=== PATIENT | male | born 1940 | race Caucasian/White ===

== ENCOUNTER → 2017-03-07 | Outpatient (CLI) | payer BC ==
[~2017-03-07] MED LIST: FLUO0.05 TOP; METO50TA7 PO; MULT-506 PO; RIVA1TAB4 PO; ZOLP5TAB PO
[2017-03-07 16:45] LABS: BASO % 0.3 %; BASO ABS # 0.02 K/uL (0-0.2); COMPLETE YES; EOS % 0.7 %; IG% 0.1 %; LYMPH % 29.1 %; LYMPH ABS # 2.11 K/uL (1.2-3.4); MEAN CELL VOLUME 96.8 fL (80-100); MEAN CORPUSCULAR HEMOGLOBIN 32.9 pg (25-34); MEAN PLATELET VOLUME 10.1 fL (7.4-10.4); MONO % 13.3 %; NEUT % 56.5 %; PLATELET COUNT 280 K/uL (130-400); RED BLOOD COUNT 4.34 M/uL (4.7-6.1); WHITE BLOOD COUNT 7.24 K/uL (4.8-10.8)
[2017-03-07 16:54] LABS: BLOOD UREA NITROGEN 11 mg/dl (7-18); CALCIUM 9.2 mg/dl (8.5-10.1); CARBON DIOXIDE 30 mmol/L (21-32); CHLORIDE 95 mmol/L (98-107); GLUCOSE 120 mg/dl (70-99); POTASSIUM 4.3 mmol/L (3.5-5.1); SODIUM 132 mmol/L (136-145)
== END | disposition home or self-care (01) ==
LOC: C.LABBC 14:42
PROVIDERS: ATTEND Family Medicine
DX: I48.91 Unspecified atrial fibrillation (principal); I10 Essential (primary) hypertension

== ENCOUNTER 2023-08-22 14:51 | Inpatient (IN) ==
--- NOTE | 2023-08-22 15:20 | ED Triage Note ---
Date of Service August 22, 2023 Provider in Triage Author: Mary Alice Dick History of Present Illness This patient was briefly evaluated while in triage. An abbreviated physical exam was performed. This patient is a 83-year-old Male who presents to the ED for evaluation of abnormal CXR and labs. The patient saw his PCP and they did labs and CXR and were referred to the ER. His thinks he might have pneumonia. Has been sick for the past 10 days. Has been coughing up a lot of mucous and having SOB. No fevers. CXR showed small bilateral pleural effusions with underlying atelectasis, but no evidence of pneumonia. Blood work not available in our system. Physical Exam GENERAL: Non-toxic and in no acute distress. HEENT: Pupils equal. No obvious scleral icterus. HEART: Regular rate and rhythm. LUNGS: Clear to auscultation. No accessory muscle use. ABDOMEN: Soft, nontender to palpation. NEURO: Alert and oriented. No obvious neurological deficits on quick neuro exam. Initial orders for labs and / or imaging were placed and patient was placed in the waiting area until a bed is available. Please see further documentation for the full ED course. MDM / Impression Impression Impression: CHF (congestive heart failure), Elevated troponin Impression: CHF (congestive heart failure) Qualifiers: Heart failure type: unspecified Heart failure chronicity: unspecified Qualified Code(s): I50.9 - Heart failure, unspecified
[2023-08-22] MEDS ORDERED: SODIUM CHLORIDE 0.9% 500 ML IV STA (15:23)
--- NOTE | 2023-08-22 16:43 | Emergency Department Note ---
Impression & Plan Elevated troponin, CHF (congestive heart failure) ED Provider Note NAME: LILLY SUN AGE: 83 SEX: M : 1940 ARRIVES VIA: Walk-In INFORMANT: Patient ED PROVIDER(S): Figueroa Uriarte DO CHIEF COMPLAINT: possible pneumonia HPI: Patient is an 83-year-old male who presents to the ER for possible pneumonia sent in by PCP with . History is obtained by who notes that he has possible pneumonia. Has had cough and congestion for the past 10 days. Bringing up productive. Patient denies any headache or change in vision. He notes to feeling weak and rundown. He denies any chest pain or shortness of breath. No belly pain. No nausea, vomiting, or diarrhea. No dysuria, urgency, or frequency. ADDITIONAL HISTORY OBTAINED: Per HPI Chronic Medical/Social Conditions Affecting Care: Per HPI PAST MEDICAL HISTORY:See Below PAST SURGICAL HISTORY:See Below FAMILY HISTORY:See Below SOCIAL HISTORY:See Below HOME MEDICATIONS:See Below ALLERGIES:See Below VITALS:See Below PHYSICAL EXAMINATION: GENERAL: Sitting up in chair, alert, well appearing, well nourished, no distress, non-toxic EYE EXAM: normal conjunctiva. OROPHARYNX: no exudate, no erythema, lips, buccal mucosa, and tongue normal and mucous membranes are moist NECK: supple, no nuchal rigidity, no adenopathy, non-tender LUNGS: Clear to auscultation. Normal chest wall mechanics HEART: no murmurs, S1 normal and S2 normal ABDOMEN: abdomen soft, non-tender, normo-active bowel sounds, no masses, no rebound or guarding. UPPER EXTREMITIES: upper extremities are grossly normal. LOWER EXTREMITIES: No pitting edema. NEURO EXAM: Normal sensorium, cranial nerves II-XII grossly intact, normal speech, no gross weakness of arms, no gross weakness of legs. MEDICAL DECISION MAKING: Patient is an 83-year-old male who presents to the ER for above-stated complaint. IV was established blood work is obtained. Labs show no significant leukocytosis or anemia. INR at 1.9. BMP was fairly unremarkable. Troponin was elevated at 28. BNP elevated at nearly 600. Pro-Ramon was normal. Viral panel was negative. Chest x-ray with pleural effusions. Do favor this is secondary to mild CHF although patient was referred in for admission. Initially did cover the patient with Rocephin and azithromycin. Case was discussed with the hospitalist admitted for further workup Consults/Care Managements Discussions: Per [facility] Triage Nursing notes reviewed. Limited review of prior medical records performed Vital Signs: reviewed and remarkable for no significant abnormalities Differential diagnosis: Infection, dehydration, metabolic abnormality, hypo/hyperglycemia, electrolyte disturbance, anemia, hypoxia, cardiac sources, intracerebral event, toxicologic, neurologic, as well as other pathologies. ER treatment provided: See below Diagnostics interpreted by me include EKG and cardiac monitoring as listed below: -Cardiac Monitoring: An order was placed for continuous cardiac monitoring. The monitor shows a rate of 90 with sinus rhythm. -ECG: A-fib rate 97 PVCs T wave inversion in septal leads ST depressions in V3 Poor baseline in the inferior leads QTc 482 ST and T wave changes are new in the septal leads in comparison to previous -Laboratory studies:Interpreted by me as stated above in MDM and shown below. Imaging studies: Xrays: As interpreted by me: Portable AP upright 1 view of the chest shows pleural effusion CTs show: none Procedures:none Critical Care: None Past Med/Surg History Medical History Atrial fibrillation f/u dr. 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 S/P cholecystectomy S/P splenectomy Family History Mother Rheumatoid arthritis Denies family history of Ovarian cancer Prostate cancer Myocardial infarction Breast cancer Colorectal cancer Social History Smoking Status: Never smoker Second Hand Exposure: No; Do You Dip or Chew Tobacco: No; Hx Alcohol Use: Yes Alcohol type: wine Alcohol Intake Frequency: 4 or More x per/Week Alcohol Intake Frequency Comment: with dinner Hx Substance Use: No Preferred Language: Moroccan Communication Ability: Effective Visual Impairment: No Limitations Hearing Ability: Normal Jalousie Installer Required: No Beliefs That Will Affect Care: None marital status: Current Living Situation: Spouse current occupational status: retired 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 How many Children do You have: 4 Feels Safe at Home: Yes Childhood Exposure to Second-Hand Smoke: No Diet: regular Diet Comment: regular caffeine: Yes during the past year weight has: remained stable Dental Care, Regularly: No Physical Activity Frequency: 1-2 Times per Week Seatbelt Use: always Sunscreen Use: No Assistive Devices: Glasses and Hearing Aid - Bilateral Allergies Allergies Allergy/AdvReac Type Severity Reaction Status Date / Time No Known Drug Allergies Allergy Verified 08/02/23 13:06 Home Meds Home Medications Medication Instructions Recorded Confirmed cholecalciferol (vitamin D3) 25 25 mcg PO QAM 10/20/22 08/22/23 mcg (1,000 unit) capsule dutasteride 0.5 mg capsule 0.5 mg PO HS 11/26/22 08/22/23 metoprolol succinate 50 mg 50 mg PO QAM 04/19/23 08/22/23 tablet,extended release 24 hr amoxicillin 875 mg-potassium 1 tab PO Q12H 08/22/23 08/22/23 clavulanate 125 mg tablet azithromycin 500 mg tablet 2,000 mg PO DAILY 08/22/23 08/22/23 multivitamin 1 tab PO QAM 08/22/23 08/22/23 zolpidem 5 mg tablet 5 mg PO HS 08/22/23 08/22/23 Previous Rx's Medication Instructions Recorded rivaroxaban 20 mg tablet (Xarelto) 20 mg PO QAM #90 tabs 11/29/22 Results & Data (ED) Vital Signs Vital Signs - 24 hr 08/22/23 15:19 08/22/23 18:30 08/22/23 18:48 Temperature 36 C L Temperature Source Temporal Artery Scan Pulse Rate 95 H 100 H 97 H Pulse Rate [Apical] Pulse Rhythm Respiratory Rate 20 24 Respiratory Effort / Characteristics Non-Labored Spontaneous Respiratory Depth Normal Respiratory Pattern Regular Blood Pressure 145/93 H 158/130 H Blood Pressure [Right Arm] Blood Pressure Mean 110 139 Blood Pressure Mean [Right Arm] Pulse Oximetry 98 Oxygen Delivery Method Room Air Sepsis Recent Fever Within 48 Hours No Sepsis New/Unexplained Change in Mental Status No Sepsis Action Taken by Nursing No Action Required 08/22/23 18:59 08/22/23 19:14 Temperature Temperature Source Pulse Rate 97 H Pulse Rate [Apical] 91 H Pulse Rhythm Regular Respiratory Rate 24 23 Respiratory Effort / Characteristics Respiratory Depth Normal Respiratory Pattern Blood Pressure Blood Pressure [Right Arm] 168/108 H Blood Pressure Mean Blood Pressure Mean [Right Arm] 128 Pulse Oximetry 98 98 Oxygen Delivery Method Room Air Room Air Sepsis Recent Fever Within 48 Hours Sepsis New/Unexplained Change in Mental Status Sepsis Action Taken by Nursing Laboratory Data 08/22/23 16:21 08/22/23 16:21 Lab Results 08/22/23 08/22/23 08/22/23 Range/Units 16:21 18:43 19:26 WBC 6.83 (4.8-10.8) K/ul RBC 3.83 L (4.70-6.10) M/uL Hgb 13.2 L (14.0-18.0) g/dl Hct 39.6 L (42.0-52.0) % MCV 103.4 H (80.0-100.0) fL MCH 34.5 H (25.0-34.0) pg MCHC 33.3 (32.0-36.0) g/dL RDW Std Deviation 56.0 H (36.4-46.3) fL RDW Coeff of Jian 15.3 H (11.5-14.5) % Plt Count 267 (130-400) K/uL MPV 10.1 (9.4-12.4) fL Immature Gran % (Auto) 0.6 % Neut % (Auto) 72.6 % Lymph % (Auto) 12.3 % Ramsey % (Auto) 13.2 % Eos % (Auto) 1.0 % Baso % (Auto) 0.3 % Neut # (Auto) 4.96 (1.40-6.50) K/uL Lymph # (Auto) 0.84 L (1.20-3.40) K/uL Ramsey # (Auto) 0.90 H (0.11-0.59) K/uL Eos # (Auto) 0.07 (0.00-0.50) K/uL Baso # (Auto) 0.02 (0.00-0.20) K/uL Immature Gran # (Auto) 0.04 (0.01-0.20) K/uL Absolute Nucleated RBC 0.03 (0.00-0.12) K/uL Nucleated RBC % (auto) 0.4 % PT 20.1 H (9.0-12.0) Seconds INR 1.9 H (0.9-1.1) APTT 43 H (21-31) Seconds PTT Ratio 1.5 Sodium 137 (136-145) mmol/L Potassium 4.5 (3.5-5.1) mmol/L Chloride 96 L (98-107) mmol/L Carbon Dioxide 39 H (21-32) mmol/L Anion Gap 2 L (3-11) BUN 23 (6-23) mg/dl Creatinine 0.65 (0.6-1.4) mg/dl Est Cr Clr Drug Dosing 70.9 ml/min Est GFR ( Amer) 104.3 ml/min Est GFR (Non-Af Amer) 90.0 ml/min BUN/Creatinine Ratio 35.4 H (10-20) Glucose 101 H (70-99(Fasting)) mg/dl Lactate 1.8 (0.4-2.0) mmol/L Calcium 9.3 (8.6-10.3) mg/dl Total Bilirubin 0.8 (0.2-1.0) mg/dl AST 37 (13-39) U/L ALT 47 (7-52) U/L Alkaline Phosphatase 124 H (34-104) U/L Troponin I High Sens 28.9 H 28.4 H (0-20) pg/ml B-Natriuretic Peptide 593 H (0-100) pg/ml Total Protein 7.1 (6.0-8.3) gm/dl Albumin 3.6 (3.4-5.0) gm/dl Globulin 3.5 (2.5-4.0) gm/dl Albumin/Globulin Ratio 1.0 (0.9-2) Lipase 25 (11-82) U/L Procalcitonin < 0.05 (0-0.5) ng/ml Adenovirus (PCR) Not Detected (NotDetected) B. pertussis DNA (PCR) Not Detected (NotDetected) B.parapertussis DNA PCR Not Detected (NotDetected) C. pneumoniae DNA (PCR) Not Detected (NotDetected) Coronavirus OC43 (PCR) Not Detected (NotDetected) Coronavirus HKU1 (PCR) Not Detected (NotDetected) Coronavirus 229E (PCR) Not Detected (NotDetected) SARS-CoV-2 (PCR) Not Detected (NotDetected) Coronavirus NL63 (PCR) Not Detected (NotDetected) Human Metapneumovir PCR Not Detected (NotDetected) Influenza Type A (PCR) Not Detected (NotDetected) Influenza Type B (PCR) Not Detected (NotDetected) M. pneumoniae (PCR) Not Detected (NotDetected) Parainfluenza 1 (PCR) Not Detected (NotDetected) Parainfluenza 2 (PCR) Not Detected (NotDetected) Parainfluenza 3 (PCR) Not Detected (NotDetected) Parainfluenza 4 (PCR) Not Detected (NotDetected) RSV (PCR) Not Detected (NotDetected) Entero/Rhino (PCR) Not Detected (NotDetected) Administered Medications Azithromycin 500 mg/ Dextrose 255 mls @ 127.5 mls/hr IV NOW STA Stop: 08/22/23 21:06 Last Admin: 08/22/23 20:22 Dose: 127.5 mls/hr Documented By: DANILO Discontinued Medications Sodium Chloride (Nss) 500 mls @ 999 mls/hr IV .Q31M STA Stop: 08/22/23 15:53 Last Infusion: 08/22/23 18:48 Dose: Infused Documented By: Admin: 08/22/23 16:40 Dose: 999 mls/hr Documented By: DANILO Ceftriaxone Sodium (Rocephin) 2,000 mg in 50 mls @ 100 mls/hr IV NOW STA Stop: 08/22/23 19:36 Last Infusion: 08/22/23 20:08 Dose: Infused Documented By: Admin: 08/22/23 19:22 Dose: 100 mls/hr Documented By: DANILO Imaging Data Radiologist's Impression: Chest X-Ray 08/22/23 16:20 SINGLE VIEW CHEST CLINICAL HISTORY: Dyspnea FINDINGS: A PA chest radiograph is compared to study performed earlier the same day 08/22/2023. Advanced atherosclerotic calcification is noted in the carotid bulbs. The heart is enlarged noting atherosclerotic calcification of the thoracic aorta. There is pulmonary vascular congestion. Chronic interstitial thickening is similar to previous. Moderate space opacities are seen bilaterally. There are small pleural effusions with bibasilar consolidation. No pneumothorax is seen. The skeletal structures are osteopenic. The bony thorax is grossly intact. IMPRESSION: 1. Cardiomegaly with pulmonary vascular congestion. 2. Mild bilateral airspace opacities likely represent pulmonary edema. Correlate clinically from the superimposed infectious/inflammatory pneumonitis. Radiographic follow-up to resolution is recommended. 3. Small pleural effusions with dependent consolidation ACT 112: Negative or not required by law. Electronically signed by: Miguel Rosado M.D. 08/22/2023 5:02 PM Discharge Plan Visit Data Chief Complaint: Referred by Doctor Stated Complaint: WAS TOLD TO COME IN ED Provider: Figueroa Uriarte Discharge Problem: Elevated troponin, CHF (congestive heart failure) Forms Stand Alone Forms: [facility] [employer] Prescriptions Prescriptions: No Action Xarelto 20 mg tablet 20 mg PO QAM Qty: 90 1RF cholecalciferol (vitamin D3) 25 mcg (1,000 unit) capsule 25 mcg PO QAM metoprolol succinate 50 mg tablet extended release 24 hr 50 mg PO QAM dutasteride 0.5 mg capsule 0.5 mg PO HS Rx Instructions: take 1 capsule by mouth daily zolpidem 5 mg tablet 5 mg PO HS multivitamin Tablet 1 tab PO QAM amoxicillin-pot clavulanate 875-125 mg Tablet 1 tab PO Q12H azithromycin 500 mg Tablet 2,000 mg PO DAILY Rx Instructions: take for 3 days Referrals Referrals: Madelaine Cagle MD [Primary Care Provider] - Discharge Problem: CHF (congestive heart failure) Qualifiers: Heart failure type: unspecified Heart failure chronicity: unspecified Qualified Code(s): I50.9 - Heart failure, unspecified
[2023-08-22 16:47] LABS: Basophils # (auto) 0.02 K/uL (0.00-0.20); Basophils % (auto) 0.3 %; Eosinophils # (auto) 0.07 K/uL (0.00-0.50); Hematocrit (blood only) 39.6 % (42.0-52.0); Hemoglobin 13.2 g/dl (14.0-18.0); Immature Granulocytes # (auto) 0.04 K/uL (0.01-0.20); Immature Granulocytes % (auto) 0.6 %; Lymphocytes # (auto) 0.84 K/uL (1.20-3.40); Lymphocytes % (auto) 12.3 %; Mean Corpuscular Hemoglobin 34.5 pg (25.0-34.0); Mean Corpuscular Hgb Conc 33.3 g/dL (32.0-36.0); Mean Corpuscular Volume 103.4 fL (80.0-100.0); Mean Platelet Volume 10.1 fL (9.4-12.4); Monocytes % (auto) 13.2 %; Neutrophils # (auto) 4.96 K/uL (1.40-6.50); Neutrophils % (auto) 72.6 %; Nucleated RBC # (auto) 0.03 K/uL (0.00-0.12); Nucleated RBC % (auto) 0.4 %; Platelet Count 267 K/uL (130-400); RDW Coefficient of Variation 15.3 % (11.5-14.5); Red Blood Count 3.83 M/uL (4.70-6.10); White Blood Count 6.83 K/ul (4.8-10.8)
[2023-08-22 17:01] LABS: Albumin Level 3.6 gm/dl (3.4-5.0); BUN Creatinine Ratio 35.4 (10-20); Bilirubin,Total 0.8 mg/dl (0.2-1.0); Calcium 9.3 mg/dl (8.6-10.3); Creatinine Clr Calc Pharmacy 70.9 ml/min; Est GFR (African American) 104.3 ml/min; Globulin 3.5 gm/dl (2.5-4.0); Potassium 4.5 mmol/L (3.5-5.1); Total Protein 7.1 gm/dl (6.0-8.3)
--- NOTE | 2023-08-22 17:03 | XRay Report ---
SINGLE VIEW CHEST CLINICAL HISTORY: Dyspnea FINDINGS: A PA chest radiograph is compared to study performed earlier the same day 08/22/2023. Advance d atherosclerotic calcification is noted in the carotid bulbs. The heart is enlarged noting atheroscl erotic calcification of the thoracic aorta. There is pulmonary vascular congestion. Chronic interstit ial thickening is similar to previous. Moderate space opacities are seen bilaterally. There are small pleural effusions with bibasilar consolidation. No pneumothorax is seen. The skeletal structures are osteopenic. The bony thorax is grossly intact. IMPRESSION: 1. Cardiomegaly with pulmonary vascular congestion. 2. Mild bilateral airspace opacities likely represent pulmonary edema. Correlate clinically from the superimposed infectious/inflammatory pneumonitis. Radiographic follow-up to resolution is recommended . 3. Small pleural effusions with dependent consolidation ACT 112: Negative or not required by law. Electronically signed by: Miguel Rosado M.D. 08/22/2023 5:02 PM
[2023-08-22 17:06] LABS: Troponin I High Sensitivity 28.9 pg/ml (0-20)
[2023-08-22 17:09] LABS: INR 1.9 (0.9-1.1); Partial Thromboplastin Ratio 1.5; Partial Thromboplastin Time 43 Seconds (21-31); Prothrombin Time 20.1 Seconds (9.0-12.0)
[2023-08-22 17:47] LABS: Adenovirus PCR Not Detected (NotDetected); Bordetella parapertussis PCR Not Detected (NotDetected); Bordetella pertussis PCR Not Detected (NotDetected); Chlamydia pneumoniae PCR Not Detected (NotDetected); Coronavirus 229E PCR Not Detected (NotDetected); Coronavirus CoV-2 (COVID19)PCR Not Detected (NotDetected); Coronavirus HKU1 PCR Not Detected (NotDetected); Coronavirus NL63 PCR Not Detected (NotDetected); Coronavirus OC43PCR Not Detected (NotDetected); Human Metapneumovirus PCR Not Detected (NotDetected); Influenza A PCR Not Detected (NotDetected); Influenza B PCR Not Detected (NotDetected); Mycoplasma pneumoniae PCR Not Detected (NotDetected); Parainfluenza Virus 1 PCR Not Detected (NotDetected); Parainfluenza Virus 2 PCR Not Detected (NotDetected); Parainfluenza Virus 3 PCR Not Detected (NotDetected); Parainfluenza Virus 4 PCR Not Detected (NotDetected); Respiratory Syncytial VirusPCR Not Detected (NotDetected); Rhinovirus/Enterovirus PCR Not Detected (NotDetected)
[2023-08-22] MEDS ORDERED: AZITHROMYCIN 500 MG in DEXTROSE 5% 250 ML IV STA (19:07)
[2023-08-22] MEDS ORDERED: cefTRIAXone SODIUM 2,000 MG/50 ML BAG IV STA (19:07)
[2023-08-22 19:22] LABS: Troponin I High Sensitivity 28.4 pg/ml (0-20)
--- NOTE | 2023-08-22 19:54 | History & Physical Report ---
Date of Service August 22, 2023 Assessment & Plan (1) Pneumonia: (2) Urinary tract infection: (3) Atrial fibrillation with RVR: (4) Atrial fibrillation, permanent: (5) Anticoagulant long-term use: (6) Urinary retention due to benign prostatic hyperplasia: (7) Chronic indwelling Elliott catheter: Plan Bilateral pneumonia- Received ceftriaxone IV and azithromycin IV from the ED Cefepime 2 g IV every 8 hours Azithromycin 500 mg IV daily Duonebs every 4 hours while awake and every 2 hours when necessary. Guaifenesin 12 mg p.o. every 12 hours Tessalon Perles 100 mg p.o. 3 times daily Urinary tract infection/BPH with LUTS/chronic indwelling Elliott catheter- Elliott was most recently changed, 08/18/2023 with normal dipstick UA looks positive in the ED tonight Follow urine culture and sensitivity Antibiotics as above should cover it Continue dutasteride Permanent atrial fibrillation/atrial fibrillation with RVR- Lopressor 5 mg IV x 2, NSS 500 mL IV x 2, metoprolol succinate 50 mg p.o., with repeat in a.m. Additional medications as needed Likely a function of missing his dose of metoprolol this morning, and physiologic stress of infection Continue Xarelto History of Present Illness Chief Complaint: The patient presents to the emergency department with a persistent and progressive productive cough for the past 10 days, accompanied by shortness of breath, dyspnea on exertion, and generalized fatigue and weakness Primary Care Provider: Madelaine Cagle MD The patient is a 89-year-old male with a past medical history including CHF, B12 deficiency, BPH, atrial fibrillation on Xarelto, urinary retention due to BPH, hyponatremia and hypertension. He presents to the emergency department with 10 days of symptoms as noted above. Workup in the emergency department included a BioFire test that was negative, normal CBC with differential and chemistry profile, and INR of 1.9, and imaging suggestive of bilateral pneumonia. From the ED he received the following: Ceftriaxone 2 g IV, azithromycin 500 mg IV and NSS fluid bolus of 500 mL. Allergies Allergy/AdvReac Type Severity Reaction Status Date / Time No Known Drug Allergies Allergy Verified 08/02/23 13:06 Home Medications Medication Instructions Recorded Confirmed Type cholecalciferol (vitamin D3) 25 25 mcg PO QAM 10/20/22 08/22/23 History mcg (1,000 unit) capsule dutasteride 0.5 mg capsule 0.5 mg PO HS 11/26/22 08/22/23 History rivaroxaban 20 mg tablet (Xarelto) 20 mg PO QAM #90 tabs 11/29/22 08/22/23 Rx metoprolol succinate 50 mg 50 mg PO QAM 04/19/23 08/22/23 History tablet,extended release 24 hr amoxicillin 875 mg-potassium 1 tab PO Q12H 08/22/23 08/22/23 History clavulanate 125 mg tablet azithromycin 500 mg tablet 2,000 mg PO DAILY 08/22/23 08/22/23 History multivitamin 1 tab PO QAM 08/22/23 08/22/23 History zolpidem 5 mg tablet 5 mg PO HS 08/22/23 08/22/23 History Past Med/Surg History Medical History Atrial fibrillation f/u dr. 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 S/P cholecystectomy S/P splenectomy Family History Mother Rheumatoid arthritis Denies family history of Ovarian cancer Prostate cancer Myocardial infarction Breast cancer Colorectal cancer Social History Smoking Status: Never smoker Second Hand Exposure: No; Do You Dip or Chew Tobacco: No; Hx Alcohol Use: Yes Alcohol type: wine and hard liquor Alcohol Intake Frequency: 4 or More x per/Week Alcohol Intake Frequency Comment: with dinner Hx Substance Use: No Preferred Language: Bol[place]ian Communication Ability: Effective Visual Impairment: No Limitations Hearing Ability: Normal Special Events Planner Required: No Beliefs That Will Affect Care: None marital status: Current Living Situation: Spouse current occupational status: retired 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 How many Children do You have: 4 Feels Safe at Home: Yes Childhood Exposure to Second-Hand Smoke: No Diet: regular Diet Comment: regular caffeine: Yes during the past year weight has: remained stable Dental Care, Regularly: No Physical Activity Frequency: 1-2 Times per Week Seatbelt Use: always Sunscreen Use: No Assistive Devices: Glasses and Hearing Aid - Bilateral Review of Systems Review of Systems: The patient denies chest pain, palpitations, lower extremity swelling, sore throat, fevers, chills, sweats, nausea, vomiting, diarrhea , constipation, abdominal pain, pelvic pain, blood in urine or stool, dysuria, urinary frequency or urgency, lightheadedness, dizziness, headache, memory loss, loss of consciousness, rash, abnormal bruising or bleeding, imbalance, focal weakness, numbness or tingling in arms or legs, generalized arthralgias or myalgias, back or neck pain, or night sweats. The review of systems is otherwise negative other than for that already noted above, and at least 10 systems have been reviewed. Physical Exam Physical Exam: The patient is awake, alert and oriented 3, well developed and well nourished, normocephalic and atraumatic, lying in bed and in no acute distress. HEENT--PERRL, EOMI, mucous membranes and oropharynx dry. Neck--supple. No JVD. No bruits. Thyroid normal, trachea midline, no adenopathy. Heart--irregularly irregular and tachycardic. No murmurs, rubs or gallops. Lungs--coarse breath sounds bilaterally. No respiratory distress, no accessory muscle use. Abdomen--normal bowel sounds and soft. Nontender. Nondistended Extremities--no cyanosis or clubbing. No edema. Dermatologic--normal skin turgor, normal color, no abnormal lymph nodes, no rash. Neurologic--cranial nerves II through XII grossly intact. Rheumatologic--normal range of motion. Psychiatric--normal affect. Results & Data Results & Data Vital Signs (Past 12 Hours) Vital Signs Temp Pulse Pulse Resp BP BP Pulse Ox 08/22/23 19:14 91 H 23 168/108 H 98 08/22/23 18:59 97 H 24 98 08/22/23 18:48 97 H 24 158/130 H 08/22/23 18:30 100 H 08/22/23 15:19 36 C L 95 H 20 145/93 H 98 O2 Del Method 08/22/23 19:14 Room Air 08/22/23 18:59 Room Air 08/22/23 18:48 08/22/23 18:30 08/22/23 15:19 Room Air Laboratory Results Laboratory Results WBC 6.83 K/ul (4.8-10.8) 08/22/23 16:21 RBC 3.83 M/uL (4.70-6.10) L 08/22/23 16:21 Hgb 13.2 g/dl (14.0-18.0) L 08/22/23 16:21 Hct 39.6 % (42.0-52.0) L 08/22/23 16:21 MCV 103.4 fL (80.0-100.0) H 08/22/23 16:21 MCH 34.5 pg (25.0-34.0) H 08/22/23 16:21 MCHC 33.3 g/dL (32.0-36.0) 08/22/23 16:21 RDW Std Deviation 56.0 fL (36.4-46.3) H 08/22/23 16:21 RDW Coeff of Jian 15.3 % (11.5-14.5) H 08/22/23 16:21 Plt Count 267 K/uL (130-400) 08/22/23 16:21 MPV 10.1 fL (9.4-12.4) 08/22/23 16:21 Immature Gran % (Auto) 0.6 % 08/22/23 16:21 Neut % (Auto) 72.6 % 08/22/23 16:21 Lymph % (Auto) 12.3 % 08/22/23 16:21 [place] % (Auto) 13.2 % 08/22/23 16:21 Eos % (Auto) 1.0 % 08/22/23 16:21 Baso % (Auto) 0.3 % 08/22/23 16:21 Neut # (Auto) 4.96 K/uL (1.40-6.50) 08/22/23 16:21 Lymph # (Auto) 0.84 K/uL (1.20-3.40) L 08/22/23 16:21 [place] # (Auto) 0.90 K/uL (0.11-0.59) H 08/22/23 16:21 Eos # (Auto) 0.07 K/uL (0.00-0.50) 08/22/23 16:21 Baso # (Auto) 0.02 K/uL (0.00-0.20) 08/22/23 16:21 Immature Gran # (Auto) 0.04 K/uL (0.01-0.20) 08/22/23 16:21 Absolute Nucleated RBC 0.03 K/uL (0.00-0.12) 08/22/23 16:21 Nucleated RBC % (auto) 0.4 % 08/22/23 16:21 PT 20.1 Seconds (9.0-12.0) H 08/22/23 16:21 INR 1.9 (0.9-1.1) H 08/22/23 16:21 APTT 43 Seconds (21-31) H 08/22/23 16:21 PTT Ratio 1.5 08/22/23 16:21 Sodium 137 mmol/L (136-145) 08/22/23 16:21 Potassium 4.5 mmol/L (3.5-5.1) 08/22/23 16:21 Chloride 96 mmol/L (98-107) L 08/22/23 16:21 Carbon Dioxide 39 mmol/L (21-32) H 08/22/23 16:21 Anion Gap 2 (3-11) L 08/22/23 16:21 BUN 23 mg/dl (6-23) 08/22/23 16:21 Creatinine 0.65 mg/dl (0.6-1.4) 08/22/23 16:21 Est Cr Clr Drug Dosing 70.9 ml/min 08/22/23 16:21 Est GFR ( Amer) 104.3 ml/min 08/22/23 16:21 Est GFR (Non-Af Amer) 90.0 ml/min 08/22/23 16:21 BUN/Creatinine Ratio 35.4 (10-20) H 08/22/23 16:21 Glucose 101 mg/dl (70-99(Fasting)) H 08/22/23 16:21 Lactate 1.8 mmol/L (0.4-2.0) 08/22/23 16:21 Calcium 9.3 mg/dl (8.6-10.3) 08/22/23 16:21 Magnesium 1.8 mg/dl (1.7-2.4) 08/22/23 18:43 Total Bilirubin 0.8 mg/dl (0.2-1.0) 08/22/23 16:21 AST 37 U/L (13-39) 08/22/23 16:21 ALT 47 U/L (7-52) 08/22/23 16:21 Alkaline Phosphatase 124 U/L (34-104) H 08/22/23 16:21 Troponin I High Sens 28.4 pg/ml (0-20) H 08/22/23 18:43 B-Natriuretic Peptide 593 pg/ml (0-100) H 08/22/23 19:26 Total Protein 7.1 gm/dl (6.0-8.3) 08/22/23 16:21 Albumin 3.6 gm/dl (3.4-5.0) 08/22/23 16:21 Globulin 3.5 gm/dl (2.5-4.0) 08/22/23 16:21 Albumin/Globulin Ratio 1.0 (0.9-2) 08/22/23 16:21 Lipase 25 U/L (11-82) 08/22/23 16:21 Procalcitonin < 0.05 ng/ml (0-0.5) 08/22/23 16:21 Urine Color Yellow 08/23/23 00:40 Urine Appearance Clear (Clear) 08/23/23 00:40 Urine pH 6.0 (4.5-7.5) 08/23/23 00:40 Ur Specific [place] 1.014 (1.000-1.030) 08/23/23 00:40 Urine Protein 2+ (Negative) H 08/23/23 00:40 Urine Glucose (UA) Negative (Negative) 08/23/23 00:40 Urine Ketones Negative (Negative) 08/23/23 00:40 Urine Blood 3+ (Negative) H 08/23/23 00:40 Urine Nitrite Positive (Negative) A 08/23/23 00:40 Urine Bilirubin Negative (Negative) 08/23/23 00:40 Urine Urobilinogen Negative (Negative) 08/23/23 00:40 Ur Leukocyte Esterase 1+ (Negative) H 08/23/23 00:40 Urine WBC (Auto) >30 /hpf (0-5) H 08/23/23 00:40 Urine RBC (Auto) 10-30 /hpf (0-4) H 08/23/23 00:40 U Hyaline Cast (Auto) 1-5 /lpf (0-5) 08/23/23 00:40 U Epithel Cells (Auto) 0-5 /lpf (0-5) 08/23/23 00:40 Urine Bacteria (Auto) 2+ (Negative) H 08/23/23 00:40 Urine Mucus Present (None Prsent) A 08/23/23 00:40 Urine Yeast Not Reportable 08/23/23 00:40 Adenovirus (PCR) Not Detected (NotDetected) 08/22/23 16:21 B. pertussis DNA (PCR) Not Detected (NotDetected) 08/22/23 16:21 B.parapertussis DNA PCR Not Detected (NotDetected) 08/22/23 16:21 C. pneumoniae DNA (PCR) Not Detected (NotDetected) 08/22/23 16:21 Coronavirus OC43 (PCR) Not Detected (NotDetected) 08/22/23 16:21 Coronavirus HKU1 (PCR) Not Detected (NotDetected) 08/22/23 16:21 Coronavirus 229E (PCR) Not Detected (NotDetected) 08/22/23 16:21 SARS-CoV-2 (PCR) Not Detected (NotDetected) 08/22/23 16:21 Coronavirus NL63 (PCR) Not Detected (NotDetected) 08/22/23 16:21 Human Metapneumovir PCR Not Detected (NotDetected) 08/22/23 16:21 Influenza Type A (PCR) Not Detected (NotDetected) 08/22/23 16:21 Influenza Type B (PCR) Not Detected (NotDetected) 08/22/23 16:21 M. pneumoniae (PCR) Not Detected (NotDetected) 08/22/23 16:21 Parainfluenza 1 (PCR) Not Detected (NotDetected) 08/22/23 16:21 Parainfluenza 2 (PCR) Not Detected (NotDetected) 08/22/23 16:21 Parainfluenza 3 (PCR) Not Detected (NotDetected) 01/08/24 16:21 Parainfluenza 4 (PCR) Not Detected (NotDetected) 08/22/23 16:21 RSV (PCR) Not Detected (NotDetected) 08/22/23 16:21 Entero/Rhino (PCR) Not Detected (NotDetected) 08/22/23 16:21 Impressions Chest X-Ray 08/22/23 16:20 SINGLE VIEW CHEST CLINICAL HISTORY: Dyspnea FINDINGS: A PA chest radiograph is compared to study performed earlier the same day 08/22/2023. Advanced atherosclerotic calcification is noted in the carotid bulbs. The heart is enlarged noting atherosclerotic calcification of the thoracic aorta. There is pulmonary vascular congestion. Chronic interstitial thickening is similar to previous. Moderate space opacities are seen bilaterally. There are small pleural effusions with bibasilar consolidation. No pneumothorax is seen. The skeletal structures are osteopenic. The bony thorax is grossly intact. IMPRESSION: 1. Cardiomegaly with pulmonary vascular congestion. 2. Mild bilateral airspace opacities likely represent pulmonary edema. Correlate clinically from the superimposed infectious/inflammatory pneumonitis. Radiographic follow-up to resolution is recommended. 3. Small pleural effusions with dependent consolidation ACT 112: Negative or not required by law. Electronically signed by: Miguel Rosado M.D. 08/22/2023 5:02 PM Code Status & VTE Plan Code Status Full code VTE Prophylaxis Plan VTE Prophylaxis will be ordered: Yes PG Care Time/CCT Total # of Minutes Spent Total Time Spent with Patient: Total time spent is greater than 50% in coordination of care (as documented) at patient's floor/unit and/or counseling patient: Coding Level of Care Code 53987 INT INP/OBS CARE 3/75MIN Diagnoses Pneumonia J18.9 Urinary tract infection N39.0 Atrial fibrillation with RVR I48.91 Atrial fibrillation, permanent I48.21 Anticoagulant long-term use Z79.01 Urinary retention due to benign prostatic hyperplasia N40.1; R33.8 Chronic indwelling Elliott catheter Z97.8
[2023-08-22] MEDS ORDERED: FUROSEMIDE INJ 20 MG/2 ML VIAL IV STA (21:36)
--- NOTE | 2023-08-22 21:36 | Emergency Department Note ---
Impression & Plan CHF (congestive heart failure), Elevated troponin ED Provider Note NAME: LILLY SUN AGE: 83 SEX: M : 1940 ARRIVES VIA: Walk-In INFORMANT: Patient ED PROVIDER(S): Figueroa Uriarte DO CHIEF COMPLAINT: cough HPI: Patient is an 83-year-old male who presents ER with who gives the majority of the history. She notes that he has been having a cough which has been productive over the past 10 days. Patient denies any chest pain or shortness of breath. No belly pain. No nausea vomiting or diarrhea. No dysuria urgency or frequency. Does have a history of A-fib on anticoagulation. He saw his PCP per the and was brought in as he has been slightly more confused and to have a chest x-ray suggesting pneumonia. ADDITIONAL HISTORY OBTAINED: Per HPI Chronic Medical/Social Conditions Affecting Care: Per HPI PAST MEDICAL HISTORY:See Below PAST SURGICAL HISTORY:See Below FAMILY HISTORY:See Below SOCIAL HISTORY:See Below HOME MEDICATIONS:See Below ALLERGIES:See Below VITALS:See Below PHYSICAL EXAMINATION: GENERAL: Sitting up in bed, alert, well appearing, well nourished, no distress, non-toxic EYE EXAM: normal conjunctiva. OROPHARYNX: mucous membranes are moist NECK: supple, no nuchal rigidity, no adenopathy, non-tender LUNGS: Clear to auscultation. Normal chest wall mechanics HEART: no murmurs, S1 normal and S2 normal ABDOMEN: abdomen soft, non-tender, normo-active bowel sounds, no masses, no rebound or guarding. UPPER EXTREMITIES: upper extremities are grossly normal. LOWER EXTREMITIES: No pitting edema. Calves are equal bilaterally NEURO EXAM: Normal sensorium, cranial nerves II-XII grossly intact, normal speech, no gross weakness of arms, no gross weakness of legs. MEDICAL DECISION MAKING: Patient is an 83-year-old male who presents ER for above-stated complaint. IV was established blood work is obtained. Labs show no significant leukocytosis. No anemia. INR slightly subtherapeutic at 1.9. BMP with an elevated CO2 at 39. Lactate was normal. LFTs were unremarkable. Troponin was elevated at 28. BNP elevated at 593. Lipase was normal. Pro-Ramon was normal. Viral panel was negative. Chest x-ray with subtle pleural effusions. Patient was updated bedside. Was covered with azithromycin and Rocephin due to the productive cough initially. Discussed case with the hospitalist for further evaluation management treatment. Patient was given a dose of Lasix. Consults/Care Managements Discussions: Per MDM Triage Nursing notes reviewed. Limited review of prior medical records performed Vital Signs: reviewed and remarkable for htn Differential diagnosis: Differential diagnoses includes but is not limited to pneumonia, bronchitis, COPD/Asthma exacerbation, pneumothorax, pulmonary embolism, congestive heart failure, acute coronary syndrome ER treatment provided: See below Diagnostics interpreted by me include EKG and cardiac monitoring as listed below: -Cardiac Monitoring: An order was placed for continuous cardiac monitoring. The monitor shows a rate of 94 with A-fib rhythm. -ECG: A-fib rate of 97 Normal axis PVCs present T wave inversions in V1 through V3 QTc 482 T wave inversions are new in comparison to previous -Laboratory studies:Interpreted by me as stated above in MDM and shown below. Imaging studies: Xrays: As interpreted by me: Portable AP upright 1 view of the chest shows effusion CTs show: none Procedures:none Critical Care: None Past Med/Surg History Medical History Atrial fibrillation f/u dr. 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 S/P cholecystectomy S/P splenectomy Family History Mother Rheumatoid arthritis Denies family history of Ovarian cancer Prostate cancer Myocardial infarction Breast cancer Colorectal cancer Social History Smoking Status: Never smoker Second Hand Exposure: No; Do You Dip or Chew Tobacco: No; Hx Alcohol Use: Yes Alcohol type: wine Alcohol Intake Frequency: 4 or More x per/Week Alcohol Intake Frequency Comment: with dinner Hx Substance Use: No Preferred Language: Nepalese Communication Ability: Effective Visual Impairment: No Limitations Hearing Ability: Normal Senior Internet Sales Consultant Required: No Beliefs That Will Affect Care: None marital status: Current Living Situation: Spouse current occupational status: retired 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 How many Children do You have: 4 Feels Safe at Home: Yes Childhood Exposure to Second-Hand Smoke: No Diet: regular Diet Comment: regular caffeine: Yes during the past year weight has: remained stable Dental Care, Regularly: No Physical Activity Frequency: 1-2 Times per Week Seatbelt Use: always Sunscreen Use: No Assistive Devices: Glasses and Hearing Aid - Bilateral Allergies Allergies Allergy/AdvReac Type Severity Reaction Status Date / Time No Known Drug Allergies Allergy Verified 08/02/23 13:06 Home Meds Home Medications Medication Instructions Recorded Confirmed cholecalciferol (vitamin D3) 25 25 mcg PO QAM 10/20/22 08/22/23 mcg (1,000 unit) capsule dutasteride 0.5 mg capsule 0.5 mg PO HS 11/26/22 08/22/23 metoprolol succinate 50 mg 50 mg PO QAM 04/19/23 08/22/23 tablet,extended release 24 hr amoxicillin 875 mg-potassium 1 tab PO Q12H 08/22/23 08/22/23 clavulanate 125 mg tablet azithromycin 500 mg tablet 2,000 mg PO DAILY 08/22/23 08/22/23 multivitamin 1 tab PO QAM 08/22/23 08/22/23 zolpidem 5 mg tablet 5 mg PO HS 08/22/23 08/22/23 Previous Rx's Medication Instructions Recorded rivaroxaban 20 mg tablet (Xarelto) 20 mg PO QAM #90 tabs 11/29/22 Results & Data (ED) Vital Signs Vital Signs - 24 hr 08/22/23 15:19 08/22/23 18:30 08/22/23 18:48 Temperature 36 C L Temperature Source Temporal Artery Scan Pulse Rate 95 H 100 H 97 H Pulse Rate [Apical] Pulse Rhythm Respiratory Rate 20 24 Respiratory Effort / Characteristics Non-Labored Spontaneous Respiratory Depth Normal Respiratory Pattern Regular Blood Pressure 145/93 H 158/130 H Blood Pressure [Right Arm] Blood Pressure Mean 110 139 Blood Pressure Mean [Right Arm] Pulse Oximetry 98 Oxygen Delivery Method Room Air Sepsis Recent Fever Within 48 Hours No Sepsis New/Unexplained Change in Mental Status No Sepsis Action Taken by Nursing No Action Required 08/22/23 18:59 08/22/23 19:14 Temperature Temperature Source Pulse Rate 97 H Pulse Rate [Apical] 91 H Pulse Rhythm Regular Respiratory Rate 24 23 Respiratory Effort / Characteristics Respiratory Depth Normal Respiratory Pattern Blood Pressure Blood Pressure [Right Arm] 168/108 H Blood Pressure Mean Blood Pressure Mean [Right Arm] 128 Pulse Oximetry 98 98 Oxygen Delivery Method Room Air Room Air Sepsis Recent Fever Within 48 Hours Sepsis New/Unexplained Change in Mental Status Sepsis Action Taken by Nursing Laboratory Data 08/22/23 16:21 08/22/23 16:21 Lab Results 08/22/23 08/22/23 08/22/23 Range/Units 16:21 18:43 19:26 WBC 6.83 (4.8-10.8) K/ul RBC 3.83 L (4.70-6.10) M/uL Hgb 13.2 L (14.0-18.0) g/dl Hct 39.6 L (42.0-52.0) % MCV 103.4 H (80.0-100.0) fL MCH 34.5 H (25.0-34.0) pg MCHC 33.3 (32.0-36.0) g/dL RDW Std Deviation 56.0 H (36.4-46.3) fL RDW Coeff of Jian 15.3 H (11.5-14.5) % Plt Count 267 (130-400) K/uL MPV 10.1 (9.4-12.4) fL Immature Gran % (Auto) 0.6 % Neut % (Auto) 72.6 % Lymph % (Auto) 12.3 % [place] % (Auto) 13.2 % Eos % (Auto) 1.0 % Baso % (Auto) 0.3 % Neut # (Auto) 4.96 (1.40-6.50) K/uL Lymph # (Auto) 0.84 L (1.20-3.40) K/uL [place] # (Auto) 0.90 H (0.11-0.59) K/uL Eos # (Auto) 0.07 (0.00-0.50) K/uL Baso # (Auto) 0.02 (0.00-0.20) K/uL Immature Gran # (Auto) 0.04 (0.01-0.20) K/uL Absolute Nucleated RBC 0.03 (0.00-0.12) K/uL Nucleated RBC % (auto) 0.4 % PT 20.1 H (9.0-12.0) Seconds INR 1.9 H (0.9-1.1) APTT 43 H (21-31) Seconds PTT Ratio 1.5 Sodium 137 (136-145) mmol/L Potassium 4.5 (3.5-5.1) mmol/L Chloride 96 L (98-107) mmol/L Carbon Dioxide 39 H (21-32) mmol/L Anion Gap 2 L (3-11) BUN 23 (6-23) mg/dl Creatinine 0.65 (0.6-1.4) mg/dl Est Cr Clr Drug Dosing 70.9 ml/min Est GFR ( Amer) 104.3 ml/min Est GFR (Non-Af Amer) 90.0 ml/min BUN/Creatinine Ratio 35.4 H (10-20) Glucose 101 H (70-99(Fasting)) mg/dl Lactate 1.8 (0.4-2.0) mmol/L Calcium 9.3 (8.6-10.3) mg/dl Total Bilirubin 0.8 (0.2-1.0) mg/dl AST 37 (13-39) U/L ALT 47 (7-52) U/L Alkaline Phosphatase 124 H (34-104) U/L Troponin I High Sens 28.9 H 28.4 H (0-20) pg/ml B-Natriuretic Peptide 593 H (0-100) pg/ml Total Protein 7.1 (6.0-8.3) gm/dl Albumin 3.6 (3.4-5.0) gm/dl Globulin 3.5 (2.5-4.0) gm/dl Albumin/Globulin Ratio 1.0 (0.9-2) Lipase 25 (11-82) U/L Procalcitonin < 0.05 (0-0.5) ng/ml Adenovirus (PCR) Not Detected (NotDetected) B. pertussis DNA (PCR) Not Detected (NotDetected) B.parapertussis DNA PCR Not Detected (NotDetected) C. pneumoniae DNA (PCR) Not Detected (NotDetected) Coronavirus OC43 (PCR) Not Detected (NotDetected) Coronavirus HKU1 (PCR) Not Detected (NotDetected) Coronavirus 229E (PCR) Not Detected (NotDetected) SARS-CoV-2 (PCR) Not Detected (NotDetected) Coronavirus NL63 (PCR) Not Detected (NotDetected) Human Metapneumovir PCR Not Detected (NotDetected) Influenza Type A (PCR) Not Detected (NotDetected) Influenza Type B (PCR) Not Detected (NotDetected) M. pneumoniae (PCR) Not Detected (NotDetected) Parainfluenza 1 (PCR) Not Detected (NotDetected) Parainfluenza 2 (PCR) Not Detected (NotDetected) Parainfluenza 3 (PCR) Not Detected (NotDetected) Parainfluenza 4 (PCR) Not Detected (NotDetected) RSV (PCR) Not Detected (NotDetected) Entero/Rhino (PCR) Not Detected (NotDetected) Administered Medications Discontinued Medications Sodium Chloride (Nss) 500 mls @ 999 mls/hr IV .Q31M STA Stop: 08/22/23 15:53 Last Infusion: 08/22/23 18:48 Dose: Infused Documented By: Admin: 08/22/23 16:40 Dose: 999 mls/hr Documented By: DANILO Ceftriaxone Sodium (Rocephin) 2,000 mg in 50 mls @ 100 mls/hr IV NOW STA Stop: 08/22/23 19:36 Last Infusion: 08/22/23 20:08 Dose: Infused Documented By: Admin: 08/22/23 19:22 Dose: 100 mls/hr Documented By: DANILO Azithromycin 500 mg/ Dextrose 255 mls @ 127.5 mls/hr IV NOW STA Stop: 08/22/23 21:06 Last Admin: 08/22/23 20:22 Dose: 127.5 mls/hr Documented By: DANILO Imaging Data Radiologist's Impression: Chest X-Ray 08/22/23 16:20 SINGLE VIEW CHEST CLINICAL HISTORY: Dyspnea FINDINGS: A PA chest radiograph is compared to study performed earlier the same day 08/22/2023. Advanced atherosclerotic calcification is noted in the carotid bulbs. The heart is enlarged noting atherosclerotic calcification of the thoracic aorta. There is pulmonary vascular congestion. Chronic interstitial thickening is similar to previous. Moderate space opacities are seen bilaterally. There are small pleural effusions with bibasilar consolidation. No pneumothorax is seen. The skeletal structures are osteopenic. The bony thorax is grossly intact. IMPRESSION: 1. Cardiomegaly with pulmonary vascular congestion. 2. Mild bilateral airspace opacities likely represent pulmonary edema. Correlate clinically from the superimposed infectious/inflammatory pneumonitis. Radiographic follow-up to resolution is recommended. 3. Small pleural effusions with dependent consolidation ACT 112: Negative or not required by law. Electronically signed by: Miguel Rosado M.D. 08/22/2023 5:02 PM Discharge Plan Visit Data Chief Complaint: Referred by Doctor Stated Complaint: WAS TOLD TO COME IN ED Provider: Figueroa Uriarte Discharge Problem: CHF (congestive heart failure), Elevated troponin Forms Stand Alone Forms: My [facility] Cover Prescriptions Prescriptions: No Action Xarelto 20 mg tablet 20 mg PO QAM Qty: 90 1RF cholecalciferol (vitamin D3) 25 mcg (1,000 unit) capsule 25 mcg PO QAM metoprolol succinate 50 mg tablet extended release 24 hr 50 mg PO QAM dutasteride 0.5 mg capsule 0.5 mg PO HS Rx Instructions: take 1 capsule by mouth daily zolpidem 5 mg tablet 5 mg PO HS multivitamin Tablet 1 tab PO QAM amoxicillin-pot clavulanate 875-125 mg Tablet 1 tab PO Q12H azithromycin 500 mg Tablet 2,000 mg PO DAILY Rx Instructions: take for 3 days Referrals Referrals: Madelaine Cagle MD [Primary Care Provider] - Discharge Problem: CHF (congestive heart failure) Qualifiers: Heart failure type: unspecified Heart failure chronicity: unspecified Qualified Code(s): I50.9 - Heart failure, unspecified
[2023-08-22] MEDS ORDERED: ONDANSETRON INJ 2 MG/ML 2 ML VIAL IV PRN (22:18)
[2023-08-22] MEDS ORDERED: NSS + 20MEQ KCL 20 MEQ/1,000 ML BAG IV SCH (22:45)
[2023-08-22] MEDS: guaiFENesin 600 MG TABCR PO SCH (23:27)
[2023-08-22] MEDS: BENZONATATE 100 MG CAPSULE PO SCH (23:27)
[2023-08-22] MEDS: FINASTERIDE 5 MG TAB PO SCH (23:27)
[2023-08-23] MEDS ORDERED: METOPROLOL TARTRATE 1 MG/ML VIAL IV STA ×2 (00:25→02:49)
[2023-08-23] MEDS: ZOLPIDEM TARTRATE 5 MG TAB PO SCH ×2 (00:46→19:50)
[2023-08-23 01:01] LABS: Appearance Urine Clear (Clear); Bacteria Urine Automated 2+ (Negative); Bilirubin Urine Negative (Negative); Blood Urine 3+ (Negative); Color Urine Yellow; Epithelial Cell Urine Auto 0-5 /lpf (0-5); Glucose Urine UA Negative (Negative); Ketones Urine Negative (Negative); Leukocyte Esterase Urine 1+ (Negative); Nitrite Urine Positive (Negative); Protein Urine 2+ (Negative); Specific Gravity Urine 1.014 (1.000-1.030); Urobilinogen Urine Negative (Negative); WBC Urine Automated >30 /hpf (0-5)
[2023-08-23 01:18] LABS: Mucus Urine Present (None Prsent)
[2023-08-23] MEDS ORDERED: SODIUM CHLORIDE 0.9% 500 ML IV ONE (02:49)
[2023-08-23] MEDS ORDERED: METOPROLOL SUCC 50MG EXT REL TAB PO STA (02:49)
[2023-08-23 03:15] LABS: Magnesium 1.8 mg/dl (1.7-2.4)
[2023-08-23] MEDS: CEFEPIME 2,000 MG in SYRINGE 0 ML IV SCH ×3 (05:46→21:06)
[2023-08-23 06:39] LABS: Basophils # (auto) 0.03 K/uL (0.00-0.20); Basophils % (auto) 0.5 %; Eosinophils # (auto) 0.07 K/uL (0.00-0.50); Eosinophils % (auto) 1.1 %; Hematocrit (blood only) 38.2 % (42.0-52.0); Hemoglobin 12.5 g/dl (14.0-18.0); Immature Granulocytes # (auto) 0.03 K/uL (0.01-0.20); Immature Granulocytes % (auto) 0.5 %; Lymphocytes # (auto) 0.68 K/uL (1.20-3.40); Lymphocytes % (auto) 10.6 %; Mean Corpuscular Hemoglobin 34.2 pg (25.0-34.0); Mean Corpuscular Hgb Conc 32.7 g/dL (32.0-36.0); Mean Corpuscular Volume 104.4 fL (80.0-100.0); Mean Platelet Volume 9.5 fL (9.4-12.4); Monocytes # (auto) 0.84 K/uL (0.11-0.59); Monocytes % (auto) 13.1 %; Neutrophils # (auto) 4.78 K/uL (1.40-6.50); Neutrophils % (auto) 74.2 %; Nucleated RBC # (auto) 0.03 K/uL (0.00-0.12); Nucleated RBC % (auto) 0.5 %; Platelet Count 239 K/uL (130-400); RDW Coefficient of Variation 15.4 % (11.5-14.5); RDW Standard Deviation 58.3 fL (36.4-46.3); Red Blood Count 3.66 M/uL (4.70-6.10); White Blood Count 6.43 K/ul (4.8-10.8)
[2023-08-23] MEDS: ALBUT/IPRATROP 3MG/0.5MG NEB 3 ML VIAL NEB SCH ×4 (07:37→20:31)
[2023-08-23] MEDS: BENZONATATE 100 MG CAPSULE PO SCH ×3 (09:10→19:48)
[2023-08-23] MEDS: CHOLECALCIFEROL 1,000 UNITS 25 MCG TAB PO SCH (09:10)
[2023-08-23] MEDS: METOPROLOL SUCC 50MG EXT REL TAB PO SCH (09:10)
[2023-08-23] MEDS: RIVAROXABAN 20 MG TAB PO SCH (09:10)
[2023-08-23] MEDS: MULTIVITAMIN TAB PO SCH (09:10)
[2023-08-23] MEDS: guaiFENesin 600 MG TABCR PO SCH ×2 (09:11→19:46)
--- NOTE | 2023-08-23 12:03 | Electrocardiogram Report ---
Test Reason : Blood Pressure : / mmHG Vent. Rate : 097 BPM Atrial Rate : 000 BPM P-R Int : 000 ms QRS Dur : 096 ms QT Int : 380 ms P-R-T Axes : 000 083 073 degrees QTc Int : 482 ms Atrial fibrillation with premature ventricular or aberrantly conducted complexes Poor R wave progression, consider anterior [place] vs. lead placement vs. LVH Abnormal ECG When compared with ECG of 11-JAN-2016 12:13, HR has decreased by 30 bpm Atrial fibrillation has replaced Atrial flutter Minimal criteria for Inferior infarct are no longer Present Confirmed by Tonio Kennedy ([id number]) on 08/23/2023 12:03:24 PM Referred By: REFERRED SELF Confirmed By:Tonio Kennedy
--- NOTE | 2023-08-23 16:03 | Hospitalist Progress Note ---
Date of Service August 23, 2023 Assessment & Plan (1) Pneumonia: (2) Urinary tract infection: (3) Atrial fibrillation with RVR: (4) Atrial fibrillation, permanent: (5) Anticoagulant long-term use: (6) Urinary retention due to benign prostatic hyperplasia: (7) Chronic indwelling Elliott catheter: Plan Bilateral pneumonia- Cefepime 2 g IV every 8 hours Azithromycin 500 mg IV daily Duonebs every 4 hours while awake and every 2 hours when necessary. Guaifenesin 12 mg p.o. every 12 hours Tessalon Perles 100 mg p.o. 3 times daily Improving clinically PT and OT consulted Unlikely CHF as the patient is clinically responding to IV antibiotics. Catheter associated urinary tract infection/BPH with LUTS/complicated UTI in the setting of chronic indwelling catheter Elliott was most recently changed, 08/18/2023 with normal dipstick UA looks positive in the ED tonight Follow urine culture and sensitivity Antibiotics as above should cover it Continue dutasteride Permanent atrial fibrillation/atrial fibrillation with RVR- Lopressor 5 mg IV x 2, NSS 500 mL IV x 2, metoprolol succinate 50 mg p.o., with repeat in a.m. Additional medications as needed Likely a function of missing his dose of metoprolol this morning, and physiologic stress of infection Continue Xarelto Heart rate controlled today Admission and Anticipated Discharge Date Admission Date: August 22, 2023 Subjective Patient feels better overall. Denies chest pain or shortness of breath. Still weak in general. Breathing better. Review of Systems Review of Systems: All systems reviewed & are unremarkable except as noted in Subjective Physical Exam Physical Exam: General: Awake, conversant Heart: S1, S2/regular rate and rhythm, no murmur rubs or gallops Lungs: Clear to auscultation bilaterally. Normal effort Abdomen: Soft/nontender/nondistended. No hepatosplenomegaly Extremities: No clubbing/cyanosis. No edema Behavior: Appropriate, cooperative Results & Data Results & Data Vital Signs (Past 12 Hours) Vital Signs Temp Pulse Pulse Resp BP Pulse Ox O2 Del Method 08/23/23 14:49 77 18 94 Room Air 08/23/23 13:01 36.3 C L 100 H 16 150/90 H 94 Room Air 08/23/23 10:20 99 H 18 94 Nasal Cannula 08/23/23 08:01 36.3 C L 87 16 91 Nasal Cannula 08/23/23 08:00 Nasal Cannula 08/23/23 07:37 100 H 18 92 Nasal Cannula 08/23/23 04:30 88 154/108 H O2 Flow Rate 08/23/23 14:49 08/23/23 13:01 08/23/23 10:20 2 08/23/23 08:01 2 08/23/23 08:00 2 08/23/23 07:37 2 08/23/23 04:30 Laboratory Results Abnormal lab results 08/22/23 08/22/23 08/22/23 Range/Units 16:21 18:43 19:26 RBC 3.83 L (4.70-6.10) M/uL Hgb 13.2 L (14.0-18.0) g/dl Hct 39.6 L (42.0-52.0) % MCV 103.4 H (80.0-100.0) fL MCH 34.5 H (25.0-34.0) pg RDW Std Deviation 56.0 H (36.4-46.3) fL RDW Coeff of Jian 15.3 H (11.5-14.5) % Lymph # (Auto) 0.84 L (1.20-3.40) K/uL [place] # (Auto) 0.90 H (0.11-0.59) K/uL PT 20.1 H (9.0-12.0) Seconds INR 1.9 H (0.9-1.1) APTT 43 H (21-31) Seconds Chloride 96 L (98-107) mmol/L Carbon Dioxide 39 H (21-32) mmol/L Anion Gap 2 L (3-11) BUN/Creatinine Ratio 35.4 H (10-20) Glucose 101 H (70-99(Fasting)) mg/dl Alkaline Phosphatase 124 H (34-104) U/L Troponin I High Sens 28.9 H 28.4 H (0-20) pg/ml B-Natriuretic Peptide 593 H (0-100) pg/ml Urine Protein (Negative) Urine Blood (Negative) Urine Nitrite (Negative) Ur Leukocyte Esterase (Negative) Urine WBC (Auto) (0-5) /hpf Urine RBC (Auto) (0-4) /hpf Urine Bacteria (Auto) (Negative) Urine Mucus (None Prsent) 08/23/23 08/23/23 Range/Units 00:40 06:10 RBC 3.66 L (4.70-6.10) M/uL Hgb 12.5 L (14.0-18.0) g/dl Hct 38.2 L (42.0-52.0) % MCV 104.4 H (80.0-100.0) fL MCH 34.2 H (25.0-34.0) pg RDW Std Deviation 58.3 H (36.4-46.3) fL RDW Coeff of Jian 15.4 H (11.5-14.5) % Lymph # (Auto) 0.68 L (1.20-3.40) K/uL [facility] # (Auto) 0.84 H (0.11-0.59) K/uL PT (9.0-12.0) Seconds INR (0.9-1.1) APTT (21-31) Seconds Chloride (98-107) mmol/L Carbon Dioxide (21-32) mmol/L Anion Gap (3-11) BUN/Creatinine Ratio (10-20) Glucose (70-99(Fasting)) mg/dl Alkaline Phosphatase (34-104) U/L Troponin I High Sens (0-20) pg/ml B-Natriuretic Peptide (0-100) pg/ml Urine Protein 2+ H (Negative) Urine Blood 3+ H (Negative) Urine Nitrite Positive A (Negative) Ur Leukocyte Esterase 1+ H (Negative) Urine WBC (Auto) >30 H (0-5) /hpf Urine RBC (Auto) 10-30 H (0-4) /hpf Urine Bacteria (Auto) 2+ H (Negative) Urine Mucus Present A (None Prsent) Diagnostic Findings Chest X-Ray 08/22/23 16:20 SINGLE VIEW CHEST CLINICAL HISTORY: Dyspnea FINDINGS: A PA chest radiograph is compared to study performed earlier the same day 08/22/2023. Advanced atherosclerotic calcification is noted in the carotid bulbs. The heart is enlarged noting atherosclerotic calcification of the thoracic aorta. There is pulmonary vascular congestion. Chronic interstitial thickening is similar to previous. Moderate space opacities are seen bilaterally. There are small pleural effusions with bibasilar consolidation. No pneumothorax is seen. The skeletal structures are osteopenic. The bony thorax is grossly intact. IMPRESSION: 1. Cardiomegaly with pulmonary vascular congestion. 2. Mild bilateral airspace opacities likely represent pulmonary edema. Correlate clinically from the superimposed infectious/inflammatory pneumonitis. Radiographic follow-up to resolution is recommended. 3. Small pleural effusions with dependent consolidation ACT 112: Negative or not required by law. Electronically signed by: Miguel Rosado M.D. 08/22/2023 5:02 PM PG Care Time/CCT Total # of Minutes Spent Total Time Spent with Patient: Total time spent is greater than 50% in coordination of care (as documented) at patient's floor/unit and/or counseling patient: Coding Level of Care Code 41799 SUB INP/OBS CARE 2/35MIN Diagnoses Pneumonia J18.9 Urinary tract infection N39.0 Atrial fibrillation with RVR I48.91 Atrial fibrillation, permanent I48.21 Anticoagulant long-term use Z79.01 Urinary retention due to benign prostatic hyperplasia N40.1; R33.8 Chronic indwelling Elliott catheter Z97.8
[2023-08-23] MEDS: FINASTERIDE 5 MG TAB PO SCH (19:46)
[2023-08-23] MEDS: AZITHROMYCIN 500 MG in DEXTROSE 5% 250 ML IV SCH (19:48)
[2023-08-24] MEDS: CEFEPIME 2,000 MG in SYRINGE 0 ML IV SCH ×3 (05:04→20:52)
[2023-08-24] MEDS: ALBUT/IPRATROP 3MG/0.5MG NEB 3 ML VIAL NEB SCH ×4 (07:24→20:30)
[2023-08-24 07:31] LABS: Basophils # (auto) 0.03 K/uL (0.00-0.20); Basophils % (auto) 0.5 %; Eosinophils # (auto) 0.05 K/uL (0.00-0.50); Eosinophils % (auto) 0.8 %; Hematocrit (blood only) 36.7 % (42.0-52.0); Hemoglobin 12.2 g/dl (14.0-18.0); Immature Granulocytes # (auto) 0.02 K/uL (0.01-0.20); Immature Granulocytes % (auto) 0.3 %; Lymphocytes # (auto) 0.71 K/uL (1.20-3.40); Lymphocytes % (auto) 11.8 %; Mean Corpuscular Hemoglobin 33.4 pg (25.0-34.0); Mean Corpuscular Hgb Conc 33.2 g/dL (32.0-36.0); Mean Corpuscular Volume 100.5 fL (80.0-100.0); Monocytes # (auto) 0.79 K/uL (0.11-0.59); Monocytes % (auto) 13.1 %; Neutrophils # (auto) 4.44 K/uL (1.40-6.50); Neutrophils % (auto) 73.5 %; Nucleated RBC # (auto) 0.02 K/uL (0.00-0.12); Nucleated RBC % (auto) 0.3 %; Platelet Count 230 K/uL (130-400); RDW Coefficient of Variation 15.1 % (11.5-14.5); RDW Standard Deviation 55.8 fL (36.4-46.3); Red Blood Count 3.65 M/uL (4.70-6.10); White Blood Count 6.04 K/ul (4.8-10.8)
[2023-08-24 07:57] LABS: BUN Creatinine Ratio 33.9 (10-20); Creatinine Clr Calc Pharmacy 112.7 ml/min; Est GFR (African American) 110.9 ml/min; Est GFR (Non-African American) 95.7 ml/min; Magnesium 1.7 mg/dl (1.7-2.4); Potassium 4.5 mmol/L (3.5-5.1)
[2023-08-24] MEDS: guaiFENesin 600 MG TABCR PO SCH ×2 (09:21→20:47)
[2023-08-24] MEDS: CHOLECALCIFEROL 1,000 UNITS 25 MCG TAB PO SCH (09:21)
[2023-08-24] MEDS: BENZONATATE 100 MG CAPSULE PO SCH ×3 (09:22→20:47)
[2023-08-24] MEDS: MULTIVITAMIN TAB PO SCH (09:22)
[2023-08-24] MEDS: RIVAROXABAN 20 MG TAB PO SCH (09:22)
[2023-08-24] MEDS: METOPROLOL SUCC 50MG EXT REL TAB PO SCH (09:22)
--- NOTE | 2023-08-24 15:53 | Hospitalist Progress Note ---
Date of Service August 24, 2023 Assessment & Plan (1) Pneumonia: (2) Urinary tract infection: (3) Atrial fibrillation with RVR: (4) Atrial fibrillation, permanent: (5) Anticoagulant long-term use: (6) Urinary retention due to benign prostatic hyperplasia: (7) Chronic indwelling Elliott catheter: Plan Bilateral pneumonia- Cefepime 2 g IV every 8 hours Azithromycin 500 mg IV daily Duonebs every 4 hours while awake and every 2 hours when necessary. Guaifenesin 12 mg p.o. every 12 hours Tessalon Perles 100 mg p.o. 3 times daily Improving clinically PT and OT consulted Unlikely CHF as the patient is clinically responding to IV antibiotics although it was noted that the patient was given 20 mg of IV Lasix in the emergency room. He was noted to have an elevated BNP in the 500s range and his chest x-ray showed bilateral infiltrates and his procalcitonin level was normal. Check echocardiogram to evaluate for CHF. Other than that IV Lasix in the emergency room, he has not received any more diuretics and has continued to feel well. Check rest and exercise tomorrow Catheter associated urinary tract infection/BPH with LUTS/complicated UTI in the setting of chronic indwelling catheter Elliott was most recently changed, 08/18/2023 with normal dipstick UA looks positive in the ED tonight Urine culture growing gram-negative rods and gram-positive cocci Antibiotics as above should cover it Continue dutasteride Permanent atrial fibrillation/atrial fibrillation with RVR- Lopressor 5 mg IV x 2, NSS 500 mL IV x 2, metoprolol succinate 50 mg p.o. Likely a function of missing his dose of metoprolol this morning, and physiologic stress of infection Continue Xarelto Heart rate controlled now Admission and Anticipated Discharge Date Admission Date: August 22, 2023 Subjective Patient says that he is not short of breath today. He feels better overall. Review of Systems Review of Systems: All systems reviewed & are unremarkable except as noted in Subjective Physical Exam Physical Exam: General: Awake, conversant Heart: S1, S2/regular rate and rhythm, no murmur rubs or gallops Lungs: Clear to auscultation bilaterally. Normal effort Abdomen: Soft/nontender/nondistended. No hepatosplenomegaly Extremities: No clubbing/cyanosis. No edema Behavior: Appropriate, cooperative Results & Data Results & Data Vital Signs (Past 12 Hours) Vital Signs Temp Pulse Pulse Resp BP BP Pulse Ox 08/24/23 15:16 65 18 90 08/24/23 11:22 36.6 C 102 H 18 124/81 90 08/24/23 11:21 83 18 90 08/24/23 08:00 08/24/23 07:54 36.8 C 105 H 18 144/98 H 92 08/24/23 07:28 123 H 08/24/23 07:24 95 H 18 80 L O2 Del Method O2 Flow Rate 08/24/23 15:16 Room Air 08/24/23 11:22 Room Air 08/24/23 11:21 Room Air 08/24/23 08:00 Room Air 08/24/23 07:54 Oxymask 2 08/24/23 07:28 08/24/23 07:24 Room Air Laboratory Results Abnormal lab results 08/24/23 Range/Units 06:54 RBC 3.65 L (4.70-6.10) M/uL Hgb 12.2 L (14.0-18.0) g/dl Hct 36.7 L (42.0-52.0) % MCV 100.5 H (80.0-100.0) fL RDW Std Deviation 55.8 H (36.4-46.3) fL RDW Coeff of Jian 15.1 H (11.5-14.5) % Lymph # (Auto) 0.71 L (1.20-3.40) K/uL [place] # (Auto) 0.79 H (0.11-0.59) K/uL Chloride 97 L (98-107) mmol/L Carbon Dioxide 35 H (21-32) mmol/L Creatinine 0.56 L (0.6-1.4) mg/dl BUN/Creatinine Ratio 33.9 H (10-20) PG Care Time/CCT Total # of Minutes Spent Total Time Spent with Patient: Total time spent is greater than 50% in coordination of care (as documented) at patient's floor/unit and/or counseling patient: Coding Level of Care Code 21175 SUB INP/OBS CARE 2/35MIN Diagnoses Pneumonia J18.9 Urinary tract infection N39.0 Atrial fibrillation with RVR I48.91 Atrial fibrillation, permanent I48.21 Anticoagulant long-term use Z79.01 Urinary retention due to benign prostatic hyperplasia N40.1; R33.8 Chronic indwelling Elliott catheter Z97.8
--- NOTE | 2023-08-24 18:26 | XCELERA ---
[id number]
[2023-08-24] MEDS: FINASTERIDE 5 MG TAB PO SCH (20:47)
[2023-08-24] MEDS: AZITHROMYCIN 500 MG in DEXTROSE 5% 250 ML IV SCH (20:47)
[2023-08-24] MEDS: ZOLPIDEM TARTRATE 5 MG TAB PO SCH (20:52)
[2023-08-25] MEDS: CEFEPIME 2,000 MG in SYRINGE 0 ML IV SCH ×3 (05:56→22:31)
[2023-08-25 06:18] LABS: Basophils # (auto) 0.03 K/uL (0.00-0.20); Basophils % (auto) 0.5 %; Eosinophils # (auto) 0.11 K/uL (0.00-0.50); Eosinophils % (auto) 1.8 %; Hematocrit (blood only) 36.5 % (42.0-52.0); Hemoglobin 12.4 g/dl (14.0-18.0); Immature Granulocytes # (auto) 0.04 K/uL (0.01-0.20); Immature Granulocytes % (auto) 0.6 %; Lymphocytes # (auto) 0.76 K/uL (1.20-3.40); Lymphocytes % (auto) 12.2 %; Mean Corpuscular Hemoglobin 33.9 pg (25.0-34.0); Mean Corpuscular Volume 99.7 fL (80.0-100.0); Mean Platelet Volume 10.1 fL (9.4-12.4); Monocytes # (auto) 0.84 K/uL (0.11-0.59); Monocytes % (auto) 13.4 %; Neutrophils # (auto) 4.47 K/uL (1.40-6.50); Neutrophils % (auto) 71.5 %; Nucleated RBC # (auto) 0.03 K/uL (0.00-0.12); Nucleated RBC % (auto) 0.5 %; Platelet Count 228 K/uL (130-400); RDW Coefficient of Variation 15.1 % (11.5-14.5); RDW Standard Deviation 54.9 fL (36.4-46.3); Red Blood Count 3.66 M/uL (4.70-6.10); White Blood Count 6.25 K/ul (4.8-10.8)
[2023-08-25 06:20] LABS: BUN Creatinine Ratio 31.6 (10-20); Creatinine Clr Calc Pharmacy 110.7 ml/min; Est GFR (African American) 110.1 ml/min; Magnesium 1.7 mg/dl (1.7-2.4); Potassium 4.5 mmol/L (3.5-5.1)
[2023-08-25] MEDS: ALBUT/IPRATROP 3MG/0.5MG NEB 3 ML VIAL NEB SCH ×4 (07:49→18:36)
[2023-08-25] MEDS: guaiFENesin 600 MG TABCR PO SCH ×2 (09:45→20:29)
[2023-08-25] MEDS: BENZONATATE 100 MG CAPSULE PO SCH ×3 (09:45→20:29)
[2023-08-25] MEDS: RIVAROXABAN 20 MG TAB PO SCH (09:46)
[2023-08-25] MEDS: METOPROLOL SUCC 50MG EXT REL TAB PO SCH (09:46)
[2023-08-25] MEDS: MULTIVITAMIN TAB PO SCH (09:46)
[2023-08-25] MEDS: CHOLECALCIFEROL 1,000 UNITS 25 MCG TAB PO SCH (09:46)
[2023-08-25] MEDS ORDERED: METOPROLOL TARTRATE 1 MG/ML VIAL IV STA (13:55)
--- NOTE | 2023-08-25 13:59 | Hospitalist Progress Note ---
Date of Service August 25, 2023 Assessment & Plan (1) Pneumonia: (2) Urinary tract infection: (3) Atrial fibrillation with RVR: (4) Atrial fibrillation, permanent: (5) Anticoagulant long-term use: (6) Urinary retention due to benign prostatic hyperplasia: (7) Chronic indwelling Elliott catheter: Plan Bilateral pneumonia- Cefepime 2 g IV every 8 hours Azithromycin 500 mg IV daily Duonebs every 4 hours while awake and every 2 hours when necessary. Guaifenesin 12 mg p.o. every 12 hours Tessalon Perles 100 mg p.o. 3 times daily Improving clinically PT and OT recommended rehab Unlikely CHF as the patient is clinically responding to IV antibiotics although it was noted that the patient was given 20 mg of IV Lasix in the emergency room. He was noted to have an elevated BNP in the 500s range and his chest x-ray showed bilateral infiltrates and his procalcitonin level was normal. Echocardiogram did not show depressed ejection fraction. The patient does not have orthopnea or PND to suggest clinical heart failure. Other than that IV Lasix in the emergency room, he has not received any more diuretics and has continued to feel well. Catheter associated urinary tract infection/BPH with LUTS/complicated UTI in the setting of chronic indwelling catheter Elliott was most recently changed, 08/18/2023 with normal dipstick UA looks positive in the ED tonight Urine culture growing E. coli and gram-positive cocci On cefepime. Continue for now. Continue dutasteride Permanent atrial fibrillation/atrial fibrillation with RVR- Lopressor 5 mg IV x 2, NSS 500 mL IV x 2, metoprolol succinate 50 mg p.o. Likely a function of missing his dose of metoprolol this morning, and physi ologic stress of infection Continue Xarelto Heart rate slightly elevated today. Will give him a dose of IV Lopressor x 1 now Benign essential hypertension Continue metoprolol Blood pressures elevated. Most likely the patient is getting stressed about going to rehab. Ordered 5 mg of IV Lopressor. Will consider giving him Ativan Admission and Anticipated Discharge Date Admission Date: August 22, 2023 Subjective Patient says that he feels better. He denies orthopnea or PND. He is breathing better. at the bedside says that he looks better. He appears to be breathing better as well. He wants to go home. He has been informed that he did not do very well with physical therapy and they are recommending rehab. He unwillingly agreed to rehab placement. Review of Systems Review of Systems: All systems reviewed & are unremarkable except as noted in Subjective Physical Exam Physical Exam: General: Awake, conversant Heart: S1, S2/regular rate and rhythm, no murmur rubs or gallops Lungs: Clear to auscultation bilaterally. Normal effort Abdomen: Soft/nontender/nondistended. No hepatosplenomegaly Extremities: No clubbing/cyanosis. No edema Behavior: Appropriate, cooperative Results & Data Results & Data Vital Signs (Past 12 Hours) Vital Signs Temp Pulse Pulse Resp BP BP Pulse Ox 08/25/23 11:41 36.3 C L 105 H 20 149/110 H 08/25/23 10:58 94 H 18 89 L 08/25/23 07:54 36.4 C L 91 H 20 161/111 H 91 08/25/23 07:50 86 15 90 08/25/23 06:53 112 H 08/25/23 04:35 08/25/23 04:00 36.6 C 115 H 18 133/72 92 O2 Del Method 08/25/23 11:41 08/25/23 10:58 Room Air 08/25/23 07:54 Room Air 08/25/23 07:50 Room Air 08/25/23 06:53 08/25/23 04:35 Room Air 08/25/23 04:00 Room Air Laboratory Results Abnormal lab results 08/25/23 Range/Units 05:37 RBC 3.66 L (4.70-6.10) M/uL Hgb 12.4 L (14.0-18.0) g/dl Hct 36.5 L (42.0-52.0) % RDW Std Deviation 54.9 H (36.4-46.3) fL RDW Coeff of Jian 15.1 H (11.5-14.5) % Lymph # (Auto) 0.76 L (1.20-3.40) K/uL Dunn # (Auto) 0.84 H (0.11-0.59) K/uL Sodium 133 L (136-145) mmol/L Chloride 94 L (98-107) mmol/L Carbon Dioxide 35 H (21-32) mmol/L Creatinine 0.57 L (0.6-1.4) mg/dl BUN/Creatinine Ratio 31.6 H (10-20) PG Care Time/CCT Total # of Minutes Spent Total Time Spent with Patient: Total time spent is greater than 50% in coordination of care (as documented) at patient's floor/unit and/or counseling patient: Coding Level of Care Code 62508 SUB INP/OBS CARE 2/35MIN Diagnoses Pneumonia J18.9 Urinary tract infection N39.0 Atrial fibrillation with RVR I48.91 Atrial fibrillation, permanent I48.21 Anticoagulant long-term use Z79.01 Urinary retention due to benign prostatic hyperplasia N40.1; R33.8 Chronic indwelling Elliott catheter Z97.8
[2023-08-25] MEDS: POLYETHYLENE (MIRALAX) 17 GM PACK PO SCH (18:06)
[2023-08-25] MEDS: ZOLPIDEM TARTRATE 5 MG TAB PO SCH (20:28)
[2023-08-25] MEDS: AZITHROMYCIN 500 MG in DEXTROSE 5% 250 ML IV SCH (20:28)
[2023-08-25] MEDS: FINASTERIDE 5 MG TAB PO SCH (20:29)
[2023-08-25] MEDS: DOCUSATE SODIUM 100 MG CAP PO SCH (20:29)
[2023-08-26] MEDS: CEFEPIME 2,000 MG in SYRINGE 0 ML IV SCH (05:51)
[2023-08-26] MEDS: ALBUT/IPRATROP 3MG/0.5MG NEB 3 ML VIAL NEB SCH ×4 (07:07→19:22)
[2023-08-26 07:25] LABS: Calcium 8.9 mg/dl (8.6-10.3); Potassium 4.8 mmol/L (3.5-5.1)
[2023-08-26 07:31] LABS: BUN Creatinine Ratio 26.2 (10-20); Creatinine Clr Calc Pharmacy 102.7 ml/min; Est GFR (Non-African American) 92.4 ml/min
[2023-08-26] MEDS: RIVAROXABAN 20 MG TAB PO SCH (08:19)
[2023-08-26] MEDS: CHOLECALCIFEROL 1,000 UNITS 25 MCG TAB PO SCH (08:19)
[2023-08-26] MEDS: DOCUSATE SODIUM 100 MG CAP PO SCH ×2 (08:19→21:48)
[2023-08-26] MEDS: METOPROLOL SUCC 50MG EXT REL TAB PO SCH (08:19)
[2023-08-26] MEDS: POLYETHYLENE (MIRALAX) 17 GM PACK PO SCH (08:19)
[2023-08-26] MEDS: guaiFENesin 600 MG TABCR PO SCH ×2 (08:19→21:48)
[2023-08-26] MEDS: MULTIVITAMIN TAB PO SCH (08:19)
[2023-08-26] MEDS: BENZONATATE 100 MG CAPSULE PO SCH ×3 (08:19→21:48)
[2023-08-26] MEDS: cefUROXime axetil 500 MG TAB PO SCH ×2 (11:27→21:48)
--- NOTE | 2023-08-26 14:33 | Hospitalist Progress Note ---
Date of Service August 26, 2023 Assessment & Plan (1) Pneumonia: (2) Urinary tract infection: (3) Atrial fibrillation with RVR: (4) Atrial fibrillation, permanent: (5) Anticoagulant long-term use: (6) Urinary retention due to benign prostatic hyperplasia: (7) Chronic indwelling Elliott catheter: Plan Bilateral pneumonia- Was treated with cefepime and azithromycin. Completed course of azithromycin Switch to Ceftin Duonebs every 4 hours while awake and every 2 hours when necessary. Guaifenesin 12 mg p.o. every 12 hours Tessalon Perles 100 mg p.o. 3 times daily Improving clinically PT and OT recommended rehab Unlikely CHF as the patient is clinically responding to IV antibiotics although it was noted that the patient was given 20 mg of IV Lasix in the emergency room. He was noted to have an elevated BNP in the 500s range and his chest x-ray showed bilateral infiltrates and his procalcitonin level was normal. Echocardiogram did not show depressed ejection fraction. The patient does not have orthopnea or PND to suggest clinical heart failure. Other than that IV L asix in the emergency room, he has not received any more diuretics and has continued to feel well. Catheter associated urinary tract infection/BPH with LUTS/complicated UTI in the setting of chronic indwelling catheter Elliott was most recently changed, 08/18/2023 with normal dipstick UA looks positive in the ED tonight Urine culture growing E. coli and gram-positive cocci Switch to Ceftin Continue dutasteride Permanent atrial fibrillation/atrial fibrillation with RVR- Lopressor 5 mg IV x 2, NSS 500 mL IV x 2, metoprolol succinate 50 mg p.o. Likely a function of missing his dose of metoprolol this morning, and physiologic stress of infection Continue Xarelto Heart rate fairly controlled today Benign essential hypertension Continue metoprolol Blood pressures currently controlled today Admission and Anticipated Discharge Date Admission Date: August 22, 2023 Subjective Patient feels well today. Denies any chest pain or shortness of breath. Waiting for discharge. Review of Systems Review of Systems: All systems reviewed & are unremarkable except as noted in Subjective Physical Exam Physical Exam: General: Awake, conversant Heart: S1, S2/regular rate and rhythm, no murmur rubs or gallops Lungs: Clear to auscultation bilaterally. Normal effort Abdomen: Soft/nontender/nondistended. No hepatosplenomegaly Extremities: No clubbing/cyanosis. No edema Behavior: Appropriate, cooperative Results & Data Results & Data Vital Signs (Past 12 Hours) Vital Signs Temp Pulse Pulse Pulse Resp BP BP 08/26/23 12:38 36.4 C L 91 H 17 116/68 08/26/23 08:00 08/26/23 07:51 36.8 C 107 H 15 140/80 08/26/23 07:34 96 H 08/26/23 07:07 91 H 17 08/26/23 03:53 36.7 C 63 18 120/81 Pulse Ox O2 Del Method O2 Flow Rate 08/26/23 12:38 93 Room Air 08/26/23 08:00 Room Air 08/26/23 07:51 90 Room Air 08/26/23 07:34 08/26/23 07:07 94 Room Air 08/26/23 03:53 98 Nasal Cannula 2 Laboratory Results Abnormal lab results 08/26/23 Range/Units 05:36 Sodium 132 L (136-145) mmol/L Chloride 92 L (98-107) mmol/L Carbon Dioxide 38 H (21-32) mmol/L Anion Gap 2 L (3-11) BUN/Creatinine Ratio 26.2 H (10-20) PG Care Time/CCT Total # of Minutes Spent Total Time Spent with Patient: Total time spent is greater than 50% in coordination of care (as documented) at patient's floor/unit and/or counseling patient: Coding Level of Care Code 70367 SUB INP/OBS CARE 2/35MIN Diagnoses Pneumonia J18.9 Urinary tract infection N39.0 Atrial fibrillation with RVR I48.91 Atrial fibrillation, permanent I48.21 Anticoagulant long-term use Z79.01 Urinary retention due to benign prostatic hyperplasia N40.1; R33.8 Chronic indwelling Elliott catheter Z97.8
[2023-08-26] MEDS: FINASTERIDE 5 MG TAB PO SCH (21:48)
[2023-08-26] MEDS: ZOLPIDEM TARTRATE 5 MG TAB PO SCH (21:48)
[2023-08-27 06:43] LABS: BUN Creatinine Ratio 26.4 (10-20); Calcium 8.7 mg/dl (8.6-10.3); Creatinine Clr Calc Pharmacy 116.8 ml/min; Est GFR (African American) 113.4 ml/min; Est GFR (Non-African American) 97.8 ml/min; Potassium 4.4 mmol/L (3.5-5.1)
[2023-08-27] MEDS: ALBUT/IPRATROP 3MG/0.5MG NEB 3 ML VIAL NEB SCH (07:09)
[2023-08-27] MEDS: POLYETHYLENE (MIRALAX) 17 GM PACK PO SCH (09:16)
[2023-08-27] MEDS: DOCUSATE SODIUM 100 MG CAP PO SCH ×2 (09:17→21:36)
[2023-08-27] MEDS: METOPROLOL SUCC 50MG EXT REL TAB PO SCH (09:17)
[2023-08-27] MEDS: BENZONATATE 100 MG CAPSULE PO SCH ×3 (09:17→21:36)
[2023-08-27] MEDS: RIVAROXABAN 20 MG TAB PO SCH (09:17)
[2023-08-27] MEDS: cefUROXime axetil 500 MG TAB PO SCH (09:17)
[2023-08-27] MEDS: guaiFENesin 600 MG TABCR PO SCH ×2 (09:17→21:36)
[2023-08-27] MEDS: MULTIVITAMIN TAB PO SCH (09:18)
[2023-08-27] MEDS: CHOLECALCIFEROL 1,000 UNITS 25 MCG TAB PO SCH (09:18)
[2023-08-27] MEDS ORDERED: ALBUT/IPRATROP 3MG/0.5MG NEB 3 ML VIAL NEB PRN (10:55)
[2023-08-27] MEDS: SODIUM CHLORIDE 0.9% 1,000 ML IV SCH (12:31)
--- NOTE | 2023-08-27 13:32 | Hospitalist Progress Note ---
Date of Service August 27, 2023 Assessment & Plan (1) Pneumonia: (2) Urinary tract infection: (3) Atrial fibrillation with RVR: (4) Atrial fibrillation, permanent: (5) Anticoagulant long-term use: (6) Urinary retention due to benign prostatic hyperplasia: (7) Chronic indwelling Elliott catheter: Plan Bilateral pneumonia- Switch to Augmentin since it will cover both pneumonia and UTI Duonebs every 4 hours while awake and every 2 hours when necessary. Guaifenesin 12 mg p.o. every 12 hours Tessalon Perles 100 mg p.o. 3 times daily Improving clinically PT and OT recommended rehab Unlikely CHF as the patient is clinically responding to IV antibiotics although it was noted that the patient was given 20 mg of IV Lasix in the emergency room. He was noted to have an elevated BNP in the 500s range and his chest x-ray showed bilateral infiltrates and his procalcitonin level was normal. Echocardiogram did not show depressed ejection fraction. The patient does not have orthopnea or PND to suggest clinical heart failure. Other than that IV Lasix in the emergency room, he has not received any more diuretics and has continued to feel well. Catheter associated urinary tract infection/BPH with LUTS/complicated UTI in the setting of chronic indwelling catheter Elliott was most recently changed, 08/18/2023 with normal dipstick UA looks positive in the ED tonight Urine culture growing E. coli and Enterococcus Switch to Augmentin that we will cover both pneumonia and UTI Continue dutasteride Hyponatremia Noted that the patient has had chronic hyponatremia Sodium trending down slowly Today 129 Patient appears clinically dehydrated with dry mucous membranes Ordered normal saline and encouraged him to drink more fluid Permanent atrial fibrillation/atrial fibrillation with RVR- Lopressor 5 mg IV x 2, NSS 500 mL IV x 2, metoprolol succinate 50 mg p.o. Likely a function of missing his dose of metoprolol this morning, and physiologic stress of infection Continue Xarelto Heart rate fairly controlled today Benign essential hypertension Continue metoprolol Blood pressures trending up. Add amlodipine DVT prophylaxis: Xarelto Full code Awaiting placement Admission and Anticipated Discharge Date Admission Date: August 22, 2023 Subjective Patient continues to feel well but has been getting impatient about when he can be discharged to rehab. On questioning, he says that he has had a dry mouth and has not been drinking enough fluid. Review of Systems Review of Systems: All systems reviewed & are unremarkable except as noted in Subjective Physical Exam Physical Exam: General: Awake, conversant, dry mucous membranes Heart: S1, S2/regular rate and rhythm, no murmur rubs or gallops Lungs: Clear to auscultation bilaterally. Normal effort Abdomen: Soft/nontender/nondistended. No hepatosplenomegaly Extremities: No clubbing/cyanosis. No edema Behavior: Appropriate, cooperative Results & Data Results & Data Vital Signs (Past 12 Hours) Vital Signs Temp Pulse Pulse Resp BP Pulse Ox O2 Del Method 08/27/23 11:42 36.4 C L 86 18 147/82 H 94 Room Air 08/27/23 08:31 113 H 08/27/23 08:00 Room Air 08/27/23 07:58 36.4 C L 108 H 18 152/98 H 92 Room Air 08/27/23 07:11 89 17 91 Room Air Laboratory Results Abnormal lab results 08/27/23 Range/Units 05:38 Sodium 129 L (136-145) mmol/L Chloride 90 L (98-107) mmol/L Carbon Dioxide 35 H (21-32) mmol/L Creatinine 0.53 L (0.6-1.4) mg/dl BUN/Creatinine Ratio 26.4 H (10-20) PG Care Time/CCT Total # of Minutes Spent Total Time Spent with Patient: Total time spent is greater than 50% in coordination of care (as documented) at patient's floor/unit and/or counseling patient: Coding Level of Care Code 36104 SUB INP/OBS CARE 2/35MIN Diagnoses Pneumonia J18.9 Urinary tract infection N39.0 Atrial fibrillation with RVR I48.91 Atrial fibrillation, permanent I48.21 Anticoagulant long-term use Z79.01 Urinary retention due to benign prostatic hyperplasia N40.1; R33.8 Chronic indwelling Elliott catheter Z97.8
[2023-08-27] MEDS: amLODIPine BESYLATE 5 MG TAB PO SCH (14:19)
[2023-08-27] MEDS: ACETAMINOPHEN 325 MG TAB PO PRN (16:11)
[2023-08-27] MEDS: AMOXICILLIN/CLAVULANATE 875 MG TAB PO SCH (17:35)
[2023-08-27] MEDS: FINASTERIDE 5 MG TAB PO SCH (21:36)
[2023-08-27] MEDS: ZOLPIDEM TARTRATE 5 MG TAB PO SCH (21:36)
[2023-08-28] MEDS: SODIUM CHLORIDE 0.9% 1,000 ML IV SCH (01:20)
[2023-08-28 07:58] LABS: BUN Creatinine Ratio 22.7 (10-20); Creatinine Clr Calc Pharmacy 140.5 ml/min; Est GFR (African American) 122.4 ml/min; Est GFR (Non-African American) 105.6 ml/min; Potassium 4.1 mmol/L (3.5-5.1)
[2023-08-28 08:19] LABS: Calcium 8.8 mg/dl (8.6-10.3)
[2023-08-28] MEDS: DOCUSATE SODIUM 100 MG CAP PO SCH ×2 (08:44→20:22)
[2023-08-28] MEDS: BENZONATATE 100 MG CAPSULE PO SCH ×3 (08:44→20:22)
[2023-08-28] MEDS: RIVAROXABAN 20 MG TAB PO SCH (08:44)
[2023-08-28] MEDS: MULTIVITAMIN TAB PO SCH (08:44)
[2023-08-28] MEDS: AMOXICILLIN/CLAVULANATE 875 MG TAB PO SCH ×2 (08:44→17:00)
[2023-08-28] MEDS: guaiFENesin 600 MG TABCR PO SCH ×2 (08:44→20:22)
[2023-08-28] MEDS: METOPROLOL SUCC 50MG EXT REL TAB PO SCH (08:44)
[2023-08-28] MEDS: amLODIPine BESYLATE 5 MG TAB PO SCH (08:44)
[2023-08-28] MEDS: CHOLECALCIFEROL 1,000 UNITS 25 MCG TAB PO SCH (08:45)
[2023-08-28] MEDS: POLYETHYLENE (MIRALAX) 17 GM PACK PO SCH (08:45)
--- NOTE | 2023-08-28 12:27 | Hospitalist Progress Note ---
Date of Service August 28, 2023 Assessment & Plan (1) Pneumonia: (2) Urinary tract infection: (3) Atrial fibrillation with RVR: (4) Atrial fibrillation, permanent: (5) Anticoagulant long-term use: (6) Urinary retention due to benign prostatic hyperplasia: (7) Chronic indwelling Elliott catheter: Plan Bilateral pneumonia- Switch to Augmentin since it will cover both pneumonia and UTI Continue ness Sher, Khoa Morel Improving clinically PT and OT recommended rehab Unlikely CHF as the patient is clinically responding to IV antibiotics although it was noted that the patient was given 20 mg of IV Lasix in the emergency room. He was noted to have an elevated BNP in the 500s range and his chest x-ray showed bilateral infiltrates and his procalcitonin level was normal. Echocardiogram did not show depressed ejection fraction. The patient does not have orthopnea or PND to suggest clinical heart failure. Other than that IV Lasix in the emergency room, he has not received any more diuretics and has continued to feel well. Catheter associated urinary tract infection/BPH with LUTS/complicated UTI in the setting of chronic indwelling catheter Elliott was most recently changed, 08/18/2023 with normal dipstick UA looks positive in the ED tonight Urine culture growing E. coli and Enterococcus Switched to Augmentin that we will cover both pneumonia and UTI Continue dutasteride Hyponatremia Noted that the patient has had chronic hyponatremia Sodium trending down slowly Patient was started on IV fluids on 08/27 due to concerns for dry mucous membranes. In response his sodium came down further from 129-126 Discontinued IV fluids Check urine osmolarity, serum osmolarity and urine sodium Monitor sodium His states that he is supposed to be on salt tablets at home but he is not compliant to them. Permanent atrial fibrillation/atrial fibrillation with RVR- Lopressor 5 mg IV x 2, NSS 500 mL IV x 2, metoprolol succinate 50 mg p.o. Likely a function of missing his dose of metoprolol this morning, and physiologic stress of infection Continue Xarelto Heart rate fairly controlled today Benign essential hypertension Continue metoprolol Blood pressures trending up. Added amlodipine DVT prophylaxis: Xarelto Full code Awaiting placement Admission and Anticipated Discharge Date Admission Date: August 22, 2023 Subjective Patient says that he is feeling well overall. Denies any chest pain or shortness of breath. He wishes to be discharged to home but he is too weak to go home. PT/OT recommended rehab and the agrees. Review of Systems Review of Systems: All systems reviewed & are unremarkable except as noted in Subjective Physical Exam Physical Exam: General: Awake, conversant Heart: S1, S2/regular rate and rhythm, no murmur rubs or gallops Lungs: Clear to auscultation bilaterally. Normal effort Abdomen: Soft/nontender/nondistended. No hepatosplenomegaly Extremities: No clubbing/cyanosis. No edema Behavior: Appropriate, cooperative Results & Data Results & Data Vital Signs (Past 12 Hours) Vital Signs Temp Pulse Pulse Resp BP Pulse Ox O2 Del Method 08/28/23 11:14 36.6 C 93 H 19 159/88 H 92 Room Air 08/28/23 10:30 99 H 08/28/23 07:42 Room Air 08/28/23 07:30 36.4 C L 92 H 18 165/98 H 92 Room Air 08/28/23 04:35 36.4 C L 104 H 20 159/92 H 92 Room Air 08/28/23 00:34 36.3 C L 94 H 20 156/72 H 92 Room Air Laboratory Results Abnormal lab results 08/28/23 Range/Units 07:05 Sodium 126 L (136-145) mmol/L Chloride 89 L (98-107) mmol/L Carbon Dioxide 34 H (21-32) mmol/L Creatinine 0.44 L (0.6-1.4) mg/dl BUN/Creatinine Ratio 22.7 H (10-20) PG Care Time/CCT Total # of Minutes Spent Total Time Spent with Patient: Total time spent is greater than 50% in coordination of care (as documented) at patient's floor/unit and/or counseling patient: Coding Level of Care Code 75879 SUB INP/OBS CARE 2/35MIN Diagnoses Pneumonia J18.9 Urinary tract infection N39.0 Atrial fibrillation with RVR I48.91 Atrial fibrillation, permanent I48.21 Anticoagulant long-term use Z79.01 Urinary retention due to benign prostatic hyperplasia N40.1; R33.8 Chronic indwelling Elliott catheter Z97.8
[2023-08-28] MEDS: FINASTERIDE 5 MG TAB PO SCH (20:22)
[2023-08-28] MEDS: ZOLPIDEM TARTRATE 5 MG TAB PO SCH (20:24)
[2023-08-29 07:09] LABS: BUN Creatinine Ratio 27.5 (10-20); Calcium 8.7 mg/dl (8.6-10.3); Creatinine Clr Calc Pharmacy 152.8 ml/min; Est GFR (African American) 127.3 ml/min; Est GFR (Non-African American) 109.8 ml/min
[2023-08-29] MEDS: AMOXICILLIN/CLAVULANATE 875 MG TAB PO SCH ×2 (09:03→16:54)
[2023-08-29] MEDS: amLODIPine BESYLATE 5 MG TAB PO SCH (09:04)
[2023-08-29] MEDS: BENZONATATE 100 MG CAPSULE PO SCH ×3 (09:04→20:33)
[2023-08-29] MEDS: MULTIVITAMIN TAB PO SCH (09:04)
[2023-08-29] MEDS: guaiFENesin 600 MG TABCR PO SCH ×2 (09:04→20:33)
[2023-08-29] MEDS: CHOLECALCIFEROL 1,000 UNITS 25 MCG TAB PO SCH (09:04)
[2023-08-29] MEDS: POLYETHYLENE (MIRALAX) 17 GM PACK PO SCH (09:04)
[2023-08-29] MEDS: DOCUSATE SODIUM 100 MG CAP PO SCH ×2 (09:04→20:33)
[2023-08-29] MEDS: RIVAROXABAN 20 MG TAB PO SCH (09:04)
[2023-08-29] MEDS: METOPROLOL SUCC 50MG EXT REL TAB PO SCH (09:04)
--- NOTE | 2023-08-29 11:46 | XRay Report ---
XR chest 2V PA/lateral HISTORY: 83 years-old Male CHF vs pneumonia acute shortness of breath COMPARISON: August 22, 2023 TECHNIQUE: AP and lateral views of the chest FINDINGS: Cardiac silhouette is enlarged. Pulmonary vascular congestion with interstitial coarsening. Mild biap ical pleural-parenchymal scarring. Layering pleural effusions with bibasilar opacities. Subtle scatte red ill-defined nodular consolidative opacities in the midlung distributions are stable. IMPRESSION: 1. Cardiomegaly with pulmonary edema, progressed from prior. 2. Small pleural effusions with bibasilar opacities. 3. Subtle ill-defined nodular densities in the midlung distributions may represent a superimposed pne umonia. Attention at follow-up recommended. ACT 112: Negative or not required by law. The above report was generated using voice recognition software. It may contain grammatical, syntax o r spelling errors. Electronically signed by: Francesco Verma M.D. 08/29/2023 11:45 AM
[2023-08-29] MEDS ORDERED: FUROSEMIDE INJ 20 MG/2 ML VIAL IV ONE (11:54)
--- NOTE | 2023-08-29 11:56 | Hospitalist Progress Note ---
Date of Service August 29, 2023 Assessment & Plan (1) Pneumonia: Plan: b/l infiltrates on cxr since admission has been treated for pneumonia - initially on IV rocephin/zithromax then ultimately transitioned to PO augmentin which is also being used for UTI coverage he continues to have poor appetite and continues with O2 requirement cxr today - still with b/l infiltrates - suspect combination of pneumonia + CHF (see below) cont augmentin consider CT chest if he fails to improve (2) Acute right-sided congestive heart failure: Plan: echo this admission with RV dysfunction but preserved LV function the RV dysfunction is new in comparison to last echo in 2021 etiology of RV dysfunction uncertain but pt's family does confirm excessive daytime sleepiness and mouth breathing that has been worsening over the last year he has never snored, and does not have a history of DAY no prior h/o PE cxr with effusions/pulm edema mild JVD on exam today lasix 20mg IV x 1 re-eval tomorrow cont metoprolol succinate 50mg daily remaining echo findings - pulmonary HTN, moderate MR, moderate TR (3) Catheter-associated urinary tract infection: Plan: 2nd e.coli 2nd enterococcus cont augmentin will need to check to see if rockwell has been exchanged since admission (4) Chronic indwelling Rockwell catheter: Plan: has had such for 12+ months for BPH? (5) Hyponatremia: Plan: acute/chronic baseline Na level - upper 120s to low 130s acute worsening last 48 hours; was given isotonic IV fluid and Na worsened with such down to 127 repeat Na level following lasix today --> 128 he does not appear volume contracted repeat BMP am urine Na, urine osm, serum osm levels - all noted (6) Atrial fibrillation, permanent: Plan: rates controlled cont metoprolol succinate cont Xarelto (7) Urinary retention due to benign prostatic hyperplasia: Plan: cont rockwell -- this is chronic for him (8) Hypertension: Plan: controlled (9) Excessive sleepiness: Plan: check VBG am check ammonia am TSH in 03/2023 wnl 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 and will need formal sleep study as an outpatient in the future (10) Elevated INR: Plan: INR was 1.9 at time of admission certainly DOACs can raise the INR but not typically that high (sometimes up to 1.4 to 1.5) repeat INR in am if still high - liver disease? vit K deficiency? (11) Acute metabolic encephalopathy: Plan: 2nd to hyponatremia? 2nd to infectious process (pneumonia/UTI)? other? check VBG in am check ammonia in am Plan family updated at bedside extensively cont PT/OT Admission and Anticipated Discharge Date Admission Date: August 22, 2023 Subjective during the visit the patient's and 2 children - son & daughter - were at bedside we discussed his ongoing O2 requirements and his cxr from this am showing pulmonary edema reports no snoring, but he frequently falls asleep during the daytime at home, and sleeps with his mouth open he is not on home O2 or CPAP/BiPAP at home cough improved appetite remains poor, however he remains very weak family asks about rehab did mention that he is supposed to be on salt tabs at home but hasn't been taking it regularly Review of Systems Review of Systems: cv - no chest pain pulm - no dyspnea at rest GI - no abd pain Physical Exam Physical Exam: gen - thin, NAD, fell asleep multiple times during the visit with mouth open mouth - MMM neck - mild JVD present heart - irregularly irregular, s1 s2 lungs - decreased BS bases, mild rales bases, no wheezing abd - soft NT ND BS+ ext - no edema, pulses 2+ b/l psych - sleepy Results & Data Results & Data Vital Signs (Past 12 Hours) Vital Signs Temp Pulse Pulse Pulse Resp BP Pulse Ox 08/29/23 11:32 89 16 94 08/29/23 11:16 36.1 C L 69 16 147/87 H 97 08/29/23 08:16 91 H 08/29/23 07:36 08/29/23 07:32 16 93 08/29/23 07:29 36.8 C 91 H 16 152/72 H 89 L 08/29/23 04:00 36.4 C L 97 H 20 156/85 H 92 08/29/23 01:02 80 L 08/29/23 00:05 36.4 C L 83 20 151/96 H 93 O2 Del Method O2 Flow Rate 08/29/23 11:32 Nasal Cannula 2 08/29/23 11:16 Nasal Cannula 2 08/29/23 08:16 08/29/23 07:36 Nasal Cannula 2 08/29/23 07:32 Nasal Cannula 2 08/29/23 07:29 Room Air 08/29/23 04:00 Nasal Cannula 2 08/29/23 01:02 Room Air, Nasal Cannula 0 08/29/23 00:05 Nasal Cannula 2 Laboratory Results Laboratory Results - last 24 hr 08/29/23 08/29/23 06:01 16:33 Sodium 127 L 128 L Potassium 4.0 4.3 Chloride 90 L 86 L Carbon Dioxide 34 H 39 H Anion Gap 3 3 BUN 11 15 Creatinine 0.40 L 0.51 L Est Cr Clr Drug Dosing 152.8 119.8 Est GFR ( Amer) 127.3 115.2 Est GFR (Non-Af Amer) 109.8 99.4 BUN/Creatinine Ratio 27.5 H 29.4 H Glucose 87 99 Calcium 8.7 9.1 Magnesium 1.7 Diagnostic Findings Chest X-Ray 08/29/23 08:16 XR chest 2V PA/lateral HISTORY: 83 years-old Male CHF vs pneumonia acute shortness of breath COMPARISON: August 22, 2023 TECHNIQUE: AP and lateral views of the chest FINDINGS: Cardiac silhouette is enlarged. Pulmonary vascular congestion with interstitial coarsening. Mild biapical pleural-parenchymal scarring. Layering pleural effusions with bibasilar opacities. Subtle scattered ill-defined nodular consolidative opacities in the midlung distributions are stable. IMPRESSION: 1. Cardiomegaly with pulmonary edema, progressed from prior. 2. Small pleural effusions with bibasilar opacities. 3. Subtle ill-defined nodular densities in the midlung distributions may represent a superimposed pneumonia. Attention at follow-up recommended. ACT 112: Negative or not required by law. The above report was generated using voice recognition software. It may contain grammatical, syntax or spelling errors. Electronically signed by: Francesco Verma M.D. 08/29/2023 11:45 AM PG Care Time/CCT Total # of Minutes Spent Total Time Spent with Patient: Total time spent is greater than 50% in coordination of care (as documented) at patient's floor/unit and/or counseling patient: Coding Level of Care Code 18719 SUB INP/OBS CARE 3/50MIN Diagnoses Pneumonia J18.9 Acute right-sided congestive heart failure I50.811 Catheter-associated urinary tract infection T83.511A; N39.0 Chronic indwelling Rockwell catheter Z97.8 Hyponatremia E87.1 Atrial fibrillation, permanent I48.21 Urinary retention due to benign prostatic hyperplasia N40.1; R33.8 Primary hypertension I10 Hypertension type: primary hypertension Excessive sleepiness G47.10 Elevated INR R79.1 Acute metabolic encephalopathy G93.41 (8) Hypertension Hypertension type: primary hypertension Qualified Code(s): I10 - Essential (primary) hypertension
[2023-08-29 17:11] LABS: BUN Creatinine Ratio 29.4 (10-20); Calcium 9.1 mg/dl (8.6-10.3); Creatinine Clr Calc Pharmacy 119.8 ml/min; Est GFR (African American) 115.2 ml/min; Est GFR (Non-African American) 99.4 ml/min; Magnesium 1.7 mg/dl (1.7-2.4); Potassium 4.3 mmol/L (3.5-5.1)
[2023-08-29] MEDS: FINASTERIDE 5 MG TAB PO SCH (20:34)
[2023-08-29] MEDS: ZOLPIDEM TARTRATE 5 MG TAB PO SCH (20:36)
[2023-08-30 06:21] LABS: Base Excess VBG 14.9 mEq/L; HCO3 VBG 42 mmol/L; Oxygen Saturation VBG 61.9 %; PCO2 VBG 62 mmHg (38-50); PO2 VBG 36 mmHg; pH VBG 7.44 (7.36-7.41)
[2023-08-30 06:27] LABS: Hematocrit (blood only) 37.6 % (42.0-52.0); Hemoglobin 12.5 g/dl (14.0-18.0); Mean Corpuscular Hemoglobin 33.6 pg (25.0-34.0); Mean Corpuscular Hgb Conc 33.2 g/dL (32.0-36.0); Mean Corpuscular Volume 101.1 fL (80.0-100.0); Mean Platelet Volume 9.9 fL (9.4-12.4); Platelet Count 194 K/uL (130-400); RDW Coefficient of Variation 14.6 % (11.5-14.5); RDW Standard Deviation 54.8 fL (36.4-46.3); Red Blood Count 3.72 M/uL (4.70-6.10); White Blood Count 4.59 K/ul (4.8-10.8)
[2023-08-30 06:46] LABS: BUN Creatinine Ratio 31.4 (10-20); Calcium 9.1 mg/dl (8.6-10.3); Creatinine Clr Calc Pharmacy 118.3 ml/min; Est GFR (African American) 115.2 ml/min; Est GFR (Non-African American) 99.4 ml/min; Potassium 4.4 mmol/L (3.5-5.1)
[2023-08-30 06:50] LABS: INR 1.4 (0.9-1.1); Prothrombin Time 15.5 Seconds (9.0-12.0)
[2023-08-30] MEDS: MULTIVITAMIN TAB PO SCH (08:44)
[2023-08-30] MEDS: DOCUSATE SODIUM 100 MG CAP PO SCH ×2 (08:44→21:36)
[2023-08-30] MEDS: BENZONATATE 100 MG CAPSULE PO SCH ×3 (08:44→21:35)
[2023-08-30] MEDS: FUROSEMIDE 20 MG TAB PO SCH (08:44)
[2023-08-30] MEDS: guaiFENesin 600 MG TABCR PO SCH ×2 (08:44→21:35)
[2023-08-30] MEDS: MAGNESIUM OXIDE 400 MG TAB PO SCH (08:44)
[2023-08-30] MEDS: amLODIPine BESYLATE 5 MG TAB PO SCH (08:45)
[2023-08-30] MEDS: RIVAROXABAN 20 MG TAB PO SCH (08:45)
[2023-08-30] MEDS: METOPROLOL SUCC 50MG EXT REL TAB PO SCH (08:45)
[2023-08-30] MEDS: CHOLECALCIFEROL 1,000 UNITS 25 MCG TAB PO SCH (08:45)
[2023-08-30] MEDS: AMOXICILLIN/CLAVULANATE 875 MG TAB PO SCH ×2 (08:45→18:03)
[2023-08-30] MEDS: POLYETHYLENE (MIRALAX) 17 GM PACK PO SCH (08:46)
--- NOTE | 2023-08-30 12:49 | Hospitalist Progress Note ---
Date of Service August 30, 2023 Assessment & Plan (1) Pneumonia: Plan: b/l infiltrates on admission cxr initially on IV rocephin/zithromax then ultimately transitioned to PO augmentin which is also being used for UTI coverage day #9 of Rx would stop all abx after tomorrow's doses since we are getting CT a/p for ?RLQ mass will get a CT chest to further characterize the cxr findings and determine if what we are seeing is pneumonia and/or CHF (2) Acute right-sided congestive heart failure: Plan: echo this admission with RV dysfunction but preserved LV function the RV dysfunction is new in comparison to last echo in 2021 etiology of RV dysfunction uncertain but pt's family does confirm excessive daytime sleepiness and mouth breathing that has been worsening over the last year he has never snored, and does not have a history of DAY no prior h/o PE cxr with effusions/pulm edema he had COPIOUS diuresis yesterday with IV lasix, and again copious diuresis today with lasix re-eval tomorrow cont metoprolol succinate 50mg daily remaining echo findings - pulmonary HTN, moderate MR, moderate TR obtaining chest CT as mentioned in #1 above (3) Catheter-associated urinary tract infection: Plan: 2nd e.coli 2nd enterococcus cont augmentin will need to check to see if rockwell has been exchanged since admission day #3 of augmentin (the prior rocephin used starting at time of admission for #1 would not have covered the enterococcus) will need to extend out the augmentin (or amox) to cover the enterococcus (4) Chronic indwelling Rockwell catheter: Plan: has had such for 12+ months for BPH follows with [facility] [place] Urology CT a/p obtained today due to the ?RLQ mass (5) Hyponatremia: Plan: acute/chronic baseline Na level - upper 120s to low 130s acute worsening last 48 hours; was given isotonic IV fluid and Na worsened with such down to 127 repeat Na level improving with diuresis repeat BMP am urine Na, urine osm, serum osm levels - all noted (6) Atrial fibrillation, permanent: Plan: rates controlled cont metoprolol succinate cont Xarelto (7) Urinary retention due to benign prostatic hyperplasia: Plan: cont rockwell -- this is chronic for him (8) Hypertension: Plan: controlled (9) Excessive sleepiness: Plan: VBG with significant hypercapnia ammonia level wnl TSH in 03/2023 wnl 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 and will need formal sleep study as an outpatient in the future counseled pt & his family about such nearing d/c could try doing overnight oximetry study along with am abg to get him qualified for BIPAP out of the gate (10) Elevated INR: Plan: INR was 1.9 at time of admission certainly DOACs can raise the INR but not typically that high (sometimes up to 1.4 to 1.5) repeat INR today is 1.4 - c/w Fede could have had transient liver dysfunction in the setting of his decompensated right heart failure leading to high INR (11) Acute metabolic encephalopathy: Plan: likely combo of issues including hyponatremia, hypercapnia, and metabolic effects from his pneumonia/UTI improved mentation today (12) RLQ abdominal mass: Plan: I palpated this yesterday and he has it again today will obtain CT a/p with contrast - r/o mass, r/o severe constipation, r/o other Plan family updated at bedside extensively cont PT/OT progressing Admission and Anticipated Discharge Date Admission Date: August 22, 2023 Subjective patient more awake/alert today family reports it is the best he has looked in the last few days eating was a bit better today minimal to no cough denies dyspnea family inquires again about when he can go to rehab patient reports having slept well overnight tele overnight - a.fib, rates <100 Review of Systems Review of Systems: gen - feels good today cv - no chest pain, no orthopnea pulm - denies dyspnea GI - no pain or N/V Physical Exam Physical Exam: gen - thin, NAD, looks better than yesterday mouth - MMM neck - mild JVD improved heart - irregularly irregular, s1 s2, 2/6 systolic murmur LSB lungs - decreased BS bases, mild rales bases - airation overall improved today abd - soft NT ND BS+; there is an area of firmness in the RLQ - mass? stool? scar tissue? other? ext - no edema, pulses 2+ b/l psych - more awake/alert today neuro - speech is dysphonic Results & Data Results & Data Vital Signs (Past 12 Hours) Vital Signs Temp Pulse Pulse Resp BP Pulse Ox O2 Del Method 08/30/23 11:15 36.4 C L 82 18 122/80 98 Nasal Cannula 08/30/23 08:00 102 H 08/30/23 08:00 Nasal Cannula 08/30/23 07:20 36.4 C L 88 16 121/78 92 Nasal Cannula 08/30/23 04:00 36.6 C 86 18 124/72 94 Nasal Cannula O2 Flow Rate 08/30/23 11:15 2 08/30/23 08:00 08/30/23 08:00 2 08/30/23 07:20 2 08/30/23 04:00 2 Laboratory Results Laboratory Results 08/29/23 08/30/23 16:33 06:07 WBC 4.59 L RBC 3.72 L Hgb 12.5 L Hct 37.6 L MCV 101.1 H MCH 33.6 MCHC 33.2 RDW Std Deviation 54.8 H RDW Coeff of Jian 14.6 H Plt Count 194 MPV 9.9 PT 15.5 H INR 1.4 H VBG pH 7.44 H VBG pCO2 62 H VBG pO2 36 VBG HCO3 42 VBG O2 Saturation 61.9 VBG Base Excess 14.9 Sodium 128 L 130 L Potassium 4.3 4.4 Chloride 86 L 88 L Carbon Dioxide 39 H 40 H Anion Gap 3 2 L BUN 15 16 Creatinine 0.51 L 0.51 L Est Cr Clr Drug Dosing 119.8 118.3 Est GFR ( Amer) 115.2 115.2 Est GFR (Non-Af Amer) 99.4 99.4 BUN/Creatinine Ratio 29.4 H 31.4 H Glucose 99 90 Calcium 9.1 9.1 Magnesium 1.7 Ammonia 26.0 PG Care Time/CCT Total # of Minutes Spent Total Time Spent with Patient: Total time spent is greater than 50% in coordination of care (as documented) at patient's floor/unit and/or counseling patient: Coding Level of Care Code 82013 SUB INP/OBS CARE 3/50MIN Diagnoses Pneumonia J18.9 Acute right-sided congestive heart failure I50.811 Catheter-associated urinary tract infection T83.511A; N39.0 Chronic indwelling Rockwell catheter Z97.8 Hyponatremia E87.1 Atrial fibrillation, permanent I48.21 Urinary retention due to benign prostatic hyperplasia N40.1; R33.8 Primary hypertension I10 Hypertension type: primary hypertension Excessive sleepiness G47.10 Elevated INR R79.1 Acute metabolic encephalopathy G93.41 RLQ abdominal mass R19.03 (8) Hypertension Hypertension type: primary hypertension Qualified Code(s): I10 - Essential (primary) hypertension
[2023-08-30] MEDS ORDERED: OPTIRAY 320 500ml IV ONE (18:21)
--- NOTE | 2023-08-30 18:49 | CT Scan Report ---
CHEST CT WITH CONTRAST; CT ABDOMEN AND PELVIS WITH IV CONTRAST ONLY CT DOSE: 1220.1 mGy.cm HISTORY: Acute shortness of breath with chest and abdominal pain CHF vs pneumonia, ongoing hypoxia TECHNIQUE: Multiaxial CT images of the chest, abdomen and pelvis were performed following the IV admi nistration of 89 cc of Optiray. A dose lowering technique was utilized adhering to the principles o f ALARA. COMPARISON: Chest radiographs of same day FINDINGS: CT CHEST: Unremarkable thyroid. There is no lymphadenopathy. Moderate to marked cardiomegaly without pericardi al effusion. Extensive coronary artery calcifications. Fusiform dilation of the ascending thoracic ao rta measures up to 4.3 cm. No dissection. There is patency of the imaged great vessels. Dilation of t he pulmonary artery with the main pulmonary artery measuring up to 4.2 cm. No pulmonary emboli identi fied on this exam. No pneumothorax. Small left and moderate right pleural effusions. No pneumothorax. Mild biapical pleu ral-parenchymal scarring. Mild intralobular and bronchial wall thickening. Dependent bibasilar consol idation within the lower lobes. There are scattered nodular consolidative densities within the right lung including a 2.1 cm right upper lobe focus on image 107 and foci within the right lower lobe [place] uring up to 2 cm. Central airways are patent. Mild fluid-filled distention of the esophagus with a fe w internal subcentimeter radiodense foci within the distal esophageal lumen. Mild generalized body wa ll edema. Degenerative changes of the spine and shoulders. No acute fracture identified. Mild sigmoid al thoracolumbar scoliosis. Mild superior endplate compression deformity at T2, likely chronic. CT ABDOMEN/PELVIS: No spleen identified. Unremarkable pancreas and right adrenal gland. Mild nodular thickening of the l eft adrenal gland. Cholecystectomy. Mild marginal nodularity of the liver suggestive of cirrhosis. Mi ld postsurgical biliary ductal dilation. Patent portal vein. No hydronephrosis. Decompressed urinary bladder with Elliott catheter in place. Prostatomegaly. Atherosclerosis of the aorta without aneurysm. No lymphadenopathy. No bowel obstruction or bowel wall thickening. Moderate fecal retention. Trace free fluid within the pelvis. Colonic diverticulosis. Noninflamed appendix. Generalized body wall edema. Degenerative collado es of the spine, pelvis and hips. IMPRESSION: 1. Cardiomegaly with pulmonary edema, small left and moderate right pleural effusions. 2. Dependent bibasilar consolidation suggestive of compressive atelectasis. 3. Scattered subsegmental nodular consolidative foci throughout the right lung are likely infectious or inflammatory. Follow-up imaging after treatment course is needed in order to document resolution. 4. No bowel obstruction or bowel wall thickening. 5. Colonic diverticulosis. 6. Additional findings as above. ACT 112: Negative or not required by law. Electronically signed by: Francesco Verma M.D. 08/30/2023 6:47 PM
[2023-08-30] MEDS: FINASTERIDE 5 MG TAB PO SCH (21:36)
[2023-08-30] MEDS: ZOLPIDEM TARTRATE 5 MG TAB PO SCH (21:38)
[2023-08-31] MEDS: POLYETHYLENE (MIRALAX) 17 GM PACK PO SCH (07:55)
[2023-08-31] MEDS: AMOXICILLIN/CLAVULANATE 875 MG TAB PO SCH ×2 (07:55→16:53)
[2023-08-31] MEDS: RIVAROXABAN 20 MG TAB PO SCH (07:56)
[2023-08-31] MEDS: DOCUSATE SODIUM 100 MG CAP PO SCH ×2 (07:56→21:40)
[2023-08-31] MEDS: amLODIPine BESYLATE 5 MG TAB PO SCH (07:56)
[2023-08-31] MEDS: MULTIVITAMIN TAB PO SCH (07:56)
[2023-08-31] MEDS: guaiFENesin 600 MG TABCR PO SCH ×2 (07:57→21:39)
[2023-08-31] MEDS: BENZONATATE 100 MG CAPSULE PO SCH ×3 (07:57→21:41)
[2023-08-31] MEDS: MAGNESIUM OXIDE 400 MG TAB PO SCH (07:57)
[2023-08-31] MEDS: FUROSEMIDE 20 MG TAB PO SCH (07:57)
[2023-08-31] MEDS: METOPROLOL SUCC 50MG EXT REL TAB PO SCH (07:58)
[2023-08-31] MEDS: CHOLECALCIFEROL 1,000 UNITS 25 MCG TAB PO SCH (07:58)
[2023-08-31] MEDS: SENNA 8.6 MG TAB PO SCH (09:02)
[2023-08-31] MEDS: PANTOprazole 40 MG TAB PO SCH (09:02)
[2023-08-31 10:40] LABS: BUN Creatinine Ratio 22.9 (10-20); Calcium 8.8 mg/dl (8.6-10.3); Creatinine Clr Calc Pharmacy 125.3 ml/min; Est GFR (African American) 118.1 ml/min; Est GFR (Non-African American) 101.9 ml/min; Magnesium 1.7 mg/dl (1.7-2.4); Potassium 3.9 mmol/L (3.5-5.1)
[2023-08-31] MEDS: acetaZOLAMIDE 250 MG TAB PO SCH ×2 (11:30→21:40)
[2023-08-31] MEDS: ACETAMINOPHEN 325 MG TAB PO PRN (14:38)
[2023-08-31 17:29] LABS: Calcium 8.8 mg/dl (8.6-10.3); Creatinine Clr Calc Pharmacy 98.6 ml/min; Est GFR (Non-African American) 92.4 ml/min; Potassium 4.4 mmol/L (3.5-5.1)
--- NOTE | 2023-08-31 18:09 | Hospitalist Progress Note ---
Date of Service August 31, 2023 Assessment & Plan (1) Pneumonia: Plan: b/l infiltrates on admission cxr initially on IV rocephin/zithromax then ultimately transitioned to PO augmentin which is also being used for UTI coverage day #10 of Rx today between IV/PO therapy CT chest yesterday indeed showed some focal pneumonia on the right (2) Acute right-sided congestive heart failure: Plan: echo this admission with RV dysfunction but preserved LV function the RV dysfunction is new in comparison to last echo in 2021 etiology of RV dysfunction uncertain but pt's family does confirm excessive daytime sleepiness and mouth breathing that has been worsening over the last year he has never snored, and does not have a history of DAY no prior h/o PE cxr with effusions/pulm edema CT chest with similar findings he had COPIOUS diuresis last 2+ days with diuretics patient with worsening HCO3 on labs - hold loop diuretics today, start diamox 250mg BID x 2 days repeat labs am cont metoprolol succinate 50mg daily he follows with Dr Whitt for h/o a.fib but will consult Kimber Arambula from CHF clinic - suspect his current cardiac issues will cont to cause problems over time good candidate for CHF clinic (3) Catheter-associated urinary tract infection: Plan: 2nd e.coli 2nd enterococcus day #4 of augmentin (the prior rocephin used starting at time of admission for #1 would not have covered the enterococcus) plan - stop augmentin tomorrow and switch to amoxicillin for an additional 5 days to cover the enterococcus (e.coli would have had adequate Rx since admission) (4) Chronic indwelling Rockwell catheter: Plan: has had such for 12+ months for BPH follows with [facility] Urology CT a/p yesterday without urinary tract anomalies (5) Hyponatremia: Plan: acute/chronic baseline Na level - upper 120s to low 130s Na 127 today following use of loop diuretics last 48 hours repeat BMP am urine Na, urine osm, serum osm levels - all noted could consider torsemide in donnie of lasix - torsemide with less risk of hyponatremia (6) Atrial fibrillation, permanent: Plan: rates controlled cont metoprolol succinate cont Xarelto (7) Urinary retention due to benign prostatic hyperplasia: Plan: cont rockwell -- this is chronic for him (8) Hypertension: Plan: controlled (9) Excessive sleepiness: Plan: VBG with significant hypercapnia ammonia level wnl TSH in 03/2023 wnl 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 and will need formal sleep study as an outpatient in the future counseled pt & his family about such nearing d/c could try doing overnight oximetry study along with am abg to get him qualified for BIPAP out of the gate (10) Elevated INR: Plan: INR was 1.9 at time of admission certainly DOACs can raise the INR but not typically that high (sometimes up to 1.4 to 1.5) repeat INR today is 1.4 - c/w Fede could have had transient liver dysfunction in the setting of his decompensated right heart failure leading to high INR (11) Acute metabolic encephalopathy: Plan: likely combo of issues including hyponatremia, hypercapnia, and metabolic effects from his pneumonia/UTI improved mentation reports he is at baseline (12) RLQ abdominal mass: Plan: no mass or other abnormality to account for the physical exam finding there is copious stool on the CT as well as remodeler film aggressive bowel regimen (13) Esophagitis: Plan: as seen on CT yesterday PPI with his dysphonic voice and frequent throat clearing -- need for outpatient EGD? swallow eval? (14) Pulmonary HTN: Plan: as seen on echo 2nd to some form of sleep apnea/sleep-disordered breathing?? 2nd to valvular heart disease? no pre-existing lung disease need to assess for chronic/ambulatory O2 needs before discharge Plan updated at bedside extensively cont PT/OT dispo - rehab - next 48 hours? 72 hours? Admission and Anticipated Discharge Date Admission Date: August 22, 2023 Subjective pt sitting in chair at bedside nursing flowsheets show 100% of meals consumed today we discussed his CT results from yesterday - CT chest showed CHF and pneumonia on right; CT a/p did not show a mass but did show copious stool he denies any chest pain or abd pain I have noticed that his voice is dysphonic and that he tends to throat clear a lot reports that his speech was slurred before he came to the hospital and now it is better and near baseline she reports that his current voice is baseline he denies any dysphagia denies any reflux symptoms Review of Systems Review of Systems: gen - no fevers or chills cv - no chest pain pulm - minimal to no cough; denies dyspnea; still requiring NC O2 GI - no abd pain; last stool ?? Physical Exam Physical Exam: gen - thin, NAD, sitting in chair comfortably, falling asleep during the visit mouth - MMM neck - no JVD sitting upright at 90 degrees heart - irregularly irregular, s1 s2, 2/6 systolic murmur LSB lungs - decreased BS bases, mild rales bases - improved abd - soft NT ND BS+; RLQ firmness is still present but better today ext - no edema, pulses 2+ b/l neuro - speech - dysphonic Results & Data Results & Data Vital Signs (Past 12 Hours) Vital Signs Temp Pulse Pulse Resp BP Pulse Ox O2 Del Method 08/31/23 15:34 37.0 C 62 18 113/70 90 Nasal Cannula 08/31/23 14:01 69 08/31/23 07:33 36.6 C 89 18 127/72 98 Nasal Cannula 08/31/23 07:26 Nasal Cannula O2 Flow Rate 08/31/23 15:34 2 08/31/23 14:01 08/31/23 07:33 2 08/31/23 07:26 2 Laboratory Results Laboratory Results - last 24 hr 08/31/23 08/31/23 09:40 16:55 Sodium 127 L 127 L Potassium 3.9 4.4 Chloride 85 L 87 L Carbon Dioxide 41 H* 41 H* Anion Gap 1 L -1 L BUN 11 14 Creatinine 0.48 L 0.61 Est Cr Clr Drug Dosing 125.3 98.6 Est GFR ( Amer) 118.1 107.0 Est GFR (Non-Af Amer) 101.9 92.4 BUN/Creatinine Ratio 22.9 H 23.0 H Glucose 149 H 106 H Calcium 8.8 8.8 Magnesium 1.7 Diagnostic Findings Abdomen/Pelvis CT 08/30/23 17:[address] WITH CONTRAST; CT ABDOMEN AND PELVIS WITH IV CONTRAST ONLY CT DOSE: 1220.1 mGy.cm HISTORY: Acute shortness of breath with chest and abdominal pain CHF vs pneumonia, ongoing hypoxia TECHNIQUE: Multiaxial CT images of the chest, abdomen and pelvis were performed following the IV administration of 89 cc of Optiray. A dose lowering technique was utilized adhering to the principles of ALARA. COMPARISON: Chest radiographs of same day FINDINGS: CT CHEST: Unremarkable thyroid. There is no lymphadenopathy. Moderate to marked cardiomegaly without pericardial effusion. Extensive coronary artery calcifications. Fusiform dilation of the ascending thoracic aorta measures up to 4.3 cm. No dissection. There is patency of the imaged great vessels. Dilation of the pulmonary artery with the main pulmonary artery measuring up to 4.2 cm. No pulmonary emboli identified on this exam. No pneumothorax. Small left and moderate right pleural effusions. No pneumothorax. Mild biapical pleural-parenchymal scarring. Mild intralobular and bronchial wall thickening. Dependent bibasilar consolidation within the lower lobes. There are scattered nodular consolidative densities within the right lung including a 2.1 cm right upper lobe focus on image 107 and foci within the right lower lobe measuring up to 2 cm. Central airways are patent. Mild fluid-filled distention of the esophagus with a few internal subcentimeter radiodense foci within the distal esophageal lumen. Mild generalized body wall edema. Degenerative changes of the spine and shoulders. No acute fracture identified. Mild sigmoidal thoracolumbar scoliosis. Mild superior endplate compression deformity at T2, likely chronic. CT ABDOMEN/PELVIS: No spleen identified. Unremarkable pancreas and right adrenal gland. Mild nodular thickening of the left adrenal gland. Cholecystectomy. Mild marginal nodularity of the liver suggestive of cirrhosis. Mild postsurgical biliary ductal dilation. Patent portal vein. No hydronephrosis. Decompressed urinary bladder with Rockwell catheter in place. Prostatomegaly. Atherosclerosis of the aorta without aneurysm. No lymphadenopathy. No bowel obstruction or bowel wall thickening. Moderate fecal retention. Trace free fluid within the pelvis. Colonic diverticulosis. Noninflamed appendix. Generalized body wall edema. Degenerative changes of the spine, pelvis and hips. IMPRESSION: 1. Cardiomegaly with pulmonary edema, small left and moderate right pleural effusions. 2. Dependent bibasilar consolidation suggestive of compressive atelectasis. 3. Scattered subsegmental nodular consolidative foci throughout the right lung are likely infectious or inflammatory. Follow-up imaging after treatment course is needed in order to document resolution. 4. No bowel obstruction or bowel wall thickening. 5. Colonic diverticulosis. 6. Additional findings as above. ACT 112: Negative or not required by law. Electronically signed by: Francesco Verma M.D. 08/30/2023 6:[address] 08/30/23 17:[address] WITH CONTRAST; CT ABDOMEN AND PELVIS WITH IV CONTRAST ONLY CT DOSE: 1220.1 mGy.cm HISTORY: Acute shortness of breath with chest and abdominal pain CHF vs pneumonia, ongoing hypoxia TECHNIQUE: Multiaxial CT images of the chest, abdomen and pelvis were performed following the IV administration of 89 cc of Optiray. A dose lowering technique was utilized adhering to the principles of ALARA. COMPARISON: Chest radiographs of same day FINDINGS: CT CHEST: Unremarkable thyroid. There is no lymphadenopathy. Moderate to marked cardiomegaly without pericardial effusion. Extensive coronary artery ca lcifications. Fusiform dilation of the ascending thoracic aorta measures up to 4.3 cm. No dissection. There is patency of the imaged great vessels. Dilation of the pulmonary artery with the main pulmonary artery measuring up to 4.2 cm. No pulmonary emboli identified on this exam. No pneumothorax. Small left and moderate right pleural effusions. No pneumothorax. Mild biapical pleural-parenchymal scarring. Mild intralobular and bronchial wall thickening. Dependent bibasilar consolidation within the lower lobes. There are scattered nodular consolidative densities within the right lung including a 2.1 cm right upper lobe focus on image 107 and foci within the right lower lobe measuring up to 2 cm. Central airways are patent. Mild fluid-filled distention of the esophagus with a few internal subcentimeter radiodense foci within the distal esophageal lumen. Mild generalized body wall edema. Degenerative changes of the spine and shoulders. No acute fracture identified. Mild sigmoidal thoracolumbar scoliosis. Mild superior endplate compression deformity at T2, likely chronic. CT ABDOMEN/PELVIS: No spleen identified. Unremarkable pancreas and right adrenal gland. Mild nodular thickening of the left adrenal gland. Cholecystectomy. Mild marginal nodularity of the liver suggestive of cirrhosis. Mild postsurgical biliary ductal dilation. Patent portal vein. No hydronephrosis. Decompressed urinary bladder with Rockwell catheter in place. Prostatomegaly. Atherosclerosis of the aorta without aneurysm. No lymphadenopathy. No bowel obstruction or bowel wall thickening. Moderate fecal retention. Trace free fluid within the pelvis. Colonic diverticulosis. Noninflamed appendix. Generalized body wall edema. Degenerative changes of the spine, pelvis and hips. IMPRESSION: 1. Cardiomegaly with pulmonary edema, small left and moderate right pleural effusions. 2. Dependent bibasilar consolidation suggestive of compressive atelectasis. 3. Scattered subsegmental nodular consolidative foci throughout the right lung are likely infectious or inflammatory. Follow-up imaging after treatment course is needed in order to document resolution. 4. No bowel obstruction or bowel wall thickening. 5. Colonic diverticulosis. 6. Additional findings as above. ACT 112: Negative or not required by law. Electronically signed by: Francesco Verma M.D. 08/30/2023 6:47 PM PG Care Time/CCT Total # of Minutes Spent Total Time Spent with Patient: Total time spent is greater than 50% in coordination of care (as documented) at patient's floor/unit and/or counseling patient: Coding Level of Care Code 07113 SUB INP/OBS CARE 3/50MIN Diagnoses Pneumonia J18.9 Acute right-sided congestive heart failure I50.811 Catheter-associated urinary tract infection T83.511A; N39.0 Chronic indwelling Rockwell catheter Z97.8 Hyponatremia E87.1 Atrial fibrillation, permanent I48.21 Urinary retention due to benign prostatic hyperplasia N40.1; R33.8 Primary hypertension I10 Hypertension type: primary hypertension Excessive sleepiness G47.10 Elevated INR R79.1 Acute metabolic encephalopathy G93.41 RLQ abdominal mass R19.03 Esophagitis K20.90 Pulmonary HTN I27.20 (8) Hypertension Hypertension type: primary hypertension Qualified Code(s): I10 - Essential (primary) hypertension
[2023-08-31] MEDS: FINASTERIDE 5 MG TAB PO SCH (21:40)
[2023-08-31] MEDS: ZOLPIDEM TARTRATE 5 MG TAB PO SCH (21:43)
[2023-09-01 06:41] LABS: BUN Creatinine Ratio 25.5 (10-20); Calcium 8.9 mg/dl (8.6-10.3); Creatinine Clr Calc Pharmacy 125.8 ml/min; Est GFR (African American) 119.1 ml/min; Est GFR (Non-African American) 102.8 ml/min
[2023-09-01] MEDS: acetaZOLAMIDE 250 MG TAB PO SCH (08:51)
[2023-09-01] MEDS: amLODIPine BESYLATE 5 MG TAB PO SCH (08:51)
[2023-09-01] MEDS: BENZONATATE 100 MG CAPSULE PO SCH ×3 (08:51→20:25)
[2023-09-01] MEDS: DOCUSATE SODIUM 100 MG CAP PO SCH ×2 (08:51→20:26)
[2023-09-01] MEDS: guaiFENesin 600 MG TABCR PO SCH ×2 (08:51→20:25)
[2023-09-01] MEDS: MAGNESIUM OXIDE 400 MG TAB PO SCH (08:52)
[2023-09-01] MEDS: SENNA 8.6 MG TAB PO SCH (08:52)
[2023-09-01] MEDS: PANTOprazole 40 MG TAB PO SCH (08:52)
[2023-09-01] MEDS: RIVAROXABAN 20 MG TAB PO SCH (08:52)
[2023-09-01] MEDS: MULTIVITAMIN TAB PO SCH (08:52)
[2023-09-01] MEDS: METOPROLOL SUCC 50MG EXT REL TAB PO SCH (08:52)
[2023-09-01] MEDS: CHOLECALCIFEROL 1,000 UNITS 25 MCG TAB PO SCH (08:52)
[2023-09-01] MEDS: POLYETHYLENE (MIRALAX) 17 GM PACK PO SCH (08:53)
[2023-09-01] MEDS: AMOXICILLIN 875 MG TAB PO SCH ×2 (11:10→17:31)
--- NOTE | 2023-09-01 14:23 | Heart Failure Consultation ---
Date of Consultation September 01, 2023 Assessment & Plan (1) RVF (right ventricular failure): (2) Pulmonary HTN: (3) Atrial fibrillation with RVR: Plan RV dysfunction: Patient initially presented with pneumonia. Echocardiogram revealed moderate RV dysfunction which is new. EF preserved. CT scan with pulmonary edema and pleural effusions. He was treated with diuretics with significant response. He is net negative 13L for the admission. Patient currently denies any heart failure symptoms. Lasix held today and given Acetazolamide due to increasing HCO3. He appears near euvolemic on exam today. Pulmonary symptoms likely multifactorial with pneumonia diagnosis. Continue to monitor renal function. Continue I&Os. Low sodium diet, less than 2,000 mg daily. Would consider outpatient sleep study. We discussed the heart failure program and he is agreeable to enrollment. He will benefit from ongoing education regarding volume management. Pulmonary hypertension: Continue diuretics as above. Would consider repeat echocardiogram as outpatient once euvolemic. Atrial fibrillation: Rate well controlled. Asymptomatic. Continue anticoagulation. Disposition: Follow up with the heart failure program within 7 days of discharge. Follow up with Dr. Whitt as scheduled. Will continue to follow during hospitalization. 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 Dr. Whitt is his primary diesel technician mechanic. Recent cardiac studies: 1. 08/24/23 Echo: LV systolic function is normal. EF 65-70%. No RWMA. RV moderately dilated with moderately reduced systolic function. Mild pulmonic regurgitation. PA end-diastolic velocity of 2 m/s is consistent with significantly elevated pressure. Moderate MR. Mild to moderate TR. RVSP elevated 40-50 mmHg. Aortic root 4.5 mm. IVC dilated. New onset afib in May of 2013 when he had symptoms of lightheadedness and dizziness, he was hospitalized, the duration was unknown and therefore he did undergo transesophageal echocardiography with plans for cardioversion however he had a left atrial thrombus. The procedure was therefore not done, he was anticoagulated but subsequently he appeared to be asymptomatic once his heart rate was controlled with beta blockade therefore he has remained in atrial fibrillation on anticoagulation. A Holter monitor was done on 06/24/2015, his average heart rate was a little bit elevated but acceptable and since he felt well we made no changes to his medications. A subsequent Holter monitor on December 15, 2017 showed an overall good heart rate response, with no change in medications. He was most recently evaluated in January [address] Whitt. Rate was well controlled. No changes. He was admitted 08/22/23 with cough. CXR consistent with pneumonia. Treated with antibiotics. Echo showing moderate RV dysfunction which is new. He has had significant response to diuretics (negative 13L). He reports feeling well today. He denies any issues with breathing or edema. He slept well with his head elevated. He appears someone lethargic at times and requires frequent reorientation. Allergies Allergy/AdvReac Type Severity Reaction Status Date / Time No Known Drug Allergies Allergy Verified 08/02/23 13:06 Home Medications Medication Instructions Recorded Confirmed Type cholecalciferol (vitamin D3) 25 25 mcg PO QAM 10/20/22 08/22/23 History mcg (1,000 unit) capsule dutasteride 0.5 mg capsule 0.5 mg PO HS 11/26/22 08/22/23 History rivaroxaban 20 mg tablet (Xarelto) 20 mg PO QAM #90 tabs 11/29/22 08/22/23 Rx metoprolol succinate 50 mg 50 mg PO QAM 04/19/23 08/22/23 History tablet,extended release 24 hr amoxicillin 875 mg-potassium 1 tab PO Q12H 08/22/23 08/22/23 History clavulanate 125 mg tablet azithromycin 500 mg tablet 2,000 mg PO DAILY 08/22/23 08/22/23 History multivitamin 1 tab PO QAM 08/22/23 08/22/23 History zolpidem 5 mg tablet 5 mg PO HS 08/22/23 08/22/23 History Patient History Medical History Atrial fibrillation f/u dr. 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 S/P cholecystectomy S/P splenectomy Family History Mother Rheumatoid arthritis Denies family history of Ovarian cancer Prostate cancer Myocardial infarction Breast cancer Colorectal cancer Social History Smoking Status: Never smoker Second Hand Exposure: No; Do You Dip or Chew Tobacco: No; Hx Alcohol Use: Yes Alcohol type: wine and hard liquor Alcohol Intake Frequency: 4 or More x per/Week Alcohol Intake Frequency Comment: with dinner Hx Substance Use: No Preferred Language: Cypriot Communication Ability: Effective Visual Impairment: No Limitations Hearing Ability: Normal Digital Research Analyst Required: No Beliefs That Will Affect Care: None marital status: Current Living Situation: Spouse current occupational status: retired current occupation: former [employer] R[employer] How many Children do You have: 4 Feels Safe at Home: Yes Safety Concerns: Feels Safe At This Time Childhood Exposure to Second-Hand Smoke: No Diet: regular Diet Comment: regular caffeine: Yes during the past year weight has: remained stable Dental Care, Regularly: No Physical Activity Frequency: 1-2 Times per Week Seatbelt Use: always Sunscreen Use: No Assistive Devices: Glasses Physical Exam Physical Exam: Constitutional: Alert, cooperative and in no distress. 2L via NC. HEENT: Unremarkable Neck: No jugular venous distention, carotid pulses are irregular but otherwise normal and equal bilaterally without bruits. Pulmonary: Normal respiratory effort. Decreased breath sounds at bases, faint crackles. Cardiac: Irregular rhythm with 2/6 systolic murmur. Abdomen: Soft, nontender with normal bowel sounds. Extremities: No edema. Distal pulses intact. Neurologic: No focal findings. Gait is somewhat unsteady and he uses a cane. Skin: No rash, ecchymoses or petechiae. Results & Data Vital Signs (Past 12 Hours) Vital Signs Temp Pulse Pulse Pulse Resp BP Pulse Ox 09/01/23 11:36 97.9 F 67 16 94/58 L 99 09/01/23 09:45 09/01/23 08:03 97.3 F L 85 18 123/71 95 09/01/23 07:16 73 09/01/23 04:16 97.5 F L 83 20 117/74 93 O2 Del Method O2 Flow Rate 09/01/23 11:36 Nasal Cannula 2 09/01/23 09:45 Nasal Cannula 2 09/01/23 08:03 Nasal Cannula 2 09/01/23 07:16 09/01/23 04:16 Nasal Cannula 2 Coding Level of Care Code 71177 INT INP/OBS CARE 3MIN Diagnoses RVF (right ventricular failure) I50.810 Pulmonary HTN I27.20 Atrial fibrillation with RVR I48.91
--- NOTE | 2023-09-01 14:24 | Hospitalist Progress Note ---
Date of Service September 01, 2023 Assessment & Plan (1) Pneumonia: Plan: b/l infiltrates on admission cxr initially on IV rocephin/zithromax then ultimately transitioned to PO augmentin completed full 7+ days of Rx between IV & PO therapy CT chest ndeed showed some focal pneumonia on the right (2) Acute right-sided congestive heart failure: Plan: echo this admission with RV dysfunction but preserved LV function the RV dysfunction is new in comparison to last echo in 2021 etiology of RV dysfunction?? --> uncertain - but pt's family does confirm excessive daytime sleepiness and mouth breathing that has been worsening over the last year - severe sleep-disordered breathing leading to pulm HTN & RV dysfunction?? valvular disease? other? he has never snored, and does not have a history of DAY - but has numerous witnessed episodes of apnea no prior h/o PE cxr with effusions/pulm edema CT chest with similar findings he had COPIOUS diuresis last 3+ days with diuretics loop diuretics on hold due to contraction alkalosis s/p 3 doses of diamox since yesterday am - can stop after this am's dose cont metoprolol succinate 50mg daily he follows with Dr Whitt for h/o a.fib but consulted Kimber Arambula from CHF clinic - appreciate her consultation (3) Catheter-associated urinary tract infection: Plan: 2nd e.coli 2nd enterococcus s/p 5 days of augmentin (the prior rocephin used starting at time of admission for #1 would not have covered the enterococcus) complete 5 more days of amoxicillin to cover the enterococcus (e.coli would have had adequate Rx since admission) (4) Chronic indwelling Rockwell catheter: Plan: has had such for 12+ months for BPH [place] [facility] a/p without urinary tract anomalies (5) Hyponatremia: Plan: acute/chronic baseline Na level - upper 120s to low 130s Na 127 today once again repeat BMP am urine Na, urine osm, serum osm levels - all noted could consider torsemide in donnie of lasix - torsemide with less risk of hyp onatremia (6) Atrial fibrillation, permanent: Plan: rates controlled cont metoprolol succinate cont Xarelto (7) Urinary retention due to benign prostatic hyperplasia: Plan: cont rockwell -- this is chronic for him (8) Hypertension: Plan: controlled (9) Excessive sleepiness: Plan: VBG with significant hypercapnia ammonia level wnl TSH in 03/2023 wnl 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 and will need formal sleep study as an outpatient in the future counseled pt & his family about such nearing d/c could try doing overnight oximetry study along with am abg to get him qualified for BIPAP out of the gate plan to obtain MRI brain to ensure no subacute or chronic stroke(s) contributing to clinical picture has patient developed some form of neurodegenerative disorder?? 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 swallow eval? speech saw patient in consult - some concern for aspiration - to have video swallow tomorrow (14) Pulmonary HTN: Plan: as seen on echo 2nd to some form of sleep apnea/sleep-disordered breathing?? 2nd to valvular heart disease? no pre-existing lung disease need to assess for chronic/ambulatory O2 needs before discharge Plan updated by phone this evening cont PT/OT dispo - rehab - next 48 hours? care d/w speech and Ms Arambula from CHF clinic Admission and Anticipated Discharge Date Admission Date: August 22, 2023 Subjective tele overnight - a.fib, rates < 100 he is sitting in the chair during the visit states "I feel good" and "I slept well" last night at least 3-4 x's during the visit he fell asleep while we were talking he would have apnea for about 15 seconds on some of these episodes I asked him if he had any prodrome prior to the episodes and he denied near- syncope or dizziness prior no cough no dyspnea denies pain any location eating better still no bowel movement Review of Systems Review of Systems: cv - no chest pain; no edema pulm - no dyspnea GI - no pain or N/V gen - eating is better Physical Exam Physical Exam: gen - thin, NAD, sitting in chair comfortably, fell asleep multiple times while I was visiting with him mouth - MMM neck - no JVD sitting upright at 90 degrees heart - irregularly irregular, s1 s2, 2/6 systolic murmur LSB lungs - decreased BS bases but airation has improved; minimal basilar rales (Fine, dry); no increased work of breathing abd - soft NT ND BS+; RLQ firmness is still present ext - no edema, pulses 2+ b/l neuro - speech - dysphonic musculo - generalized muscle wasting neuro - DTRs 2+ b/l upper and lower exts Results & Data Results & Data Vital Signs (Past 12 Hours) Vital Signs Temp Pulse Pulse Pulse Resp BP Pulse Ox 09/01/23 11:36 36.6 C 67 16 94/58 L 99 09/01/23 09:45 09/01/23 08:03 36.3 C L 85 18 123/71 95 09/01/23 07:16 73 09/01/23 04:16 36.4 C L 83 20 117/74 93 O2 Del Method O2 Flow Rate 09/01/23 11:36 Nasal Cannula 2 09/01/23 09:45 Nasal Cannula 2 09/01/23 08:03 Nasal Cannula 2 09/01/23 07:16 09/01/23 04:16 Nasal Cannula 2 Laboratory Results Laboratory Results - last 24 hr 09/01/23 06:01 Sodium 127 L Potassium 4.0 Chloride 90 L Carbon Dioxide 35 H Anion Gap 2 L BUN 12 Creatinine 0.47 L Est Cr Clr Drug Dosing 125.8 Est GFR ( Amer) 119.1 Est GFR (Non-Af Amer) 102.8 BUN/Creatinine Ratio 25.5 H Glucose 90 Calcium 8.9 PG Care Time/CCT Total # of Minutes Spent Total Time Spent with Patient: Total time spent is greater than 50% in coordination of care (as documented) at patient's floor/unit and/or counseling patient: Coding Level of Care Code 67850 SUB INP/OBS CARE 3/50MIN Diagnoses Pneumonia J18.9 Acute right-sided congestive heart failure I50.811 Catheter-associated urinary tract infection T83.511A; N39.0 Chronic indwelling Rockwell catheter Z97.8 Hyponatremia E87.1 Atrial fibrillation, permanent I48.21 Urinary retention due to benign prostatic hyperplasia N40.1; R33.8 Primary hypertension I10 Hypertension type: primary hypertension Excessive sleepiness G47.10 Elevated INR R79.1 Acute metabolic encephalopathy G93.41 RLQ abdominal mass R19.03 Esophagitis K20.90 Pulmonary HTN I27.20 (8) Hypertension Hypertension type: primary hypertension Qualified Code(s): I10 - Essential (primary) hypertension
--- NOTE | 2023-09-01 17:16 | Magnetic Resonance Report ---
Brain MRI WITHOUT CONTRAST HISTORY: apnea episodes/altered mental status episodes TECHNIQUE: Multiplanar multisequence MRI of the brain was performed without the use of contrast. COMPARISON STUDY: Head CT 04/23/2021. FINDINGS: There is no mass, hematoma, midline shift, or acute infarct. The paranasal sinuses are lilo r. The mastoid air cells are clear. The ventricles and sulci demonstrate moderate age-related involut ional changes. Scattered foci of T2 hyperintensity seen within the periventricular and subcortical wh ite matter are nonspecific but suggestive of moderate microvascular ischemic changes. The major vascu lar flow voids at the skull base are well-maintained. Trace fluid level within the left maxillary sin us. Prior bilateral lens replacement. IMPRESSION: 1. No acute infarct or intracranial hemorrhage. 2. Moderate atrophy and microvascular ischemic changes. 3. Trace fluid level within the left maxillary sinus. ACT 112: Negative or not required by law. Electronically signed by: Douglas Reeves M.D. 09/01/2023 5:15 PM
[2023-09-01] MEDS: FINASTERIDE 5 MG TAB PO SCH (20:26)
[2023-09-01] MEDS: ZOLPIDEM TARTRATE 5 MG TAB PO SCH (20:29)
[2023-09-02 06:40] LABS: Calcium 8.8 mg/dl (8.6-10.3); Creatinine Clr Calc Pharmacy 121.6 ml/min; Est GFR (African American) 119.1 ml/min; Est GFR (Non-African American) 102.8 ml/min; Potassium 4.2 mmol/L (3.5-5.1)
[2023-09-02] MEDS: DOCUSATE SODIUM 100 MG CAP PO SCH ×2 (08:14→21:15)
[2023-09-02] MEDS: BENZONATATE 100 MG CAPSULE PO SCH ×3 (08:15→21:15)
[2023-09-02] MEDS: guaiFENesin 600 MG TABCR PO SCH ×2 (08:16→21:15)
[2023-09-02] MEDS: PANTOprazole 40 MG TAB PO SCH (08:16)
[2023-09-02] MEDS: AMOXICILLIN 875 MG TAB PO SCH ×2 (08:17→16:46)
[2023-09-02] MEDS: amLODIPine BESYLATE 5 MG TAB PO SCH (08:17)
[2023-09-02] MEDS: MAGNESIUM OXIDE 400 MG TAB PO SCH (08:17)
[2023-09-02] MEDS: SENNA 8.6 MG TAB PO SCH (08:18)
[2023-09-02] MEDS: METOPROLOL SUCC 50MG EXT REL TAB PO SCH (08:18)
[2023-09-02] MEDS: RIVAROXABAN 20 MG TAB PO SCH (08:18)
[2023-09-02] MEDS: CHOLECALCIFEROL 1,000 UNITS 25 MCG TAB PO SCH (08:19)
[2023-09-02] MEDS: MULTIVITAMIN TAB PO SCH (08:19)
[2023-09-02] MEDS: POLYETHYLENE (MIRALAX) 17 GM PACK PO SCH (08:19)
[2023-09-02] MEDS: TORSEMIDE 10 MG TAB PO SCH (11:10)
[2023-09-02] MEDS: THIAMINE HCL 100 MG TAB PO SCH ×2 (11:10→21:15)
--- NOTE | 2023-09-02 11:30 | Fluoroscopy Report ---
FL video swallow HISTORY: Pneumonia. assess for aspiration TECHNIQUE: Video fluoroscopic evaluation of swallowing was performed in the AP and lateral projection s by the speech pathology staff. The patient is fed nectar-thick and thin liquid barium, a barium coa nikko wafer, and barium pudding. FLUOROSCOPY TIME: 3 minutes and 42 seconds. A cine loop submitted. Ka,r: 12.3 mGy COMPARISON STUDY: None. FINDINGS: Overall poor pharyngeal obstruction with multiple episodes of incomplete epiglottic deflect ion. There are a few episodes of silent aspiration with the thin liquid barium. Mild to moderate vall ecular residue is noted with the thin liquid barium. Aspiration was also identified during swallowing of the barium pudding. Heavy vallecular retention with the thicker barium consistencies with associa nikko silent aspiration. IMPRESSION: 1. Multiple episodes of silent aspiration seen throughout the examination. 2. Please see the speech pathologist report for detailed findings and recommendations. ACT 112: Negative or not required by law. Electronically signed by: Douglas Reeves M.D. 09/02/2023 11:28 AM
--- NOTE | 2023-09-02 14:35 | Heart Failure Progress Note ---
Date of Service September 02, 2023 Assessment & Plan (1) RVF (right ventricular failure): (2) Pulmonary HTN: (3) Atrial fibrillation with RVR: Plan RV dysfunction: Patient initially presented with pneumonia. Echocardiogram revealed moderate RV dysfunction which is new. EF preserved. CT scan with pulmonary edema and pleural effusions. He was treated with diuretics with significant response. He is net negative 15 L for the admission. Patient currently denies any heart failure symptoms. IV Lasix discontinued and given Acetazolamide due to increasing HCO3. This has improved. He is now taking Torsemide 10 mg daily. He appears near euvolemic on exam today. Would continue neutral to slightly negative fluid balance as long as he renal function is stable. Pulmonary symptoms likely multifactorial with pneumonia diagnosis/aspiration concerns. Currently NPO and palliative care discussion has been recommended. Neuro consult is also pending. Continue I&Os. Low sodium diet, less than 2,000 mg daily. We discussed the heart failure program and he is agreeable to enrollment. He will benefit from ongoing education regarding volume management. Pulmonary hypertension: Continue diuretics as above. Would consider repeat echocardiogram as outpatient once euvolemic. Atrial fibrillation: Rate well controlled. Asymptomatic. Continue anticoagulation. Disposition: Follow up with the heart failure program within 7 days of discharge. Follow up with Dr. Whitt as scheduled. Will continue to follow during hospitalization. Admission and Anticipated Discharge Date Admission Date: August 22, 2023 Subjective Patient sitting in the bedside chair. He is accompanied by his and son. Patient reports feeling well today. He is breathing comfortably, remains on supplemental O2, 2L. He has no lower extremity edema. Denies any difficulty sleeping. Denies chest pain, palpitations. Currently NPO due to aspiration concerns. He continues to have a negative fluid balance (-2L overnight) on PO diuretics. Physical Exam Physical Exam: Constitutional: Alert, cooperative and in no distress. 2L via NC. HEENT: Unremarkable Neck: No jugular venous distention, carotid pulses are irregular but otherwise normal and equal bilaterally without bruits. Pulmonary: Normal respiratory effort. Decreased breath sounds at bases, faint crackles. Cardiac: Irregular rhythm with 2/6 systolic murmur. Abdomen: Soft, nontender with normal bowel sounds. Extremities: No edema. Distal pulses intact. Neurologic: A&O x 3 Skin: No rash, ecchymoses or petechiae. Results & Data Vital Signs (Past 12 Hours) Vital Signs Temp Pulse Pulse Pulse Resp BP Pulse Ox 09/02/23 11:49 97.5 F L 70 18 93/59 L 96 09/02/23 09:42 09/02/23 07:35 75 09/02/23 07:34 97.3 F L 82 18 135/73 100 O2 Del Method O2 Flow Rate 09/02/23 11:49 Nasal Cannula 2 09/02/23 09:42 2 09/02/23 07:35 09/02/23 07:34 Nasal Cannula 2 PG Care Time/CCT Total # of Minutes Spent Total Time Spent with Patient: Total time spent is greater than 50% in coordination of care (as documented) at patient's floor/unit and/or counseling patient: Coding Level of Care Code 24564 SUB INP/OBS CARE 3/50MIN Diagnoses RVF (right ventricular failure) I50.810 Pulmonary HTN I27.20 Atrial fibrillation with RVR I48.91
--- NOTE | 2023-09-02 15:27 | Hospitalist Progress Note ---
Date of Service September 02, 2023 Assessment & Plan (1) Dysphagia: Plan: severe silent aspiration with all consistencies during her video swallow today pharyngeal muscular contractions/movement very poor poor epliglottic excursion in light of what looks like central apneas (I have witnessed these - there is no snoring during his events), diffuse muscle wasting, dysphonia, gait disturbance, drooling, weight loss, dysphagia I am very concerned about a neurodegenerative type d/o causing all of this to that end will ask Dr Schmid from neurology to see in consult MRI brain w/o old or new CVA extensive discussion held with the pt and his family today re: the above speech made NPO except ice chips they will re-eval tomorrow at bedside we didn't really talk about PEG tube / artificial nutrition; however, the minimal amount we did discuss I did not get a strong sense he would want such (2) Apnea: Plan: numerous witnessed by family at home for 6-12 months witnessed by myself and staff while hospitalized appear to be central rather than obstructive also mentions he "thrashes" all night in bed during sleep see #1 above (3) Pneumonia: Plan: b/l infiltrates on admission cxr initially on IV rocephin/zithromax then ultimately transitioned to PO augmentin completed full 7+ days of Rx between IV & PO therapy CT chest ndeed showed some focal pneumonia on the right in light of #1his pneumonia could be aspiration in etiology (4) Acute right-sided congestive heart failure: Plan: echo this admission with RV dysfunction but preserved LV function the RV dysfunction is new in comparison to last echo in 2021 etiology of RV dysfunction?? --> uncertain - but pt's family does confirm excessive daytime sleepiness and mouth breathing that has been worsening over the last year - severe sleep-disordered breathing leading to pulm HTN & RV dysfunction?? valvular disease? other? he has never snored, and does not have a history of DAY - but has numerous witnessed episodes of apnea no prior h/o PE cxr with effusions/pulm edema CT chest with similar findings he had COPIOUS diuresis last 3-4+ days with diuretics cont metoprolol succinate 50mg daily follows with Dr Whitt for h/o a.fib but consulted Kimber Arambula from CHF clinic - appreciate her consultation due to hyponatremia will use torsemide rather than lasix or bumex -- start 10mg once daily BMP am (5) Catheter-associated urinary tract infection: Plan: 2nd e.coli 2nd enterococcus s/p 5 days of augmentin (the prior rocephin used starting at time of admission for #1 would not have covered the enterococcus) complete 5 more days of amoxicillin to cover the enterococcus (e.coli would have had adequate Rx since admission) (6) Chronic indwelling Rockwell catheter: Plan: has had such for 12+ months for BPH [place] [facility] a/p without urinary tract anomalies (7) Hyponatremia: Plan: acute/chronic baseline Na level - upper 120s to low 130s Na 128 today repeat BMP am urine Na, urine osm, serum osm levels - all noted (8) Atrial fibrillation, permanent: Plan: rates controlled cont metoprolol succinate cont Xarelto (9) Urinary retention due to benign prostatic hyperplasia: Plan: cont rockwell -- this is chronic for him (10) Hypertension: Plan: controlled (11) Excessive sleepiness: Plan: VBG with significant hypercapnia ammonia level wnl TSH in 03/2023 wnl 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 / central apneas and will need formal sleep study as an outpatient in the future counseled pt & his family about such nearing d/c could try doing overnight oximetry study along with am abg to get him qualified for BIPAP out of the gate has patient developed some form of neurodegenerative disorder?? see #1 above (12) Elevated INR: Plan: INR was 1.9 at time of admission certainly DOACs can raise the INR but not typically that high (sometimes up to 1.4 to 1.5) repeat INR today is 1.4 - c/w Fede could have had transient liver dysfunction in the setting of his decompensated right heart failure leading to high INR (13) Acute metabolic encephalopathy: Plan: likely combo of issues including hyponatremia, hypercapnia, and metabolic effects from his pneumonia/UTI resolved improved mentation reports he is at baseline (14) RLQ abdominal mass: Plan: there is copious stool on the CT of abd/pelvis as well as assistant manager pt film aggressive bowel regimen "mass" is likely stool (15) Esophagitis: Plan: as seen on CT chest PPI with his dysphonic voice and frequent throat clearing -- need for outpatient EGD? swallow eval? speech saw patient in consult - some concern for aspiration - to have video swallow tomorrow (16) Pulmonary HTN: Plan: as seen on echo 2nd to some form of sleep apnea/sleep-disordered breathing?? 2nd to valvular heart disease? no pre-existing lung disease need to assess for chronic/ambulatory O2 needs before discharge Plan , son, daughter updated at bedside had [place] correspondence with Dr Schmid from neurology cont PT/OT dispo - rehab - timing uncertain in light of #1 Admission and Anticipated Discharge Date Admission Date: August 22, 2023 Subjective tele - a.fib, rates <100 pt had video swallow today - unfortunately aspirated silently ALL consistencies very little pharyngeal movement during the study during my bedside visit he was resting comfortably in the chair he was upset that he couldn't eat denied any new complaints we had a very lengthy discussion about my concerns about a neurodegenerative disorder , daughter, son were present for this discussed neuro consultation did confirm he has had diffuse muscle wasting over the last 1-2 years Review of Systems Review of Systems: cv - no chest pain pulm - no dyspnea, no cough GI - no abd pain, nausea, emesis - rockwell in place Physical Exam Physical Exam: gen - thin, NAD, sitting in chair comfortably, mouth - MMM neck - no JVD sitting upright at 90 degrees heart - irregularly irregular, s1 s2, 2/6 systolic murmur LSB lungs - minimal rales L base, minimal decreased BS bases, o/w CTA b/l and no wheezing abd - soft NT ND BS+; RLQ firmness improved ext - no edema, pulses 2+ b/l neuro - speech - dysphonic musculo - generalized muscle wasting Results & Data Results & Data Vital Signs (Past 12 Hours) Vital Signs Temp Pulse Pulse Pulse Resp BP Pulse Ox 09/02/23 14:47 83 09/02/23 11:49 36.4 C L 70 18 93/59 L 96 09/02/23 09:42 09/02/23 07:35 75 09/02/23 07:34 36.3 C L 82 18 135/73 100 O2 Del Method O2 Flow Rate 09/02/23 14:47 09/02/23 11:49 Nasal Cannula 2 01/19/24 09:42 2 09/02/23 07:35 09/02/23 07:34 Nasal Cannula 2 Laboratory Results Laboratory Results 09/02/23 05:57 Sodium 128 L Potassium 4.2 Chloride 91 L Carbon Dioxide 35 H Anion Gap 2 L BUN 16 Creatinine 0.47 L Est Cr Clr Drug Dosing 121.6 Est GFR ( Amer) 119.1 Est GFR (Non-Af Amer) 102.8 BUN/Creatinine Ratio 34.0 H Glucose 90 Calcium 8.8 Vitamin B12 513 PG Care Time/CCT Total # of Minutes Spent Total Time Spent with Patient: Total time spent is greater than 50% in coordination of care (as documented) at patient's floor/unit and/or counseling patient: Coding Level of Care Code 73187 SUB INP/OBS CARE 3/50MIN Diagnoses Dysphagia R13.10 Apnea R06.81 Pneumonia J18.9 Acute right-sided congestive heart failure I50.811 Catheter-associated urinary tract infection T83.511A; N39.0 Chronic indwelling Rockwell catheter Z97.8 Hyponatremia E87.1 Atrial fibrillation, permanent I48.21 Urinary retention due to benign prostatic hyperplasia N40.1; R33.8 Primary hypertension I10 Hypertension type: primary hypertension Excessive sleepiness G47.10 Elevated INR R79.1 Acute metabolic encephalopathy G93.41 RLQ abdominal mass R19.03 Esophagitis K20.90 Pulmonary HTN I27.20 (10) Hypertension Hypertension type: primary hypertension Qualified Code(s): I10 - Essential (primary) hypertension
[2023-09-02] MEDS ORDERED: ACETAMINOPHEN 1,000 MG/100 ML VIAL IV PRN (16:42)
[2023-09-02] MEDS: FINASTERIDE 5 MG TAB PO SCH (21:15)
[2023-09-02] MEDS: ZOLPIDEM TARTRATE 5 MG TAB PO SCH (21:16)
[2023-09-03] MEDS: AMOXICILLIN 875 MG TAB PO SCH ×3 (08:39→17:54)
[2023-09-03] MEDS: BENZONATATE 100 MG CAPSULE PO SCH ×4 (08:39→20:11)
[2023-09-03] MEDS: amLODIPine BESYLATE 5 MG TAB PO SCH ×2 (08:39→17:54)
[2023-09-03] MEDS: CHOLECALCIFEROL 1,000 UNITS 25 MCG TAB PO SCH ×2 (08:39→17:55)
[2023-09-03] MEDS: MAGNESIUM OXIDE 400 MG TAB PO SCH ×2 (08:40→17:55)
[2023-09-03] MEDS: DOCUSATE SODIUM 100 MG CAP PO SCH (08:40)
[2023-09-03] MEDS: POLYETHYLENE (MIRALAX) 17 GM PACK PO SCH ×2 (08:40→17:57)
[2023-09-03] MEDS: RIVAROXABAN 20 MG TAB PO SCH ×2 (08:40→17:58)
[2023-09-03] MEDS: MULTIVITAMIN TAB PO SCH ×2 (08:40→17:56)
[2023-09-03] MEDS: SENNA 8.6 MG TAB PO SCH ×2 (08:40→17:58)
[2023-09-03] MEDS: METOPROLOL SUCC 50MG EXT REL TAB PO SCH ×2 (08:40→17:56)
[2023-09-03] MEDS: PANTOprazole 40 MG TAB PO SCH ×2 (08:40→17:58)
[2023-09-03] MEDS: TORSEMIDE 10 MG TAB PO SCH ×2 (08:40→17:57)
[2023-09-03] MEDS: THIAMINE HCL 100 MG TAB PO SCH ×3 (08:40→20:11)
[2023-09-03] MEDS: guaiFENesin 600 MG TABCR PO SCH (08:40)
[2023-09-03 09:45] LABS: Anion Gap 3 (3-11); BUN Creatinine Ratio 40.9 (10-20); Blood Urea Nitrogen 18 mg/dl (6-23); C Reactive Protein < 0.50 mg/dl (0-0.5); Calcium 9.5 mg/dl (8.6-10.3); Carbon Dioxide 39 mmol/L (21-32); Chloride 89 mmol/L (98-107); Creatinine Clr Calc Pharmacy 123.4 ml/min; Est GFR (African American) 122.4 ml/min; Est GFR (Non-African American) 105.6 ml/min; Glucose 88 mg/dl (70-99(Fasting)); Sodium 131 mmol/L (136-145)
--- NOTE | 2023-09-03 09:45 | Neurology Consultation ---
Date of Consultation September 03, 2023 Assessment & Plan (1) Dysphagia: (2) Apnea: (3) Peripheral neuropathy: Plan 83-year-old male admitted with bilateral pneumonia, urinary tract infection, noted to have dysphagia as well as observed apneic episodes prompting concern for possible underlying neurologic process. Brain MRI negative for acute stroke but does reveal fairly extensive cerebrovascular disease throughout the brain parenchyma including brendon/brainstem, progressive compared with previous MRI done in 2015, there is also an element of generalized atrophy. Patient's voice is soft and mildly dysphonic. He does not have other bulbar signs or symptoms such as ptosis or diplopia. He does not have focal atrophy or fasciculations of the limbs. His muscle strength is generally intact although he did require some assistance with standing at bedside. Patient's dysphagia and dysphonia could be central and related to progressive cerebrovascular disease, notably in the brainstem/brendon. The observed apneic episodes could also be central although he has been receiving a low-dose of Ambien in the evening that could also be contributory. It looks like this medication was held last night. I do not find any evidence of myasthenia gravis, ALS, or an acquired myositis or muscle disease in this patient at this time. 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 I do not find evidence of other neurodegenerative diseases such as Parkinson's, Alzheimer's, or other parkinsonian syndrome such as multiple system atrophy. Agree with holding Ambien, consider stopping this medication altogether and observe for any improvement in apneic episodes. Patient should also probably have an outpatient sleep study. Speech and swallowing can assist with dietary modification. PT/OT Consider obtaining additional lab evaluation for underlying neuromuscular etiology such as CK, aldolase, ESR and CRP are pending, acetylcholine receptor antibodies (binding, blocking, modulating), Lambert-Eaton myasthenic syndrome antibody, serum protein electrophoresis, serum immunofixation, up-to-date TFTs. Consider outpatient EMG with repetitive stimulation. [facility] History of Present Illness Reason for Consultation: Concern for neurodegenerative disorder? Requesting Physician: Miguel Attending Physician: Jalil Rivera MD History of Present Illness The patient is an 83-year-old male who presented to the emergency department on August 22, 2023 with a complaint of persistent progressive cough for the previou s 10 days with associated shortness of breath, dyspnea on exertion, generalized weakness and fatigue. Admitted with a diagnosis of bilateral pneumonia, urinary tract infection. History also notable for atrial fibrillation, on Xarelto, congestive heart failure, B12 deficiency, BPH. Patient noted to have dysphagia, silent aspiration with video swallowing study, weakness of pharyngeal muscles, prompting some concern for an underlying neurologic process. Has also been observed to have apneic episodes. Patient actually denies experiencing difficulty with swallowing or choking. His voice does seem modestly soft and hoarse. He denies other bulbar symptoms such as ptosis or diplopia. He indicates that prior to this hospitalization he had been ambulating independently. He denies any specific or focal weakness of the limbs, he denies muscle pain. He denies any numbness of the limbs. He denies any muscular twitching. He did have a brain MRI completed on September 01, 2023, I independently reviewed these images. There is moderate atrophy and chronic microvascular ischemic disease throughout the brain parenchyma including the brendon which appears progressive compared with a previous MRI done in 2015. He is mildly hyponatremic. He has a normal vitamin B12 level. Allergies Allergy/AdvReac Type Severity Reaction Status Date / Time No Known Drug Allergies Allergy Verified 08/02/23 13:06 Home Medications Medication Instructions Recorded Confirmed Type cholecalciferol (vitamin D3) 25 25 mcg PO QAM 10/20/22 08/22/23 History mcg (1,000 unit) capsule dutasteride 0.5 mg capsule 0.5 mg PO HS 11/26/22 08/22/23 History rivaroxaban 20 mg tablet (Xarelto) 20 mg PO QAM #90 tabs 11/29/22 08/22/23 Rx metoprolol succinate 50 mg 50 mg PO QAM 04/19/23 08/22/23 History tablet,extended release 24 hr amoxicillin 875 mg-potassium 1 tab PO Q12H 08/22/23 08/22/23 History clavulanate 125 mg tablet azithromycin 500 mg tablet 2,000 mg PO DAILY 08/22/23 08/22/23 History multivitamin 1 tab PO QAM 08/22/23 08/22/23 History zolpidem 5 mg tablet 5 mg PO HS 08/22/23 08/22/23 History Patient History Medical History Atrial fibrillation f/u dr. 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 S/P cholecystectomy S/P splenectomy Family History Mother Rheumatoid arthritis Denies family history of Ovarian cancer Prostate cancer Myocardial infarction Breast cancer Colorectal cancer Social History Smoking Status: Never smoker Second Hand Exposure: No; Do You Dip or Chew Tobacco: No; Hx Alcohol Use: Yes Alcohol type: wine and hard liquor Alcohol Intake Frequency: 4 or More x per/Week Alcohol Intake Frequency Comment: with dinner Hx Substance Use: No Preferred Language: Estonian Communication Ability: Effective Visual Impairment: No Limitations Hearing Ability: Normal Process Improvement Consultant Required: No Beliefs That Will Affect Care: None marital status: Current Living Situation: Spouse current occupational status: retired current occupation: former [employer] How many Children do You have: 4 Feels Safe at Home: Yes Childhood Exposure to Second-Hand Smoke: No Diet: regular Diet Comment: regular caffeine: Yes during the past year weight has: remained stable Dental Care, Regularly: No Physical Activity Frequency: 1-2 Times per Week Seatbelt Use: always Sunscreen Use: No Assistive Devices: Glasses Review of Systems Constitutional: + fatigue and + weakness Eyes: no blind spots and no diplopia Ear, Nose, Mouth, Throat: no hearing loss Respiratory: as per Subjective / HPI Cardiovascular: no chest pain and no palpitations Gastrointestinal: no nausea and no vomiting Genitourinary: + problem reported (Has Earl) Musculoskeletal: no back pain, no neck pain, no joint pain and no myalgia Integumentary: no rash and no lesions Neurologic: as per Subjective / HPI and + generalized weakness; no tremor(s), no headache(s) and no memory loss Psychiatric: no depression and no anxiety Hematologic / Lymphatic: no easy bleeding and no easy bruising Exam (Neuro) Constitutional: well developed and + thin; no acute distress Eyes: normal visual mejia by confrontation, PERRL and EOM intact bilaterally; no nystagmus Neurologic: Oriented to:: Person, Place and Time Memory: Short Term Intact and Remote Intact Attention: Span Intact and Concentration Intact Speech Fluency: Dysarthria (mild); negative Dysfluency Speech Aphasia: negative Aphasia Fund of Knowledge: Current Events, Past History and Vocabulary Cranial Nerves: Normal II, III, IV, , V, VII, VIII, IX, X, XI and XII Motor Strength: Normal Lower Extremities and Normal Upper Extremities Motor Tone: Normal Lower Extremities and Normal Upper Extremities Muscle Bulk/Involuntary Movements: No Involuntary Movements; negative Muscle Atrophy Sensation: Light Touch Intact; negative Pain/Temperature Intact or Proprioception Intact Coordination: negative Dysdiadochokinesia, Finger-Nose Abnormal or Heel-Trevizo Abnormal Deep Tendon Reflexes: Rt Triceps: 1+, Lt Triceps: 1+, Rt Biceps: 1+, Lt Biceps: 1+, Rt Brachioradialis: 1+, Lt Brachioradialis: 1+, Rt Patellar: 1+, Lt Patellar: 1+, Rt Ankle: 1+ and Lt Ankle: 1+ Details: Patient able to sit up on the edge of the bed, unable to stand without assistance. Results & Data Vital Signs (Past 12 Hours) Vital Signs Temp Pulse Pulse Pulse Resp BP Pulse Ox 09/03/23 08:17 36.5 C 96 H 18 128/80 97 09/03/23 07:16 73 09/03/23 05:35 36.5 C 91 H 14 127/74 100 09/03/23 03:15 09/03/23 00:16 36.3 C L 74 14 130/69 99 O2 Del Method O2 Flow Rate 09/03/23 08:17 Nasal Cannula 2 09/03/23 07:16 09/03/23 05:35 Nasal Cannula 2 09/03/23 03:15 Nasal Cannula 2 09/03/23 00:16 Nasal Cannula 2 Laboratory Results WBC 4.59, hemoglobin 12.5, hematocrit 37.6, MCV one 1.1, platelet count 194, sodium 128, potassium 4.2, chloride 91, CO2 35, BUN 16, creatinine 0.47, calcium 8.8, magnesium 1.7, vitamin B12 513 Diagnostic Findings MRI of the brain is as described in the HPI, I independently reviewed these images. An echocardiogram completed August 24, 2023 revealed right heart dilatation, reduced systolic function, EF 65 to 70%, elevated pulmonary artery end-diastolic pressure, left atrium severely dilated. Coding Level of Care Code 85184 INT INP/OBS CARE MIN Diagnoses Dysphagia R13.10 Apnea R06.81 Peripheral neuropathy G62.9 Time Spent (min) 80
[2023-09-03] MEDS ORDERED: bisacodyL 10 MG SUPP PR STA (16:20)
[2023-09-03] MEDS ORDERED: MINERAL OIL ENEMA 133 ML BTL PR PRN (16:20)
--- NOTE | 2023-09-03 18:06 | Hospitalist Progress Note ---
Date of Service September 03, 2023 Assessment & Plan (1) Dysphagia: Plan: severe silent aspiration with all consistencies during video swallow 09/02/23 pharyngeal muscular contractions/movement very poor poor epliglottic excursion in light of what looks like central apneas (I have witnessed these - there is no snoring during his events), diffuse muscle wasting, dysphonia, gait disturbance, drooling, weight loss, dysphagia I am very concerned about a neurodegenerative type d/o causing all of this Dr Schmid from neurology provided consultation and a battery of labs recommended along with outpatient f/u and outpatient EMGs MRI brain w/o old or new CVA but considerable brainstem atrophy noted by Dr Schmid extensive discussion held with the pt and his family on 09/02 re: the above appreciate ongoing speech therapy assistance they did some swallowing exercises today we discussed permissive aspiration vs PEG in detail patient wants the former - does NOT want PEG will allow him his PO meds today and have speech see him again tomorrow to figure out diet (2) Apnea: Plan: numerous witnessed by family at home for 6-12 months witnessed by myself and staff while hospitalized appear to be central rather than obstructive also mentions he "thrashes" all night in bed during sleep see #1 above (3) Pneumonia: Plan: b/l infiltrates on admission cxr initially on IV rocephin/zithromax then ultimately transitioned to PO augmentin completed full 7+ days of Rx between IV & PO therapy CT chest ndeed showed some focal pneumonia on the right in light of #1 his pneumonia could have been aspiration in etiology (4) Acute right-sided congestive heart failure: Plan: echo this admission with RV dysfunction but preserved LV function the RV dysfunction is new in comparison to last echo in 2021 etiology of RV dysfunction?? --> uncertain - but pt's family does confirm excessive daytime sleepiness and mouth breathing that has been worsening over the last year - severe sleep-disordered breathing leading to pulm HTN & RV dysfunction?? valvular disease? other? he has never snored, and does not have a history of DAY - but has numerous witnessed episodes of apnea no prior h/o PE cxr with effusions/pulm edema CT chest with similar findings COPIOUS diuresis this week with diuretics cont metoprolol succinate 50mg daily follows with Dr Whitt for h/o a.fib but consulted Kimber Arambula from CHF clinic - appreciate her consultation due to hyponatremia will use torsemide rather than lasix or bumex -- started 10mg once daily BMP am (5) Catheter-associated urinary tract infection: Plan: 2nd e.coli 2nd enterococcus s/p 5 days of augmentin (the prior rocephin used starting at time of admission for #1 would not have covered the enterococcus) complete 4 more days of amoxicillin to cover the enterococcus (e.coli would have had adequate Rx since admission) (6) Chronic indwelling Rockwell catheter: Plan: has had such for 12+ months for BPH follows with [facility] a/p without urinary tract anomalies (7) Hyponatremia: Plan: acute/chronic baseline Na level - upper 120s to low 130s Na 131 today repeat BMP am urine Na, urine osm, serum osm levels - all noted (8) Atrial fibrillation, permanent: Plan: rates controlled cont metoprolol succinate cont Xarelto (9) Urinary retention due to benign prostatic hyperplasia: Plan: cont rockwell -- this is chronic for him (10) Hypertension: Plan: controlled (11) Excessive sleepiness: Plan: VBG with significant hypercapnia ammonia level wnl TSH in 03/2023 wnl 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 / central apneas and will need formal sleep study as an outpatient in the future counseled pt & his family about such nearing d/c could try doing overnight oximetry study along with am abg to get him qualified for BIPAP out of the gate has patient developed some form of neurodegenerative disorder?? see #1 above agree about trying to get off ambien - will wean over 2-3 weeks cut dose in /2 to 2.5mg HS (12) Elevated INR: Plan: INR was 1.9 at time of admission certainly DOACs can raise the INR but not typically that high (sometimes up to 1.4 to 1.5) repeat INR today is 1.4 - c/w Fede could have had transient liver dysfunction in the setting of his decompensated right heart failure leading to high INR (13) Acute metabolic encephalopathy: Plan: likely combo of issues including hyponatremia, hypercapnia, and metabolic effects from his pneumonia/UTI resolved (14) RLQ abdominal mass: Plan: there is copious stool on the CT of abd/pelvis as well as 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 speech saw patient in consult - aspiration on video swallow see above (16) Pulmonary HTN: Plan: as seen on echo 2nd to some form of sleep apnea/sleep-disordered breathing?? 2nd to valvular heart disease? no pre-existing lung disease need to assess for chronic/ambulatory O2 needs before discharge Plan , son updated at bedside had [place] correspondence with speech therapy today appreciate neuro consult - will order the labs they suggested cont PT/OT dispo - rehab - Tuesday?? Admission and Anticipated Discharge Date Admission Date: August 22, 2023 Subjective tele - a.fib only, rates controlled during the visit his son and were present pt denies any new complaints he voices that he is hungry we had lengthy discussion today about his dysphagia we discussed options for care first - allow permissive aspiration knowing that he will be at risk of future pneumonias second - pursue PEG / artificial nutrition he immediately stated he would NOT want a PEG family supportive because of NPO status he did not receive ANY ambien last pm and family reports he is a bit more awake today than previous still with some episodes of "dozing off" Review of Systems Review of Systems: cv - no chest pain pulm - no dyspnea, no cough GI - no abd pain or N/V Physical Exam Physical Exam: gen - thin, NAD, sitting in bed comfortably, a bit more awake/alert today; not clearing his throat mouth - MMM neck - no JVD heart - irregularly irregular, s1 s2, 2/6 systolic murmur LSB lungs - CTA b/l, no rales, no wheezing abd - soft NT ND BS+; RLQ firmness still present but improved ext - no edema, pulses 2+ b/l neuro - speech - dysphonic - maybe slightly better musculo - generalized muscle wasting psych - a/o today Results & Data Results & Data Vital Signs (Past 12 Hours) Vital Signs Temp Pulse Pulse Resp BP Pulse Ox O2 Del Method 09/03/23 16:33 36.6 C 111 H 18 130/74 97 Nasal Cannula 09/03/23 15:29 89 09/03/23 11:56 37.5 C 100 H 17 128/79 100 Nasal Cannula 09/03/23 08:17 36.5 C 96 H 18 128/80 97 Nasal Cannula 09/03/23 07:45 Nasal Cannula 09/03/23 07:16 73 O2 Flow Rate 09/03/23 16:33 2 09/03/23 15:29 09/03/23 11:56 2 09/03/23 08:17 2 09/03/23 07:45 2 09/03/23 07:16 Laboratory Results Laboratory Results - last 24 hr 09/03/23 09:07 ESR 19 Sodium 131 L Potassium 4.0 Chloride 89 L Carbon Dioxide 39 H Anion Gap 3 BUN 18 Creatinine 0.44 L Est Cr Clr Drug Dosing 123.4 Est GFR ( Amer) 122.4 Est GFR (Non-Af Amer) 105.6 BUN/Creatinine Ratio 40.9 H Glucose 88 Calcium 9.5 C-Reactive Protein < 0.50 PG Care Time/CCT Total # of Minutes Spent Total Time Spent with Patient: Total time spent is greater than 50% in coordination of care (as documented) at patient's floor/unit and/or counseling patient: Coding Level of Care Code 71291 SUB INP/OBS CARE 3/50MIN Diagnoses Dysphagia R13.10 Apnea R06.81 Pneumonia J18.9 Acute right-sided congestive heart failure I50.811 Catheter-associated urinary tract infection T83.511A; N39.0 Chronic indwelling Rockwell catheter Z97.8 Hyponatremia E87.1 Atrial fibrillation, permanent I48.21 Urinary retention due to benign prostatic hyperplasia N40.1; R33.8 Primary hypertension I10 Hypertension type: primary hypertension Excessive sleepiness G47.10 Elevated INR R79.1 Acute metabolic encephalopathy G93.41 RLQ abdominal mass R19.03 Esophagitis K20.90 Pulmonary HTN I27.20 (10) Hypertension Hypertension type: primary hypertension Qualified Code(s): I10 - Essential (primary) hypertension
[2023-09-03] MEDS: FINASTERIDE 5 MG TAB PO SCH (20:11)
[2023-09-03] MEDS: ZOLPIDEM TARTRATE 5 MG TAB PO SCH (20:15)
[2023-09-04 08:08] LABS: Thyroid Stimulating Hormone 1.177 uIu/ml (0.300-4.500)
[2023-09-04 08:09] LABS: BUN Creatinine Ratio 42.9 (10-20); Calcium 9.8 mg/dl (8.6-10.3); Creatinine Clr Calc Pharmacy 110.8 ml/min; Est GFR (African American) 117.1 ml/min; Est GFR (Non-African American) 101.1 ml/min; Potassium 3.8 mmol/L (3.5-5.1)
[2023-09-04] MEDS: POLYETHYLENE (MIRALAX) 17 GM PACK PO SCH (08:09)
[2023-09-04] MEDS: AMOXICILLIN 875 MG TAB PO SCH ×2 (08:09→18:24)
[2023-09-04] MEDS: METOPROLOL SUCC 50MG EXT REL TAB PO SCH (08:10)
[2023-09-04] MEDS: CHOLECALCIFEROL 1,000 UNITS 25 MCG TAB PO SCH (08:10)
[2023-09-04] MEDS: TORSEMIDE 10 MG TAB PO SCH (08:10)
[2023-09-04] MEDS: SENNA 8.6 MG TAB PO SCH (08:10)
[2023-09-04] MEDS: RIVAROXABAN 20 MG TAB PO SCH (08:10)
[2023-09-04] MEDS: amLODIPine BESYLATE 5 MG TAB PO SCH (08:10)
[2023-09-04] MEDS: BENZONATATE 100 MG CAPSULE PO SCH ×3 (08:11→20:46)
[2023-09-04] MEDS: THIAMINE HCL 100 MG TAB PO SCH ×2 (08:11→20:47)
[2023-09-04] MEDS: MULTIVITAMIN TAB PO SCH (08:12)
[2023-09-04] MEDS: MAGNESIUM OXIDE 400 MG TAB PO SCH (08:12)
[2023-09-04] MEDS: PANTOprazole 40 MG TAB PO SCH (08:12)
--- NOTE | 2023-09-04 19:10 | Hospitalist Progress Note ---
Date of Service September 04, 2023 Assessment & Plan (1) Dysphagia: Plan: severe silent aspiration with all consistencies during video swallow 09/02/23 pharyngeal muscular contractions/movement very poor poor epliglottic excursion in light of what looks like central apneas (I have witnessed these - there is no snoring during his events), diffuse muscle wasting, dysphonia, gait disturbance, drooling, weight loss, dysphagia - asked Dr Schmid from neurology to evaluate Mr Richie Dr Schmid from neurology provided consultation and a battery of labs recommended along with outpatient f/u and outpatient EMGs MRI brain w/o old or new CVA but considerable brainstem atrophy noted by Dr Schmid appreciate ongoing speech therapy assistance swallowing exercises again performed today with assistance from speech therapy, Lars patient opted for permissive aspiration rather than pursuing PEG tube placement speech ordered minced/moist diet no thickeners for liquids (2) Apnea: Plan: numerous witnessed by family at home for 6-12 months witnessed by myself and staff while hospitalized appear to be central rather than obstructive also mentions he "thrashes" all night in bed during sleep see #1 above will need formal sleep study after discharge (3) Pneumonia: Plan: b/l infiltrates on admission cxr initially on IV rocephin/zithromax then ultimately transitioned to PO augmentin completed full 7+ days of Rx between IV & PO therapy CT chest ndeed showed some focal pneumonia on the right in light of #1 his pneumonia could have been aspiration in etiology (4) Acute right-sided congestive heart failure: Plan: patient compensated on exam today echo this admission with RV dysfunction but preserved LV function the RV dysfunction is new in comparison to last echo in 2021 etiology of RV dysfunction?? --> uncertain - but pt's family does confirm excessive daytime sleepiness and mouth breathing that has been worsening over the last year - severe sleep-disordered breathing leading to pulm HTN & RV dysfunction?? valvular disease? other? he has never snored, and does not have a history of DAY - but has numerous witnessed episodes of apnea no prior h/o PE cxr with effusions/pulm edema CT chest with similar findings cont metoprolol succinate 50mg daily follows with Dr Whitt for h/o a.fib but consulted Kimber Arambula from CHF clinic - appreciate her consultation due to hyponatremia using torsemide rather than lasix or bumex -- started 10mg once daily tolerating such with stable labs BMP am (5) Catheter-associated urinary tract infection: Plan: 2nd e.coli 2nd enterococcus s/p 5 days of augmentin (the prior rocephin used starting at time of admission for #1 would not have covered the enterococcus) complete 3 more days of amoxicillin to cover the enterococcus (e.coli would have had adequate Rx since admission) (6) Chronic indwelling Rockwell catheter: Plan: has had such for 12+ months for BPH follows with [facility] [place] [facility] [place] a/p without urinary tract anomalies (7) Hyponatremia: Plan: acute/chronic baseline Na level - upper 120s to low 130s Na 131 once again today repeat BMP am (8) Atrial fibrillation, permanent: Plan: rates controlled cont metoprolol succinate cont Xarelto (9) Urinary retention due to benign prostatic hyperplasia: Plan: cont rockwell -- this is chronic for him (10) Hypertension: Plan: controlled (11) Excessive sleepiness: Plan: VBG with significant hypercapnia ammonia level wnl TSH in 03/2023 wnl 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 / central apneas and will need formal sleep study as an outpatient in the future nearing d/c could try doing overnight oximetry study along with am abg to get him qualified for BIPAP out of the gate has patient developed some form of neurodegenerative disorder?? see #1 above agree about trying to get off ambien - will wean over 2-3 weeks cut dose in 2 to 2.5mg HS starting 09/03/23 (12) Elevated INR: Plan: INR was 1.9 at time of admission certainly DOACs can raise the INR but not typically that high (sometimes up to 1.4 to 1.5) repeat INR today is 1.4 - c/w Fede could have had transient liver dysfunction in the setting of his decompensated right heart failure leading to high INR (13) Acute metabolic encephalopathy: Plan: likely combo of issues including hyponatremia, hypercapnia, and metabolic effects from his pneumonia/UTI resolved (14) RLQ abdominal mass: Plan: "mass" was likely stool CT a/p without any organomegaly or mass seen finally had a stool today cont bowel regimen (15) Esophagitis: Plan: as seen on CT chest PPI with his dysphonic voice and frequent throat clearing -- need for outpatient EGD? speech saw patient in consult - aspiration on video swallow see above (16) Pulmonary HTN: Plan: as seen on echo 2nd to some form of sleep apnea/sleep-disordered breathing?? 2nd to valvular heart disease? no pre-existing lung disease need to assess for chronic/ambulatory O2 needs before discharge Plan , daughters updated at bedside cont PT/OT dispo - rehab - Tuesday Admission and Anticipated Discharge Date Admission Date: August 22, 2023 Subjective patient sitting in chair comfortably he resumed eating today denies any complaints slept well last pm family mentions he has not had any apnea spells today multiple family members at bedside today tele - a.fib, rates controlled Review of Systems Review of Systems: cv - no cp pulm - no cough, no dyspnea GI - had large BM today Physical Exam Physical Exam: gen - thin, NAD, best he has looked all week, very awake & alert today mouth - MMM neck - no JVD heart - irregularly irregular, s1 s2, 2/6 systolic murmur LSB lungs - minimal rales L base; no wheezing; no rales R base abd - soft NT ND BS+; RLQ firmness improved ext - no edema, pulses 2+ b/l neuro - speech - dysphonic - improved Results & Data Results & Data Vital Signs (Past 12 Hours) Vital Signs Temp Pulse Pulse Pulse Resp BP Pulse Ox 09/04/23 17:33 83 09/04/23 16:54 36.3 C L 89 18 122/76 95 09/04/23 14:23 76 18 101/69 09/04/23 08:30 09/04/23 08:01 36.4 C L 86 18 135/82 93 O2 Del Method O2 Flow Rate 09/04/23 17:33 09/04/23 16:54 Room Air 09/04/23 14:23 Room Air 09/04/23 08:30 Room Air 09/04/23 08:01 Nasal Cannula 2 Laboratory Results Laboratory Results - last 24 hr 09/04/23 05:49 Sodium 131 L Potassium 3.8 Chloride 87 L Carbon Dioxide 38 H Anion Gap 6 BUN 21 Creatinine 0.49 L Est Cr Clr Drug Dosing 110.8 Est GFR ( Amer) 117.1 Est GFR (Non-Af Amer) 101.1 BUN/Creatinine Ratio 42.9 H Glucose 70 Calcium 9.8 Total Creatine Kinase 38 Total Protein (PEP) Pending Albumin (PEP) Pending [id number] Pending [id number] Pending [id number] Pending [id number] Pending Gamma Globulins Pending Monoclonal Peak 3 Pending Ser Monoclonl Protein Pending Ser Monoclonal Prot 2 Pending PEP Interpretation Pending Aldolase Pending TSH 1.177 Serum Immunofixation Pending VGCC Ab Pending Striated Muscle Ab Ttr Pending Striated Muscle Ab Pending Acetylchol Rcpt Block Ab Pending Acetylchol Rcpt Bind Ab Pending Acetylchol Rcpt Modu Ab Pending PG Care Time/CCT Total # of Minutes Spent Total Time Spent with Patient: Total time spent is greater than 50% in coordination of care (as documented) at patient's floor/unit and/or counseling patient: Coding Level of Care Code 08620 SUB INP/OBS CARE 2/35MIN Diagnoses Dysphagia R13.10 Apnea R06.81 Pneumonia J18.9 Acute right-sided congestive heart failure I50.811 Catheter-associated urinary tract infection T83.511A; N39.0 Chronic indwelling Rockwell catheter Z97.8 Hyponatremia E87.1 Atrial fibrillation, permanent I48.21 Urinary retention due to benign prostatic hyperplasia N40.1; R33.8 Primary hypertension I10 Hypertension type: primary hypertension Excessive sleepiness G47.10 Elevated INR R79.1 Acute metabolic encephalopathy G93.41 RLQ abdominal mass R19.03 Esophagitis K20.90 Pulmonary HTN I27.20 (10) Hypertension Hypertension type: primary hypertension Qualified Code(s): I10 - Essential (primary) hypertension
[2023-09-04] MEDS: ZOLPIDEM TARTRATE 5 MG TAB PO SCH (20:46)
[2023-09-04] MEDS: FINASTERIDE 5 MG TAB PO SCH (20:47)
[2023-09-05 06:25] LABS: Base Excess VBG 15.2 mEq/L; HCO3 VBG 42 mmol/L; Oxygen Saturation VBG < 60.0 %; PCO2 VBG 59 mmHg (38-50); PO2 VBG 33 mmHg; pH VBG 7.46 (7.36-7.41)
[2023-09-05 06:48] LABS: BUN Creatinine Ratio 43.8 (10-20); Calcium 9.4 mg/dl (8.6-10.3); Creatinine Clr Calc Pharmacy 117.4 ml/min; Est GFR (African American) 118.1 ml/min; Est GFR (Non-African American) 101.9 ml/min; Potassium 3.7 mmol/L (3.5-5.1)
[2023-09-05] MEDS: AMOXICILLIN 875 MG TAB PO SCH ×2 (08:37→18:00)
[2023-09-05] MEDS: METOPROLOL SUCC 50MG EXT REL TAB PO SCH (08:41)
[2023-09-05] MEDS: MAGNESIUM OXIDE 400 MG TAB PO SCH (08:41)
[2023-09-05] MEDS: POLYETHYLENE (MIRALAX) 17 GM PACK PO SCH (08:41)
[2023-09-05] MEDS: BENZONATATE 100 MG CAPSULE PO SCH ×3 (08:41→21:01)
[2023-09-05] MEDS: PANTOprazole 40 MG TAB PO SCH (08:41)
[2023-09-05] MEDS: amLODIPine BESYLATE 5 MG TAB PO SCH (08:41)
[2023-09-05] MEDS: CHOLECALCIFEROL 1,000 UNITS 25 MCG TAB PO SCH (08:41)
[2023-09-05] MEDS: MULTIVITAMIN TAB PO SCH (08:41)
[2023-09-05] MEDS: SENNA 8.6 MG TAB PO SCH (08:42)
[2023-09-05] MEDS: THIAMINE HCL 100 MG TAB PO SCH ×2 (08:42→21:01)
[2023-09-05] MEDS: RIVAROXABAN 20 MG TAB PO SCH (08:42)
--- NOTE | 2023-09-05 20:07 | Hospitalist Progress Note ---
Date of Service September 05, 2023 Assessment & Plan (1) Dysphagia: Plan: severe silent aspiration with all consistencies during video swallow 09/02/23 pharyngeal muscular contractions/movement very poor poor epliglottic excursion in light of what looks like central apneas (I have witnessed these - there is no snoring during his events), diffuse muscle wasting, dysphonia, gait disturbance, drooling, weight loss, dysphagia - asked Dr Schmid from neurology to evaluate Mr Lougy to determine if he has a neurodegenerative disorder Dr Schmid from neurology provided consultation and a battery of labs recommended along with outpatient f/u and outpatient EMGs - lab testing for myasthenia, Eaton-Lambert syndrome, etc all sent & pending MRI brain w/o old or new CVA but considerable brainstem atrophy noted by Dr Schmid appreciate ongoing speech therapy assistance patient opted for permissive aspiration rather than pursuing PEG tube placement speech ordered minced/moist diet no thickeners for liquids (2) Apnea: Plan: numerous witnessed by family at home for 6-12 months witnessed by myself and staff while hospitalized appear to be central rather than obstructive also mentions he "thrashes" all night in bed during sleep see #1 above will need formal sleep study after discharge (3) Pneumonia: Plan: b/l infiltrates on admission cxr resolved initially on IV rocephin/zithromax then ultimately transitioned to PO augmentin completed full 7+ days of Rx between IV & PO therapy CT chest confirmed focal pneumonia on the right in light of #1 his pneumonia could have been aspiration in etiology (4) Acute right-sided congestive heart failure: Plan: patient compensated on exam today or mildly volume contracted based on labs - I did hold his torsemide today echo this admission with RV dysfunction but preserved LV function the RV dysfunction is new in comparison to last echo in 2021 etiology of RV dysfunction?? --> uncertain - but pt's family does confirm excessive daytime sleepiness and mouth breathing that has been worsening over the last year - severe sleep-disordered breathing leading to pulm HTN & RV dysfunction?? valvular disease? other? he has never snored, and does not have a history of DAY - but has numerous witnessed episodes of apnea no prior h/o PE cxr with effusions/pulm edema CT chest with similar findings cont metoprolol succinate 50mg daily follows with Dr Whitt for h/o a.fib but consulted Kimber Arambula from CHF clinic - appreciate her consultation due to hyponatremia using torsemide rather than lasix or bumex -- started 10mg once daily (hold today, perhaps resume tomorrow) BMP am Ms Arambula will f/u with Mr Quiroz post-d/c in the CHF clinic (5) Catheter-associated urinary tract infection: Plan: 2nd e.coli 2nd enterococcus s/p 5 days of augmentin (the prior rocephin used starting at time of admission for #1 would not have covered the enterococcus) complete 2 more days of amoxicillin to cover the enterococcus (e.coli would have had adequate Rx since admission) (6) Chronic indwelling Rockwell catheter: Plan: has had such for 12+ months for BPH follows with [facility] a/p without urinary tract anomalies cannot find that his rockwell was exchanged this admission would recommend exchange prior to discharge home typically has his rockwell exchanged every 30 days at home (7) Hyponatremia: Plan: acute/chronic baseline Na level - upper 120s to low 130s Na 129 today hold torsemide today - may be slightly volume contracted - repeat BMP am (8) Atrial fibrillation, permanent: Plan: rates controlled nicely cont metoprolol succinate cont Xarelto (9) Urinary retention due to benign prostatic hyperplasia: Plan: cont rockwell -- this is chronic for him see above (10) Hypertension: Plan: controlled (11) Excessive sleepiness: Plan: VBG with significant hypercapnia ammonia level wnl TSH in 03/2023 wnl 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 / central apneas and will need formal sleep study as an outpatient in the future nearing d/c could try doing overnight oximetry study along with am abg to get him qualified for BIPAP out of the gate has patient developed some form of neurodegenerative disorder?? see #1 above agree about trying to get off ambien - will wean over 2-3 weeks cut dose in 2 to 2.5mg HS starting 09/03/23 (12) Elevated INR: Plan: INR was 1.9 at time of admission certainly DOACs can raise the INR but not typically that high (sometimes up to 1.4 to 1.5) repeat INR today is 1.4 - c/w Fede could have had transient liver dysfunction in the setting of his decompensated right heart failure leading to high INR (13) Acute metabolic encephalopathy: Plan: likely combo of issues including hyponatremia, hypercapnia, and metabolic effects from his pneumonia/UTI resolved (14) RLQ abdominal mass: Plan: "mass" was likely stool CT a/p without any organomegaly or mass seen finally had a stool yesterday cont bowel regimen (15) Esophagitis: Plan: as seen on CT chest PPI with his dysphonic voice and frequent throat clearing -- need for outpatient EGD? speech saw patient in consult - aspiration on video swallow see above (16) Pulmonary HTN: Plan: as seen on echo 2nd to some form of sleep apnea/sleep-disordered breathing?? 2nd to valvular heart disease? no pre-existing lung disease need to assess for chronic/ambulatory O2 needs before discharge from rehab Plan , daughters updated at bedside yesterday I called & spoke with pt's by phone this evening she is aware of rehab denial by insurance hopefully SNF placement tomorrow at [facility] cont PT/OT dispo - [facility] - 09/06 Admission and Anticipated Discharge Date Admission Date: August 22, 2023 Subjective received notice that pt's insurance requested [id number] consultation for rehab auth called & spoke with medical library assistant of [facility] advocated for Mr Quiroz - he is medically complex and needs MULTIPLE visits each week by a medical provider while in rehab due to Na levels, CO2 retention, CHF, etc needs intensive PT, OT, AND speech therapy ultimately heard he was denied inpatient rehab but would be approved for SNF placement during my visit made patient aware of the above he denies any new medical complaints I had seen him working with PT in the hallway and he was doing fair with use of walker and assistance from the therapist tele overnight - a.fib, rates controlled Review of Systems Review of Systems: gen - feels well, good appetite, "I'm swallowing ok" cv - no chest pain, no edema pulm - denies dyspnea, no cough GI - no stool today; no N/V Physical Exam Physical Exam: gen - thin, NAD, sitting in chair comfortably mouth - MMM neck - no JVD heart - irregularly irregular, s1 s2, 2/6 systolic murmur LSB lungs - minimal rales L base; no wheezing; no rales R base abd - soft NT ND BS+; RLQ firmness improved ext - no edema, pulses 2+ b/l neuro - speech - dysphonia unchanged Results & Data Results & Data Vital Signs (Past 12 Hours) Vital Signs Temp Pulse Pulse Resp BP Pulse Ox O2 Del Method 09/05/23 16:33 36.5 C 77 18 105/70 96 Room Air 09/05/23 15:00 88 09/05/23 08:14 36.5 C 90 18 125/75 95 Room Air Laboratory Results Laboratory Results - last 24 hr 09/05/23 06:11 VBG pH 7.46 H VBG pCO2 59 H VBG pO2 33 VBG HCO3 42 VBG O2 Saturation < 60.0 VBG Base Excess 15.2 Sodium 129 L Potassium 3.7 Chloride 86 L Carbon Dioxide 39 H Anion Gap 4 BUN 21 Creatinine 0.48 L Est Cr Clr Drug Dosing 117.4 Est GFR ( Amer) 118.1 Est GFR (Non-Af Amer) 101.9 BUN/Creatinine Ratio 43.8 H Glucose 89 Calcium 9.4 PG Care Time/CCT Total # of Minutes Spent Total Time Spent with Patient: Total time spent is greater than 50% in coordination of care (as documented) at patient's floor/unit and/or counseling patient: Coding Level of Care Code 99390 SUB INP/OBS CARE 2/35MIN Diagnoses Dysphagia R13.10 Apnea R06.81 Pneumonia J18.9 Acute right-sided congestive heart failure I50.811 Catheter-associated urinary tract infection T83.511A; N39.0 Chronic indwelling Rockwell catheter Z97.8 Hyponatremia E87.1 Atrial fibrillation, permanent I48.21 Urinary retention due to benign prostatic hyperplasia N40.1; R33.8 Primary hypertension I10 Hypertension type: primary hypertension Excessive sleepiness G47.10 Elevated INR R79.1 Acute metabolic encephalopathy G93.41 RLQ abdominal mass R19.03 Esophagitis K20.90 Pulmonary HTN I27.20 (10) Hypertension Hypertension type: primary hypertension Qualified Code(s): I10 - Essential (primary) hypertension
[2023-09-05] MEDS: FINASTERIDE 5 MG TAB PO SCH (21:01)
[2023-09-05] MEDS: ZOLPIDEM TARTRATE 5 MG TAB PO SCH (21:04)
[2023-09-06 07:40] LABS: BUN Creatinine Ratio 32.6 (10-20); Calcium 9.4 mg/dl (8.6-10.3); Creatinine Clr Calc Pharmacy 121.7 ml/min; Est GFR (African American) 120.2 ml/min; Est GFR (Non-African American) 103.7 ml/min; Potassium 3.7 mmol/L (3.5-5.1)
[2023-09-06] MEDS: AMOXICILLIN 875 MG TAB PO SCH (10:09)
[2023-09-06] MEDS: MULTIVITAMIN TAB PO SCH (10:10)
[2023-09-06] MEDS: BENZONATATE 100 MG CAPSULE PO SCH (10:10)
[2023-09-06] MEDS: amLODIPine BESYLATE 5 MG TAB PO SCH (10:10)
[2023-09-06] MEDS: CHOLECALCIFEROL 1,000 UNITS 25 MCG TAB PO SCH (10:10)
[2023-09-06] MEDS: PANTOprazole 40 MG TAB PO SCH (10:11)
[2023-09-06] MEDS: THIAMINE HCL 100 MG TAB PO SCH (10:11)
[2023-09-06] MEDS: METOPROLOL SUCC 50MG EXT REL TAB PO SCH (10:11)
[2023-09-06] MEDS: MAGNESIUM OXIDE 400 MG TAB PO SCH (10:11)
[2023-09-06] MEDS: RIVAROXABAN 20 MG TAB PO SCH (10:11)
[2023-09-06] MEDS: SENNA 8.6 MG TAB PO SCH (10:12)
[2023-09-06] MEDS: POLYETHYLENE (MIRALAX) 17 GM PACK PO SCH (10:12)
--- NOTE | 2023-09-06 10:28 | Discharge Summary ---
Date of Service September 06, 2023 Admission HPI Per Admitting Provider The patient is a 89-year-old male with a past medical history including CHF, B12 deficiency, BPH, atrial fibrillation on Xarelto, urinary retention due to BPH, hyponatremia and hypertension. He presents to the emergency department with 10 days of symptoms as noted above. Workup in the emergency department included a BioFire test that was negative, normal CBC with differential and chemistry profile, and INR of 1.9, and imaging suggestive of bilateral pneumonia. From the ED he received the following: Ceftriaxone 2 g IV, azithromycin 500 mg IV and NSS fluid bolus of 500 mL. Principal Diagnosis Aspiration pneumonia, dysphagia, weakness, probable sleep apnea Discharge Exam PHYSICAL EXAMINATION Last 24h vital signs reviewed, see documentation in flowsheet General: comfortable appearing, no distress, sitting up in bed awake HEENT: Normocephalic, atraumatic, pupils round and equal, sclerae anicteric, no conjunctival injection, moist mucus membranes Lungs: Normal respiratory effort. Clear to auscultation bilaterally. No RRW Heart: Regular rate and rhythm, no murmurs. No JVD Abdomen: Soft, nontender, nondistended. Bowel sounds present. Extremities: Warm, dry, well-perfused. No extremity edema. Neuro: Alert and oriented x 4, face symmetric, moves 4 extremities well Psych: Normal affect and behavior Discharge Data Allergies Allergy/AdvReac Type Severity Reaction Status Date / Time No Known Drug Allergies Allergy Verified 08/02/23 13:06 Consultations 08/22/23 19:46 ED Decision to Admit Stat 08/31/23 08:45 [facility] [place] Referral Routine 09/02/23 18:34 Consult Neurology Routine Ordered Studies 08/30/23 17:07 CT Abd and Pelvis [CT abd pelvis IV con only] Routine CT chest diagnostic w con Routine 09/01/23 14:22 MR brain wo con Routine 09/02/23 10:30 FL video swallow Routine Chest X-Ray 08/22/23 16:20 SINGLE VIEW CHEST CLINICAL HISTORY: Dyspnea FINDINGS: A PA chest radiograph is compared to study performed earlier the same day 08/22/2023. Advanced atherosclerotic calcification is noted in the carotid bulbs. The heart is enlarged noting atherosclerotic calcification of the thoracic aorta. There is pulmonary vascular congestion. Chronic interstitial thickening is similar to previous. Moderate space opacities are seen bilaterally. There are small pleural effusions with bibasilar consolidation. No pneumothorax is seen. The skeletal structures are osteopenic. The bony thorax is grossly intact. IMPRESSION: 1. Cardiomegaly with pulmonary vascular congestion. 2. Mild bilateral airspace opacities likely represent pulmonary edema. Correlate clinically from the superimposed infectious/inflammatory pneumonitis. Radiographic follow-up to resolution is recommended. 3. Small pleural effusions with dependent consolidation ACT 112: Negative or not required by law. Electronically signed by: Miguel Rosado M.D. 08/22/2023 5:02 PM Chest X-Ray 08/29/23 08:16 XR chest 2V PA/lateral HISTORY: 83 years-old Male CHF vs pneumonia acute shortness of breath COMPARISON: August 22, 2023 TECHNIQUE: AP and lateral views of the chest FINDINGS: Cardiac silhouette is enlarged. Pulmonary vascular congestion with interstitial coarsening. Mild biapical pleural-parenchymal scarring. Layering pleural effusions with bibasilar opacities. Subtle scattered ill-defined nodular consolidative opacities in the midlung distributions are stable. IMPRESSION: 1. Cardiomegaly with pulmonary edema, progressed from prior. 2. Small pleural effusions with bibasilar opacities. 3. Subtle ill-defined nodular densities in the midlung distributions may represent a superimposed pneumonia. Attention at follow-up recommended. ACT 112: Negative or not required by law. The above report was generated using voice recognition software. It may contain grammatical, syntax or spelling errors. Electronically signed by: Francesco Verma M.D. 08/29/2023 11:45 AM Abdomen/Pelvis CT 08/30/23 17:[address] WITH CONTRAST; CT ABDOMEN AND PELVIS WITH IV CONTRAST ONLY CT DOSE: 1220.1 mGy.cm HISTORY: Acute shortness of breath with chest and abdominal pain CHF vs pneumonia, ongoing hypoxia TECHNIQUE: Multiaxial CT images of the chest, abdomen and pelvis were performed following the IV administration of 89 cc of Optiray. A dose lowering technique was utilized adhering to the principles of ALARA. COMPARISON: Chest radiographs of same day FINDINGS: CT CHEST: Unremarkable thyroid. There is no lymphadenopathy. Moderate to marked cardiomegaly without pericardial effusion. Extensive coronary artery calcifications. Fusiform dilation of the ascending thoracic aorta measures up to 4.3 cm. No dissection. There is patency of the imaged great vessels. Dilation of the pulmonary artery with the main pulmonary artery measuring up to 4.2 cm. No pulmonary emboli identified on this exam. No pneumothorax. Small left and moderate right pleural effusions. No pneumothorax. Mild biapical pleural-parenchymal scarring. Mild intralobular and bronchial wall thickening. Dependent bibasilar consolidation within the lower lobes. There are scattered nodular consolidative densities within the right lung including a 2.1 cm right upper lobe focus on image 107 and foci within the right lower lobe measuring up to 2 cm. Central airways are patent. Mild fluid-filled distention of the esophagus with a few internal subcentimeter radiodense foci within the distal esophageal lumen. Mild generalized body wall edema. Degenerative changes of the spine and shoulders. No acute fracture identified. Mild sigmoidal thoracolumbar scoliosis. Mild superior endplate compression de formity at T2, likely chronic. CT ABDOMEN/PELVIS: No spleen identified. Unremarkable pancreas and right adrenal gland. Mild nodular thickening of the left adrenal gland. Cholecystectomy. Mild marginal nodularity of the liver suggestive of cirrhosis. Mild postsurgical biliary ductal dilation. Patent portal vein. No hydronephrosis. Decompressed urinary bladder with Rockwell catheter in place. Prostatomegaly. Atherosclerosis of the aorta without aneurysm. No lymphadenopathy. No bowel obstruction or bowel wall thickening. Moderate fecal retention. Trace free fluid within the pelvis. Colonic diverticulosis. Noninflamed appendix. Generalized body wall edema. Degenerative changes of the spine, pelvis and hips. IMPRESSION: 1. Cardiomegaly with pulmonary edema, small left and moderate right pleural effusions. 2. Dependent bibasilar consolidation suggestive of compressive atelectasis. 3. Scattered subsegmental nodular consolidative foci throughout the right lung are likely infectious or inflammatory. Follow-up imaging after treatment course is needed in order to document resolution. 4. No bowel obstruction or bowel wall thickening. 5. Colonic diverticulosis. 6. Additional findings as above. ACT 112: Negative or not required by law. Electronically signed by: Francesco Verma M.D. 08/30/2023 6:[address] 08/30/23 17:[address] WITH CONTRAST; CT ABDOMEN AND PELVIS WITH IV CONTRAST ONLY CT DOSE: 1220.1 mGy.cm HISTORY: Acute shortness of breath with chest and abdominal pain CHF vs pneumonia, ongoing hypoxia TECHNIQUE: Multiaxial CT images of the chest, abdomen and pelvis were performed following the IV administration of 89 cc of Optiray. A dose lowering technique was utilized adhering to the principles of ALARA. COMPARISON: Chest radiographs of same day FINDINGS: CT CHEST: Unremarkable thyroid. There is no lymphadenopathy. Moderate to marked cardiomegaly without pericardial effusion. Extensive coronary artery calcifications. Fusiform dilation of the ascending thoracic aorta measures up to 4.3 cm. No dissection. There is patency of the imaged great vessels. Dilation of the pulmonary artery with the main pulmonary artery measuring up to 4.2 cm. No pulmonary emboli identified on this exam. No pneumothorax. Small left and moderate right pleural effusions. No pneumothorax. Mild biapical pleural-parenchymal scarring. Mild intralobular and bronchial wall thickening. Dependent bibasilar consolidation within the lower lobes. There are scattered nodular consolidative densities within the right lung including a 2.1 cm right upper lobe focus on image 107 and foci within the right lower lobe measuring up to 2 cm. Central airways are patent. Mild fluid-filled distention of the esophagus with a few internal subcentimeter radiodense foci within the distal esophageal lumen. Mild generalized body wall edema. Degenerative changes of the spine and shoulders. No acute fracture identified. Mild sigmoidal thoracolumbar scoliosis. Mild superior endplate compression deformity at T2, likely chronic. CT ABDOMEN/PELVIS: No spleen identified. Unremarkable pancreas and right adrenal gland. Mild nodular thickening of the left adrenal gland. Cholecystectomy. Mild marginal nodularity of the liver suggestive of cirrhosis. Mild postsurgical biliary ductal dilation. Patent portal vein. No hydronephrosis. Decompressed urinary bladder with Rockwell catheter in place. Prostatomegaly. Atherosclerosis of the aorta without aneurysm. No lymphadenopathy. No bowel obstruction or bowel wall thickening. Moderate fecal retention. Trace free fluid within the pelvis. Colonic diverticulosis. Noninflamed appendix. Generalized body wall edema. Degenerative changes of the spine, pelvis and hips. IMPRESSION: 1. Cardiomegaly with pulmonary edema, small left and moderate right pleural effusions. 2. Dependent bibasilar consolidation suggestive of compressive atelectasis. 3. Scattered subsegmental nodular consolidative foci throughout the right lung are likely infectious or inflammatory. Follow-up imaging after treatment course is needed in order to document resolution. 4. No bowel obstruction or bowel wall thickening. 5. Colonic diverticulosis. 6. Additional findings as above. ACT 112: Negative or not required by law. Electronically signed by: Francesco Verma M.D. 08/30/2023 6:47 PM Brain MRI 09/01/23 14:22 Brain MRI WITHOUT CONTRAST HISTORY: apnea episodes/altered mental status episodes TECHNIQUE: Multiplanar multisequence MRI of the brain was performed without the use of contrast. COMPARISON STUDY: Head CT 04/23/2021. FINDINGS: There is no mass, hematoma, midline shift, or acute infarct. The paranasal sinuses are clear. The mastoid air cells are clear. The ventricles and sulci demonstrate moderate age-related involutional changes. Scattered foci of T2 hyperintensity seen within the periventricular and subcortical white matter are nonspecific but suggestive of moderate microvascular ischemic changes. The major vascular flow voids at the skull base are well-maintained. Trace fluid level within the left maxillary sinus. Prior bilateral lens replacement. IMPRESSION: 1. No acute infarct or intracranial hemorrhage. 2. Moderate atrophy and microvascular ischemic changes. 3. Trace fluid level within the left maxillary sinus. ACT 112: Negative or not required by law. Electronically signed by: Douglas Reeves M.D. 09/01/2023 5:15 PM Videofluoroscopic Swallow 09/02/23 10:30 FL video swallow HISTORY: Pneumonia. assess for aspiration TECHNIQUE: Video fluoroscopic evaluation of swallowing was performed in the AP and lateral projections by the speech pathology staff. The patient is fed nectar-thick and thin liquid barium, a barium coated wafer, and barium pudding. FLUOROSCOPY TIME: 3 minutes and 42 seconds. A cine loop submitted. Ka,r: 12.3 mGy COMPARISON STUDY: None. FINDINGS: Overall poor pharyngeal obstruction with multiple episodes of incomplete epiglottic deflection. There are a few episodes of silent aspiration with the thin liquid barium. Mild to moderate vallecular residue is noted with the thin liquid barium. Aspiration was also identified during swallowing of the barium pudding. Heavy vallecular retention with the thicker barium consistencies with associated silent aspiration. IMPRESSION: 1. Multiple episodes of silent aspiration seen throughout the examination. 2. Please see the speech pathologist report for detailed findings and rec ommendations. ACT 112: Negative or not required by law. Electronically signed by: Douglas Reeves M.D. 09/02/2023 11:28 AM Hospital Course (1) Pneumonia: Treated for aspiration pneumonia b/l infiltrates on admission cxr initially on IV rocephin/zithromax then ultimately transitioned to PO augmentin completed full 7+ days of Rx between IV & PO therapy CT chest showed some focal pneumonia on the right -follow up CT in 6-8 weeks recommended to ensure resolution of abnormality -communicated this to primary care (2) Dysphagia: severe silent aspiration with all consistencies during video swallow 09/02/23 pharyngeal muscular contractions/movement very poor poor epliglottic excursion in light of what looks like central apneas (in hospital witnessed these - there is no snoring during his events), diffuse muscle wasting, dysphonia, gait disturbance, drooling, weight loss, dysphagia - asked Dr Schmid from neurology to evaluate Mr Richie Dr Schmid from neurology provided consultation and a battery of labs recommended along with outpatient f/u and outpatient EMGs MRI brain w/o old or new CVA but considerable brainstem atrophy noted by Dr Schmid labs pending: SPEP, aldolase, acetylcholine receptor antibodies, VGCC Ab, striated muscle Ab, B1 level Speech therapy consulted and recommend ongoing ST follow up patient opted for permissive aspiration rather than pursuing PEG tube placement speech ordered minced/moist diet no thickeners for liquids (3) Apnea: numerous witnessed by family at home for 6-12 months witnessed by myself and staff while hospitalized appear to be central rather than obstructive also mentions he "thrashes" all night in bed during sleep see #1 above will need formal sleep study after discharge - follow up with neurology (4) Acute right-sided congestive heart failure: patient compensated on exam echo this admission with RV dysfunction but preserved LV function the RV dysfunction is new in comparison to last echo in 2021 etiology of RV dysfunction uncertain - severe sleep-disordered breathing leading to pulm HTN & RV dysfunction?? valvular disease? he has never snored, and does not have a history of DAY - but has numerous wi tnessed episodes of apnea no prior h/o PE cxr with effusions/pulm edema CT chest with similar findings cont metoprolol succinate 50mg daily follows with Dr Whitt for h/o a.fib but consulted Kimber Arambula from CHF clinic - appreciate her consultation due to hyponatremia using torsemide rather than lasix or bumex -- started 10mg once daily tolerating such with stable labs and euvolemic on discharge recommend BMP in about a week because of initiation of diuretics, and follow up in CHF clinic (5) Catheter-associated urinary tract infection: 2nd e.coli 2nd enterococcus s/p 5 days of augmentin (the prior rocephin used starting at time of admission for #1 would not have covered the enterococcus) complete 3 more days of amoxicillin to cover the enterococcus (e.coli would have had adequate Rx since admission) (6) Chronic indwelling Rockwell catheter: has had such for 12+ months for BPH - continue current meds [place] with [facility] [place] [facility] [place] a/p without urinary tract anomalies Requested hospital RN to change rockwell day of discharge (7) Hyponatremia: acute/chronic baseline Na level - upper 120s to low 130s remained stable high 120s/low 130s -BMP 1 week (8) Atrial fibrillation, permanent: rates controlled cont metoprolol succinate cont Xarelto (9) Urinary retention due to benign prostatic hyperplasia: cont rockwell -- this is chronic for him (10) Hypertension: controlled (11) Excessive sleepiness: VBG with significant hypercapnia ammonia level wnl TSH in 03/2023 wnl 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 / central apneas and will need formal sleep study as an outpatient in the future agree about trying to get off ambien - will wean over 2-3 weeks cut dose in 1/2 to 2.5mg HS starting 09/03/23 Recommend discontinuing ambien entirely in about 2 weeks and continuing to avoid sedative/hypnotic agents (12) Elevated INR: INR was 1.9 at time of admission certainly DOACs can raise the INR but only occasionally that high repeat INR today is 1.4 - c/w Fede could have had transient liver dysfunction in the setting of his decompensated right heart failure leading to high INR (13) Acute metabolic encephalopathy: likely combo of issues including hyponatremia, hypercapnia, and metabolic effects from his pneumonia/UTI resolved (14) RLQ abdominal mass: "mass" was likely stool CT a/p without any organomegaly or mass seen finally had a stool 09/05 cont bowel regimen (15) Esophagitis: as seen on CT chest PPI with his dysphonic voice and frequent throat clearing -- need for outpatient EGD? speech saw patient in consult - aspiration on video swallow see above, consider GI referral (16) Pulmonary HTN: as seen on echo 2nd to some form of sleep apnea/sleep-disordered breathing?? 2nd to valvular heart disease? no pre-existing lung disease Total Time Total Time Spent Total Time Spent (In Minutes): I personally spent: 45 minutes today on clinical care activities for discharge including: reviewing chart notes and vital signs reviewing labs reviewing studies discussion with career specialist examining and counseling the patient writing orders documentation Discharge Plan Discharge Items Patient Disposition: Transfer Assisted Fac Reason For Visit: PNEUMONIA Discharge Diagnosis: pneumonia, UTI, generalized weakness, dysphagia, suspected central sleep apnea Condition on Discharge: Fair Activity: Resume your previous activity Non-emergency contact: Primary Care Provider Call non-emergency contact if: you have any medication questions and your symptoms worsen Follow-up/Referrals: Madelaine Cagle MD [Primary Care Provider] - Yasmin Arambula PA-C [Physician Relay Dispatcher] - 09/09/23 10:30 am Diet: Heart Healthy Fluids: 1500ml (6 cups) Diet Comment: minced/moist with thin liquids with 1500 mL fluid restriction Addtl Attending Provider Instructions: PT and OT evaluate and treat BMP in 1 week (hyponatremia, diuretics) Has dysphagia with aspiration, he does not want feeding tube/PEG, palliative strategy - contnue diet minced/moist with thin liquids with 1500 mL fluid restriction Follow up with [facility] [place] [place] chronic rockwell, BPH Continue chronic rockwell catheter Has follow up scheduled with heart failure clinic Schedule follow up with Dr. Schmid, [facility] [place] - will need outpatient EMG, sleep study Pending Studies at Discharge: Yes Stand-Alone Forms: My [facility] Skilled Items Patient informed of condition?: Yes DNR: No Discharge Level of Care: Skilled Communicable Disease: No Discharge Prognosis: Stable Lines: None Urinary Catheter: Yes Medications and DC Order Prescriptions: New amoxicillin 875 mg Tablet 875 mg PO BIDM 3 Days Qty: 0 0RF amlodipine [Norvasc] 5 mg Tablet 5 mg PO QAM Qty: 0 0RF zolpidem 5 mg Tablet 2.5 mg PO HS 15 Days Qty: 0 0RF torsemide 10 mg Tablet 10 mg PO QAM Qty: 0 0RF magnesium oxide 400 mg (241.3 mg magnesium) Tablet 400 mg PO QAM Qty: 0 0RF polyethylene glycol 3350 [Miralax] 17 gram Powder In Packet 17 g PO DAILY Qty: 0 0RF pantoprazole 40 mg Tablet,Delayed Release (Dr/Ec) 40 mg PO QAM Qty: 0 0RF sennosides [Senokot] 8.6 mg Tablet 17.2 mg PO QAM Qty: 0 0RF thiamine HCl (vitamin B1) 100 mg Tablet 100 mg PO DAILY Qty: 0 0RF Continued Xarelto 20 mg tablet 20 mg PO QAM Qty: 90 1RF cholecalciferol (vitamin D3) 25 mcg (1,000 unit) capsule 25 mcg PO QAM metoprolol succinate 50 mg tablet extended release 24 hr 50 mg PO QAM dutasteride 0.5 mg capsule 0.5 mg PO HS Rx Instructions: take 1 capsule by mouth daily multivitamin Tablet 1 tab PO QAM Discontinued zolpidem 5 mg tablet 5 mg PO HS amoxicillin-pot clavulanate 875-125 mg Tablet 1 tab PO Q12H azithromycin 500 mg Tablet 2,000 mg PO DAILY Rx Instructions: take for 3 days Discharge Orders: Discharge Order (Routine); Ordered 09/06/23 Ordered By: Patricia Ingram Admission Data Admit Date/Time: 08/22/23 19:53 Attending Provider: Patricia Ingram Admit Provider: Ahmet Glasgow Primary Care Provider: Madelaine Cagle Other Providers: Ahmet Glasgow; Gabriela Olmedo [facility]; [facility]; Yasmin Arambula; Jhony Schmid Other Interventions: Discharge Summary Assessment (RN) Last Done: 09/06/23 11:11 Coding Level of Care Code 79700 INP/OBS DISCH >30 MIN Diagnoses Pneumonia J18.9 Dysphagia R13.10 Apnea R06.81 Acute right-sided congestive heart failure I50.811 Catheter-associated urinary tract infection T83.511A; N39.0 Chronic indwelling Rockwell catheter Z97.8 Hyponatremia E87.1 Atrial fibrillation, permanent I48.21 Urinary retention due to benign prostatic hyperplasia N40.1; R33.8 Primary hypertension I10 Hypertension type: primary hypertension Excessive sleepiness G47.10 Elevated INR R79.1 Acute metabolic encephalopathy G93.41 RLQ abdominal mass R19.03 Esophagitis K20.90 Pulmonary HTN I27.20
== END 2023-09-06 12:07 | DRG 698 ==
LOC: ED 14:51 → EDINP 19:53 → SUATTDRO 19:53 → EDINP 22:19 → 2N 08-23 00:47

== ENCOUNTER 2024-08-16 09:51 | Inpatient (IN) ==
--- NOTE | 2024-08-16 10:12 | Emergency Department Note ---
Impression & Plan Fall, Anticoagulant long-term use, Closed fracture of right hip, A-fib ED Provider Note Provider: Shola Abernathy MD CHIEF COMPLAINT: Fall, right hip pain HISTORY OF PRESENT ILLNESS: Patient is a 84-year-old gentleman history of CHF, atrial fibrillation on Xarelto, BPH, and hypertension presenting here today after a fall down 2 steps at home. Coming down the steps lost his footing fell backwards. Evidently did strike his head. No LOC reported. Reports primarily out of 10 right hip pain. Some shortening and rotation noted by EMS. Maybe little bit of cough last several days. No significant chest pain or abdominal pain otherwise or nausea or vomiting. No other numbness or tingling extremities. Pain with any movement of the right lower extremity. PAST MEDICAL HISTORY: As noted above MEDICATIONS: Reviewed home medications include Xarelto SOCIAL HISTORY: PHYSICAL EXAM: GENERAL: alert and oriented in no acute distress on stretcher Head: normocephalic and atraumatic EYES: No injection, discharge or icterus. PERRL, EOMI. NECK: Trachea midline. Supple without midline cervical tenderness ENT: Mucous membranes pink and moist. LUNGS: Airway patent. No retractions. Breath sounds clear with good air entry bilaterally. HEART: Irregular rate and rhythm. No chest wall tenderness ABDOMEN: Soft and non-tender, without guarding or rebound. SKIN: Acyanotic, warm, dry, without rashes EXTREMITIES: Without swelling, tenderness or deformity except the right lower extremity. Neuro sensation intact without tenderness below the right knee. Patient with pain with any movement around the right hip with an anterior bulge noted in the right proximal thigh. No open wound. NEUROLOGICAL: No focal deficits. No aphasia. No facial droop or slurred speech. Normal strength and tone in the extremities except motion limitations in strength testing limitations in the right lower extremity secondary to pain at the hip. Sensation to gross touch normal. EK bpm atrial fibrillation. No acute ST segment elevation or depression with a QTc of 438. CONTINUOUS CARDIAC MONITORING: was ordered and showed a heart rate of 80s-100s bpm in atrial fibrillation GCS 15. Patient's laboratory studies and imaging reviewed. Differential includes Fracture, dislocation, contusion, intra-abdominal, pneumothorax, intrathoracic, intracranial, neurologic, compartment syndrome, rhabdomyolysis, as well as other pathologies. IMPRESSION/MEDICAL DECISION MAKING: Seen with resident physician. Patient with a good amount of pain around the right hip. Is anticoagulated. Did strike his head. Will complete CT of the head and cervical spine to look for any significant traumatic injury or bleeding around the brain with the blood thinner use. X-ray of the chest as well as pelvis and hip x-ray on the right side was obtained given concerns for possible fracture versus dislocation here given his pain. Given the recent brief cough COVID flu RSV test is sent. Basic blood work ordered. Given some IV fentanyl for pain. Blood work without significant leukocytosis. No severe anemia. Normal platelet count. No significant kidney dysfunction with chronic stable hyponatremia of 128. No significant transaminitis or elevated CK. CT head and cervical spine obtained per radiology report no evidence significant cranial bleed or fractures noted. X-ray of the hip and pelvis show a significantly displaced right proximal femur fracture without dislocation. Discussed with patient and family. Will need orthopedic repair. Discussed with orthopedics and will have the medicine service admit for further care. Discussion with daughter and via phone, patient did not have his Xarelto today or morning meds/breakfast. Did reach out discussed with orthopedics and they will hopefully be able to take him to the OR later this afternoon. Medicine team made aware. Daughter and patient updated. DIAGNOSIS: Fall, right hip fracture DISPOSITION: Hospitalist will evaluate Patient was agreeable with this plan. Past Med/Surg History Problem List (Updated 08/16/24 @ 13:03 by Douglas Diehl PA-C) Exposure to COVID-19 virus Atrial fibrillation f/u samson poole A-fib (Acute) Closed fracture of right hip (Acute) Anticoagulant long-term use (Acute) Fall (Acute) Urinary retention Nocturnal hypoxemia Severe obstructive sleep apnea Mouth breathing Peripheral neuropathy Dysphagia Apnea RVF (right ventricular failure) (HFpEF) heart failure with preserved ejection fraction Pulmonary HTN Esophagitis Excessive sleepiness Catheter-associated urinary tract infection Chronic indwelling Elliott catheter Atrial fibrillation with RVR Erectile dysfunction Insomnia Vitamin B12 deficiency Hypomagnesemia Dysplastic nevi (Acute) Actinic keratosis (Acute) BPH (benign prostatic hyperplasia) Anticoagulant long-term use Urinary retention due to benign prostatic hyperplasia Cough 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 left ear bilateral hearing aids Right knee DJD Hyponatremia Hypertension Medical History Encounter for pre-operative examination Atrial fibrillation Surgical History Hx of cataract extraction S/P cholecystectomy S/P splenectomy Family History Mother Rheumatoid arthritis Denies family history of Ovarian cancer Prostate cancer Myocardial infarction Breast cancer Colorectal cancer Social History Smoking Status: Never smoker Second Hand Exposure: No; Do You Dip or Chew Tobacco: No; Hx Alcohol Use: Yes Alcohol type: wine and hard liquor Alcohol Intake Frequency: 4 or More x per/Week Alcohol Intake Frequency Comment: with dinner Hx Substance Use: No Preferred Language: Iraqi Communication Ability: Effective Visual Impairment: No Limitations Hearing Ability: Normal Field Naturalist Required: No Beliefs That Will Affect Care: None marital status: Current Living Situation: Spouse current occupational status: retired current occupation: former [employer] How many Children do You have: 4 Feels Safe at Home: Yes Childhood Exposure to Second-Hand Smoke: No Diet: regular Diet Comment: regular caffeine: Yes during the past year weight has: remained stable Dental Care, Regularly: No Physical Activity Frequency: 1-2 Times per Week Seatbelt Use: always Sunscreen Use: No Do you think of yourself as: straight/heterosexual Gender Identity: Male Assistive Devices: Cane and Glasses Allergies Allergies Allergy/AdvReac Type Severity Reaction Status Date / Time No Known Drug Allergies Allergy Verified 05/24/24 13:16 Home Meds Home Medications Medication Instructions Recorded Confirmed cholecalciferol (vitamin D3) 25 25 mcg PO QAM 10/20/22 05/24/24 mcg (1,000 unit) capsule acetaminophen 325 mg capsule 650 mg PO Q4H PRN 09/16/23 05/24/24 Previous Rx's Medication Instructions Recorded magnesium oxide 400 mg (241.3 mg 400 mg PO QAM #0 tabs 09/06/23 magnesium) tablet sennosides 8.6 mg tablet (Senokot) 17.2 mg (2 x 8.6 mg) PO QAM #0 tabs 09/06/23 thiamine HCl (vitamin B1) 100 mg 100 mg PO DAILY #0 tabs 09/06/23 tablet torsemide 10 mg tablet 10 mg PO .qod #0 tabs 10/24/23 metoprolol succinate 50 mg 50 mg PO QAM #90 tabs 03/06/24 tablet,extended release 24 hr rivaroxaban 20 mg tablet (Xarelto) 20 mg PO QAM #90 tabs 04/27/24 dutasteride 0.5 mg capsule 0.5 mg PO HS #90 caps 07/27/24 Results & Data (ED) Vital Signs Vital Signs - 24 hr 08/16/24 10:03 08/16/24 10:27 08/16/24 10:51 Temperature 36.4 C L Temperature Source Oral Pulse Rate 95 H 90 98 H Pulse Rhythm Regular Respiratory Rate 16 22 32 H Respiratory Effort / Characteristics Non-Labored Spontaneous Respiratory Depth Normal Blood Pressure 152/101 H 152/100 H Blood Pressure Mean 118 117 Blood Pressure Position Sitting Pulse Oximetry 92 92 92 Oxygen Delivery Method Room Air Room Air Nasal Cannula Oxygen Flow Rate 2 Sepsis Recent Fever Within 48 Hours No Sepsis New/Unexplained Change in Mental Status N/A Sepsis Action Taken by Nursing No Action Required 08/16/24 11:33 08/16/24 12:01 08/16/24 12:32 Temperature Temperature Source Pulse Rate 107 H 105 H 108 H Pulse Rhythm Respiratory Rate 23 21 22 Respiratory Effort / Characteristics Respiratory Depth Blood Pressure 126/72 123/105 H 123/76 Blood Pressure Mean 77 115 118 Blood Pressure Position Pulse Oximetry 93 91 94 Oxygen Delivery Method Oxygen Flow Rate Sepsis Recent Fever Within 48 Hours Sepsis New/Unexplained Change in Mental Status Sepsis Action Taken by Nursing Laboratory Data 08/16/24 10:10 08/16/24 10:10 Lab Results 08/16/24 08/16/24 08/16/24 Range/Units 10:10 10:34 10:35 WBC 6.68 (4.8-10.8) K/ul RBC 3.78 L (4.70-6.10) M/uL Hgb 12.3 L (14.0-18.0) g/dl Hct 36.6 L (42.0-52.0) % MCV 96.8 (80.0-100.0) fL MCH 32.5 (25.0-34.0) pg MCHC 33.6 (32.0-36.0) g/dL RDW Std Deviation 49.3 H (36.4-46.3) fL RDW Coeff of Jian 13.8 (11.5-14.5) % Plt Count 216 (130-400) K/uL MPV 9.7 (9.4-12.4) fL Immature Gran % (Auto) 0.3 % Neut % (Auto) 65.7 % Lymph % (Auto) 19.0 % Desha % (Auto) 13.0 % Eos % (Auto) 1.6 % Baso % (Auto) 0.4 % Neut # (Auto) 4.38 (1.40-6.50) K/uL Lymph # (Auto) 1.27 (1.20-3.40) K/uL Desha # (Auto) 0.87 H (0.11-0.59) K/uL Eos # (Auto) 0.11 (0.00-0.50) K/uL Baso # (Auto) 0.03 (0.00-0.20) K/uL Immature Gran # (Auto) 0.02 (0.01-0.20) K/uL PT 12.7 H (9.0-12.0) Seconds INR 1.2 H (0.9-1.1) APTT 29 (21-31) Seconds PTT Ratio 1.1 Sodium 128 L (136-145) mmol/L Potassium 4.4 (3.5-5.1) mmol/L Chloride 87 L (98-107) mmol/L Carbon Dioxide 37 H (21-32) mmol/L Anion Gap 4 (3-11) BUN 10 (6-23) mg/dl Creatinine 0.60 (0.6-1.4) mg/dl Est Cr Clr Drug Dosing 106.6 ml/min eGFR 95.19 BUN/Creatinine Ratio 16.7 (10-20) Glucose 131 H (70-99(Fasting)) mg/dl Calcium 9.0 (8.6-10.3) mg/dl Total Bilirubin 0.8 (0.2-1.0) mg/dl AST 25 (13-39) U/L ALT 19 (7-52) U/L Alkaline Phosphatase 76 (34-104) U/L Total Creatine Kinase 93 (30-223) U/L Troponin I High Sens 18.3 (0-20) pg/ml Total Protein 7.1 (6.0-8.3) gm/dl Albumin 3.8 (3.4-5.0) gm/dl Globulin 3.3 (2.5-4.0) gm/dl Albumin/Globulin Ratio 1.2 (0.9-2) Lipase 22 (11-82) U/L SARS-CoV-2 (PCR) NEGATIVE (Negative) Influenza Type A (PCR) Negative (Neg) Influenza Type B (PCR) Negative (Neg) RSV (RT-PCR) Negative (Neg) Administered Medications Discontinued Medications Fentanyl Citrate (Fentanyl Citrate Pf 100 Mcg/2 Ml Vial) 50 mcg IV NOW STA Stop: 08/16/24 10:17 Last Admin: 08/16/24 10:25 Dose: 50 mcg Documented By: ANT Fentanyl Citrate (Fentanyl Citrate Pf 100 Mcg/2 Ml Vial) 50 mcg IV NOW STA Stop: 08/16/24 12:02 Last Admin: 08/16/24 12:12 Dose: 50 mcg Documented By: NATHAN Acetaminophen (Ofirmev) 1,000 mg in 100 mls @ 400 mls/hr IV NOW STA Stop: 08/16/24 11:41 Last Infusion: 08/16/24 11:49 Dose: Infused Documented By: Admin: 08/16/24 11:32 Dose: 400 mls/hr Documented By: POLO Imaging Data Radiologist's Impression: Cervical Spine CT 08/16/24 10:03 CT cervical spine wo con CLINICAL HISTORY: fall TECHNIQUE: Multidetector row helical CT of the cervical spine was performed without administration of intravenous contrast. Coronal and sagittal reformations were obtained. Automated dose lowering techniques and/or adjustment according to patient size were utilized for this exam. Comparison: None available at the time of this dictation. FINDINGS: No acute fractures or subluxations are identified. Degenerative changes are seen in the visualized spine. There is reversal of the cervical spine normal cervical lordosis. Biapical scarring is seen. IMPRESSION: Degenerative changes without evidence of acute bony injury. Reversal of cervical lordosis is noted which may be seen in muscle spasm./// ACT 112: Negative or not required by law. Electronically signed by: Tae Willingham M.D. 08/16/2024 11:[address] 08/16/24 10:03 CT OF THE HEAD WITHOUT CONTRAST CLINICAL HISTORY: fall, on xarelto COMPARISON STUDY: Head CT April 23, 2021. MRI of the brain September 01, 2023. CT DOSE: 1206.81 mGy.cm TECHNIQUE: Helical axial images of the head were obtained without IV contrast. Automated exposure control was utilized for the study. A dose lowering technique was utilized adhering to the principles of ALARA. FINDINGS: No acute intracranial hemorrhage, midline shift or mass effect is present. The ventricular system is stable. White matter hypodensities are suggestive of small vessel disease. The basal cisterns are patent. No extra- axial collections are present. There are no findings to suggest acute dural sinus thrombosis or acute territorial infarct. IMPRESSION: 1. No acute intracranial findings. 2. No calvarial fractures. ACT 112: Negative or not required by law. Electronically signed by: Barak Espinal M.D. 08/16/2024 11:36 AM Hip/Pelvis X-Ray 08/16/24 10:03 XR hip RT 2V w pelvis CLINICAL HISTORY: fall TECHNIQUE: 2 views of the right hip and single frontal view of the pelvis were obtained. Comparison: Comparison is made to hip radiograph 08/30/2012 FINDINGS: Comminuted right intratrochanteric fracture with lateral angulation. Joint spaces are well-preserved. Soft tissue swelling is seen. IMPRESSION: Comminuted right intertrochanteric hip fracture. ACT 112: Negative or not required by law. Electronically signed by: Tae Willingham M.D. 08/16/2024 11:45 AM Chest X-Ray 08/16/24 10:04 SUPINE PORTABLE AP CHEST RADIOGRAPH CLINICAL HISTORY: fall COMPARISON STUDY: Chest radiograph August 29, 2023. Chest CT August 30, 2023. FINDINGS: There is no pneumothorax or pleural effusion on supine exam. Skinfold projects over the left chest. Cardiomegaly is unchanged. Mediastinal contours are stable. Left basilar opacity favors atelectasis. There is no evidence for pulmonary edema. IMPRESSION: No acute cardiopulmonary findings. ACT 112: Negative or not required by law. Electronically signed by: Barak Espinal M.D. 08/16/2024 11:56 AM Discharge Plan Visit Data Chief Complaint: Fall Stated Complaint: FALL ED Provider: Shola Abernathy ED Midlevel Provider: Beatriz Thacker Discharge Problem: Fall, Anticoagulant long-term use, Closed fracture of right hip, A-fib Patient Disposition: Being Evaluated by Hospitalist Forms Stand Alone Forms: [facility] [employer] Prescriptions Prescriptions: No Action metoprolol succinate 50 mg tablet extended release 24 hr 50 mg PO QAM Qty: 90 3RF Xarelto 20 mg tablet 20 mg PO QAM Qty: 90 3RF dutasteride 0.5 mg capsule 0.5 mg PO HS Qty: 90 1RF Rx Instructions: take 1 capsule by mouth daily acetaminophen 325 mg capsule 650 mg PO Q4H PRN cholecalciferol (vitamin D3) 25 mcg (1,000 unit) capsule 25 mcg PO QAM torsemide 10 mg tablet 10 mg PO .qod Qty: 0 0RF magnesium oxide 400 mg (241.3 mg magnesium) Tablet 400 mg PO QAM Qty: 0 0RF sennosides [Senokot] 8.6 mg Tablet 17.2 mg PO QAM Qty: 0 0RF thiamine HCl (vitamin B1) 100 mg Tablet 100 mg PO DAILY Qty: 0 0RF Referrals Referrals: Butch Martin [Primary Care Provider] - Discharge Problem: Fall Qualifiers: Encounter type: initial encounter Qualified Code(s): W19.XXXA - Unspecified fall, initial encounter Closed fracture of right hip Qualifiers: Encounter type: initial encounter Qualified Code(s): S72.001A - Fracture of unspecified part of neck of right femur, initial encounter for closed fracture
[2024-08-16] MEDS: fentaNYL citrate PF 100 MCG/2 ML VIAL IV STA ×2 (10:25→12:12)
[2024-08-16 10:30] LABS: Basophils # (auto) 0.03 K/uL (0.00-0.20); Basophils % (auto) 0.4 %; Eosinophils # (auto) 0.11 K/uL (0.00-0.50); Eosinophils % (auto) 1.6 %; Hematocrit (blood only) 36.6 % (42.0-52.0); Hemoglobin 12.3 g/dl (14.0-18.0); Immature Granulocytes # (auto) 0.02 K/uL (0.01-0.20); Immature Granulocytes % (auto) 0.3 %; Lymphocytes # (auto) 1.27 K/uL (1.20-3.40); Mean Corpuscular Hemoglobin 32.5 pg (25.0-34.0); Mean Corpuscular Hgb Conc 33.6 g/dL (32.0-36.0); Mean Corpuscular Volume 96.8 fL (80.0-100.0); Mean Platelet Volume 9.7 fL (9.4-12.4); Monocytes # (auto) 0.87 K/uL (0.11-0.59); Neutrophils # (auto) 4.38 K/uL (1.40-6.50); Neutrophils % (auto) 65.7 %; Platelet Count 216 K/uL (130-400); RDW Coefficient of Variation 13.8 % (11.5-14.5); RDW Standard Deviation 49.3 fL (36.4-46.3); Red Blood Count 3.78 M/uL (4.70-6.10); White Blood Count 6.68 K/ul (4.8-10.8)
[2024-08-16 10:52] LABS: Albumin Globulin Ratio 1.2 (0.9-2); Albumin Level 3.8 gm/dl (3.4-5.0); BUN Creatinine Ratio 16.7 (10-20); Bilirubin,Total 0.8 mg/dl (0.2-1.0); Creatinine Clr Calc Pharmacy 106.6 ml/min; Globulin 3.3 gm/dl (2.5-4.0); Potassium 4.4 mmol/L (3.5-5.1); Total Protein 7.1 gm/dl (6.0-8.3)
[2024-08-16 10:57] LABS: INR 1.2 (0.9-1.1); Partial Thromboplastin Ratio 1.1; Partial Thromboplastin Time 29 Seconds (21-31); Prothrombin Time 12.7 Seconds (9.0-12.0)
[2024-08-16 11:14] LABS: Influenza A virus by PCR Negative (Neg); Influenza B virus by PCR Negative (Neg); RSV by PCR Negative (Neg); SARS CoV2 RNA(COVID-19) Ceph NEGATIVE (Negative)
--- NOTE | 2024-08-16 11:20 | CT Scan Report ---
CT cervical spine wo con CLINICAL HISTORY: fall TECHNIQUE: Multidetector row helical CT of the cervical spine was performed without administration of intravenous contrast. Coronal and sagittal reformations were obtained. Automated dose lowering techn iques and/or adjustment according to patient size were utilized for this exam. Comparison: None available at the time of this dictation. FINDINGS: No acute fractures or subluxations are identified. Degenerative changes are seen in the visualized sp ine. There is reversal of the cervical spine normal cervical lordosis. Biapical scarring is seen. IMPRESSION: Degenerative changes without evidence of acute bony injury. Reversal of cervical lordosis is noted wh ich may be seen in muscle spasm./// ACT 112: Negative or not required by law. Electronically signed by: Tae Willingham M.D. 08/16/2024 11:18 AM
[2024-08-16] MEDS: ACETAMINOPHEN 1,000 MG/100 ML VIAL IV STA (11:32)
--- NOTE | 2024-08-16 11:37 | CT Scan Report ---
CT OF THE HEAD WITHOUT CONTRAST CLINICAL HISTORY: fall, on xarelto COMPARISON STUDY: Head CT April 23, 2021. MRI of the brain September 01, 2023. CT DOSE: 1206.81 mGy.cm TECHNIQUE: Helical axial images of the head were obtained without IV contrast. Automated exposure con trol was utilized for the study. A dose lowering technique was utilized adhering to the principles o f ALARA. FINDINGS: No acute intracranial hemorrhage, midline shift or mass effect is present. The ventricular system is stable. White matter hypodensities are suggestive of small vessel disease. The basal cister ns are patent. No extra-axial collections are present. There are no findings to suggest acute dural s inus thrombosis or acute territorial infarct. IMPRESSION: 1. No acute intracranial findings. 2. No calvarial fractures. ACT 112: Negative or not required by law. Electronically signed by: Barak Espinal M.D. 08/16/2024 11:36 AM
--- NOTE | 2024-08-16 11:46 | XRay Report ---
XR hip RT 2V w pelvis CLINICAL HISTORY: fall TECHNIQUE: 2 views of the right hip and single frontal view of the pelvis were obtained. Comparison: Comparison is made to hip radiograph 08/30/2012 FINDINGS: Comminuted right intratrochanteric fracture with lateral angulation. Joint spaces are well-preserved. Soft tissue swelling is seen. IMPRESSION: Comminuted right intertrochanteric hip fracture. ACT 112: Negative or not required by law. Electronically signed by: Tae Willingham M.D. 08/16/2024 11:45 AM
--- NOTE | 2024-08-16 11:58 | XRay Report ---
SUPINE PORTABLE AP CHEST RADIOGRAPH CLINICAL HISTORY: fall COMPARISON STUDY: Chest radiograph August 29, 2023. Chest CT August 30, 2023. FINDINGS: There is no pneumothorax or pleural effusion on supine exam. Skinfold projects over the lef t chest. Cardiomegaly is unchanged. Mediastinal contours are stable. Left basilar opacity favors atel ectasis. There is no evidence for pulmonary edema. IMPRESSION: No acute cardiopulmonary findings. ACT 112: Negative or not required by law. Electronically signed by: Barak Espinal M.D. 08/16/2024 11:56 AM
--- NOTE | 2024-08-16 12:16 | History & Physical Report ---
Date of Service August 16, 2024 Assessment & Plan (1) Closed fracture of right hip: Plan: Patient sustained a witnessed fall on 08/16 when he slipped and fell down the last 2 steps of his stairs Head strike; no LOC On Xarelto for history of A-fib Head CT without acute intracranial findings Hip/pelvic x-ray revealed comminuted right intertrochanteric hip fracture Revised cardiac risk index: 1 (history of heart failure) Orthopedics consult appreciated Both patient and patient's report he did not take Xarelto the morning of 08/16; last taken the morning of 08/15 Patient reports he has not had anything to eat/drink today Plan is to take patient to the OR the evening of 08/16 Hold Xarelto for now Neurochecks q2h for now IV acetaminophen and Dilaudid as needed for pain control (2) A-fib: Plan: Continue metoprolol, hold Xarelto (3) (HFpEF) heart failure with preserved ejection fraction: Plan: Follows with heart failure clinic Last echocardiogram on 11/02/2023 revealed LVEF at 65-70% Daily weights Strict I&O monitoring (4) Severe obstructive sleep apnea: Plan: Patient does not tolerate CPAP H/o nocturnal hypoxia Supplemental oxygen 2L NC HS (5) Fall: Plan: PT/OT evaluations appreciated (right nonweightbearing) Fall precautions (6) Exposure to COVID-19 virus: Plan: Patient's reports she just recently tested positive for COVID on 08/15 While patient's COVID test was negative on arrival, will place on isolation precautions for now (7) RVF (right ventricular failure): Plan Disposition: Admit to [facility] telemetry Full code N.p.o. for now prior to surgery VTE PPx: SCDs; hold Xarelto, with plan to start postop once okayed by orthopedics History of Present Illness Chief Complaint: Fall, right hip pain Primary Care Provider: Butch Martin Tay is an 84-year-old male with PMH of atrial fibrillation (on Xarelto), HFpEF, severe DAY, chronic indwelling Elliott catheter, BPH, and HTN. He presented via EMS on 08/16 after sustaining a fall at home. Patient's daughter (Shelley) is present at the bedside and provides additional history. Patient was reportedly walking down a flight of steps this morning at 9:30 AM when he lost his footing on the left step and fell down. He hit his head and right hip on a hardwood floor. This was witnessed by his . Fall was witnessed by his . He does have a history of falls. He is currently on Xarelto for history of A-fib. Denies LOC. Both patient and patient's (over the phone) confirmed that he did not take his regular morning medicine today; last took Xarelto yesterday on 08/15. Patient also did not have any food or drink this morning prior to coming into the ED. He did not take any pain medicine prior to coming into the ED. He reports that he is having 8/10 pain in his right hip at present with radiation down to the knee. Movement exacerbates the pain. While he is unable to characterize the pain, he describes it as intermittent. No prior injuries to the right hip or leg. No history of knee or hip replacements. Patient denies numbness or tingling in his right leg. While patient's is COVID-positive (tested positive yesterday on 08/15), the patient denies any respiratory symptoms and tested COVID-negative today. He does follow with the heart failure clinic. Denies PMH of GA, stroke, DM, insulin use, or kidney issues. He does endorse right hip pain, and his right leg was externally rotated on arrival. While he does have severe sleep apnea, he does not tolerate CPAP at night. History of nocturnal hypoxia, but does not use up on oxygen at night. Additionally, daughter reports cognitive decline over the past 2 years, but denies any acute change in cognitive baseline today. He is hypertensive at 152/100, tachycardic around 108 bpm, and tachypneic at 32 RPM at time admission; SpO2 92% on 2L NC. ED course: Fentanyl 50 mcg IV x 2 Acetaminophen 1000 mg IV ROS: Patient endorses Patient denies Was unable to reach infection control regarding isolation precautions; while COVID negative on arrival, will place patient on isolation precautions perioperatively as patient's just tested positive for COVID yesterday. Allergies Allergy/AdvReac Type Severity Reaction Status Date / Time No Known Drug Allergies Allergy Verified 05/24/24 13:16 Home Medications Medication Instructions Recorded Confirmed Type cholecalciferol (vitamin D3) 25 25 mcg PO QAM 10/20/22 05/24/24 History mcg (1,000 unit) capsule magnesium oxide 400 mg (241.3 mg 400 mg PO QAM #0 tabs 09/06/23 08/16/24 Rx magnesium) tablet sennosides 8.6 mg tablet (Senokot) 17.2 mg (2 x 8.6 mg) PO QAM #0 tabs 09/06/23 05/24/24 Rx thiamine HCl (vitamin B1) 100 mg 100 mg PO DAILY #0 tabs 09/06/23 08/16/24 Rx tablet acetaminophen 325 mg capsule 650 mg PO Q4H PRN 09/16/23 05/24/24 History torsemide 10 mg tablet 10 mg PO .qod #0 tabs 10/24/23 08/16/24 Rx metoprolol succinate 50 mg 50 mg PO QAM #90 tabs 03/06/24 08/16/24 Rx tablet,extended release 24 hr rivaroxaban 20 mg tablet (Xarelto) 20 mg PO QAM #90 tabs 04/27/24 08/16/24 Rx dutasteride 0.5 mg capsule 0.5 mg PO HS #90 caps 07/27/24 08/16/24 Rx Past Med/Surg History Problem List (Updated 08/16/24 @ 13:03 by Douglas Diehl PA-C) Exposure to COVID-19 virus Atrial fibrillation f/u dr. chavez, samson A-fib (Acute) Closed fracture of right hip (Acute) Anticoagulant long-term use (Acute) Fall (Acute) Urinary retention Nocturnal hypoxemia Severe obstructive sleep apnea Mouth breathing Peripheral neuropathy Dysphagia Apnea RVF (right ventricular failure) (HFpEF) heart failure with preserved ejection fraction Pulmonary HTN Esophagitis Excessive sleepiness Catheter-associated urinary tract infection Chronic indwelling Elliott catheter Atrial fibrillation with RVR Erectile dysfunction Insomnia Vitamin B12 deficiency Hypomagnesemia Dysplastic nevi (Acute) Actinic keratosis (Acute) BPH (benign prostatic hyperplasia) Anticoagulant long-term use Urinary retention due to benign prostatic hyperplasia Cough 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 left ear bilateral hearing aids Right knee DJD Hyponatremia Hypertension Medical History Encounter for pre-operative examination Atrial fibrillation Surgical History Hx of cataract extraction S/P cholecystectomy S/P splenectomy Family History Mother Rheumatoid arthritis Denies family history of Ovarian cancer Prostate cancer Myocardial infarction Breast cancer Colorectal cancer Social History Smoking Status: Never smoker Second Hand Exposure: No; Do You Dip or Chew Tobacco: No; Hx Alcohol Use: Yes Alcohol type: wine and hard liquor Alcohol Intake Frequency: 4 or More x per/Week Alcohol Intake Frequency Comment: with dinner Hx Substance Use: No Preferred Language: Maltese Communication Ability: Effective Visual Impairment: No Limitations Hearing Ability: Normal Marketing Writer Required: No Beliefs That Will Affect Care: None marital status: Current Living Situation: Spouse current occupational status: retired 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 How many Children do You have: 4 Feels Safe at Home: Yes Childhood Exposure to Second-Hand Smoke: No Diet: regular Diet Comment: regular caffeine: Yes during the past year weight has: remained stable Dental Care, Regularly: No Physical Activity Frequency: 1-2 Times per Week Seatbelt Use: always Sunscreen Use: No Do you think of yourself as: straight/heterosexual Gender Identity: Male Assistive Devices: Cane and Glasses Review of Systems Review of Systems: See HPI above Physical Exam Physical Exam: General: Moderate distress secondary to right hip pain; non-toxic appearing; daughter at bedside; patient is cooperative; SpO2 94% on 2L NC HEENT: normocephalic, atraumatic; PERRLA; vision and hearing intact Neck: supple; no lymphadenopathy; trachea midline Skin: warm, dry without signs of tenting; no cyanosis; no rashes, bruising, lesions, or erythema noted CV: chest wall NTP; irregularly irregular rhythm tachycardic around 110 bpm; S1/S2 normal; ? 2/6 ejection murmur auscultated at the second ICS MCL; bounding pulses intact and symmetric at radial, DP, and PT Lungs: no acute respiratory distress; symmetrical chest wall expansion; clear breath sounds across all lung mejia w/o adventitious sounds; no wheezing ABD: Soft, NTP; BS present; no rebound/guarding; no distention MSK: External rotation of the right hip with tenderness to palpation; no bruising or hematoma noted on the right hip; no tics or fasciculations; no edema noted in the LEs b/l, nonerythematous; patient demonstrates ability to wiggle toes bilaterally Neuro: A&Ox3; normal mood and affect; fluent speech; no focal deficits; patient reports sensation is intact and symmetric in the lower extremities bilaterally assessed via light touch Results & Data Results & Data Vital Signs (Past 12 Hours) Vital Signs Temp Pulse Resp BP Pulse Ox O2 Del Method O2 Flow Rate 08/16/24 10:51 98 H 32 H 152/100 H 92 Nasal Cannula 2 08/16/24 10:27 90 22 92 Room Air 08/16/24 10:03 36.4 C L 95 H 16 152/101 H 92 Room Air Laboratory Results Abnormal lab results 08/16/24 Range/Units 10:10 RBC 3.78 L (4.70-6.10) M/uL Hgb 12.3 L (14.0-18.0) g/dl Hct 36.6 L (42.0-52.0) % RDW Std Deviation 49.3 H (36.4-46.3) fL [place] # (Auto) 0.87 H (0.11-0.59) K/uL PT 12.7 H (9.0-12.0) Seconds INR 1.2 H (0.9-1.1) Sodium 128 L (136-145) mmol/L Chloride 87 L (98-107) mmol/L Carbon Dioxide 37 H (21-32) mmol/L Glucose 131 H (70-99(Fasting)) mg/dl Diagnostic Findings Cervical Spine CT 08/16/24 10:03 CT cervical spine wo con CLINICAL HISTORY: fall TECHNIQUE: Multidetector row helical CT of the cervical spine was performed without administration of intravenous contrast. Coronal and sagittal reforma tions were obtained. Automated dose lowering techniques and/or adjustment according to patient size were utilized for this exam. Comparison: None available at the time of this dictation. FINDINGS: No acute fractures or subluxations are identified. Degenerative changes are seen in the visualized spine. There is reversal of the cervical spine normal cervical lordosis. Biapical scarring is seen. IMPRESSION: Degenerative changes without evidence of acute bony injury. Reversal of cervical lordosis is noted which may be seen in muscle spasm./// ACT 112: Negative or not required by law. Electronically signed by: Tae Willingham M.D. 08/16/2024 11:[address] 08/16/24 10:03 CT OF THE HEAD WITHOUT CONTRAST CLINICAL HISTORY: fall, on xarelto COMPARISON STUDY: Head CT April 23, 2021. MRI of the brain September 01, 2023. CT DOSE: 1206.81 mGy.cm TECHNIQUE: Helical axial images of the head were obtained without IV contrast. Automated exposure control was utilized for the study. A dose lowering technique was utilized adhering to the principles of ALARA. FINDINGS: No acute intracranial hemorrhage, midline shift or mass effect is present. The ventricular system is stable. White matter hypodensities are suggestive of small vessel disease. The basal cisterns are patent. No extra- axial collections are present. There are no findings to suggest acute dural sinus thrombosis or acute territorial infarct. IMPRESSION: 1. No acute intracranial findings. 2. No calvarial fractures. ACT 112: Negative or not required by law. Electronically signed by: Barak Espinal M.D. 08/16/2024 11:36 AM Hip/Pelvis X-Ray 08/16/24 10:03 XR hip RT 2V w pelvis CLINICAL HISTORY: fall TECHNIQUE: 2 views of the right hip and single frontal view of the pelvis were obtained. Comparison: Comparison is made to hip radiograph 08/30/2012 FINDINGS: Comminuted right intratrochanteric fracture with lateral angulation. Joint spaces are well-preserved. Soft tissue swelling is seen. IMPRESSION: Comminuted right intertrochanteric hip fracture. ACT 112: Negative or not required by law. Electronically signed by: Tae Willingham M.D. 08/16/2024 11:45 AM Chest X-Ray 08/16/24 10:04 SUPINE PORTABLE AP CHEST RADIOGRAPH CLINICAL HISTORY: fall COMPARISON STUDY: Chest radiograph August 29, 2023. Chest CT August 30, 2023. FINDINGS: There is no pneumothorax or pleural effusion on supine exam. Skinfold projects over the left chest. Cardiomegaly is unchanged. Mediastinal contours are stable. Left basilar opacity favors atelectasis. There is no evidence for pulmonary edema. IMPRESSION: No acute cardiopulmonary findings. ACT 112: Negative or not required by law. Electronically signed by: Barak Espinal M.D. 08/16/2024 11:56 AM ECG Additional Comments: EKG revealed atrial fibrillation with a competing junctional pacemaker at 89 BPM; QTc 438 Code Status & VTE Plan Code Status Full code (discussed with both patient and patient's /medical proxy over the phone) VTE Prophylaxis Plan VTE Prophylaxis will be ordered: Yes Supervising Physician Co-Signing Physician Notes I have personally seen, evaluated and examined the patient. I have also personally discussed the management of the patient with the resident physician/DORIS and I agree with the exam findings documented in the history and physical examination and the documented assessment and plan unless otherwise stated below. Brief Exam: In general very pleasant 84-year-old male who is alert and oriented to person and place at the time my exam he is somewhat confused to time. This is his baseline per his daughter Shelley who is in the room at the time of my examination. Patient does have some mild underlying cognitive impairment. The patient's only complaint is right hip pain and spasm. 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 HEENT: Normocephalic atraumatic. Heart: Mildly tachycardic low 100s, exam. No pallavi murmur rub. Lungs: Diminished but clear. Abdomen: Flat soft and nontender. Extremities: Right lower extremity significantly internally rotated and shortened. Neurovascularly the extremities are intact with good peripheral pulses bilaterally of the lower extremities. Neurologically: Again some mild cognitive impairment it appears but at his baseline mental status. He has no focal deficits on exam other than his gross deformity of his right lower extremity. Assessment/plan: As described above. The patient has not had his Xarelto today as last dose was yesterday therefore orthopedics is planning on surgery today. Will keep the patient NPO. Will do neurochecks since he had a fall and did strike his head CAT scans of the head and cervical spine are reassuring there is a neurological change we will repeat a CT of the brain. The patient will require some rehabilitation whether it be inpatient rehab versus short-term usp placement. Please refer to orders for further planning. PG Care Time/CCT Total # of Minutes Spent Total Time Spent with Patient: Total time spent is greater than 50% in coordination of care (as documented) at patient's floor/unit and/or counseling patient: C[place] [address] INT INP/OBS CARE 3/75MIN Patient Type Established Medical Decision Making High Complexity Diagnoses Closed fracture of right hip S72.001A Encounter type: initial encounter A-fib I48.91 (HFpEF) heart failure with preserved ejection fraction I50.30 Severe obstructive sleep apnea G47.33 Fall W19.XXXA Encounter type: initial encounter Exposure to COVID-19 virus Z20.822 RVF (right ventricular failure) I50.810 (1) Closed fracture of right hip Encounter type: initial encounter Qualified Code(s): S72.001A - Fracture of unspecified part of neck of right femur, initial encounter for closed fracture (5) Fall Encounter type: initial encounter Qualified Code(s): W19.XXXA - Unspecified fall, initial encounter
[2024-08-16] MEDS ORDERED: ACETAMINOPHEN 1,000 MG/100 ML VIAL IV PRN (14:04)
[2024-08-16] MEDS ORDERED: ONDANSETRON INJ 2 MG/ML 2 ML VIAL IV PRN (14:04)
[2024-08-16] MEDS ORDERED: HYDROmorphone INJ 0.5 MG/0.5 ML SYR IV PRN (14:04)
--- NOTE | 2024-08-16 14:17 | Electrocardiogram Report ---
Test Reason : Blood Pressure : */* mmHG Vent. Rate : 89 BPM Atrial Rate : * BPM P-R Int : * ms QRS Dur : 82 ms QT Int : 360 ms P-R-T Axes : * 75 66 degrees QTcB Int : 438 ms Atrial fibrillation Low voltage QRS Cannot rule out Anteroseptal infarct , age undetermined Abnormal ECG When compared with ECG of 24-May-2024 13:10, Minimal criteria for Anteroseptal infarct are now Present QT has shortened Confirmed by Michael Sanders ([id number]) on 08/16/2024 2:17:18 PM Referred By: Confirmed By: Michael Sanders
[2024-08-16] MEDS: ceFAZolin 2000MG 2,000 MG/15 ML SYR IV SCH (14:37)
[2024-08-16] MEDS: TRANEXAMIC ACID / 0.7% NACL 1,000 MG/100 ML BAG IV STA (14:37)
[2024-08-16] MEDS: HYDROmorphone INJ 1 MG/ML SYRINGE IV PRN (14:37)
--- NOTE | 2024-08-16 15:17 | Orthopedic Consultation ---
Date of Service August 16, 2024 Assessment & Plan (1) Fracture, intertrochanteric, right femur: The diagnosis, prognosis, and outcomes of hip fractures were described to the patient and his family. My recommendation is for surgical stabilization as soon as medically possible, and as early as today. We discussed the risk, benefits and alternatives of surgery. We also discussed expectations for outcomes for hip fractures in this population. The risks of this surgery include but were not limited to, infection, nerve or vessel injury, arthrosis of the hip, need for repeat or revision surgery, symptomatic hardware, nonunion, malunion, pain syndromes, blood clots, and complication related anesthesia. He asked appropriate questions, demonstrated good understanding, and wants to proceed with surgery. Informed consent was obtained today with the assistance of my physician psychological assistant. I performed the informed consent discussion myself. Bedrest, n.p.o., and hold direct oral anticoagulant until surgery. History of Present Illness Reason for Consultation: Right hip fracture Requesting Physician: . Attending Physician: Дмитрий Landin, PhD, DO 84-year-old male household ambulator with a cane unfortunately fell today onto his right hip, resulting in immediate pain and inability to weight-bear. He was brought to the emergency room or comminuted peritrochanteric fracture was diagnosed. No previous hip pain or fractures. Has not eaten since last evening. Has not taken his Xarelto today. and daughter at the bedside. Allergies Allergy/AdvReac Type Severity Reaction Status Date / Time No Known Drug Allergies Allergy Verified 05/24/24 13:16 Home Medications Medication Instructions Recorded Confirmed Type cholecalciferol (vitamin D3) 25 25 mcg PO QAM 10/20/22 05/24/24 History mcg (1,000 unit) capsule magnesium oxide 400 mg (241.3 mg 400 mg PO QAM #0 tabs 09/06/23 08/16/24 Rx magnesium) tablet sennosides 8.6 mg tablet (Senokot) 17.2 mg (2 x 8.6 mg) PO QAM #0 tabs 09/06/23 05/24/24 Rx thiamine HCl (vitamin B1) 100 mg 100 mg PO DAILY #0 tabs 09/06/23 08/16/24 Rx tablet acetaminophen 325 mg capsule 650 mg PO Q4H PRN 02/02/24 10/10/24 History torsemide 10 mg tablet 10 mg PO .qod #0 tabs 10/24/23 08/16/24 Rx metoprolol succinate 50 mg 50 mg PO QAM #90 tabs 03/06/24 08/16/24 Rx tablet,extended release 24 hr rivaroxaban 20 mg tablet (Xarelto) 20 mg PO QAM #90 tabs 04/27/24 08/16/24 Rx dutasteride 0.5 mg capsule 0.5 mg PO HS #90 caps 07/27/24 08/16/24 Rx Past Med/Surg History Problem List (Updated 08/16/24 @ 15:15 by Rajeev Crowley MD) Fracture, intertrochanteric, right femur Exposure to COVID-19 virus Atrial fibrillation f/u samson poole A-fib (Acute) Closed fracture of right hip (Acute) Anticoagulant long-term use (Acute) Fall (Acute) Urinary retention Nocturnal hypoxemia Severe obstructive sleep apnea Mouth breathing Peripheral neuropathy Dysphagia Apnea RVF (right ventricular failure) (HFpEF) heart failure with preserved ejection fraction Pulmonary HTN Esophagitis Excessive sleepiness Catheter-associated urinary tract infection Chronic indwelling Elliott catheter Atrial fibrillation with RVR Erectile dysfunction Insomnia Vitamin B12 deficiency Hypomagnesemia Dysplastic nevi (Acute) Actinic keratosis (Acute) BPH (benign prostatic hyperplasia) Anticoagulant long-term use Urinary retention due to benign prostatic hyperplasia Cough 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 left ear bilateral hearing aids Right knee DJD Hyponatremia Hypertension Medical History Encounter for pre-operative examination Surgical History Hx of cataract extraction RT. S/P cholecystectomy S/P splenectomy Family History Mother Rheumatoid arthritis Denies family history of Ovarian cancer Prostate cancer Myocardial infarction Breast cancer Colorectal cancer Social History Smoking Status: Never smoker Second Hand Exposure: No; Do You Dip or Chew Tobacco: No; Hx Alcohol Use: Yes Alcohol type: wine and hard liquor Alcohol Intake Frequency: 4 or More x per/Week Alcohol Intake Frequency Comment: with dinner Hx Substance Use: No Preferred Language: Tajik Communication Ability: Effective Visual Impairment: No Limitations Hearing Ability: Normal Medical Coding Technician Required: No Beliefs That Will Affect Care: None marital status: Current Living Situation: Spouse current occupational status: 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 Physical Exam Right hip: Overlying skin is without compromise. There are some mild edema. The extremity is held shortened and externally rotated but is neurovascularly intact. Constitutional WD/WN, vitals as above no acute distress and not intoxicated appearing Respiratory normal respiratory effort; no labored breathing Cardiovascular Extremities: normal capillary refill Results & Data Results & Data Laboratory Results Laboratory Tests 08/16/24 10:10 Hgb 12.3 L Hct 36.6 L PT 12.7 H INR 1.2 H Diagnostic Findings Comminuted peritrochanteric fracture right hip. Minimal degenerative change. PG Care Time/CCT Total # of Minutes Spent Total Time Spent with Patient: Total time spent is greater than 50% in coordination of care (as documented) at patient's floor/unit and/or counseling patient: Coding Level of Care Code 10572 IN/OBS CONSULT LVL 4,60M (57 - DECISION FOR SURGERY) Diagnoses Fracture, intertrochanteric, right femur S72.141A
[2024-08-16] MEDS: SODIUM CHLORIDE 0.9% 500 ML IV ONE (15:28)
[2024-08-16] MEDS: METOPROLOL TARTRATE 1 MG/ML VIAL IV STA ×2 (15:28→16:02)
--- NOTE | 2024-08-16 17:09 | Anesthesiology Consultation ---
Date of Service August 16, 2024 Assessment & Plan (1) Encounter for pre-operative examination: Chart Review Chart Review: Pending: Refer to Additional Notes / Consult section (chronic a fib with rapid ventricular rate, hx RV dysfunction, Xarelto yesterday - asking Cardiology for recs) History Surgery Operation Date: 08/16/24 16:25 Proposed Procedures p Right Troch Nail - Rajeev Crowley MD Height/Weight Height: 6 ft 2 in Weight: 87.1 kg Allergies Allergy/AdvReac Type Severity Reaction Status Date / Time No Known Drug Allergies Allergy Verified 05/24/24 13:16 Medications Home Medications Medication Instructions Recorded Confirmed Last Taken cholecalciferol (vitamin D3) 25 25 mcg PO QAM 10/20/22 05/24/24 08/22/23 mcg (1,000 unit) capsule magnesium oxide 400 mg (241.3 mg 400 mg PO QAM #0 tabs 09/06/23 08/16/24 Unknown magnesium) tablet sennosides 8.6 mg tablet (Senokot) 17.2 mg (2 x 8.6 mg) PO QAM #0 tabs 09/06/23 05/24/24 Unknown thiamine HCl (vitamin B1) 100 mg 100 mg PO DAILY #0 tabs 09/06/23 08/16/24 Unknown tablet acetaminophen 325 mg capsule 650 mg PO Q4H PRN 09/16/23 05/24/24 Unknown torsemide 10 mg tablet 10 mg PO .qod #0 tabs 10/24/23 08/16/24 Unknown metoprolol succinate 50 mg 50 mg PO QAM #90 tabs 03/06/24 08/16/24 Unknown tablet,extended release 24 hr rivaroxaban 20 mg tablet (Xarelto) 20 mg PO QAM #90 tabs 04/27/24 08/16/24 Unknown dutasteride 0.5 mg capsule 0.5 mg PO HS #90 caps 07/27/24 08/16/24 Unknown Active Medications Generic Name Dose Route Start Last Admin Trade Name Freq PRN Reason Stop Dose Admin Hydromorphone HCl 1 mg 08/16/24 14:04 08/16/24 14:37 Hydromorphone Inj 1 Mg/Ml Syringe IV 08/30/24 14:03 1 mg Q3H PRN Administration Severe Pain (7,8,9,10) on NRS Cefazolin Sodium 2,000 mg in 15 mls @ 3.75 mls/min 08/16/24 14:30 08/16/24 14:37 Ancef 2000mg IV 08/17/24 14:29 3.75 mls/min PREOP GUILLE Administration Protocol Past Medical History Medical History (Updated 08/16/24 @ 17:05 by Jude Sol MD) Hyponatremia Anticoagulant long-term use Severe obstructive sleep apnea Peripheral neuropathy RVF (right ventricular failure) (HFpEF) heart failure with preserved ejection fraction Atrial fibrillation with RVR BPH (benign prostatic hyperplasia) Hypertension Past Family History Family History Mother Rheumatoid arthritis Denies family history of Ovarian cancer Prostate cancer Myocardial infarction Breast cancer Colorectal cancer Past Surgical History Surgical History Hx of cataract extraction RT. S/P cholecystectomy S/P splenectomy Social History Smoking Status: Never smoker Do You Dip or Chew Tobacco: No Hx Alcohol Use: Yes Alcohol type: wine and hard liquor alcohol intake frequency: 0-2 drinks per day Hx Substance Use: No substance use type: does not use Physical Exam Vital Signs Last Vital Signs Temp 36.4 C L 08/16/24 10:03 Pulse 128 H 08/16/24 16:15 Resp 16 08/16/24 15:01 BP 115/64 08/16/24 16:15 Pulse Ox 94 08/16/24 15:01 O2 Del Method Room Air 08/16/24 14:15 O2 Flow Rate 2 08/16/24 10:51 Testing Laboratory Results 08/16/24 10:10 08/16/24 10:10 PT 12.7 Seconds (9.0-12.0) H 08/16/24 10:10 INR 1.2 (0.9-1.1) H 08/16/24 10:10 APTT 29 Seconds (21-31) 08/16/24 10:10 Electrocardiogram Date: 08/16/24 Findings: + AFIB @ (89) Echocardiogram Date: 11/10/23 LV Function: normal vs August RV slightly less dilated, mildly improved systolic function mod TR pulm htn
--- NOTE | 2024-08-16 17:49 | Anesthesiology Progress Note ---
Date of Service August 16, 2024 Anesthesia Post Procedure Vital Signs Vital Signs: Temp Pulse Pulse Resp BP BP Pulse Ox 08/16/24 16:15 128 H 115/64 08/16/24 16:02 113 H 118/72 08/16/24 15:43 112 H 123/64 08/16/24 15:28 131 H 97/58 L 08/16/24 15:01 134 H 16 93/50 L 94 08/16/24 14:37 126 H 23 115/79 96 08/16/24 14:15 08/16/24 14:15 120 H 23 130/85 92 08/16/24 14:13 130 H 08/16/24 13:32 110 H 24 102/81 95 08/16/24 12:32 108 H 22 123/76 94 08/16/24 12:01 105 H 21 123/105 H 91 08/16/24 11:33 107 H 23 126/72 93 08/16/24 10:51 98 H 32 H 152/100 H 92 08/16/24 10:27 90 22 92 08/16/24 10:03 36.4 C L 95 H 16 152/101 H 92 Pulse Ox O2 Del Method O2 Del Method O2 Flow Rate 08/16/24 16:15 08/16/24 16:02 08/16/24 15:43 08/16/24 15:28 08/16/24 15:01 08/16/24 14:37 08/16/24 14:15 93 Room Air 08/16/24 14:15 Room Air 08/16/24 14:13 08/16/24 13:32 08/16/24 12:32 08/16/24 12:01 08/16/24 11:33 08/16/24 10:51 Nasal Cannula 2 08/16/24 10:27 Room Air 08/16/24 10:03 Room Air Pain Intensity Right Hip: Pain Intensity: 8 Transfer of Care Handoff Completed per policy Notes Mental Status: alert / awake / arousable Patient Amnestic to Procedure: Yes Nausea / Vomiting: adequately controlled Pain: adequately controlled Airway Patency, RR, SpO2: stable & adequate BP & HR: stable & adequate Hydration State: stable & adequate Anesthetic Complications: no major complications apparent
[2024-08-17] MEDS: ZOLPIDEM TARTRATE 5 MG TAB PO PRN (01:48)
[2024-08-17 04:04] LABS: Basophils # (auto) 0.01 K/uL (0.00-0.20); Basophils % (auto) 0.1 %; Eosinophils # (auto) 0.01 K/uL (0.00-0.50); Eosinophils % (auto) 0.1 %; Hemoglobin 9.9 g/dl (14.0-18.0); Immature Granulocytes # (auto) 0.03 K/uL (0.01-0.20); Immature Granulocytes % (auto) 0.4 %; Lymphocytes # (auto) 0.72 K/uL (1.20-3.40); Lymphocytes % (auto) 8.9 %; Mean Corpuscular Hemoglobin 32.9 pg (25.0-34.0); Mean Corpuscular Hgb Conc 34.1 g/dL (32.0-36.0); Mean Corpuscular Volume 96.3 fL (80.0-100.0); Mean Platelet Volume 9.8 fL (9.4-12.4); Monocytes # (auto) 1.01 K/uL (0.11-0.59); Monocytes % (auto) 12.5 %; Platelet Count 183 K/uL (130-400); RDW Coefficient of Variation 13.9 % (11.5-14.5); RDW Standard Deviation 49.1 fL (36.4-46.3); Red Blood Count 3.01 M/uL (4.70-6.10); White Blood Count 8.08 K/ul (4.8-10.8)
[2024-08-17 04:16] LABS: BUN Creatinine Ratio 23.5 (10-20); Calcium 8.9 mg/dl (8.6-10.3); Creatinine Clr Calc Pharmacy 99.6 ml/min; Potassium 5.1 mmol/L (3.5-5.1)
--- NOTE | 2024-08-17 07:05 | Communication Note ---
Date of Service: August 17, 2024 Pt needs a cardiology evaluation prior to surgery for optimization. Pt has chronically hyponatremic and >125 is acceptable. Concerns for his a fib with rvr and his weight at heart failure clinic was 18lbs(7 pounds above his previous). He is now 191lbs.
[2024-08-17] MEDS ORDERED: METOPROLOL TARTRATE 1 MG/ML VIAL IV PRN (07:47)
--- NOTE | 2024-08-17 08:18 | Hospitalist Progress Note ---
Date of Service August 17, 2024 Assessment & Plan (1) Closed fracture of right hip: Plan: 84-year-old male with a history of atrial fibrillation on Xarelto had a mechanical fall sustaining a right femur fracture. Patient history of heart failure preserved ejection fraction, pulmonary hypertension, and chronic hyponatremia. It Emergency Department he has slightly high fast rates with might be physiologic due to his pain from his femur fracture and his weight is u p although this is a different scale than he measures his weight in the heart failure clinic. He has mild chest x-ray changes but not significant hypoxemia patient sustained a witnessed fall on 08/16 when he slipped and fell down the last 2 steps of his stairs Head strike; no LOC, Head CT without acute intracranial findings On Xarelto for history of A-fib, last taken the morning of 08/15 Hip/pelvic x-ray revealed comminuted right intertrochanteric hip fracture Revised cardiac risk index: 1 (history of heart failure) Orthopedics consult IV acetaminophen and Dilaudid as needed for pain control (2) A-fib: Plan: Continue metoprolol, hold Xarelto Critical examination is without JVD iv digoxin 0.25 given in am then daily pm prn metoprolol offered check digoxin level in am 08/18/24 (3) (HFpEF) heart failure with preserved ejection fraction: Plan: Follows with heart failure clinic Last echocardiogram on 11/02/2023 revealed LVEF at 65-70% (4) Severe obstructive sleep apnea: Plan: Patient does not tolerate CPAP H/o nocturnal hypoxia Supplemental oxygen 2L NC HS Plan Patient's reports she just recently tested positive for COVID on 08/15 While patient's COVID test was negative on arrival, will place on isolation precautions for now Full code VTE PPx: SCDs; hold Xarelto, with plan to start postop once okayed by orthopedics Admission and Anticipated Discharge Date Admission Date: August 16, 2024 Subjective pt was having reasonable pain control somewhat restless intact sensation and cap refill to right leg Physical Exam Physical Exam: cardiac exam is irregular and rates 100-110 no JVD, lungs clear leg on right is ext rot and shortened cap refill and sensation intact Results & Data Results & Data Vital Signs (Past 12 Hours) Vital Signs Pulse Pulse Resp BP Pulse Ox O2 Del Method O2 Flow Rate 08/17/24 07:37 108 H 08/17/24 05:00 96 H 20 111/74 92 Room Air 08/17/24 02:48 108 H 22 118/83 94 Room Air 08/16/24 23:35 110 H 18 98/65 L 97 Nasal Cannula 2 08/16/24 23:15 99 H 16 98/65 L 96 Laboratory Results review cbc review chemsitry discussed case with cardiology PG Care Time/CCT Total # of Minutes Spent Total Time Spent with Patient: Total time spent is greater than 50% in coordination of care (as documented) at patient's floor/unit and/or counseling patient: Coding Level of Care Code 46189 SUB INP/OBS CARE 350MIN Diagnoses Closed fracture of right hip S72.001A Encounter type: initial encounter A-fib I48.91 (HFpEF) heart failure with preserved ejection fraction I50.30 Severe obstructive sleep apnea G47.33 (1) Closed fracture of right hip Encounter type: initial encounter Qualified Code(s): S72.001A - Fracture of unspecified part of neck of right femur, initial encounter for closed fracture
[2024-08-17 08:54] LABS: Appearance Urine Clear (Clear); Bacteria Urine Automated None Seen (None Seen); Bilirubin Urine 1+ (Negative); Blood Urine Negative (Negative); Color Urine Dark Yellow; Epithelial Cell Urine Auto 0-2 /hpf (0-2); Glucose Urine UA Negative (Negative); Ketones Urine Trace (Negative); Leukocyte Esterase Urine 1+ (Negative); Mucus Urine Present (None Prsent); Nitrite Urine Negative (Negative); Protein Urine 1+ (Negative); RBC Urine Automated 0-2 /hpf (0-2); Specific Gravity Urine 1.026 (1.000-1.030); Urobilinogen Urine Negative (Negative); WBC Urine Automated 21-50 /hpf (0-5)
[2024-08-17] MEDS: MAGNESIUM OXIDE 400 MG TAB PO SCH (09:27)
[2024-08-17] MEDS: METOPROLOL SUCC 50MG EXT REL TAB PO SCH (09:27)
[2024-08-17] MEDS: DIGOXIN 250 MCG in SYRINGE 9 ML IV STA (10:33)
--- NOTE | 2024-08-17 11:45 | Cardiology Consultation ---
Date of Consultation August 17, 2024 Assessment & Plan (1) Atrial fibrillation, permanent: -Ventricular sponsor elevated at time of presentation as he had missed his beta-hortensia dose. -Suspect his continued elevated ventricular response related to his pain. -Responds appropriately to intravenous metoprolol to tartrate. -Blood pressure borderline this morning, therefore, recommend intravenous digoxin 0.25 mg as a one-time dose. -Resume Xarelto when able. (2) (HFpEF) heart failure with preserved ejection fraction: -Appears euvolemic at this time. -He is "dry" weight has been stable at 180 pounds for weeks. -Takes torsemide 10 mg every other day. (3) Preop cardiovascular exam: -Acceptable cardiovascular risk for urgent surgery. History of Present Illness Attending Physician: Charlie Salguero MD History of Present Illness Mr. Quiroz is an 84-year-old male admitted yesterday after a mechanical fall which resulted in a right hip fracture. This consultation was ordered as a preoperative evaluation. Of note, patient typically follows with Dr. Whitt and the CHF clinic. The patient was in his usual state of health until the day of presentation. While walking down the stairs, he misjudged the last stair falling upon his right hip. He sustained a comminuted right intertrochanteric hip fracture. He will require a surgical intervention. On the day of presentation, the patient had not yet taken his Xarelto or metoprolol succinate. On arrival here, his ventricular response to his permanent atrial fibrillation was elevated. It did react appropriately to intravenous metoprolol tartrate. His Xarelto will remain on hold as he will require surgery as explained above. The patient also carries a history of chronic diastolic CHF. He follows in our CHF clinic with Yasmin Arambula PA-C. He does follow daily weights at home and notes a "dry" weight of 180 pounds. He has remained at that weight over the last several weeks. He does take torsemide 10 mg every other day. He has not required any additional dosing in over 2 months. Of note, the patient is completely supine during my evaluation today. He has no complaints of dyspnea. His medications were reviewed in detail. Past medical and surgical history 1. Hypertension 2. Chronic diastolic CHF 3. Permanent atrial fibrillation 4. Pulmonary hypertension 5. Mild cor pulmonale 6. Chronic hyponatremia 7. Obstructive sleep apnea 8. BPH 9. Urinary retention 10. Chronic indwelling Elliott 11. Vitamin D deficiency 12. Bilateral intraocular lens implants 13. Cholecystectomy 14. 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 Allergies Allergy/AdvReac Type Severity Reaction Status Date / Time No Known Drug Allergies Allergy Verified 05/24/24 13:16 Home Medications Medication Instructions Recorded Confirmed Type cholecalciferol (vitamin D3) 25 25 mcg PO QAM 10/20/22 05/24/24 History mcg (1,000 unit) capsule magnesium oxide 400 mg (241.3 mg 400 mg PO QAM #0 tabs 09/06/23 08/16/24 Rx magnesium) tablet sennosides 8.6 mg tablet (Senokot) 17.2 mg (2 x 8.6 mg) PO QAM #0 tabs 09/06/23 05/24/24 Rx thiamine HCl (vitamin B1) 100 mg 100 mg PO DAILY #0 tabs 09/06/23 08/16/24 Rx tablet acetaminophen 325 mg capsule 650 mg PO Q4H PRN 09/16/23 05/24/24 History torsemide 10 mg tablet 10 mg PO .qod #0 tabs 10/24/23 08/16/24 Rx metoprolol succinate 50 mg 50 mg PO QAM #90 tabs 03/06/24 08/16/24 Rx tablet,extended release 24 hr rivaroxaban 20 mg tablet (Xarelto) 20 mg PO QAM #90 tabs 04/27/24 08/16/24 Rx dutasteride 0.5 mg capsule 0.5 mg PO HS #90 caps 07/27/24 08/16/24 Rx Patient History Medical History (Updated 08/17/24 @ 12:01 by Michael Sanders MD) Hyponatremia Anticoagulant long-term use Severe obstructive sleep apnea Peripheral neuropathy RVF (right ventricular failure) (HFpEF) heart failure with preserved ejection fraction Atrial fibrillation with RVR BPH (benign prostatic hyperplasia) Hypertension Surgical History Hx of cataract extraction RT. S/P cholecystectomy S/P splenectomy Family History Mother Rheumatoid arthritis Denies family history of Ovarian cancer Prostate cancer Myocardial infarction Breast cancer Colorectal cancer Social History Smoking Status: Never smoker Second Hand Exposure: No; Do You Dip or Chew Tobacco: No; Hx Alcohol Use: Yes Alcohol type: wine and hard liquor Alcohol Intake Frequency: 4 or More x per/Week Alcohol Intake Frequency Comment: with dinner Hx Substance Use: No Preferred Language: Albanian Communication Ability: Effective Visual Impairment: No Limitations Hearing Ability: Normal Nuclear Medicine Medical Director Required: No Beliefs That Will Affect Care: None marital status: Current Living Situation: Spouse current occupational status: retired 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 HEENT exam is negative. Neck is supple with full carotid upstrokes. No obvious bruits. Jugular venous pressure is flat at 90 degrees. No thyromegaly. Cardiovascular exam reveals irregular irregular rhythm with distant heart sounds. No obvious murmurs. No S3. Lungs are clear without rales, rhonchi, or wheezes. Abdomen is soft without bruits. Extremities reveal intact radial artery pulses bilaterally. There is no peripheral edema. Right lower extremity is externally rotated. Results & Data Vital Signs (Past 12 Hours) Vital Signs Temp Pulse Pulse Resp BP Pulse Ox O2 Del Method 08/17/24 10:38 104 H 20 140/78 94 Nasal Cannula 08/17/24 10:33 122 H 08/17/24 08:00 Nasal Cannula 08/17/24 08:00 36.3 C L 107 H 19 100/70 94 Nasal Cannula 08/17/24 07:37 108 H 08/17/24 05:00 96 H 20 111/74 92 Room Air 08/17/24 02:48 108 H 22 118/83 94 Room Air O2 Flow Rate 01/03/25 10:38 2 08/17/24 10:33 08/17/24 08:00 2 08/17/24 08:00 2 08/17/24 07:37 08/17/24 05:00 08/17/24 02:48 Laboratory Results CBC notes hemoglobin of 9.9, hematocrit of 29.0, white count 8.1, and a platelet count of 183,000. Electrolytes noted sodium of 126, potassium 5.1, chloride 89, bicarb 34, BUN 16, creatinine 0.68, and a glucose of 140. BNP is mildly elevated at 219. High-sensitivity troponin is normal at 18.3. Diagnostic Findings EKG notes atrial fibrillation with a rapid ventricular response and nonspecific ST and T wave abnormality. Echocardiogram performed back in October noted normal left ventricular systolic function with ejection fraction of 65 to 70%. There is moderate pulmonary hypertension and a mildly dilated right ventricle with mild dysfunction. Chest x-ray notes cardiomegaly but no evidence of pulmonary edema. PG Care Time/CCT Total # of Minutes Spent Total Time Spent with Patient: Total time spent is greater than 50% in coordination of care (as documented) at patient's floor/unit and/or counseling patient: Coding Level of Care Code 12021 INT INP/OBS CARE 3/75MIN Diagnoses Atrial fibrillation, permanent I48.21 (HFpEF) heart failure with preserved ejection fraction I50.30 Preop cardiovascular exam Z01.810
--- NOTE | 2024-08-17 12:17 | History & Physical Bridge Note ---
Date of Service August 17, 2024 History & Physical Bridge Note I have examined the patient, reviewed the History & Physical and in the interval since the performance of the History & Physical I have noted the following changes of clinical significance: no changes noted
[2024-08-17] MEDS ORDERED: PROPOFOL IV EMULSION 10 MG/ML 20 ML VIAL IV ONE (12:44)
[2024-08-17] MEDS ORDERED: LIDOCAINE 2% 2 ML VIAL/AMP(20MG/ML) INFIL ONE (12:44)
[2024-08-17] MEDS ORDERED: ONDANSETRON INJ 2 MG/ML 2 ML VIAL ONE (12:55)
[2024-08-17] MEDS ORDERED: ROCURONIUM BROMIDE 10 MG/ML 5 ML VIAL IV ONE (12:55)
[2024-08-17] MEDS ORDERED: fentaNYL citrate PF 100 MCG/2 ML VIAL ONE (12:55)
[2024-08-17] MEDS ORDERED: ATROPINE SULFATE 0.1 MG/ML 10ML SYR IV PRN (13:03)
[2024-08-17] MEDS ORDERED: ePHEDrine sulfate 50 MG/ML AMP IV PRN (13:03)
[2024-08-17] MEDS ORDERED: HYDROmorphone INJ 1 MG/ML SYRINGE IV PRN (13:03)
[2024-08-17] MEDS ORDERED: ONDANSETRON INJ 2 MG/ML 2 ML VIAL IV PRN (13:03)
[2024-08-17] MEDS ORDERED: fentaNYL citrate PF 100 MCG/2 ML VIAL IV PRN (13:03)
--- NOTE | 2024-08-17 13:19 | Electrocardiogram Report ---
Test Reason : Blood Pressure : */* mmHG Vent. Rate : 109 BPM Atrial Rate : * BPM P-R Int : * ms QRS Dur : 100 ms QT Int : 314 ms P-R-T Axes : * 14 52 degrees QTcB Int : 422 ms Atrial fibrillation with rapid ventricular response Inferior infarct , age undetermined Nonspecific ST and T wave abnormality Abnormal ECG When compared with ECG of 16-Aug-2024 10:18, Minimal criteria for Anteroseptal infarct are no longer Present Inferior infarct is now Present Confirmed by Michael Sanders ([id number]) on 08/17/2024 1:18:59 PM Referred By: REFERRED SELF Confirmed By: Michael Sanders
[2024-08-17] MEDS: TRANEXAMIC ACID / 0.7% NACL 1,000 MG/100 ML BAG IV SCH (13:22)
[2024-08-17] MEDS: LR 15ML/HR IV SCH (13:26)
[2024-08-17] MEDS ORDERED: Nursing to Pharmacy Communication SCH (13:30)
[2024-08-17] MEDS: ceFAZolin 2000MG 2,000 MG/15 ML SYR IV ONE (13:40)
[2024-08-17] MEDS ORDERED: METOPROLOL TARTRATE 1 MG/ML VIAL IV ONE (13:43)
[2024-08-17] MEDS ORDERED: PHENYLEPHRINE HCL 10 MG/ML VIAL ONE (14:18)
[2024-08-17] MEDS ORDERED: SUGAMMADEX SODIUM 200 MG/2 ML VIAL IV ONE (14:38)
[2024-08-17] MEDS: BUPIVACAINE/EPINEPHRINE 0.25% 1:200,000 30 ML VIAL ONE (15:38)
--- NOTE | 2024-08-17 15:46 | Operative Report ---
PG Post Operative Report Pre & Post Diagnosis Operation Date: 08/17/24 08:40 Pre-Op Diagnosis: Comminuted subtrochanteric right proximal femur fracture Post-Op Diagnosis: Comminuted subtrochanteric right proximal femur fracture I identified the patient and participated in the time-out.: Yes Procedure Operation Date: 08/17/24 08:40 Actual Procedures p Right Trochanteric Nail(Right) - Jhony Chandler DO Surgeon Jhony Chandler DO Straight Ruling Machine Operator Ranjit Tobar PA-C Estimated Blood Loss 200 Findings Consistent with Post-Op Diagnosis Specimens None Description of Procedure On August 17, 2024 Tay was brought down from his hospital room and taken to a preoperative holding area for COVID patients. He was put under general anesthes ia. Who presented taken back to the operating room and transferred onto the operating table. The right leg was brought out to traction. The right hip was then prepped and draped sterile fashion. A timeout was done. Patient and the operative extremity was prepped identified. Fluoroscopic images were used to try to reduce the fracture on the fracture table. I was unable to get adequate reduction. The decision was made to open the fracture site. A longitudinal incision was made directly over the greater trochanter. Dissection was taken through the fascia. The fracture fragments were identified. Clamps were used to clamp the fracture in better alignment. Fluoroscopic images were used to confirm reduction of the fracture. A guidepin was then placed placed from the center of the greater trochanter down the femoral shaft. A 16mm opening reamer was then used. A ball-tipped guidewire was then passed down the femoral canal. The Synthes TFN nail measured to be 420 mm. A single 12 mm reamer was then sent down the femoral canal. A Synthes 11 mm x 420 mm TFN nail was then impacted into place. Appropriate placement was checked on orthogonal fluoroscopic images. A sleeve was then advanced for the helical blade. A guidepin was then placed into the center center position of the femoral head. The lateral cortex was then drilled. The helical blade measured to be 120 mm. A 120 mm helical blade was then impacted into place. Appropriate placement was checked on fluoroscopy. The helical blade was then locked. The outrigger was then removed. Final fluoroscopic images ap proximately showed good alignment of the fracture. A single distal locking screw was placed using perfect [place] technique. Final fluoroscopic images were obtained. The surgical sites were then irrigated. The fascia was then closed with #1 Vicryl. The deep fat layer was closed with 2-0 Vicryl. Skin was closed with 3-0 Vicryl and dale. He was then placed in a soft dressing. He was then taken back to the hospital bed and taken to the postanesthesia care unit in stable condition. He tolerated the procedure well. Ranjit Tobar PA-C, was present for the entire procedure. He was critical for patient positioning, prepping, draping, retraction exposure, wound closure and application of sterile dressing. I attest to the content of the Intraoperative Record and any orders documented therein. Any exceptions are noted below.
[2024-08-17 17:18] LABS: Base Excess ABG 2.8 mEq/L (-9-1.8); HCO3 ABG 31 mmol/L (19-24); Oxygen Saturation ABG 98.7 % (90-95); PCO2 ABG 61 mmHg (35-46); PO2 ABG 134 mmHg (80-95); pH ABG 7.31 (7.35-7.45)
[2024-08-17] MEDS: DIGOXIN 250 MCG in SYRINGE 9 ML IV SCH (17:26)
--- NOTE | 2024-08-17 17:37 | Anesthesiology Progress Note ---
Date of Service August 17, 2024 Anesthesia Post Procedure Vital Signs Vital Signs: Temp Pulse Pulse Resp BP BP Pulse Ox 08/17/24 17:26 116 H 08/17/24 17:25 99 H 12 108/77 100 08/17/24 17:15 118 H 12 107/87 100 08/17/24 17:05 113 H 14 143/74 H 100 08/17/24 16:55 113 H 16 99 08/17/24 16:55 106 H 12 140/85 100 08/17/24 16:45 36.0 C L 82 12 139/79 100 08/17/24 12:51 36.7 C 105 H 20 121/79 94 08/17/24 10:38 104 H 20 140/78 94 08/17/24 10:33 122 H 08/17/24 08:00 08/17/24 08:00 36.3 C L 107 H 19 100/70 94 08/17/24 07:37 108 H 08/17/24 05:00 96 H 20 111/74 92 08/17/24 02:48 108 H 22 118/83 94 08/16/24 23:35 110 H 18 98/65 L 97 08/16/24 23:15 99 H 16 98/65 L 96 O2 Del Method O2 Flow Rate FiO2 08/17/24 17:26 08/17/24 17:25 BiPAP 50 08/17/24 17:15 BiPAP 50 08/17/24 17:05 BiPAP 50 08/17/24 16:55 08/17/24 16:55 BiPAP 50 08/17/24 16:45 BiPAP 50 08/17/24 12:51 Nasal Cannula 3 08/17/24 10:38 Nasal Cannula 2 08/17/24 10:33 08/17/24 08:00 Nasal Cannula 2 08/17/24 08:00 Nasal Cannula 2 08/17/24 07:37 08/17/24 05:00 Room Air 08/17/24 02:48 Room Air 08/16/24 23:35 Nasal Cannula 2 08/16/24 23:15 Pain Intensity Right Hip: Pain Intensity: 8 Transfer of Care Handoff Completed per policy Notes Mental Status: alert / awake / arousable and participated in evaluation Patient Amnestic to Procedure: Yes Nausea / Vomiting: adequately controlled Pain: adequately controlled Airway Patency, RR, SpO2: see Notes below BP & HR: stable & adequate Hydration State: stable & adequate Anesthetic Complications: no major complications apparent and Pt Satisfied with anesthetic care Notes: prior to extubation, pt had a good minute volume, but CO2 was in the 60s. pt has a history of severe sleep apnea. pt was extubated to bipap because he was minimally responsive. within 15 mins of bipap. pt was aaox3. pt ok for discharge from [facility] but will need bipap/cpap while here
--- NOTE | 2024-08-17 17:39 | Fluoroscopy Report ---
FL hip RT 2-3V CLINICAL HISTORY: ADD ON RIGHT TROCHNAIL TECHNIQUE: 6 views were obtained with the C-arm in the OR with the above procedure. Total fluoroscopy time was 150.9 seconds. Radiation dose was 56.59 mGy. Comparison: Comparison is made to right hip radiograph 08/16/2024 FINDINGS/IMPRESSION: Intraoperative images were obtained of right trochanteric nail placement. Please correlate with intraoperative fluoroscopy and operative report. ACT 112: Negative or not required by law. Electronically signed by: Tae Willingham M.D. 08/17/2024 5:38 PM
[2024-08-17 17:44] LABS: Allen Test Pos (Pos)
[2024-08-17] MEDS: ceFAZolin 1000MG 1,000 MG/7.5 ML SYR IV SCH (22:05)
--- NOTE | 2024-08-17 22:32 | XRay Report ---
Exam(s): XR RIGHT HIP EXAM: XR Right Hip With Pelvis When Performed, 1 View CLINICAL HISTORY: Reason for exam: Post-Operative implant position. TECHNIQUE: Frontal view of the right hip with pelvis when performed. COMPARISON: No relevant prior studies available. FINDINGS: Bones/joints: There is no fixation hardware seen across comminuted right intertrochanteric and subtrochanteric femoral fracture. 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 No dislocation. Soft tissues: Soft tissue edema seen around the fracture site of pain IMPRESSION: Status post internal fixation of comminuted intertrochanteric and subtrochanteric fractures Electronically signed by: Kb Fox MD 08/17/24 22:31 PM
[2024-08-18 07:30] LABS: Basophils # (auto) 0.01 K/uL (0.00-0.20); Basophils % (auto) 0.1 %; Hemoglobin 8.3 g/dl (14.0-18.0); Immature Granulocytes # (auto) 0.06 K/uL (0.01-0.20); Immature Granulocytes % (auto) 0.5 %; Lymphocytes # (auto) 0.38 K/uL (1.20-3.40); Lymphocytes % (auto) 3.3 %; Mean Corpuscular Hemoglobin 32.3 pg (25.0-34.0); Mean Corpuscular Hgb Conc 33.2 g/dL (32.0-36.0); Mean Corpuscular Volume 97.3 fL (80.0-100.0); Mean Platelet Volume 9.8 fL (9.4-12.4); Monocytes % (auto) 12.2 %; Neutrophils # (auto) 9.62 K/uL (1.40-6.50); Neutrophils % (auto) 83.9 %; Nucleated RBC # (auto) 0.02 K/uL (0.00-0.12); Nucleated RBC % (auto) 0.2 %; Platelet Count 164 K/uL (130-400); RDW Standard Deviation 50.2 fL (36.4-46.3); Red Blood Count 2.57 M/uL (4.70-6.10); White Blood Count 11.47 K/ul (4.8-10.8)
--- NOTE | 2024-08-18 07:57 | Hospitalist Progress Note ---
Date of Service August 18, 2024 Assessment & Plan (1) Closed fracture of right hip: (2) A-fib: (3) (HFpEF) heart failure with preserved ejection fraction: (4) Severe obstructive sleep apnea: Plan 84-year-old male with a history of atrial fibrillation on Xarelto had a mechanical fall sustaining a right femur fracture. Patient history of heart failure preserved ejection fraction, pulmonary hypertension, and chronic hyponatremia. Given digoxin pre op, and has post op acute blood loss anemia #Mechanical fall on xarelto, right femur fracture s/p trochanteric nail 08/17/24 Dr Chandler Revised cardiac risk index: 1 (history of heart failure) On Xarelto for history of A-fib, last taken the morning of 08/15 post op acute blood loss anemia, not in range of transfusion at this time # atrial fibrillation, permanent Continue metoprolol, hold Xarelto not in heart failure, iv digoxin 0.25 given08/17/24 then daily pm prn metoprolol offered check digoxin level in am 08/18/24 therapeutic #Hypontremia, appears euvolemic, pre hospital was on torsemide, await osm and cortisol #Chronic stable HFpEF Last echocardiogram on 11/02/2023 revealed LVEF at 65-70% #DAY Patient does not tolerate CPAP H/o nocturnal hypoxia Supplemental oxygen 2L NC HS Patient's reports she just recently tested positive for COVID on 08/15 While patient's COVID test was negative on arrival, will place on isolation precautions for now Full code VTE PPx: SCDs; hold Xarelto, with plan to start postop once okayed by orthopedics Admission and Anticipated Discharge Date Admission Date: August 16, 2024 Subjective Patient was seen in his room with his son at bedside. found to have hyponatremia and hyperkalemia Physical Exam 2 Physical Exam: cardiac exam is irregular and rates 100-110 no JVD, lungs clear leg on right is ext rot and shortened cap refill and sensation intact Results & Data Results & Data Vital Signs (Past 12 Hours) Vital Signs Temp Pulse Pulse Resp BP Pulse Ox O2 Del Method 08/18/24 07:17 107 H 08/18/24 03:21 98.1 F 107 H 18 112/61 94 Oxymask 08/17/24 21:57 99.5 F 88 16 110/70 99 Oxymask 08/17/24 21:43 81 01/03/25 20:00 Oxymask O2 Flow Rate 08/18/24 07:17 08/18/24 03:21 2 08/17/24 21:57 2 08/17/24 21:43 08/17/24 20:00 2 Laboratory Results review chemistry, low NA high K without supplement or renal failure, ordered and pending coritsol, will fluid restrict for high k will use patiromer dig review and therapeutic PG Care Time/CCT Total # of Minutes Spent Total Time Spent with Patient: Total time spent is greater than 50% in coordination of care (as documented) at patient's floor/unit and/or counseling patient: Coding Level of Care Code 76555 SUB INP/OBS CARE 3/50MIN Diagnoses Closed fracture of right hip S72.001A Encounter type: initial encounter A-fib I48.91 (HFpEF) heart failure with preserved ejection fraction I50.30 Severe obstructive sleep apnea G47.33 (1) Closed fracture of right hip Encounter type: initial encounter Qualified Code(s): S72.001A - Fracture of unspecified part of neck of right femur, initial encounter for closed fracture
[2024-08-18 08:10] LABS: BUN Creatinine Ratio 28.1 (10-20); Calcium 8.8 mg/dl (8.6-10.3); Creatinine Clr Calc Pharmacy 66.8 ml/min; Potassium 5.7 mmol/L (3.5-5.1)
--- NOTE | 2024-08-18 08:13 | Orthopedic Progress Note ---
Date of Service August 18, 2024 Assessment & Plan (1) Fracture, intertrochanteric, right femur: Overall he is doing as well as expected. Is not having too much pain in the right hip. He can be weightbearing as tolerated on the right hip. He will be seen by physical therapy. He is on Eliquis for DVT prophylaxis. He is orthopedically stable for discharge when medically ready. Full orthopedic discharge instructions were placed in the discharge summary. Andrew Cross was seen and examined at bedside this morning. Overall he is doing fairly well. He is not having much pain in the right hip. He has not been out of bed yet. He has no complaints.. Review of Systems All systems reviewed & are unremarkable except as noted in HPI & below. Physical Exam On physical exam of the right hip, the dressing is clean and dry. His leg is out full extension.. Results & Data Results & Data Laboratory Results . Diagnostic Findings Postoperative x-rays of the right hip show the fracture to be in acceptable alignment. I do not see any complications with the hardware.. PG Care Time/CCT Total # of Minutes Spent Total Time Spent with Patient: Total time spent is greater than 50% in coordination of care (as documented) at patient's floor/unit and/or counseling patient: Coding Level of Care Code 56955 Post Operative Follow-Up Diagnoses Fracture, intertrochanteric, right femur S72.141A
[2024-08-18] MEDS: ACETAMINOPHEN 500 MG TAB PO PRN (08:46)
--- NOTE | 2024-08-18 10:58 | Cardiology Progress Note ---
Date of Service August 18, 2024 Assessment & Plan (1) Hyperkalemia: (2) Fall: (3) Atrial fibrillation, permanent: (4) Anticoagulant long-term use: Plan 1. Hyperkalemia: His potassium has been climbing and is 5.7 today, I am not sure why. He is not on potassium supplementation and kidney function seems to be okay. 2. Fall: On close questioning it appears that his fall was definitely mechanical, not hemodynamic. No cardiovascular evaluation necessary. 3. Atrial fibrillation: He is in permanent atrial fibrillation but the rate seems acceptable under the circumstances. He needs anticoagulation. 4. Anticoagulation: He is on Xarelto as an outpatient, I think that his acceptable and should be started soon as possible. Switching to Eliquis would be a consideration if desired. Admission and Anticipated Discharge Date Admission Date: August 16, 2024 Subjective Patient was seen in his room with his son at bedside. He is a little hard to understand but I discussed the fall with him and it appears that it was a mechanical fall and not related to hypotension (such as with an arrhythmia, etc. Currently he is feeling relatively well postoperatively. Physical Exam Physical Exam: Constitutional: Alert, cooperative and in no distress. He is resting in bed. Pulmonary: Clear to auscultation bilaterally. Cardiac: Irregular rhythm with no murmur, gallop or rub. Abdomen: Soft, nontender with normal bowel sounds. Extremities: No edema. Skin: No rash, ecchymoses or petechiae. Results & Data Vital Signs (Past 12 Hours) Vital Signs Temp Pulse Pulse Resp BP Pulse Ox O2 Del Method 08/18/24 08:33 36.7 C 107 H 20 123/69 97 Nasal Cannula 08/18/24 08:07 Nasal Cannula 08/18/24 07:17 107 H 08/18/24 03:21 36.7 C 107 H 18 112/61 94 Oxymask O2 Flow Rate 08/18/24 08:33 2 08/18/24 08:07 2 08/18/24 07:17 08/18/24 03:21 2 Laboratory Results CBC 08/18/24 Range/Units 07:05 WBC 11.47 H (4.8-10.8) K/ul RBC 2.57 L (4.70-6.10) M/uL Hgb 8.3 L (14.0-18.0) g/dl Hct 25.0 L (42.0-52.0) % Plt Count 164 (130-400) K/uL Neut # (Auto) 9.62 H (1.40-6.50) K/uL Lymph # (Auto) 0.38 L (1.20-3.40) K/uL [place] # (Auto) 1.40 H (0.11-0.59) K/uL Eos # (Auto) 0.00 (0.00-0.50) K/uL Baso # (Auto) 0.01 (0.00-0.20) K/uL Comprehensive Metabolic Panel 08/18/24 Range/Units 07:05 Sodium 126 L (136-145) mmol/L Potassium 5.7 H (3.5-5.1) mmol/L Chloride 88 L (98-107) mmol/L Carbon Dioxide 34 H (21-32) mmol/L BUN 27 H (6-23) mg/dl Creatinine 0.96 (0.6-1.4) mg/dl Glucose 131 H (70-99(Fasting)) mg/dl Calcium 8.8 (8.6-10.3) mg/dl Intake and Output 08/17/24 08/18/24 08/18/24 22:59 06:59 14:59 Intake Total 1240 / 3680 1440 / 3680 Output Total 700 / 825 125 / 825 Balance 540 / 2855 1315 / 2855 Intake: IV 100 / 1100 Tranexamic Acid / 0.7% NaCl 1, 100 / 100 000 mg In 100 ml @ 600 mls/hr IV 0600 [facility] Rx#:[id number] IV Perioperative 900 / 900 Oral 240 / 1680 1440 / 1680 Output: Estimated Blood Loss 200 / 200 Urine Amount (Catheter) 500 / 625 125 / 625 Elliott/Indwelling 500 / 625 125 / 625 Other: Weight 82.5 kg PG Care Time/CCT Total # of Minutes Spent Total Time Spent with Patient: Total time spent is greater than 50% in coordination of care (as documented) at patient's floor/unit and/or counseling patient: Coding Level of Care Code 42509 SUB INP/OBS CARE 2/35MIN Diagnoses Hyperkalemia E87.5 Fall W19.XXXA Encounter type: initial encounter Atrial fibrillation, permanent I48.21 Anticoagulant long-term use Z79.01 (2) Fall Encounter type: initial encounter Qualified Code(s): W19.XXXA - Unspecified fall, initial encounter
[2024-08-18 11:55] LABS: BUN Creatinine Ratio 24.3 (10-20); Calcium 8.7 mg/dl (8.6-10.3); Creatinine Clr Calc Pharmacy 55.8 ml/min; Potassium 5.7 mmol/L (3.5-5.1)
[2024-08-18] MEDS: oxyCODONE HCL IR 5 MG TAB (IMMEDIATE RELEASE) PO PRN (13:12)
[2024-08-18] MEDS: PATIROMER CALCIUM SORBITEX 8.4 GM PACK PO ONE ×2 (14:00→18:27)
[2024-08-18 17:47] LABS: Calcium 8.7 mg/dl (8.6-10.3); Potassium 6.1 mmol/L (3.5-5.1)
[2024-08-18 17:51] LABS: Creatinine Clr Calc Pharmacy 64.2 ml/min
[2024-08-18] MEDS ORDERED: CARBOHYDRATES FOR HYPOGLYCEMIA PO PRN (17:52)
[2024-08-18] MEDS ORDERED: DEXTROSE 50% 50 ML SYRINGE IV PRN (17:52)
[2024-08-18] MEDS ORDERED: GLUCOSE 40% GEL 15 GM TUBE PO PRN (17:52)
[2024-08-18] MEDS ORDERED: GLUCAGON FOR INJ 1 MG VIAL SQ PRN (17:52)
[2024-08-18] MEDS ORDERED: GLUCOSE 10 TAB/TUBE PO PRN (17:52)
--- NOTE | 2024-08-18 18:19 | Communication Note ---
Date of Service: August 18, 2024 Repeat potassium showed elevation at 6.1. This was after dose of Lokelma earlier. Stat EKG performed in the evening of 08/18 does not show any peaked T w aves or acute changes. Additional dose of Lokelma given, D50 and 10 of regular insulin IV given, calcium 500 IV given. Random cortisol was checked as the patient had hyponatremia and hyperkalemia. Random cortisol is 30 which seems appropriate we will check 1 in the AM
[2024-08-18] MEDS: CALCIUM CHLORIDE 10% 500 MG in DEXTROSE 5% 50 ML IV STA (18:27)
[2024-08-18] MEDS: DEXTROSE 50% 50 ML SYRINGE IV ONE (18:27)
[2024-08-18] MEDS: INSULIN HUMAN REGULAR PER UNIT 10 UNITS in SYRINGE 9.9 ML IV STA (18:27)
[2024-08-18] MEDS: HYDROCORTISONE SOD 50 MG in SYRINGE 0 ML IV STA (18:28)
[2024-08-18 23:16] LABS: BUN Creatinine Ratio 34.8 (10-20); Calcium 8.9 mg/dl (8.6-10.3); Creatinine Clr Calc Pharmacy 69.7 ml/min; Potassium 6.4 mmol/L (3.5-5.1)
[2024-08-18] MEDS ORDERED: STAT IV/IM STA (23:29)
[2024-08-18] MEDS: ALBUTEROL 0.5% NEB SOLN 2.5 MG/0.5 ML VIAL NEB STA (23:49)
--- NOTE | 2024-08-18 23:54 | Communication Note ---
Date of Service: August 18, 2024 Repeat potassium was 6.4 at 2300, sodium also dropped to 122. Patient seen and examined. Appears confused, unclear what patient's baseline mentation is and he also had Ambien this evening. EKG afib with PVCs, no evidence of peaked T waves With regard to hyperkalemia will treat with calcium gluconate, insulin, dextrose, albuterol and start lokelma TID For hyponatremia will treat with IV hypertonic saline and start sodium chloride tabs BID Will draw repeat labs in 3 hours Resident Activity Tracking Resident Involvement: Resident Care Provided Care Provided: Adult Hospital Medicine
[2024-08-19] MEDS: DEXTROSE 50% 50 ML SYRINGE IV STA (00:07)
[2024-08-19] MEDS: INSULIN HUMAN REGULAR PER UNIT 10 UNITS in SYRINGE 9.9 ML IV STA (00:07)
[2024-08-19] MEDS: CALCIUM GLUCONATE 1,000 MG/60 ML BAG IV STA (00:15)
[2024-08-19] MEDS: SODIUM ZIRCONIUM CYCLOSILICATE 10 GM PACKET PO SCH (00:17)
[2024-08-19] MEDS: SODIUM CHLORIDE 1 GM TABLET PO SCH (00:27)
[2024-08-19] MEDS: SODIUM CHLORIDE 3 % 100 ML IV ONE (00:32)
[2024-08-19 05:07] LABS: Basophils # (auto) 0.01 K/uL (0.00-0.20); Basophils % (auto) 0.1 %; Hematocrit (blood only) 22.1 % (42.0-52.0); Hemoglobin 7.4 g/dl (14.0-18.0); Immature Granulocytes # (auto) 0.07 K/uL (0.01-0.20); Immature Granulocytes % (auto) 0.7 %; Lymphocytes # (auto) 0.51 K/uL (1.20-3.40); Lymphocytes % (auto) 4.8 %; Mean Corpuscular Hemoglobin 32.9 pg (25.0-34.0); Mean Corpuscular Hgb Conc 33.5 g/dL (32.0-36.0); Mean Corpuscular Volume 98.2 fL (80.0-100.0); Mean Platelet Volume 9.6 fL (9.4-12.4); Monocytes # (auto) 2.09 K/uL (0.11-0.59); Monocytes % (auto) 19.8 %; Neutrophils # (auto) 7.87 K/uL (1.40-6.50); Neutrophils % (auto) 74.6 %; Nucleated RBC # (auto) 0.02 K/uL (0.00-0.12); Nucleated RBC % (auto) 0.2 %; Platelet Count 155 K/uL (130-400); RDW Coefficient of Variation 13.9 % (11.5-14.5); RDW Standard Deviation 50.2 fL (36.4-46.3); Red Blood Count 2.25 M/uL (4.70-6.10); White Blood Count 10.55 K/ul (4.8-10.8)
[2024-08-19 05:24] LABS: Creatinine Clr Calc Pharmacy 78.3 ml/min; Potassium 5.5 mmol/L (3.5-5.1)
[2024-08-19 06:02] LABS: Acanthocytes 1+; Polychromasia 1+
[2024-08-19] MEDS: SODIUM CHLORIDE 0.9% 1,000 ML IV SCH (07:44)
[2024-08-19] MEDS: PATIROMER CALCIUM SORBITEX 8.4 GM PACK PO ONE (08:39)
[2024-08-19] MEDS: oxyCODONE HCL IR 5 MG TAB (IMMEDIATE RELEASE) PO PRN (10:54)
--- NOTE | 2024-08-19 12:07 | Nephrology Consultation ---
Date of Consultation August 19, 2024 Assessment & Plan (1) Hyperkalemia: * Clinically suspect hyperkalemia related to blood loss/reabsorption following femur fracture * Continue K-binding therapy * Monitor R thigh for bleeding/bruising * Will order FOBT * Monitor H&H. 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 On long chain quiller tender anticoagulation (4) Fracture, intertrochanteric, right femur: * s/p R trochanter nail 08/17/24 (5) Person under investigation for COVID-19: * Spouse tested + 08/15/24 * Patient tested negative for COVID, RSV, influenza 08/16/24 * Remains on respiratory isolation History of Present Illness Reason for Consultation: Hyponatremia, hyperkalemia Attending Physician: Charlie Salguero MD History of Present Illness Richie is an 84-year-old white male who is seen at the request of [facility] hospitalist service for evaluation of hyponatremia, hyperkalemia. Information for the HPI is obtained from direct patient interview and review of the EMR. 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 He has no prior history of CKD. His baseline creatinine has been 0.2. Dr. Quiroz's medical history is significant for chronic hyponatremia. Serum sodium has ranged 125-132 mmol/L dating back to 2018. This has been monitored by his PCP and has remained asymptomatic/stable. He has not required therapy for hyponatremia in the past. Dr. Quiroz denies any prior history of hypothyroidism, CHF, CKD or malignancy. He has not been hospitalized requiring therapy for hyponatremia in the past. Dr. Quiroz's medical history is also significant for atrial fibrillation with RVR (Xarelto), hypertension, BPH, severe DAY w/ pulmonary hypertension, right-sided heart failure. On August 16, 2024 Richie suffered a mechanical fall resulting in right hip fracture. He underwent orthopedic right trochanteric nailing 08/17/2024. Over last [address] Quiroz has become anemic. Hemoglobin has dropped from 12.3 to 7.4. This has been complicated by hyperkalemia (K6.4) and worsening hyponatremia (Na 122 mmol/L). Primary service is already instituted therapy with Rivkakelma. Patient was given 100 cc 3% NaCl. Potassium has improved to 5.5 and serum sodium has improved to 125. Urine osmolality is elevated at 443. This morning Dr. Quiroz states that he feels relatively well. He denies HUGO, visual change, angina, overt blood loss. He does report discomfort involving his right hip. Dr. Quiroz is on respiratory isolation. He is PUI. His was diagnosed with COVID 08/15/2024. Patient's admission testing for COVID, influenza and RSV were negative. Allergies Allergy/AdvReac Type Severity Reaction Status Date / Time No Known Drug Allergies Allergy Verified 08/17/24 13:13 Home Medications Medication Instructions Recorded Confirmed Type cholecalciferol (vitamin D3) 25 25 mcg PO QAM 10/20/22 05/24/24 History mcg (1,000 unit) capsule magnesium oxide 400 mg (241.3 mg 400 mg PO QAM #0 tabs 09/06/23 08/16/24 Rx magnesium) tablet sennosides 8.6 mg tablet (Senokot) 17.2 mg (2 x 8.6 mg) PO QAM #0 tabs 09/06/23 05/24/24 Rx thiamine HCl (vitamin B1) 100 mg 100 mg PO DAILY #0 tabs 09/06/23 08/16/24 Rx tablet acetaminophen 325 mg capsule 650 mg PO Q4H PRN 09/16/23 05/24/24 History torsemide 10 mg tablet 10 mg PO .qod #0 tabs 10/24/23 08/16/24 Rx metoprolol succinate 50 mg 50 mg PO QAM #90 tabs 03/06/24 08/16/24 Rx tablet,extended release 24 hr rivaroxaban 20 mg tablet (Xarelto) 20 mg PO QAM #90 tabs 04/27/24 08/16/24 Rx dutasteride 0.5 mg capsule 0.5 mg PO HS #90 caps 07/27/24 08/16/24 Rx Patient History Medical History Hyponatremia Anticoagulant long-term use Severe obstructive sleep apnea Peripheral neuropathy RVF (right ventricular failure) (HFpEF) heart failure with preserved ejection fraction Atrial fibrillation with RVR BPH (benign prostatic hyperplasia) Hypertension Surgical History Hx of cataract extraction RT. 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 Required: No Beliefs That Will Affect Care: None marital status: Current Living Situation: Spouse current occupational status: retired 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 How many Children do You have: 4 Feels Safe at Home: Yes Childhood Exposure to Second-Hand Smoke: No Diet: regular Diet Comment: regular caffeine: Yes during the past year weight has: remained stable Dental Care, Regularly: No Physical Activity Frequency: 1-2 Times per Week Seatbelt Use: always Sunscreen Use: No Do you think of yourself as: straight/heterosexual Gender Identity: Male Assistive Devices: Other Review of Systems Constitutional: no fever Eyes: no problem reported Ear, Nose, Mouth, Throat: no problem reported Respiratory: no cough and no dyspnea Cardiovascular: no chest pain Gastrointestinal: no abdominal pain, no nausea, no vomiting and no diarrhea/loose stools Genitourinary: + dysuria; no urinary hesitancy Physical Exam Constitutional: no acute distress (EGEGIK) Eyes: PERRL, conjunctivae normal, anicteric sclerae ENMT: external ear and nose normal, oropharynx normal Neck: trachea midline, no thyromegaly Respiratory: normal respiratory effort, lungs clear to auscultation Cardiovascular: Rate/Rhythm: + irregularly irregular Gastrointestinal (Abdomen): Inspection/Auscultation: abdomen normal to inspection Percussion/Palpation: abdomen soft; abdomen nontender Musculoskeletal: Right hip with clean dry dressing in place Right thigh appears somewhat swollen, skin is tense Patient has palpable R DP/PT pulses. Right foot is warm and appears well- perfused Results & Data Vital Signs (Past 12 Hours) Vital Signs Temp Pulse Pulse Resp BP Pulse Ox O2 Del Method 08/19/24 11:22 36.6 C 78 18 104/60 100 Nasal Cannula 08/19/24 07:47 Nasal Cannula 08/19/24 07:45 37.1 C 103 H 16 121/67 95 Nasal Cannula 08/19/24 07:04 95 H 08/19/24 01:57 36.7 C 94 H 18 112/60 98 Nasal Cannula 08/18/24 23:47 78 16 93 Nasal Cannula O2 Flow Rate 08/19/24 11:22 3 08/19/24 07:47 3 08/19/24 07:45 3 08/19/24 07:04 08/19/24 01:57 3 08/18/24 23:47 2 Laboratory Results Laboratory Results WBC 10.55 K/ul (4.8-10.8) 08/19/24 04:51 RBC 2.25 M/uL (4.70-6.10) L 08/19/24 04:51 Hgb 7.4 g/dl (14.0-18.0) L 08/19/24 04:51 Hct 22.1 % (42.0-52.0) L 08/19/24 04:51 MCV 98.2 fL (80.0-100.0) 08/19/24 04:51 MCH 32.9 pg (25.0-34.0) 08/19/24 04:51 MCHC 33.5 g/dL (32.0-36.0) 08/19/24 04:51 RDW Std Deviation 50.2 fL (36.4-46.3) H 08/19/24 04:51 RDW Coeff of Jian 13.9 % (11.5-14.5) 08/19/24 04:51 Plt Count 155 K/uL (130-400) 08/19/24 04:51 MPV 9.6 fL (9.4-12.4) 08/19/24 04:51 Immature Gran % (Auto) 0.7 % 08/19/24 04:51 Neut % (Auto) 74.6 % 08/19/24 04:51 Lymph % (Auto) 4.8 % 08/19/24 04:51 Jay % (Auto) 19.8 % 08/19/24 04:51 Eos % (Auto) 0.0 % 08/19/24 04:51 Baso % (Auto) 0.1 % 08/19/24 04:51 Neut # (Auto) 7.87 K/uL (1.40-6.50) H 08/19/24 04:51 Lymph # (Auto) 0.51 K/uL (1.20-3.40) L 08/19/24 04:51 Jay # (Auto) 2.09 K/uL (0.11-0.59) H 08/19/24 04:51 Eos # (Auto) 0.00 K/uL (0.00-0.50) 08/19/24 04:51 Baso # (Auto) 0.01 K/uL (0.00-0.20) 08/19/24 04:51 Immature Gran # (Auto) 0.07 K/uL (0.01-0.20) 08/19/24 04:51 Absolute Nucleated RBC 0.02 K/uL (0.00-0.12) 08/19/24 04:51 Nucleated RBC % (auto) 0.2 % 08/19/24 04:51 Polychromasia 1+ 08/19/24 04:51 Acanthocytes (Spur) 1+ 08/19/24 04:51 PT 12.7 Seconds (9.0-12.0) H 08/16/24 10:10 INR 1.2 (0.9-1.1) H 08/16/24 10:10 APTT 29 Seconds (21-31) 08/16/24 10:10 PTT Ratio 1.1 08/16/24 10:10 ABG pH 7.31 (7.35-7.45) L 08/17/24 17:05 ABG pCO2 61 mmHg (35-46) H 08/17/24 17:05 ABG pO2 134 mmHg (80-95) H 08/17/24 17:05 ABG HCO3 31 mmol/L (19-24) H 08/17/24 17:05 ABG O2 Saturation 98.7 % (90-95) H 08/17/24 17:05 ABG Base Excess 2.8 mEq/L (-9-1.8) H 08/17/24 17:05 Fazal Test Pos (Pos) 08/17/24 17:05 Oxygen Given 3 L 08/17/24 17:05 Sodium 125 mmol/L (136-145) L 08/19/24 04:51 Potassium 5.5 mmol/L (3.5-5.1) H 08/19/24 04:51 Chloride 89 mmol/L (98-107) L 08/19/24 04:51 Carbon Dioxide 33 mmol/L (21-32) H 08/19/24 04:51 Anion Gap 3 (3-11) 08/19/24 04:51 BUN 32 mg/dl (6-23) H 08/19/24 04:51 Creatinine 0.82 mg/dl (0.6-1.4) 08/19/24 04:51 Est Cr Clr Drug Dosing 78.3 ml/min 08/19/24 04:51 eGFR 86.62 08/19/24 04:51 BUN/Creatinine Ratio 39.0 (10-20) H 08/19/24 04:51 Glucose 112 mg/dl (70-99(Fasting)) H 08/19/24 04:51 POC Glucose 270 mg/dl (70-99) H 08/19/24 00:46 Osmolality 275 mOsm/kg (280-300) L 08/18/24 17:13 Calcium 9.0 mg/dl (8.6-10.3) 08/19/24 04:51 Total Bilirubin 0.8 mg/dl (0.2-1.0) 08/16/24 10:10 AST 25 U/L (13-39) 08/16/24 10:10 ALT 19 U/L (7-52) 08/16/24 10:10 Alkaline Phosphatase 76 U/L (34-104) 08/16/24 10:10 Total Creatine Kinase 93 U/L (30-223) 08/16/24 10:10 Troponin I High Sens 18.3 pg/ml (0-20) 08/16/24 10:34 Total Protein 7.1 gm/dl (6.0-8.3) 08/16/24 10:10 Albumin 3.8 gm/dl (3.4-5.0) 08/16/24 10:10 Globulin 3.3 gm/dl (2.5-4.0) 08/16/24 10:10 Albumin/Globulin Ratio 1.2 (0.9-2) 08/16/24 10:10 Lipase 22 U/L (11-82) 08/16/24 10:10 25-OH Vitamin D Total 33.3 ng/ml (30-100) 08/18/24 07:05 Random Cortisol 31.41 mcg/dl 08/18/24 17:13 Cortisol AM Sample 32.27 mcg/dl (6.2-22.6) H 08/19/24 07:19 Urine Color Dark Yellow 08/17/24 07:33 Urine Appearance Clear (Clear) 08/17/24 07:33 Urine pH 5.0 (4.5-7.5) 08/17/24 07:33 Ur Specific [place] 1.026 (1.000-1.030) 08/17/24 07:33 Urine Protein 1+ (Negative) H 08/17/24 07:33 Urine Glucose (UA) Negative (Negative) 08/17/24 07:33 Urine Ketones Trace (Negative) H 08/17/24 07:33 Urine Blood Negative (Negative) 08/17/24 07:33 Urine Nitrite Negative (Negative) 08/17/24 07:33 Urine Bilirubin 1+ (Negative) H 08/17/24 07:33 Urine Urobilinogen Negative (Negative) 08/17/24 07:33 Ur Leukocyte Esterase 1+ (Negative) H 08/17/24 07:33 Urine WBC (Auto) 21-50 /hpf (0-5) H 08/17/24 07:33 Urine RBC (Auto) 0-2 /hpf (0-2) 08/17/24 07:33 U Hyaline Cast (Auto) 6-10 /lpf (0-2) H 08/17/24 07:33 U Epithel Cells (Auto) 0-2 /hpf (0-2) 08/17/24 07:33 Urine Bacteria (Auto) None Seen (None Seen) 08/17/24 07:33 Urine Mucus Present (None Prsent) A 08/17/24 07:33 Urine Osmolality 443 mOsm/kg (500-800) L 08/18/24 Unknown Ur Random Sodium < 10 mmol/L 08/18/24 Unknown Digoxin 0.9 ng/ml (0.8-2.0) 08/18/24 11:13 SARS-CoV-2 (PCR) NEGATIVE (Negative) 08/16/24 10:35 Influenza Type A (PCR) Negative (Neg) 08/16/24 10:35 Influenza Type B (PCR) Negative (Neg) 08/16/24 10:35 RSV (RT-PCR) Negative (Neg) 08/16/24 10:[address] 08/16/24 10:03 CT cervical spine wo con CLINICAL HISTORY: fall TECHNIQUE: Multidetector row helical CT of the cervical spine was performed without administration of intravenous contrast. Coronal and sagittal reformations were obtained. Automated dose lowering techniques and/or adjustment according to patient size were utilized for this exam. Comparison: None available at the time of this dictation. FINDINGS: No acute fractures or subluxations are identified. Degenerative changes are seen in the visualized spine. There is reversal of the cervical spine normal cervical lordosis. Biapical scarring is seen. IMPRESSION: Degenerative changes without evidence of acute bony injury. Reversal of cervical lordosis is noted which may be seen in muscle spasm./// ACT 112: Negative or not required by law. Electronically signed by: Tae Willingham M.D. 08/16/2024 11:[address] 08/16/24 10:03 CT OF THE HEAD WITHOUT CONTRAST CLINICAL HISTORY: fall, on xarelto COMPARISON STUDY: Head CT April 23, 2021. MRI of the brain September 01, 2023. CT DOSE: 1206.81 mGy.cm TECHNIQUE: Helical axial images of the head were obtained without IV contrast. Automated exposure control was utilized for the study. A dose lowering technique was utilized adhering to the principles of ALARA. FINDINGS: No acute intracranial hemorrhage, midline shift or mass effect is present. The ventricular system is stable. White matter hypodensities are suggestive of small vessel disease. The basal cisterns are patent. No extra- axial collections are present. There are no findings to suggest acute dural sinus thrombosis or acute territorial infarct. IMPRESSION: 1. No acute intracranial findings. 2. No calvarial fractures. ACT 112: Negative or not required by law. Electronically signed by: Barak Espinal M.D. 08/16/2024 11:36 AM Hip/Pelvis X-Ray 08/16/24 10:03 XR hip RT 2V w pelvis CLINICAL HISTORY: fall TECHNIQUE: 2 views of the right hip and single frontal view of the pelvis were obtained. Comparison: Comparison is made to hip radiograph 08/30/2012 FINDINGS: Comminuted right intratrochanteric fracture with lateral angulation. Joint spaces are well-preserved. Soft tissue swelling is seen. IMPRESSION: Comminuted right intertrochanteric hip fracture. ACT 112: Negative or not required by law. Electronically signed by: Tae Willingham M.D. 08/16/2024 11:45 AM Chest X-Ray 08/16/24 10:04 SUPINE PORTABLE AP CHEST RADIOGRAPH CLINICAL HISTORY: fall COMPARISON STUDY: Chest radiograph August 29, 2023. Chest CT August 30, 2023. FINDINGS: There is no pneumothorax or pleural effusion on supine exam. Skinfold projects over the left chest. Cardiomegaly is unchanged. Mediastinal contours are stable. Left basilar opacity favors atelectasis. There is no evidence for pulmonary edema. IMPRESSION: No acute cardiopulmonary findings. ACT 112: Negative or not required by law. Electronically signed by: Barak Espinal M.D. 08/16/2024 11:56 AM Hip X-Ray 08/17/24 19:15 Exam(s): XR RIGHT HIP EXAM: XR Right Hip With Pelvis When Performed, 1 View CLINICAL HISTORY: Reason for exam: Post-Operative implant position. TECHNIQUE: Frontal view of the right hip with pelvis when performed. COMPARISON: No relevant prior studies available. FINDINGS: Bones/joints: There is no fixation hardware seen across comminuted right intertrochanteric and subtrochanteric femoral fracture. 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 No dislocation. Soft tissues: Soft tissue edema seen around the fracture site of pain IMPRESSION: Status post internal fixation of comminuted intertrochanteric and subtrochanteric fractures Electronically signed by: Kb Fox MD 08/17/24 22:31 PM PG Care Time/CCT Total # of Minutes Spent Total Time Spent with Patient: Total time spent is greater than 50% in coordination of care (as documented) at patient's floor/unit and/or counseling patient: Coding Level of Care Code 36867 IN/OBS CONSULT LVL 5,80M Diagnoses Hyperkalemia E87.5 Hyponatremia E87.1 Atrial fibrillation I48.91 Fracture, intertrochanteric, right femur S72.141A Person under investigation for COVID-19 Z20.822
--- NOTE | 2024-08-19 14:47 | Hospitalist Progress Note ---
Date of Service August 19, 2024 Assessment & Plan (1) Closed fracture of right hip: (2) A-fib: (3) (HFpEF) heart failure with preserved ejection fraction: (4) Severe obstructive sleep apnea: Plan 84-year-old male with a history of atrial fibrillation on Xarelto had a mechanical fall sustaining a right femur fracture. Patient history of heart failure preserved ejection fraction, pulmonary hypertension, and chronic hyponatremia. Given digoxin pre op, and has post op acute blood loss anemia #Mechanical fall on xarelto, right femur fracture s/p trochanteric nail 08/17/24 Dr Chandler Revised cardiac risk index: 1 (history of heart failure) On Xarelto for history of A-fib, last taken the morning of 08/15 post op acute blood loss anemia, trending down # atrial fibrillation, permanent Continue metoprolol, hold Xarelto iv digoxin 0.25 given08/17/24 with hyperkalemia now stopped prn metoprolol offered check digoxin level in am 08/18/24 therapeutic #Hypontremia, , pre hospital was on torsemide, coritsol is appropriate, consider hypovolemic hyponatremia #hyperkalemia, did receive treatment patiromer x2, D50, Insulin, Calcium, maybe from hematoma and hemolysis #Chronic stable HFpEF Last echocardiogram on 11/02/2023 revealed LVEF at 65-70% #DAY Patient does not tolerate CPAP H/o nocturnal hypoxia Supplemental oxygen 2L NC HS Patient's reports she just recently tested positive for COVID on 08/15 While patient's COVID test was negative on arrival, will place on isolation precautions as a PUI Full code VTE PPx: SCDs; hold Xarelto, with plan to start postop once okayed by orthopedics Admission and Anticipated Discharge Date Admission Date: August 16, 2024 Subjective Patient was seen in his room with his son at bedside. found to have hyponatremia and hyperkalemia he does have some left thigh pain with a circumferential dejah on the leg, this is tender, possibly from a ligature? no recollection of anything there, spoke with nursing and also they have not seen anything on that leg Physical Exam Physical Exam: cardiac exam is rate controlled lungs are clear leg on right with intact capillary refill distally Results & Data Results & Data Vital Signs (Past 12 Hours) Vital Signs Temp Pulse Pulse Resp BP Pulse Ox O2 Del Method 08/19/24 13:54 87 08/19/24 11:22 97.9 F 78 18 104/60 100 Nasal Cannula 08/19/24 07:47 Nasal Cannula 08/19/24 07:45 98.8 F 103 H 16 121/67 95 Nasal Cannula 08/19/24 07:04 95 H O2 Flow Rate 08/19/24 13:54 08/19/24 11:22 3 08/19/24 07:47 3 08/19/24 07:45 3 08/19/24 07:04 Laboratory Results review cbc review chemistry review osmolality discussed case with Nephro PG Care Time/CCT Total # of Minutes Spent Total Time Spent with Patient: Total time spent is greater than 50% in coordination of care (as documented) at patient's floor/unit and/or counseling patient: Coding Level of Care Code 99184 SUB INP/OBS CARE 3/50MIN Diagnoses Closed fracture of right hip S72.001A Encounter type: initial encounter A-fib I48.91 (HFpEF) heart failure with preserved ejection fraction I50.30 Severe obstructive sleep apnea G47.33 (1) Closed fracture of right hip Encounter type: initial encounter Qualified Code(s): S72.001A - Fracture of unspecified part of neck of right femur, initial encounter for closed fracture
[2024-08-19 16:15] LABS: BUN Creatinine Ratio 37.2 (10-20); Calcium 8.7 mg/dl (8.6-10.3); Creatinine Clr Calc Pharmacy 76.7 ml/min; Potassium 5.8 mmol/L (3.5-5.1)
--- NOTE | 2024-08-19 16:57 | Hospitalist Progress Note ---
Date of Service August 19, 2024 Assessment & Plan (1) Closed fracture of right hip: (2) A-fib: (3) (HFpEF) heart failure with preserved ejection fraction: (4) Severe obstructive sleep apnea: (5) Age-related osteoporosis with current pathological fracture, right femur, sequela: Plan 84-year-old male with a history of atrial fibrillation on Xarelto had a mechanical fall sustaining a right femur fracture. Patient history of heart failure preserved ejection fraction, pulmonary hypertension, and chronic hyponatremia. Given digoxin pre op, and has post op acute blood loss anemia #Mechanical fall on xarelto, right femur fracture s/p trochanteric nail 08/17/24 Dr Chandler Revised cardiac risk index: 1 (history of heart failure) On Xarelto for history of A-fib, last taken the morning of 08/15 post op acute blood loss anemia, trending down # atrial fibrillation, permanent Continue metoprolol, hold Xarelto iv digoxin 0.25 given08/17/24 with hyperkalemia now stopped prn metoprolol offered check digoxin level in am 08/18/24 therapeutic #Hypontremia, , pre hospital was on torsemide, coritsol is appropriate, consider hypovolemic hyponatremia #hyperkalemia, did receive treatment patiromer x2, D50, Insulin, Calcium, maybe from hematoma and hemolysis #Chronic stable HFpEF Last echocardiogram on 11/02/2023 revealed LVEF at 65-70% #DAY Patient does not tolerate CPAP H/o nocturnal hypoxia Supplemental oxygen 2L NC HS Patient's reports she just recently tested positive for COVID on 08/15 While patient's COVID test was negative on arrival, will place on isolation precautions as a PUI Full code VTE PPx: SCDs; hold Xarelto, with plan to start postop once okayed by o rthopedics Admission and Anticipated Discharge Date Admission Date: August 16, 2024 Results & Data Results & Data Vital Signs (Past 12 Hours) Vital Signs Temp Pulse Pulse Resp BP Pulse Ox O2 Del Method 08/19/24 16:04 98.4 F 77 16 103/62 100 Nasal Cannula 08/19/24 13:54 87 08/19/24 11:22 97.9 F 78 18 104/60 100 Nasal Cannula 08/19/24 07:47 Nasal Cannula 08/19/24 07:45 98.8 F 103 H 16 121/67 95 Nasal Cannula 08/19/24 07:04 95 H O2 Flow Rate 08/19/24 16:04 3 08/19/24 13:54 08/19/24 11:22 3 08/19/24 07:47 3 08/19/24 07:45 3 08/19/24 07:04 PG Care Time/CCT Total # of Minutes Spent Total Time Spent with Patient: Total time spent is greater than 50% in coordination of care (as documented) at patient's floor/unit and/or counseling patient: Coding Level of Care Code None Diagnoses Closed fracture of right hip S72.001A Encounter type: initial encounter A-fib I48.91 (HFpEF) heart failure with preserved ejection fraction I50.30 Severe obstructive sleep apnea G47.33 Age-related osteoporosis with current pathological fracture, right femur, sequela M80.051S (1) Closed fracture of right hip Encounter type: initial encounter Qualified Code(s): S72.001A - Fracture of unspecified part of neck of right femur, initial encounter for closed fracture
[2024-08-19] MEDS: FINASTERIDE 5 MG TAB PO SCH (20:24)
[2024-08-19] MEDS: MELATONIN 3 MG TAB PO PRN (20:29)
[2024-08-20 04:27] LABS: Hematocrit (blood only) 20.4 % (42.0-52.0); Hemoglobin 6.9 g/dl (14.0-18.0); Mean Corpuscular Hemoglobin 33.3 pg (25.0-34.0); Mean Corpuscular Hgb Conc 33.8 g/dL (32.0-36.0); Mean Corpuscular Volume 98.6 fL (80.0-100.0); Mean Platelet Volume 9.5 fL (9.4-12.4); Nucleated RBC # (auto) 0.05 K/uL (0.00-0.12); Nucleated RBC % (auto) 0.7 %; Platelet Count 165 K/uL (130-400); RDW Coefficient of Variation 14.2 % (11.5-14.5); RDW Standard Deviation 50.4 fL (36.4-46.3); Red Blood Count 2.07 M/uL (4.70-6.10); White Blood Count 7.09 K/ul (4.8-10.8)
[2024-08-20 04:33] LABS: Albumin Globulin Ratio 1.2 (0.9-2); BUN Creatinine Ratio 45.5 (10-20); Bilirubin,Total 0.9 mg/dl (0.2-1.0); Calcium 8.7 mg/dl (8.6-10.3); Creatinine Clr Calc Pharmacy 99.9 ml/min; Globulin 2.6 gm/dl (2.5-4.0); Potassium 5.4 mmol/L (3.5-5.1); Total Protein 5.6 gm/dl (6.0-8.3)
[2024-08-20] MEDS ORDERED: SODIUM CHLORIDE 0.9% 50 ML IV PRN (04:38)
[2024-08-20] MEDS ORDERED: SODIUM CHLORIDE 0.9% 100 ML IV PRN (04:38)
--- NOTE | 2024-08-20 05:20 | Communication Note ---
Date of Service: August 20, 2024 Informed by nursing that patient's overnight labs returned with Hb 6.9. Patient seen and examined at bedside. Significant bruising to medial aspect of thigh, scrotum, and penis. Elliott remains in place. Distal extremity remains well perfused. Blood consent is on file from time of surgery, confirmed this remains in the patient's physical chart. No type and screen was performed prior. Type and cross 2 units ordered. Ordered one unit for transfusion. Resident Activity Tracking Resident Involvement: Resident Care Provided Care Provided: Adult [facility] Medicine
--- NOTE | 2024-08-20 08:34 | Orthopedic Progress Note ---
Date of Service August 20, 2024 Assessment & Plan (1) Closed fracture of right hip: POD 3 from right TFN with Dr. Chandler. Pain seems reasonably controlled. Hgb 6.9 today, transfusion ordered by Hospitalist service. PT/OT wbat. Dressing can be changed today. Subjective . 84 year old patient POD 3 from right TFN. Having some hip pain at times, no pain presently. Hgb 6.9 and blood transfusion ordered. Review of Systems All systems reviewed & are unremarkable except as noted in HPI & below. Physical Exam . alert, NAD Right leg: Dressing clean, dry, intact. Some swelling to right thigh and ecchymosis into the scrotal area. Able to dorsiflex and plantar flex. Palpable DP/PT pulses. Sensation intact. Results & Data Results & Data Laboratory Results . Diagnostic Findings . PG Care Time/CCT Total # of Minutes Spent Total Time Spent with Patient: Total time spent is greater than 50% in coordination of care (as documented) at patient's floor/unit and/or counseling patient: Coding Level of Care Code 19493 Post Operative Follow-Up Diagnoses Closed fracture of right hip S72.001A Encounter type: initial encounter (1) Closed fracture of right hip Encounter type: initial encounter Qualified Code(s): S72.001A - Fracture of unspecified part of neck of right femur, initial encounter for closed fracture
--- NOTE | 2024-08-20 10:36 | Nephrology Progress Note ---
Date of Service August 20, 2024 Assessment & Plan (1) Hyperkalemia: (2) Hyponatremia: (3) Age-related osteoporosis with current pathological fracture, right femur, sequela: Plan 84-year-old M admitted on 08/16/24 after a mechanical fall resulting in right hip fracture, s/p right trochanteric nailing 08/17/2024. Has normal kidney function. Since admission has been having hyperkalemia and worsening hyponatremia with history of chronic hyponatremia before we are he has been getting Lokelma and started on salt tablet with improvement in potassium to 5.4 this morning and sodium 127. Urine osmolality is elevated at 443. Blood pressure relatively low but asymptomatic. Hemoglobin dropped to 6.9 this morning. Sodium improved to 127. --Continue on salt tablet 1 g twice a day, maintain fluid restriction to less than 1500 mL/day --Continue on Lokelma 10 g daily Admission and Anticipated Discharge Date Admission Date: August 16, [address] Quiroz was seen and evaluated this morning. He reports overall feeling well. Sodium slowly improving up to 127 this morning on salt tablet, other electrolyte acceptable. Hemoglobin remained low and dropped to 6.9 this morning. Potassium elevated at 5.4. Review of Systems Review of Systems: detailed review of system was otherwise unremarkable. Physical Exam Constitutional: WD/WN, vitals as above no acute distress Eyes: + anicteric sclerae Neck: normal visual inspection Respiratory: no respiratory distress Auscultation: lungs clear to auscultation bilaterally Cardiovascular: Rate/Rhythm: regular rate and regular rhythm Heart Sounds: normal S1 and normal S2 Extremities: no edema Neurologic: no focal motor deficits and not confused Psychiatric: Orientation: alert and oriented x 3 Results & Data Vital Signs (Past 12 Hours) Vital Signs Temp Pulse Pulse Resp BP BP Pulse Ox 08/20/24 10:12 36.5 C 79 16 97/55 L 99 08/20/24 09:57 36.8 C 78 16 106/61 94 08/20/24 09:39 36.6 C 91 H 16 103/59 L 98 08/20/24 08:54 08/20/24 08:20 36.8 C 96 H 16 109/63 97 08/20/24 07:00 98 H 08/20/24 02:09 36.7 C 93 H 18 105/37 L 95 08/19/24 22:33 37.2 C 88 16 122/64 97 O2 Del Method O2 Flow Rate 08/20/24 10:12 2 08/20/24 09:57 2 08/20/24 09:39 2 08/20/24 08:54 Nasal Cannula 3 08/20/24 08:20 Nasal Cannula 3 08/20/24 07:00 08/20/24 02:09 Nasal Cannula 3 08/19/24 22:33 Nasal Cannula 2 PG Care Time/CCT Total # of Minutes Spent Total Time Spent with Patient: Total time spent is greater than 50% in coordination of care (as documented) at patient's floor/unit and/or counseling patient: Coding Level of Care Code 73496 SUB INP/OBS CARE 2/35MIN Diagnoses Hyperkalemia E87.5 Hyponatremia E87.1 Age-related osteoporosis with current pathological fracture, right femur, sequela M80.051S
--- NOTE | 2024-08-20 12:32 | Hospitalist Progress Note ---
Date of Service August 20, 2024 Assessment & Plan (1) Closed fracture of right hip: (2) A-fib: (3) (HFpEF) heart failure with preserved ejection fraction: (4) Severe obstructive sleep apnea: (5) Age-related osteoporosis with current pathological fracture, right femur, sequela: Plan 84-year-old male with a history of atrial fibrillation on Xarelto had a mechanical fall sustaining a right femur fracture. Patient history of heart failure preserved ejection fraction, pulmonary hypertension, and chronic hyponatremia. Given digoxin pre op, and has post op acute blood loss anemia #Mechanical fall on xarelto, right femur fracture s/p trochanteric nail 08/17/24 Dr Chandler Revised cardiac risk index: 1 (history of heart failure) On Xarelto for history of A-fib, last taken the morning of 08/15 post op acute blood loss anemia, trending down Patient required transfusion of one unit of PRBC on 08/20 # atrial fibrillation, permanent Continue metoprolol, hold Xarelto iv digoxin 0.25 given08/17/24 with hyperkalemia now stopped prn metoprolol offered check digoxin level in am 08/18/24 therapeutic #Hypontremia, , pre hospital was on torsemide, coritsol is appropriate, consider hypovolemic hyponatremia improving on salt tabs #hyperkalemia, did receive treatment patiromer x2, D50, Insulin, Calcium, maybe from hematoma and hemolysis continue lokelma #Chronic stable HFpEF Last echocardiogram on 11/02/2023 revealed LVEF at 65-70% #DAY Patient does not tolerate CPAP H/o nocturnal hypoxia Supplemental oxygen 2L NC HS Patient's reports she just recently tested positive for COVID on 08/15 While patient's COVID test was negative on arrival, will place on isolation precautions as a PUI Full code VTE PPx: SCDs; hold Xarelto, with plan to start postop once okayed by orthopedics Admission and Anticipated Discharge Date Admission Date: August 16, 2024 Subjective 84 yo male reports no new completes. Patient has garbled speech; nurse states this i shis baseline. Review of Systems Review of Systems: All systems reviewed & are unremarkable except as noted in HPI & below Physical Exam Physical Exam: Patient lying in bed, obtaining unit of blood. cardiac exam is rate controlled lungs are clear leg on right with intact capillary refill distally Results & Data Results & Data Vital Signs (Past 12 Hours) Vital Signs Temp Pulse Pulse Resp BP BP BP 08/20/24 11:42 36.2 C L 82 16 101/62 08/20/24 11:41 36.2 C L 82 16 101/62 08/20/24 11:40 36.5 C 66 16 104/64 08/20/24 10:42 36.5 C 66 16 104/64 08/20/24 10:12 36.5 C 79 16 97/55 L 08/20/24 09:57 36.8 C 78 16 106/61 08/20/24 09:39 36.6 C 91 H 16 103/59 L 08/20/24 08:54 08/20/24 08:20 36.8 C 96 H 16 109/63 08/20/24 07:00 98 H 08/20/24 02:09 36.7 C 93 H 18 105/37 L Pulse Ox O2 Del Method O2 Flow Rate 08/20/24 11:42 99 2 08/20/24 11:41 99 2 08/20/24 11:40 100 Nasal Cannula 3 08/20/24 10:42 100 2 08/20/24 10:12 99 2 08/20/24 09:57 94 2 08/20/24 09:39 98 2 08/20/24 08:54 Nasal Cannula 3 08/20/24 08:20 97 Nasal Cannula 3 08/20/24 07:00 08/20/24 02:09 95 Nasal Cannula 3 PG Care Time/CCT Total # of Minutes Spent Total Time Spent with Patient: Total time spent is greater than 50% in coordination of care (as documented) at patient's floor/unit and/or counseling patient: Coding Level of Care Code 66958 SUB INP/OBS CARE 3/50MIN Diagnoses Closed fracture of right hip S72.001A Encounter type: initial encounter A-fib I48.91 (HFpEF) heart failure with preserved ejection fraction I50.30 Severe obstructive sleep apnea G47.33 Age-related osteoporosis with current pathological fracture, right femur, sequela M80.051S (1) Closed fracture of right hip Encounter type: initial encounter Qualified Code(s): S72.001A - Fracture of unspecified part of neck of right femur, initial encounter for closed fracture
--- NOTE | 2024-08-20 16:29 | Electrocardiogram Report ---
Test Reason : Blood Pressure : */* mmHG Vent. Rate : 73 BPM Atrial Rate : 73 BPM P-R Int : 134 ms QRS Dur : 120 ms QT Int : 352 ms P-R-T Axes : 48 52 61 degrees QTcB Int : 387 ms Atrial fibrillation Incomplete right bundle branch block Diffuse Nonspecific ST and T wave abnormality Abnormal ECG When compared with ECG of 16-Aug-2024 15:14, Vent. rate has decreased by 36 bpm Criteria for Inferior infarct are no longer Present Confirmed by Pool Whitt ([id number]) on 08/20/2024 4:29:26 PM Referred By: REFERRED SELF Confirmed By: Pool Whitt
--- NOTE | 2024-08-20 16:37 | Electrocardiogram Report ---
Test Reason : Blood Pressure : */* mmHG Vent. Rate : 79 BPM Atrial Rate : 220 BPM P-R Int : * ms QRS Dur : 98 ms QT Int : 336 ms P-R-T Axes : * 36 43 degrees QTcB Int : 385 ms Atrial fibrillation with premature ventricular or aberrantly conducted complexes Nonspecific ST abnormality Abnormal ECG When compared with ECG of 18-Aug-2024 18:00, (unconfirmed) Premature ventricular complexes are now Present Confirmed by Pool Whitt ([id number]) on 08/20/2024 4:36:53 PM Referred By: REFERRED SELF Confirmed By: Pool Whitt
--- NOTE | 2024-08-21 10:24 | Orthopedic Progress Note ---
Date of Service August 21, 2024 Assessment & Plan (1) Closed fracture of right hip: POD 4 from right TFN with Dr. Chandler. Pain seems reasonably controlled. Transfusion ordered by Hospitalist service yesterday and completed. PT/OT wbat. Monitor dressings for saturation. Subjective . Tay was seen and evaluated at bedside resting comfortably in no apparent distress. He notes that he still having a little bit of hip pain at this point but is improving. He did have a blood transfusion yesterday with no updated laboratory as of my evaluation of him this morning. He denies any other concerns today. Review of Systems All systems reviewed & are unremarkable except as noted in HPI & below. Physical Exam . On physical examination of the right hip, dressing clean, dry, and intact. Some swelling and ecchymosis around the groin area. Able to plantarflex and dorsiflex the right ankle. Calf soft nontender to palpation. Negative Homans' sign. +2 DP and PT pulse. Less than 2-second capillary refill. Normal sensation. Neurovascular intact. Results & Data Results & Data Laboratory Results . Diagnostic Findings . PG Care Time/CCT Total # of Minutes Spent Total Time Spent with Patient: Total time spent is greater than 50% in coordination of care (as documented) at patient's floor/unit and/or counseling patient: Coding Level of Care Code 59826 Post Operative Follow-Up Diagnoses Closed fracture of right hip S72.001A Encounter type: initial encounter (1) Closed fracture of right hip Encounter type: initial encounter Qualified Code(s): S72.001A - Fracture of unspecified part of neck of right femur, initial encounter for closed fracture
[2024-08-21 10:52] LABS: Hematocrit (blood only) 23.6 % (42.0-52.0); Hemoglobin 7.8 g/dl (14.0-18.0); Mean Corpuscular Hemoglobin 32.4 pg (25.0-34.0); Mean Corpuscular Hgb Conc 33.1 g/dL (32.0-36.0); Mean Corpuscular Volume 97.9 fL (80.0-100.0); Mean Platelet Volume 9.1 fL (9.4-12.4); Nucleated RBC # (auto) 0.19 K/uL (0.00-0.12); Nucleated RBC % (auto) 4.1 %; Platelet Count 161 K/uL (130-400); RDW Coefficient of Variation 14.8 % (11.5-14.5); RDW Standard Deviation 53.3 fL (36.4-46.3); Red Blood Count 2.41 M/uL (4.70-6.10); White Blood Count 4.66 K/ul (4.8-10.8)
[2024-08-21 11:06] LABS: BUN Creatinine Ratio 47.2 (10-20); Calcium 8.3 mg/dl (8.6-10.3); Creatinine Clr Calc Pharmacy 123.9 ml/min; Potassium 4.7 mmol/L (3.5-5.1)
[2024-08-21] MEDS: RIVAROXABAN 20 MG TAB PO SCH ×2 (14:35→18:00)
[2024-08-21 17:42] LABS: Hematocrit (blood only) 23.3 % (42.0-52.0); Hemoglobin 7.8 g/dl (14.0-18.0)
--- NOTE | 2024-08-21 22:05 | Hospitalist Progress Note ---
Date of Service August 21, 2024 Assessment & Plan (1) Closed fracture of right hip: (2) A-fib: (3) (HFpEF) heart failure with preserved ejection fraction: (4) Severe obstructive sleep apnea: (5) Age-related osteoporosis with current pathological fracture, right femur, sequela: Plan 84-year-old male with a history of atrial fibrillation on Xarelto had a mechanical fall sustaining a right femur fracture. Patient history of heart failure preserved ejection fraction, pulmonary hypertension, and chronic hyponatremia. Given digoxin pre op, and has post op acute blood loss anemia #Mechanical fall on xarelto, right femur fracture s/p trochanteric nail 08/17/24 Dr Chandler Revised cardiac risk index: 1 (history of heart failure) On Xarelto for history of A-fib, last taken the morning of 08/15 post op acute blood loss anemia, stable Patient received transfusion of one unit of PRBC on 08/20 # atrial fibrillation, permanent Continue metoprolol, resumed Xarelto iv digoxin 0.25 given08/17/24 with hyperkalemia now stopped prn metoprolol offered on 08/18/24 dig therapeutic #Hypontremia, , pre hospital was on torsemide, coritsol is appropriate, consider hypovolemic hyponatremia improving on salt tabs #hyperkalemia, did receive treatment patiromer x2, D50, Insulin, Calcium, maybe from hematoma and hemolysis continue lokelma; improving. #Chronic stable HFpEF Last echocardiogram on 11/02/2023 revealed LVEF at 65-70% #DAY Patient does not tolerate CPAP H/o nocturnal hypoxia Supplemental oxygen 2L NC HS Patient's reports she just recently tested positive for COVID on 08/15 While patient's COVID test was negative on arrival, will place on isolation precautions as a PUI Full code VTE PPx: SCDs; resumed Xarelto, with plan to start postop once okayed by orthopedics Admission and Anticipated Discharge Date Admission Date: August 16, 2024 Subjective Patient reports no new symptoms. Physical Exam Physical Exam: Patient lying in bed. cardiac exam is rate controlled lungs are clear leg on right with intact capillary refill distally Results & Data Results & Data Vital Signs (Past 12 Hours) Vital Signs Temp Pulse Pulse Resp BP Pulse Ox O2 Del Method 08/21/24 20:10 36.6 C 94 H 20 112/71 97 Nasal Cannula 08/21/24 16:10 36.8 C 93 H 18 122/76 99 Nasal Cannula 08/21/24 14:19 95 H 08/21/24 11:46 36.5 C 88 18 105/64 93 Nasal Cannula O2 Flow Rate 08/21/24 20:10 3 08/21/24 16:10 3 08/21/24 14:19 08/21/24 11:46 3 PG Care Time/CCT Total # of Minutes Spent Total Time Spent with Patient: Total time spent is greater than 50% in coordination of care (as documented) at patient's floor/unit and/or counseling patient: Coding Level of Care Code 45980 SUB INP/OBS CARE MIN Diagnoses Closed fracture of right hip S72.001A Encounter type: initial encounter A-fib I48.91 (HFpEF) heart failure with preserved ejection fraction I50.30 Severe obstructive sleep apnea G47.33 Age-related osteoporosis with current pathological fracture, right femur, sequela M80.051S (1) Closed fracture of right hip Encounter type: initial encounter Qualified Code(s): S72.001A - Fracture of unspecified part of neck of right femur, initial encounter for closed fracture
[2024-08-22 07:48] LABS: Hematocrit (blood only) 22.8 % (42.0-52.0); Hemoglobin 7.5 g/dl (14.0-18.0); Mean Corpuscular Hemoglobin 32.1 pg (25.0-34.0); Mean Corpuscular Hgb Conc 32.9 g/dL (32.0-36.0); Mean Corpuscular Volume 97.4 fL (80.0-100.0); Mean Platelet Volume 9.3 fL (9.4-12.4); Nucleated RBC # (auto) 0.33 K/uL (0.00-0.12); Nucleated RBC % (auto) 6.3 %; Platelet Count 173 K/uL (130-400); RDW Coefficient of Variation 14.3 % (11.5-14.5); RDW Standard Deviation 50.1 fL (36.4-46.3); Red Blood Count 2.34 M/uL (4.70-6.10); White Blood Count 5.23 K/ul (4.8-10.8)
[2024-08-22 08:07] LABS: Calcium 8.2 mg/dl (8.6-10.3); Creatinine Clr Calc Pharmacy 148.7 ml/min; Potassium 4.7 mmol/L (3.5-5.1)
[2024-08-22 08:51] LABS: C Reactive Protein 7.51 mg/dl (0-0.5)
[2024-08-22 14:35] LABS: Hemoglobin 7.6 g/dl (14.0-18.0)
--- NOTE | 2024-08-22 16:41 | Cardiology Progress Note ---
Date of Service August 22, 2024 Assessment & Plan (1) Fall: (2) Atrial fibrillation, permanent: (3) Anticoagulant long-term use: Plan 1. Fall: On close questioning it appears that his fall was definitely mechanical, not hemodynamic. No cardiovascular evaluation necessary. 2. Atrial fibrillation: He is in permanent atrial fibrillation but the rate seems acceptable under the circumstances. He needs anticoagulation. 3. Anticoagulation: He is on Xarelto as an outpatient, I think that his acceptable. Admission and Anticipated Discharge Date Admission Date: August 16, 2024 Results & Data Vital Signs (Past 12 Hours) Vital Signs Temp Pulse Pulse Resp BP BP Pulse Ox 08/22/24 07:32 36.4 C L 110 H 20 99/57 L 95 08/22/24 07:24 94 H 08/22/24 03:30 36.7 C 93 H 20 123/61 100 08/22/24 00:47 36.7 C 102 H 20 102/63 94 08/21/24 22:54 93 H O2 Del Method O2 Flow Rate 08/22/24 07:32 Nasal Cannula 3 08/22/24 07:24 08/22/24 03:30 Nasal Cannula 3 08/22/24 00:47 Nasal Cannula 3 08/21/24 22:54 Laboratory Results Cardiac Enzymes 08/22/24 Range/Units 07:22 B-Natriuretic Peptide 409 H (0-100) pg/ml Coagulation 08/22/24 Range/Units 07:22 B-Natriuretic Peptide 409 H (0-100) pg/ml CBC 08/21/24 08/22/24 08/22/24 Range/Units 17:21 07:22 14:20 WBC 5.23 (4.8-10.8) K/ul RBC 2.34 L (4.70-6.10) M/uL Hgb 7.8 L 7.5 L 7.6 L (14.0-18.0) g/dl Hct 23.3 L 22.8 L 23.0 L (42.0-52.0) % Plt Count 173 (130-400) K/uL Comprehensive Metabolic Panel 08/22/24 Range/Units 07:22 Sodium 130 L (136-145) mmol/L Potassium 4.7 (3.5-5.1) mmol/L Chloride 89 L (98-107) mmol/L Carbon Dioxide 37 H (21-32) mmol/L BUN 22 (6-23) mg/dl Creatinine 0.44 L (0.6-1.4) mg/dl Glucose 91 (70-99(Fasting)) mg/dl Calcium 8.2 L (8.6-10.3) mg/dl Intake and Output 08/22/24 08/22/24 08/22/24 06:59 14:59 22:59 Intake Total 420 / 1320 550 / 550 Output Total 1550 / 2150 550 / 550 Balance -1130 / -830 0 / 0 Intake: Oral 420 / 1320 550 / 550 Output: Urine 550 / 550 Urine Amount (Catheter) 1550 / 2150 Elliott/Indwelling 1550 / 2150 Other: Weight 84.1 kg Weight Measurement Method Built in [facility] Diagnostic Findings Telemetry: Atrial fibrillation, rate 80-100 bpm. PG Care Time/CCT Total # of Minutes Spent Total Time Spent with Patient: Total time spent is greater than 50% in coordination of care (as documented) at patient's floor/unit and/or counseling patient: Coding Level of Care Code 61073 SUB INP/OBS CARE 09/08MIN Diagnoses Fall W19.XXXA Encounter type: initial encounter Atrial fibrillation, permanent I48.21 Anticoagulant long-term use Z79.01 (1) Fall Encounter type: initial encounter Qualified Code(s): W19.XXXA - Unspecified fall, initial encounter
--- NOTE | 2024-08-22 22:14 | Hospitalist Progress Note ---
Date of Service August 22, 2024 Assessment & Plan (1) Closed fracture of right hip: (2) A-fib: (3) (HFpEF) heart failure with preserved ejection fraction: (4) Severe obstructive sleep apnea: (5) Age-related osteoporosis with current pathological fracture, right femur, sequela: Plan 84-year-old male with a history of atrial fibrillation on Xarelto had a mechanical fall sustaining a right femur fracture. Patient history of heart failure preserved ejection fraction, pulmonary hypertension, and chronic hyponatremia. Given digoxin pre op, and has post op acute blood loss anemia #Mechanical fall on xarelto, right femur fracture s/p trochanteric nail 08/17/24 Dr Chandler Revised cardiac risk index: 1 (history of heart failure) On Xarelto for history of A-fib, last taken the morning of 08/15 post op acute blood loss anemia, stable Patient received transfusion of one unit of PRBC on 08/20. Resumed xarelto on 08/21 however due to bleeding from surgical wound and low hemoglobin, will hold xarelto on 08/22 reviewed vitals and reviewed labs. discussed with case management # atrial fibrillation, permanent Continue metoprolol, hold Xarelto as above iv digoxin 0.25 given08/17/24 with hyperkalemia now stopped prn metoprolol offered on 08/18/24 dig therapeutic Tachycardic may be due to anemia. #Hypontremia, , pre hospital was on torsemide, coritsol is appropriate, consider hypovolemic hyponatremia improving on salt tabs #hyperkalemia, did receive treatment patiromer x2, D50, Insulin, Calcium, maybe from hematoma and hemolysis continue lokelma; improving. #Chronic stable HFpEF Last echocardiogram on 11/02/2023 revealed LVEF at 65-70% #DAY Patient does not tolerate CPAP H/o nocturnal hypoxia Supplemental oxygen 2L NC HS Patient's reports she just recently tested positive for COVID on 08/15 Patient is now COVID positive and on precautions. Full code VTE PPx: SCDs; Admission and Anticipated Discharge Date Admission Date: August 16, 2024 Subjective Patient reports no new symptoms. Physical Exam Physical Exam: Patient lying in bed. cardiac exam is rate controlled lungs are clear leg on right with intact capillary refill distally Results & Data Results & Data Vital Signs (Past 12 Hours) Vital Signs Temp Pulse Pulse Resp BP BP Pulse Ox 08/22/24 20:21 36.9 C 97 H 18 122/77 94 08/22/24 18:17 08/22/24 15:24 36.5 C 112 H 20 124/71 98 08/22/24 15:07 96 H 08/22/24 11:44 36.6 C 110 H 20 119/68 95 08/22/24 11:18 O2 Del Method O2 Flow Rate 08/22/24 20:21 Nasal Cannula 2 08/22/24 18:17 Nasal Cannula 3 08/22/24 15:24 Nasal Cannula 3 08/22/24 15:07 08/22/24 11:44 Nasal Cannula 3 08/22/24 11:18 Nasal Cannula 3 PG Care Time/CCT Total # of Minutes Spent Total Time Spent with Patient: Total time spent is greater than 50% in coordination of care (as documented) at patient's floor/unit and/or counseling patient: Coding Level of Care Code 69633 SUB INP/OBS CARE 3/50MIN Diagnoses Closed fracture of right hip S72.001A Encounter type: initial encounter A-fib I48.91 (HFpEF) heart failure with preserved ejection fraction I50.30 Severe obstructive sleep apnea G47.33 Age-related osteoporosis with current pathological fracture, right femur, sequela M80.051S (1) Closed fracture of right hip Encounter type: initial encounter Qualified Code(s): S72.001A - Fracture of unspecified part of neck of right femur, initial encounter for closed fracture
[2024-08-22 23:20] LABS: Basophils # (auto) 0.01 K/uL (0.00-0.20); Basophils % (auto) 0.2 %; Eosinophils # (auto) 0.01 K/uL (0.00-0.50); Eosinophils % (auto) 0.2 %; Hematocrit (blood only) 21.6 % (42.0-52.0); Hemoglobin 7.2 g/dl (14.0-18.0); Immature Granulocytes # (auto) 0.03 K/uL (0.01-0.20); Immature Granulocytes % (auto) 0.6 %; Lymphocytes # (auto) 0.81 K/uL (1.20-3.40); Lymphocytes % (auto) 15.2 %; Mean Corpuscular Hgb Conc 33.3 g/dL (32.0-36.0); Mean Corpuscular Volume 99.1 fL (80.0-100.0); Mean Platelet Volume 9.6 fL (9.4-12.4); Monocytes % (auto) 18.7 %; Neutrophils # (auto) 3.48 K/uL (1.40-6.50); Neutrophils % (auto) 65.1 %; Nucleated RBC # (auto) 0.36 K/uL (0.00-0.12); Nucleated RBC % (auto) 6.7 %; Platelet Count 173 K/uL (130-400); RDW Coefficient of Variation 14.1 % (11.5-14.5); RDW Standard Deviation 50.9 fL (36.4-46.3); Red Blood Count 2.18 M/uL (4.70-6.10); White Blood Count 5.34 K/ul (4.8-10.8)
[2024-08-23 00:13] LABS: Acanthocytes 1+; Polychromasia 2+
[2024-08-23 07:32] LABS: Hematocrit (blood only) 22.5 % (42.0-52.0); Hemoglobin 7.3 g/dl (14.0-18.0); Mean Corpuscular Hemoglobin 31.6 pg (25.0-34.0); Mean Corpuscular Hgb Conc 32.4 g/dL (32.0-36.0); Mean Corpuscular Volume 97.4 fL (80.0-100.0); Mean Platelet Volume 9.5 fL (9.4-12.4); Nucleated RBC # (auto) 0.35 K/uL (0.00-0.12); Nucleated RBC % (auto) 5.6 %; Platelet Count 181 K/uL (130-400); RDW Coefficient of Variation 14.1 % (11.5-14.5); RDW Standard Deviation 49.9 fL (36.4-46.3); Red Blood Count 2.31 M/uL (4.70-6.10); White Blood Count 6.26 K/ul (4.8-10.8)
[2024-08-23 07:40] LABS: BUN Creatinine Ratio 54.1 (10-20); C Reactive Protein 6.37 mg/dl (0-0.5); Calcium 8.3 mg/dl (8.6-10.3); Creatinine Clr Calc Pharmacy 171.7 ml/min; Potassium 4.5 mmol/L (3.5-5.1)
--- NOTE | 2024-08-23 08:13 | Orthopedic Progress Note ---
Date of Service August 23, 2024 Assessment & Plan (1) Closed fracture of right hip: Pain reasaonably controlled. Continue PT/OT, wbat Dressing changes daily. dvt prophylaxis: is on xarelto, scd's should follow up with orthopedics about 2-3 weeks post op Subjective .84 year old patient POD 6 from right TFN. Denies hip pain presently. Said he had some pain with weight bearing yesterday. Has received 1 unit of PRBC. Review of Systems All systems reviewed & are unremarkable except as noted in HPI & below. Physical Exam .alert NAD Right leg: Dressing intact. Some dried serosanguineous drainage on dressing. Swelling to thigh but thigh is soft. Able to dorsiflex and plantarflex. NVI Results & Data Results & Data Laboratory Results . Diagnostic Findings . PG Care Time/CCT Total # of Minutes Spent Total Time Spent with Patient: Total time spent is greater than 50% in coordination of care (as documented) at patient's floor/unit and/or counseling patient: Coding Level of Care Code 71097 Post Operative Follow-Up Diagnoses Closed fracture of right hip S72.001A Encounter type: initial encounter (1) Closed fracture of right hip Encounter type: initial encounter Qualified Code(s): S72.001A - Fracture of unspecified part of neck of right femur, initial encounter for closed fracture
[2024-08-23] MEDS ORDERED: SODIUM CHLORIDE 0.9% 100 ML IV PRN (10:41)
[2024-08-23] MEDS ORDERED: SODIUM CHLORIDE 0.9% 50 ML IV PRN (10:41)
[2024-08-23] MEDS: REMDESIVIR 200 MG in SODIUM CHLORIDE 0.9% 210 ML IV STA (11:12)
[2024-08-23] MEDS: dexAMETHasone 6 MG in SYRINGE 0 ML IV SCH (11:37)
[2024-08-23 11:40] LABS: Alanine Aminotransferase 25 U/L (7-52); Aspartate Aminotransferase 52 U/L (13-39)
--- NOTE | 2024-08-23 22:29 | Hospitalist Progress Note ---
Date of Service August 23, 2024 Assessment & Plan (1) Closed fracture of right hip: (2) A-fib: (3) (HFpEF) heart failure with preserved ejection fraction: (4) Severe obstructive sleep apnea: (5) Age-related osteoporosis with current pathological fracture, right femur, sequela: Plan 84-year-old male with a history of atrial fibrillation on Xarelto had a mechanical fall sustaining a right femur fracture. Patient history of heart failure preserved ejection fraction, pulmonary hypertension, and chronic hyponatremia. Given digoxin pre op, and has post op acute blood loss anemia #Mechanical fall on xarelto, right femur fracture s/p trochanteric nail 08/17/24 Dr Chandler Revised cardiac risk index: 1 (history of heart failure) On Xarelto for history of A-fib, last taken the morning of 08/15 post op acute blood loss anemia, stable Patient received transfusion of one unit of PRBC on 08/20. Resumed xarelto on 08/21 however due to bleeding from surgical wound and low hemoglobin, will hold xarelto on 08/22 Hemoglobin now stable on 08/23 will resume xarelto especially given his COVID status and hypercoagulable state reviewed vitals and reviewed labs. discussed with case management # atrial fibrillation, permanent Continue metoprolol, resume Xarelto as above iv digoxin 0.25 given08/17/24 with hyperkalemia now stopped prn metoprolol offered on 08/18/24 dig therapeutic Tachycardic may be due to anemia: ordered additional unit of PRBC as hemoglbin has been stable at 7.3; however with resumption of xarelto, concern of more bleeding. Also improved hemoglobin may help with HR control #Hyponatremia, , pre hospital was on torsemide, coritsol is appropriate, consider hypovolemic hyponatremia improving on salt tabs #hyperkalemia, did receive treatment patiromer x2, D50, Insulin, Calcium, maybe from hematoma and hemolysis continue lokelma; improving. #Chronic stable HFpEF Last echocardiogram on 11/02/2023 revealed LVEF at 65-70% #DAY Patient does not tolerate CPAP H/o nocturnal hypoxia Supplemental oxygen 2L NC HS Patient's reports she just recently tested positive for COVID on 08/15 Patient is now COVID positive and on precautions. Full code VTE PPx: SCDs; Admission and Anticipated Discharge Date Admission Date: August 16, 2024 Subjective 84 yo male reports no new symptoms. Physical Exam Physical Exam: Patient lying in bed. cardiac exam is rate controlled lungs are clear leg on right with intact capillary refill distally Results & Data Results & Data Vital Signs (Past 12 Hours) Vital Signs Temp Pulse Pulse Resp BP BP BP 08/23/24 20:08 36.4 C L 103 H 16 134/76 08/23/24 17:16 36.6 C 100 H 18 152/84 H 08/23/24 16:51 36.4 C L 97 H 18 134/86 08/23/24 15:52 36.4 C L 89 18 134/83 08/23/24 15:51 36.4 C L 92 H 18 134/83 08/23/24 14:57 92 H 08/23/24 14:51 36.5 C 90 18 133/82 08/23/24 14:21 36.4 C L 78 18 129/84 08/23/24 14:06 36.5 C 92 H 18 137/90 08/23/24 13:48 36.3 C L 98 H 18 142/87 H 08/23/24 11:45 36.3 C L 63 17 102/74 Pulse Ox O2 Del Method O2 Flow Rate 08/23/24 20:08 98 Nasal Cannula 2 08/23/24 17:16 97 2 08/23/24 16:51 97 2 08/23/24 15:52 99 Nasal Cannula 2 08/23/24 15:51 99 2 08/23/24 14:57 08/23/24 14:51 98 2 08/23/24 14:21 98 2 08/23/24 14:06 100 2 08/23/24 13:48 100 2 08/23/24 11:45 93 Nasal Cannula 2 PG Care Time/CCT Total # of Minutes Spent Total Time Spent with Patient: Total time spent is greater than 50% in coordination of care (as documented) at patient's floor/unit and/or counseling patient: Coding Level of Care Code 16872 SUB INP/OBS CARE 3/50MIN Diagnoses Closed fracture of right hip S72.001A Encounter type: initial encounter A-fib I48.91 (HFpEF) heart failure with preserved ejection fraction I50.30 Severe obstructive sleep apnea G47.33 Age-related osteoporosis with current pathological fracture, right femur, sequela M80.051S (1) Closed fracture of right hip Encounter type: initial encounter Qualified Code(s): S72.001A - Fracture of unspecified part of neck of right femur, initial encounter for closed fracture
[2024-08-24 06:59] LABS: Hematocrit (blood only) 25.5 % (42.0-52.0); Hemoglobin 8.3 g/dl (14.0-18.0); Mean Corpuscular Hemoglobin 31.6 pg (25.0-34.0); Mean Corpuscular Hgb Conc 32.5 g/dL (32.0-36.0); Mean Platelet Volume 9.7 fL (9.4-12.4); Nucleated RBC # (auto) 0.27 K/uL (0.00-0.12); Nucleated RBC % (auto) 5.1 %; Platelet Count 207 K/uL (130-400); RDW Standard Deviation 51.7 fL (36.4-46.3); Red Blood Count 2.63 M/uL (4.70-6.10); White Blood Count 5.25 K/ul (4.8-10.8)
[2024-08-24 07:23] LABS: BUN Creatinine Ratio 41.5 (10-20); C Reactive Protein 5.3 mg/dl (0-0.5); Calcium 8.6 mg/dl (8.6-10.3); Creatinine Clr Calc Pharmacy 156.7 ml/min; Potassium 4.7 mmol/L (3.5-5.1)
--- NOTE | 2024-08-24 09:41 | Orthopedic Progress Note ---
Date of Service August 24, 2024 Assessment & Plan (1) Age-related osteoporosis with current pathological fracture, right femur, sequela: POD 8 right troch nail Continue PT/OT, wbat Dressing changes daily- I placed new ABD and paper tape on superior incision and a foam dressing on inferior incision. dvt prophylaxis: is on xarelto, scd's should follow up with orthopedics about 2-3 weeks post op Subjective Operation Date: 08/17/24 08:40 Actual Procedures p Right Trochanteric Nail(Right) - Jhony Chandler DO Patient is postop day 8 from a right trope nail done by Dr. Chandler due to a right subtrochanteric femur fracture. It is hard to get a history from him but he states that his pain is fairly under control. He should continue to work with physical therapy/Occupational Therapy for weightbearing as tolerated and range of motion as tolerated. He does currently have COVID-19. Disposition as per primary service. Daily dressing changes recommended. Does have some saturation of the dressing today but overall I think the incision looks good. Review of Systems All systems reviewed & are unremarkable except as noted in HPI & below. Physical Exam General: Alert. No acute distress. Right hip: I did take the previous dressing off. There is some yellow saturation on the dressing. No active drainage at my visit today. I did replace the superior wound and inferior wound dressings today. In for a wound does have a pink foam dressing on. The superior wound has 2 ABDs and paper tape. He has good range of motion of the right lower extremity. Neurovascular intact. Results & Data Results & Data Laboratory Results . Diagnostic Findings . PG Care Time/CCT Total # of Minutes Spent Total Time Spent with Patient: Total time spent is greater than 50% in coordination of care (as documented) at patient's floor/unit and/or counseling patient: Coding Level of Care Code 38815 Post Operative Follow-Up Diagnoses Age-related osteoporosis with current pathological fracture, right femur, sequel a M80.051S
[2024-08-24] MEDS: REMDESIVIR 100 MG in SODIUM CHLORIDE 0.9% 230 ML IV SCH (11:59)
--- NOTE | 2024-08-24 23:26 | Hospitalist Progress Note ---
Date of Service August 24, 2024 Assessment & Plan (1) Closed fracture of right hip: (2) A-fib: (3) (HFpEF) heart failure with preserved ejection fraction: (4) Severe obstructive sleep apnea: (5) Age-related osteoporosis with current pathological fracture, right femur, sequela: Plan 84-year-old male with a history of atrial fibrillation on Xarelto had a mechanical fall sustaining a right femur fracture. Patient history of heart failure preserved ejection fraction, pulmonary hypertension, and chronic hyponatremia. Given digoxin pre op, and has post op acute blood loss anemia #Mechanical fall on xarelto, right femur fracture s/p trochanteric nail 08/17/24 Dr Chandler Revised cardiac risk index: 1 (history of heart failure) On Xarelto for history of A-fib, last taken the morning of 08/15 post op acute blood loss anemia, stable Patient received transfusion of one unit of PRBC on 08/20. Resumed xarelto on 08/21 however due to bleeding from surgical wound and low hemoglobin, will hold xarelto on 08/22 Hemoglobin now stable on 08/23 resumed xarelto especially given his COVID status and hypercoagulable state This will remain on 08/24. reviewed vitals and reviewed labs. discussed with case management # atrial fibrillation, permanent Continue metoprolol, resume Xarelto as above iv digoxin 0.25 given08/17/24 with hyperkalemia now stopped prn metoprolol offered on 08/18/24 dig therapeutic Tachycardic may be due to anemia: ordered additional unit of PRBC as hemoglbin has been stable at 7.3; however with resumption of xarelto, concern of more bleeding. Also improved hemoglobin may help with HR control #Hyponatremia, , pre hospital was on torsemide, coritsol is appropriate, consider hypovolemic hyponatremia improving on salt tabs #hyperkalemia, did receive treatment patiromer x2, D50, Insulin, Calcium, maybe from hematoma and hemolysis discontinued lokelma; levels have been stable. #Chronic stable HFpEF Last echocardiogram on 11/02/2023 revealed LVEF at 65-70% #DAY Patient does not tolerate CPAP H/o nocturnal hypoxia Supplemental oxygen 2L NC HS cotninues on 2 liters nasal canula Patient's reports she just recently tested positive for COVID on 08/15 Patient is now COVID positive and on precautions. on remdesevir and dexamethasone. Full code VTE PPx: SCDs; Admission and Anticipated Discharge Date Admission Date: August 16, 2024 Subjective Patient reports no new symptoms. Review of Systems Review of Systems: All systems reviewed & are unremarkable except as noted in HPI & below Physical Exam Physical Exam: Patient lying in bed. cardiac exam is rate controlled lungs are clear leg on right with intact capillary refill distally Results & Data Results & Data Vital Signs (Past 12 Hours) Vital Signs Temp Pulse Pulse Resp BP BP Pulse Ox 08/24/24 22:14 36.4 C L 104 H 18 133/87 98 08/24/24 19:24 36.5 C 111 H 20 136/78 93 08/24/24 15:49 89 08/24/24 15:31 36.4 C L 111 H 20 134/90 91 08/24/24 15:25 90 O2 Del Method O2 Flow Rate 08/24/24 22:14 Nasal Cannula 2 08/24/24 19:24 Nasal Cannula 2 08/24/24 15:49 08/24/24 15:31 Nasal Cannula 2 08/24/24 15:25 PG Care Time/CCT Total # of Minutes Spent Total Time Spent with Patient: Total time spent is greater than 50% in coordination of care (as documented) at patient's floor/unit and/or counseling patient: Coding Level of Care Code 25540 SUB INP/OBS CARE 3/50MIN Diagnoses Closed fracture of right hip S72.001A Encounter type: initial encounter A-fib I48.91 (HFpEF) heart failure with preserved ejection fraction I50.30 Severe obstructive sleep apnea G47.33 Age-related osteoporosis with current pathological fracture, right femur, sequela M80.051S (1) Closed fracture of right hip Encounter type: initial encounter Qualified Code(s): S72.001A - Fracture of unspecified part of neck of right femur, initial encounter for closed fracture
[2024-08-25 06:27] LABS: Hematocrit (blood only) 25.4 % (42.0-52.0); Hemoglobin 8.4 g/dl (14.0-18.0); Mean Corpuscular Hemoglobin 32.1 pg (25.0-34.0); Mean Corpuscular Hgb Conc 33.1 g/dL (32.0-36.0); Mean Corpuscular Volume 96.9 fL (80.0-100.0); Mean Platelet Volume 9.5 fL (9.4-12.4); Nucleated RBC # (auto) 0.16 K/uL (0.00-0.12); Nucleated RBC % (auto) 2.2 %; Platelet Count 260 K/uL (130-400); RDW Coefficient of Variation 14.8 % (11.5-14.5); RDW Standard Deviation 50.7 fL (36.4-46.3); Red Blood Count 2.62 M/uL (4.70-6.10); White Blood Count 7.22 K/ul (4.8-10.8)
[2024-08-25 06:44] LABS: BUN Creatinine Ratio 46.2 (10-20); C Reactive Protein 3.57 mg/dl (0-0.5); Calcium 8.5 mg/dl (8.6-10.3); Creatinine Clr Calc Pharmacy 166.9 ml/min; Potassium 4.5 mmol/L (3.5-5.1)
[2024-08-25] MEDS: PANTOprazole 40 MG TAB PO SCH (14:02)
--- NOTE | 2024-08-25 22:26 | Hospitalist Progress Note ---
Date of Service August 25, 2024 Assessment & Plan (1) Closed fracture of right hip: (2) A-fib: (3) (HFpEF) heart failure with preserved ejection fraction: (4) Severe obstructive sleep apnea: (5) Age-related osteoporosis with current pathological fracture, right femur, sequela: Plan 84-year-old male with a history of atrial fibrillation on Xarelto had a mechanical fall sustaining a right femur fracture. Patient history of heart failure preserved ejection fraction, pulmonary hypertension, and chronic hyponatremia. Given digoxin pre op, and has post op acute blood loss anemia #Mechanical fall on xarelto, right femur fracture s/p trochanteric nail 08/17/24 Dr Chandler Revised cardiac risk index: 1 (history of heart failure) On Xarelto for history of A-fib, last taken the morning of 08/15 post op acute blood loss anemia, stable Patient received transfusion of one unit of PRBC on 08/20. Resumed xarelto on 08/21 however due to bleeding from surgical wound and low hemoglobin, will hold xarelto on 08/22 Hemoglobin now stable on 08/23 resumed xarelto especially given his COVID status and hypercoagulable state This will remain on 08/25. Placed on pantoprazole to protect stomach lining. reviewed vitals and reviewed labs. discussed with case management # atrial fibrillation, permanent Continue metoprolol, resume Xarelto as above iv digoxin 0.25 given08/17/24 with hyperkalemia now stopped prn metoprolol offered on 08/18/24 dig therapeutic Tachycardic may be due to anemia: ordered additional unit of PRBC as hemoglbin has been stable at 7.3; however with resumption of xarelto, concern of more bleeding. Also improved hemoglobin may help with HR control #Hyponatremia, , pre hospital was on torsemide, coritsol is appropriate, consider hypovolemic hyponatremia improving on salt tabs #hyperkalemia, did receive treatment patiromer x2, D50, Insulin, Calcium, maybe from hematoma and hemolysis discontinued lokelma; levels have been stable. #Chronic stable HFpEF Last echocardiogram on 11/02/2023 revealed LVEF at 65-70% #DAY Patient does not tolerate CPAP H/o nocturnal hypoxia Supplemental oxygen 2L NC HS cotninues on 2 liters nasal canula Patient's reports she just recently tested positive for COVID on 08/15 Patient is now COVID positive and on precautions. on remdesevir and dexamethasone. Full code VTE PPx: SCDs; Admission and Anticipated Discharge Date Admission Date: August 16, 2024 Subjective Patient reports no new symptoms. Physical Exam Physical Exam: Patient lying in bed. cardiac exam is rate controlled lungs are clear leg on right with intact capillary refill distally Results & Data Results & Data Vital Signs (Past 12 Hours) Vital Signs Temp Pulse Pulse Resp BP Pulse Ox O2 Del Method 08/25/24 20:23 36.4 C L 85 20 147/88 H 98 Nasal Cannula 08/25/24 16:06 36.3 C L 85 17 138/80 99 Nasal Cannula 08/25/24 13:00 74 08/25/24 12:15 36.3 C L 80 18 150/84 H 98 Nasal Cannula O2 Flow Rate 08/25/24 20:23 2 08/25/24 16:06 2 08/25/24 13:00 08/25/24 12:15 2 PG Care Time/CCT Total # of Minutes Spent Total Time Spent with Patient: Total time spent is greater than 50% in coordination of care (as documented) at patient's floor/unit and/or counseling patient: Coding Level of Care Code 97560 SUB INP/OBS CARE MIN Diagnoses Closed fracture of right hip S72.001A Encounter type: initial encounter A-fib I48.91 (HFpEF) heart failure with preserved ejection fraction I50.30 Severe obstructive sleep apnea G47.33 Age-related osteoporosis with current pathological fracture, right femur, sequela M80.051S (1) Closed fracture of right hip Encounter type: initial encounter Qualified Code(s): S72.001A - Fracture of unspecified part of neck of right femur, initial encounter for closed fracture
[2024-08-26 06:11] LABS: Hematocrit (blood only) 25.2 % (42.0-52.0); Hemoglobin 8.3 g/dl (14.0-18.0); Mean Corpuscular Hgb Conc 32.9 g/dL (32.0-36.0); Mean Corpuscular Volume 97.3 fL (80.0-100.0); Mean Platelet Volume 9.2 fL (9.4-12.4); Nucleated RBC % (auto) 1.5 %; Platelet Count 263 K/uL (130-400); RDW Coefficient of Variation 14.5 % (11.5-14.5); RDW Standard Deviation 51.7 fL (36.4-46.3); Red Blood Count 2.59 M/uL (4.70-6.10); White Blood Count 6.69 K/ul (4.8-10.8)
[2024-08-26 06:48] LABS: BUN Creatinine Ratio 43.9 (10-20); Calcium 8.5 mg/dl (8.6-10.3); Creatinine Clr Calc Pharmacy 158.8 ml/min; Potassium 5.2 mmol/L (3.5-5.1)
[2024-08-26 07:39] LABS: Base Excess VBG 13.9 mEq/L; HCO3 VBG 41 mmol/L; Oxygen Saturation VBG 82.8 %; PCO2 VBG 62 mmHg (38-50); PO2 VBG 50 mmHg; pH VBG 7.43 (7.36-7.41)
--- NOTE | 2024-08-26 09:20 | Hospitalist Progress Note ---
Date of Service August 26, 2024 Assessment & Plan (1) Closed fracture of right hip: (2) A-fib: (3) (HFpEF) heart failure with preserved ejection fraction: (4) Severe obstructive sleep apnea: (5) Age-related osteoporosis with current pathological fracture, right femur, sequela: Plan 84-year-old male with a history of atrial fibrillation on Xarelto had a mechanical fall sustaining a right femur fracture. Patient history of heart failure preserved ejection fraction, pulmonary hypertension, and chronic hyponatremia. Given digoxin pre op, and has post op acute blood loss anemia #Mechanical fall on xarelto, right femur fracture s/p trochanteric nail 08/17/24 Dr Chandler Revised cardiac risk index: 1 (history of heart failure) On Xarelto for history of A-fib, last taken the morning of 08/15 post op acute blood loss anemia, stable Patient required 2 units of PRBC for acute blood loss anemia. Xarelto now resumed (since 08/23) especially given his COVID status and hypercoagulable state Hemoglobin now stable Placed on pantoprazole for GI prophylaxis reviewed vitals and reviewed labs. discussed with case management # atrial fibrillation, permanent Continue metoprolol, resume Xarelto as above iv digoxin 0.25 given08/17/24 with hyperkalemia now stopped prn metoprolol offered on 08/18/24 dig therapeutic Was Tachycardic, this may have been due to anemia: ordered additional unit of PRBC as hemoglbin has been stable at 7.3; however with resumption of xarelto, concern of more bleeding. Now improved hemoglobin, improved HR control #Hyponatremia, , pre hospital was on torsemide, coritsol is appropriate, consider hypovolemic hyponatremia improving on salt tabs #hyperkalemia, did receive treatment patiromer x2, D50, Insulin, Calcium, maybe from hematoma and hemolysis also with acute metabolic alkalosis and compensatory respiratory acidosis Ordered acetazolamide, and will reinitiate lokelma on 08/26 #Chronic stable HFpEF Last echocardiogram on 11/02/2023 revealed LVEF at 65-70% #DAY Patient does not tolerate CPAP H/o nocturnal hypoxia Supplemental oxygen 2L NC HS cotninues on 2 liters nasal canula Patient's reports she just recently tested positive for COVID on 08/15 Patient is now COVID positive and on precautions. on dexamethasone. stopped remdesevir as potassium is elevated. Full code VTE PPx: SCDs; Admission and Anticipated Discharge Date Admission Date: August 16, 2024 Subjective 84 yo male reports no new symptoms. States he feels comfortable. Physical Exam Physical Exam: Patient lying in bed. cardiac exam is rate controlled lungs are bibasilar rales. leg on right with intact capillary refill distally Results & Data Results & Data Vital Signs (Past 12 Hours) Vital Signs Temp Pulse Pulse Resp BP BP Pulse Ox 08/26/24 07:57 36.4 C L 88 18 145/90 H 98 08/26/24 03:45 36.9 C 80 18 140/87 97 08/25/24 23:23 36.5 C 80 18 142/76 H 98 08/25/24 22:50 08/25/24 21:35 91 H O2 Del Method O2 Flow Rate 08/26/24 07:57 Nasal Cannula 2 08/26/24 03:45 Nasal Cannula 2 08/25/24 23:23 Nasal Cannula 2 08/25/24 22:50 Nasal Cannula 2 08/25/24 21:35 PG Care Time/CCT Total # of Minutes Spent Total Time Spent with Patient: Total time spent is greater than 50% in coordination of care (as documented) at patient's floor/unit and/or counseling patient: Coding Level of Care Code 72558 SUB INP/OBS CARE 3/50MIN Diagnoses Closed fracture of right hip S72.001A Encounter type: initial encounter A-fib I48.91 (HFpEF) heart failure with preserved ejection fraction I50.30 Severe obstructive sleep apnea G47.33 Age-related osteoporosis with current pathological fracture, right femur, sequela M80.051S (1) Closed fracture of right hip Encounter type: initial encounter Qualified Code(s): S72.001A - Fracture of unspecified part of neck of right femur, initial encounter for closed fracture
--- NOTE | 2024-08-26 09:54 | XRay Report ---
XR chest 2V PA/lateral CLINICAL HISTORY: hypoxia TECHNIQUE: 2 views of the chest were obtained. Comparison: Comparison is made to chest radiograph 08/16/2024 FINDINGS: No lines and tubes are seen. Cardiomegaly is noted. The aortic arch is calcified. Bilateral lower alexx g predominant airspace opacities are seen. Moderate bilateral pleural effusions are seen. IMPRESSION: Bilateral lower lung predominant airspace opacities which may represent atelectasis, pneumonia, and/o r aspiration. Moderate bilateral pleural effusions. These are increased from prior exam. ACT 112: Negative or not required by law. Electronically signed by: Tae Willingham M.D. 08/26/2024 9:52 AM
[2024-08-26] MEDS: POLYETHYLENE (MIRALAX) 17 GM PACK PO PRN (10:08)
[2024-08-26] MEDS: SODIUM ZIRCONIUM CYCLOSILICATE 10 GM PACKET PO SCH (10:26)
[2024-08-26] MEDS: acetaZOLAMIDE 500 MG in SYRINGE 0 ML IV STA (10:26)
[2024-08-27 07:36] LABS: Hematocrit (blood only) 24.7 % (42.0-52.0); Hemoglobin 8.4 g/dl (14.0-18.0); Mean Corpuscular Hemoglobin 32.7 pg (25.0-34.0); Mean Corpuscular Volume 96.1 fL (80.0-100.0); Mean Platelet Volume 9.5 fL (9.4-12.4); Nucleated RBC # (auto) 0.09 K/uL (0.00-0.12); Nucleated RBC % (auto) 1.1 %; Platelet Count 286 K/uL (130-400); RDW Coefficient of Variation 14.3 % (11.5-14.5); RDW Standard Deviation 49.6 fL (36.4-46.3); Red Blood Count 2.57 M/uL (4.70-6.10); White Blood Count 8.14 K/ul (4.8-10.8)
[2024-08-27 07:59] LABS: BUN Creatinine Ratio 35.7 (10-20); Calcium 8.3 mg/dl (8.6-10.3); Creatinine Clr Calc Pharmacy 149.1 ml/min; Potassium 4.4 mmol/L (3.5-5.1)
--- NOTE | 2024-08-27 10:45 | Hospitalist Progress Note ---
Date of Service August 27, 2024 Assessment & Plan (1) Closed fracture of right hip: Plan: right femur fracture s/p trochanteric nail 08/17/24 Dr Chandler (2) A-fib: Plan: continue metoprolol, resumed Xarelto (3) (HFpEF) heart failure with preserved ejection fraction: Plan: Chronic stable HFpEF Last echocardiogram on 11/02/2023 revealed LVEF at 65-70% (4) Severe obstructive sleep apnea: Plan: DAY Patient does not tolerate CPAP H/o nocturnal hypoxia Supplemental oxygen 2L NC HS cotninues on 2 liters nasal canula (5) Age-related osteoporosis with current pathological fracture, right femur, sequela: Plan: -awaiting placement to acute rehab. Plan Patient is now COVID positive and on precautions. on dexamethasone. Full code VTE PPx: SCDs; Admission and Anticipated Discharge Date Admission Date: August 16, 2024 Subjective No events overnight. Pt resting comfortably in chair. Review of Systems Review of Systems: CONST: Negative for fever, body aches and chills. HENT: Negative for neck pain/stiffness, headache, congestion, sore throat, swelling. EYES: Negative for discharge/pain or vision changes. RESP: Negative for cough/hemoptysis and shortness of breath. CV: Negative chest pain, difficulty breathing, palpitations. ABD: Negative pain, nausea, vomiting. : Negative increase frequency, dysuria, blood in urine or stool. MUSC: Negative for muscle aches, edema. SKIN: Negative rash, lesions/sores. NEURO: Negative headache, dizziness, weakness. Physical Exam Physical Exam: GENERAL APPEARANCE NAD, activity normal for age, well developed/ well nourished, no cyanosis, pallor, or diaphoresis. EYES lids/conjunctiva normal. EARS/NOSE/THROAT Mucous membranes moist, nares normal, lips/teeth normal uvula midline without oral pharyngeal erythema, exudate or swelling TMs normal bilaterally. No lymphangitis/lymphedema. HEAD/NECK normocephalic atraumatic, no facial trauma, neck is supple. RESPIRATORY respiratory effort normal, speaks in full sentences, no tripod position, no accessory muscle use. Lungs clear to auscultation without rhonchi, wheezes, rales CARDIAC Regular rate and rhythm, no edema. ABDOMINAL Soft, ND/NT. No evidence of fluid wave. No pulsatile masses on exam, rebound tenderness, Wu sign or pain over Mcburney's point. MUSCLES/EXTREMITIES No abnormal range of motion, no swelling. SKIN Warm, pink and dry. No rashes, dermatoses, petechiae or lesions. NEUROLOGICAL Speech is clear and appropriate. Normal level of consciousness. Gait and coordination are normal. 5/5 strength in all extremities. PSYCH Normal mood and affect. Judgement/competence is appropriate Results & Data Results & Data Vital Signs (Past 12 Hours) Vital Signs Temp Pulse Resp BP BP Pulse Ox O2 Del Method 08/27/24 08:27 36.5 C 94 H 20 145/79 H 94 Nasal Cannula 08/27/24 07:45 Nasal Cannula 08/27/24 02:22 36.3 C L 85 16 119/66 91 Room Air 08/26/24 22:40 36.5 C 80 18 122/68 90 Room Air O2 Flow Rate 08/27/24 08:27 2 08/27/24 07:45 2 08/27/24 02:22 08/26/24 22:40 PG Care Time/CCT Total # of Minutes Spent Total Time Spent with Patient: Total time spent is greater than 50% in coordination of care (as documented) at patient's floor/unit and/or counseling patient: Coding Level of Care Code 11704 SUB INP/OBS CARE 2/35MIN Diagnoses Closed fracture of right hip S72.001A Encounter type: initial encounter A-fib I48.91 (HFpEF) heart failure with preserved ejection fraction I50.30 Severe obstructive sleep apnea G47.33 Age-related osteoporosis with current pathological fracture, right femur, sequela M80.051S (1) Closed fracture of right hip Encounter type: initial encounter Qualified Code(s): S72.001A - Fracture of unspecified part of neck of right femur, initial encounter for closed fracture
[2024-08-28 07:13] LABS: Hematocrit (blood only) 27.5 % (42.0-52.0); Hemoglobin 9.4 g/dl (14.0-18.0); Mean Corpuscular Hemoglobin 32.2 pg (25.0-34.0); Mean Corpuscular Hgb Conc 34.2 g/dL (32.0-36.0); Mean Corpuscular Volume 94.2 fL (80.0-100.0); Mean Platelet Volume 9.6 fL (9.4-12.4); Nucleated RBC # (auto) 0.06 K/uL (0.00-0.12); Nucleated RBC % (auto) 0.7 %; Platelet Count 314 K/uL (130-400); RDW Coefficient of Variation 14.6 % (11.5-14.5); Red Blood Count 2.92 M/uL (4.70-6.10); White Blood Count 8.02 K/ul (4.8-10.8)
[2024-08-28 07:24] LABS: BUN Creatinine Ratio 33.3 (10-20); Calcium 8.7 mg/dl (8.6-10.3); Creatinine Clr Calc Pharmacy 149.6 ml/min; Potassium 4.4 mmol/L (3.5-5.1)
--- NOTE | 2024-08-28 07:33 | Discharge Summary ---
Discharge Summary Date of Service August 28, 2024 Principal Dx & Hospital Course #1 = Principal Diagnosis (1) Closed fracture of right hip: right femur fracture s/p trochanteric nail 08/17/24 Dr Chandler (2) A-fib: continue metoprolol, resumed Xarelto (3) (HFpEF) heart failure with preserved ejection fraction: Chronic stable HFpEF Last echocardiogram on 11/02/2023 revealed LVEF at 65-70% (4) Severe obstructive sleep apnea: DAY Patient does not tolerate CPAP H/o nocturnal hypoxia Supplemental oxygen 2L NC HS cotninues on 2 liters nasal canula (5) Age-related osteoporosis with current pathological fracture, right femur, sequela: -awaiting placement to acute rehab. Plan Patient is now COVID positive and on precautions. on dexamethasone. Full code VTE PPx: SCDs; Admission HPI Per Admitting Provider Tay is an 84-year-old male with PMH of atrial fibrillation (on Xarelto), HFpEF, severe DAY, chronic indwelling Elliott catheter, BPH, and HTN. He presented via EMS on 08/16 after sustaining a fall at home. Patient's daughter (Shelley) is present at the bedside and provides additional history. Patient was reportedly walking down a flight of steps this morning at 9:30 AM when he lost his footing on the left step and fell down. He hit his head and right hip on a hardwood floor. This was witnessed by his . Fall was witnessed by his . He does have a history of falls. He is currently on Xarelto for history of A-fib. Denies LOC. Both patient and patient's (over the phone) confirmed that he did not take his regular morning medicine today; last took Xarelto yesterday on 08/15. Patient also did not have any food or drink this morning prior to coming into the ED. He did not take any pain medicine prior to coming into the ED. He reports that he is having 8/10 pain in his right hip at present with radiation down to the knee. Movement exacerbates the pain. While he is unable to characterize the pain, he describes it as intermittent. No prior injuries to the right hip or leg. No history of knee or hip replacements. Patient denies numbness or tingling in his right leg. While patient's is COVID-positive (tested positive yesterday on 08/15), the patient denies any respiratory symptoms and tested COVID-negative today. He does follow with the heart failure clinic. Denies PMH of LA, stroke, DM, insulin use, or kidney issues. He does endorse right hip pain, and his right leg was externally rotated on arrival. While he does have severe sleep apnea, he does not tolerate CPAP at night. History of nocturnal hypoxia, but does not use up on oxygen at night. Additionally, daughter reports cognitive decline over the past 2 years, but denies any acute change in cognitive baseline today. He is hypertensive at 152/100, tachycardic around 108 bpm, and tachypneic at 32 RPM at time admission; SpO2 92% on 2L NC. ED course: Fentanyl 50 mcg IV x 2 Acetaminophen 1000 mg IV ROS: Patient endorses Patient denies Was unable to reach infection control regarding isolation precautions; while COVID negative on arrival, will place patient on isolation precautions perioperatively as patient's just tested positive for COVID yesterday. Discharge Exam GENERAL APPEARANCE NAD, activity normal for age, well developed/ well nourished, no cyanosis, pallor, or diaphoresis. EYES lids/conjunctiva normal. EARS/NOSE/THROAT Mucous membranes moist, nares normal, lips/teeth normal uvula midline without oral pharyngeal erythema, exudate or swelling TMs normal bilaterally. No lymphangitis/lymphedema. HEAD/NECK normocephalic atraumatic, no facial trauma, neck is supple. RESPIRATORY respiratory effort normal, speaks in full sentences, no tripod position, no accessory muscle use. Lungs clear to auscultation without rhonchi, wheezes, rales CARDIAC Regular rate and rhythm, no edema. ABDOMINAL Soft, ND/NT. No evidence of fluid wave. No pulsatile masses on exam, rebound tenderness, Wu sign or pain over Mcburney's point. MUSCLES/EXTREMITIES No abnormal range of motion, no swelling. SKIN Warm, pink and dry. No rashes, dermatoses, petechiae or lesions. NEUROLOGICAL Speech is clear and appropriate. Normal level of consciousness. Gait and coordination are normal. 5/5 strength in all extremities. PSYCH Normal mood and affect. Judgement/competence is appropriate Discharge Plan Discharge Items Patient Disposition: Transfer [facility] Reason For Visit: FALL, R HIP Fx Discharge Diagnosis: right hip fx Activity: Resume your previous activity Non-emergency contact: Primary Care Provider Call non-emergency contact if: you have any medication questions Follow-up/Referrals: Butch Martin [Primary Care Provider] - Diet: Regular Addtl Attending Provider Instructions: Follow up with orthopedics in 2 weeks Addtl Escalator Attendant Provider Instructions: ORTHOPEDIC INSTRUCTIONS Hip Fracture Activity and Therapy Recommendations: 1. You were shown a series of exercises in the hospital. Do these exercises three times each day if you are able. 2. Get up and walk several times each day if you are capable. Make sure you have assistance is needed. For the first four weeks, try not to stand or walk for more than one hour at a time. If you do stand or walk for more than one hour, you will not hurt anything, but your leg will likely swell. 3. As you feel comfortable, you may change from the walker or crutches to a cane and then to independent walking if you are able. Please be safe. Medications: 1. Narcotic You will likely be sent from the hospital with the narcotic pain medication that worked best throughout your stay. 2. Eliquistake Eliquis 2.5 mg twice a day for 6 weeks. 3. Other medications may be given for specific circumstances. If you have any questions, please call the office at [phone]. 4. Resume previous home medications unless otherwise instructed TEDs/Elastic Stockings: The white elastic stockings help limit swelling and prevent blood clots from forming in your legs. The more you wear them, the more they work. Wear them for six weeks. Dressing Care: Dale can be open to air as long as the incisions are not draining. If the incisions are draining or if the dale are getting caught on your clothes then please cover the dale with dry gauze. Change the dressings as necessary to keep the incision as dry as possible Showering: You may shower 5 days from the day of surgery as long as the incisions are not draining. Do not soak the incision. Let soapy water run over the dale and pat them dry. Diet: You may resume your previous diet. Things To Watch For: 1. Drainage from the incision site that occurs more than one week after your surgery. 2. Increased redness at the incision site. 3. Fever above 102 degrees Fahrenheit. 4. Unusual chest pain or shortness of breath. 5. Call [facility] at with any of the above problems Follow-Up Visit: Follow-up with Dr. Chandler's PA (Jhony García) 2-3 weeks after your day of surgery. He will remove your dale and answer any questions. If you have any additional questions or concerns, Dr Chandler is usually in the office at the same time and will be available An appointment was probably scheduled when you signed-up for surgery in the office. If you have any questions call Pending Studies at Discharge: No Stand-Alone Forms: My [facility] Skilled Items Patient informed of condition?: Yes DNR: No Discharge Level of Care: Acute rehab Communicable Disease: Yes Discharge Prognosis: Stable Lines: None Urinary Catheter: No Medications and DC Order Prescriptions: New sodium chloride 1,000 mg Tablet,Soluble 1,000 mg PO BID Qty: 60 0RF Continued metoprolol succinate 50 mg tablet extended release 24 hr 50 mg PO QAM Qty: 90 3RF Xarelto 20 mg tablet 20 mg PO QAM Qty: 90 3RF dutasteride 0.5 mg capsule 0.5 mg PO HS Qty: 90 1RF Rx Instructions: take 1 capsule by mouth daily acetaminophen 325 mg capsule 650 mg PO Q4H PRN cholecalciferol (vitamin D3) 25 mcg (1,000 unit) capsule 25 mcg PO QAM torsemide 10 mg tablet 10 mg PO .qod Qty: 0 0RF magnesium oxide 400 mg (241.3 mg magnesium) Tablet 400 mg PO QAM Qty: 0 0RF sennosides [Senokot] 8.6 mg Tablet 17.2 mg PO QAM Qty: 0 0RF thiamine HCl (vitamin B1) 100 mg Tablet 100 mg PO DAILY Qty: 0 0RF Discharge Orders: Discharge Order (Routine); Ordered 08/28/24 Ordered By: Timur Rizo Admission Data Admit Date/Time: 08/16/24 12:50 Attending Provider: Timur Rizo Admit Provider: Дмитрий Landin Primary Care Provider: Butch Martin Other Providers: Gabriela Olmedo at [place]; Rajeev Crowley; Дмитрий Landin; Michael Sanders; Saurabh Mijares; [facility] Stay Data Consultations 08/16/24 11:59 Consult Orthopedic Surgery Routine 08/16/24 12:03 ED Decision to Admit Stat 08/16/24 17:50 Consult Cardiology Routine 08/19/24 07:05 Consult Nephrology Routine Procedures Performed Operation Date: 08/17/24 08:40 Actual Procedures p Right Trochanteric Nail(Right) - Jhony Chandler, Diagnostic Imagining Performed 08/16/24 10:03 CT cervical spine wo con Stat CT head/brain wo con Stat 08/17/24 [place] hip RT 2-3V Routine Pending Results Patient Have Any Pending Studies at Discharge: No Discharge Instructions Given to Patient (Per Discharging Provider) Follow up with orthopedics in 2 weeks Total Time Total Time Spent Total Time Spent (In Minutes): 50 Coding Level of Care Code 33102 INP/OBS DISCH >30 MIN Diagnoses Closed fracture of right hip S72.001A Encounter type: initial encounter A-fib I48.91 (HFpEF) heart failure with preserved ejection fraction I50.30 Severe obstructive sleep apnea G47.33 Age-related osteoporosis with current pathological fracture, right femur, sequela M80.051S
[2024-08-28] MEDS: MAGNESIUM HYDROXIDE SUSP 30 ML UDC PO PRN (17:23)
[2024-08-29 07:10] LABS: Hematocrit (blood only) 28.9 % (42.0-52.0); Hemoglobin 9.7 g/dl (14.0-18.0); Mean Corpuscular Hgb Conc 33.6 g/dL (32.0-36.0); Mean Corpuscular Volume 95.4 fL (80.0-100.0); Mean Platelet Volume 9.3 fL (9.4-12.4); Nucleated RBC # (auto) 0.03 K/uL (0.00-0.12); Nucleated RBC % (auto) 0.3 %; Platelet Count 327 K/uL (130-400); RDW Coefficient of Variation 15.2 % (11.5-14.5); RDW Standard Deviation 52.2 fL (36.4-46.3); Red Blood Count 3.03 M/uL (4.70-6.10); White Blood Count 9.91 K/ul (4.8-10.8)
[2024-08-29 07:29] LABS: BUN Creatinine Ratio 37.8 (10-20); Calcium 8.7 mg/dl (8.6-10.3); Potassium 4.6 mmol/L (3.5-5.1)
[2024-08-29 08:05] VITALS: PULSE 62; RESP 18; TEMP 97.9; O2SAT 93
[2024-08-29 09:17] VITALS: BP 146/79
--- NOTE | 2024-08-29 10:43 | Hospitalist Progress Note ---
Date of Service August 29, 2024 Assessment & Plan (1) Closed fracture of right hip: Plan: right femur fracture s/p trochanteric nail 08/17/24 Dr Chandler (2) A-fib: Plan: continue metoprolol, resumed Xarelto (3) (HFpEF) heart failure with preserved ejection fraction: Plan: Chronic stable HFpEF Last echocardiogram on 11/02/2023 revealed LVEF at 65-70% (4) Severe obstructive sleep apnea: Plan: DAY Patient does not tolerate CPAP H/o nocturnal hypoxia Supplemental oxygen 2L NC HS cotninues on 2 liters nasal canula (5) Age-related osteoporosis with current pathological fracture, right femur, sequela: Plan: -awaiting placement to acute rehab. Plan D/C to rehab planned for today 08/29. Admission and Anticipated Discharge Date Admission Date: August 16, 2024 Subjective No events overnight. Pt resting comfortably in chair. Review of Systems Review of Systems: CONST: Negative for fever, body aches and chills. HENT: Negative for neck pain/stiffness, headache, congestion, sore throat, swelling. EYES: Negative for discharge/pain or vision changes. RESP: Negative for cough/hemoptysis and shortness of breath. CV: Negative chest pain, difficulty breathing, palpitations. ABD: Negative pain, nausea, vomiting. : Negative increase frequency, dysuria, blood in urine or stool. MUSC: Negative for muscle aches, edema. SKIN: Negative rash, lesions/sores. NEURO: Negative headache, dizziness, weakness. Physical Exam Physical Exam: GENERAL APPEARANCE NAD, activity normal for age, well developed/ well nourished, no cyanosis, pallor, or diaphoresis. EYES lids/conjunctiva normal. EARS/NOSE/THROAT Mucous membranes moist, nares normal, lips/teeth normal uvula midline without oral pharyngeal erythema, exudate or swelling TMs normal bilaterally. No lymphangitis/lymphedema. HEAD/NECK normocephalic atraumatic, no facial trauma, neck is supple. RESPIRATORY respiratory effort normal, speaks in full sentences, no tripod position, no accessory muscle use. Lungs clear to auscultation without rhonchi, wheezes, rales CARDIAC Regular rate and rhythm, no edema. ABDOMINAL Soft, ND/NT. No evidence of fluid wave. No pulsatile masses on exam, rebound tenderness, Wu sign or pain over Mcburney's point. MUSCLES/EXTREMITIES No abnormal range of motion, no swelling. SKIN Warm, pink and dry. No rashes, dermatoses, petechiae or lesions. NEUROLOGICAL Speech is clear and appropriate. Normal level of consciousness. Gait and coordination are normal. 5/5 strength in all extremities. PSYCH Normal mood and affect. Judgement/competence is appropriate Results & Data Results & Data Vital Signs (Past 12 Hours) Vital Signs Temp Pulse Pulse Resp BP BP Pulse Ox 08/29/24 09:16 36.6 C 62 18 111/70 146/79 H 93 08/29/24 09:10 08/29/24 08:05 36.6 C 62 18 111/70 93 08/29/24 07:03 87 08/29/24 04:41 36.5 C 88 20 128/82 92 08/29/24 00:12 36.4 C L 81 20 128/72 95 O2 Del Method O2 Flow Rate 08/29/24 09:16 08/29/24 09:10 Room Air 08/29/24 08:05 Room Air 08/29/24 07:03 08/29/24 04:41 Nasal Cannula 2 08/29/24 00:12 Nasal Cannula 2 PG Care Time/CCT Total # of Minutes Spent Total Time Spent with Patient: Total time spent is greater than 50% in coordination of care (as documented) at patient's floor/unit and/or counseling patient: Coding Level of Care Code 59712 SUB INP/OBS CARE 2/35MIN Diagnoses Closed fracture of right hip S72.001A Encounter type: initial encounter A-fib I48.91 (HFpEF) heart failure with preserved ejection fraction I50.30 Severe obstructive sleep apnea G47.33 Age-related osteoporosis with current pathological fracture, right femur, sequela M80.051S (1) Closed fracture of right hip Encounter type: initial encounter Qualified Code(s): S72.001A - Fracture of unspecified part of neck of right femur, initial encounter for closed fracture
== END 2024-08-29 11:10 | DRG 480 ==
LOC: ED 09:51 → EDINP 12:50 → SUATTDRO 12:50 → EDINP 08-17 12:44 → 2W 08-17 19:15 → 2N 08-22 17:15

== ENCOUNTER 2024-12-07 16:36 | Inpatient (IN) ==
--- NOTE | 2024-12-07 16:40 | Emergency Department Note ---
Impression & Plan Complicated urinary tract infection, CHF (congestive heart failure) ED Provider Note NAME: LILLY SUN AGE: 84 SEX: M : 1940 ARRIVES VIA: Ambulance INFORMANT: Patient, nursing report ED PROVIDER(S): Brando Ybarra MD CHIEF COMPLAINT: Blood-tinged urine MEDICAL DECISION MAKING: Patient presents due to concerns for possible UTI. Patient currently does live at [facility]. Patient was noted to be tachypneic and does have a prior history of CHF. IV was established and blood work was obtained. Patient's blood work shows a normal white count mild anemia hemoglobin 12 with a normal platelet count. The patient's kidney function is unremarkable hyponatremia although chronic in nature at 133. The patient's urinalysis does show signs of infection. Patient was ordered IV Levaquin 750 given patient's prior urine cultures. Patient's chest x-ray and exam likely consistent with some volume overload and the patient is up about 7 kg. The patient was ordered IV Lasix 40 mg. Subsequently did speak with the on-call hospitalist Dr. Isabel and the patient was admitted to the medicine service. Discussion w/ other healthcare providers: Dr. Isabel inpatient medicine service Prior /Outside records reviewed: I reviewed part of her recent heart failure visit from December 03, 2024. Known history of right ventricular failure pulmonary hypertension A-fib RVR. Patient is on torsemide 10 mg every other day. Patient was seen by Yasmin lainez. Patient on chronic anticoagulation does have a history of urinary retention. Patient does take Xarelto in addition to metoprolol succinate 50 mg daily. Also on dutasteride 0.5 mg. Differential diagnosis: Catheter problem, catheter irritation, UTI, cystitis, bladder stone, kidney stone, CHF, pneumonia, pneumothorax, bronchitis among others were considered Diagnostics, as interpreted by me: ECG: A-fib, rate of 91, normal QRS, normal axis no ST elevations. Cardiac monitoring: An order was placed for continuous cardiac monitoring. The monitor shows a rate of 102 with tachycardic and irregular irregular rhythm. Patient was placed on pulse oximetry Medical decision rules: None Imaging studies: I informally interpreted the patient's Chest x-ray shows bilateral pleural effusions with formal report to follow. HPI: Patient presents from [facility] due to concern for issues with the urinary catheter. Reportedly had blood-tinged urine. Nursing had noted that the patient seemed to be tachypneic with increased work of breathing with rate in the 30s. The patient denies any shortness of breath. No reported cough. He states that he lives with his in [place]. Patient denies any abdominal pain. The patient is have the catheter for some time. Patient does take chronic Xarelto for known history of A-fib. He denies any fevers or chills. He does state that his may be able to better answer some of my questions. With regard to the blood-tinged urine the nurse reported that the catheter bag seem to be far down on the leg which may have been causing some pulling on the catheter itself possibly causing irritation and bleeding. PAST MEDICAL HISTORY: See Below PAST SURGICAL HISTORY: See Below SOCIAL HISTORY: See Below HOME MEDICATIONS: See Below ALLERGIES: See Below VITALS: See Below PHYSICAL EXAMINATION: GENERAL: Mild distress, wearing glasses. Tachypneic. EYE EXAM: Normal conjunctiva. PERRL, no anisocoria and EOM's grossly intact w/o pain. OROPHARYNX: Moist mucus membranes, grossly normal dentition. NECK: Trachea midline, no stridor. Supple, no nuchal rigidity, no adenopathy, non-tender. No signs of meningismus. FROM of the neck with good chin to chest and neck extension. LUNGS: Bibasilar crackles. Normal chest wall mechanics. HEART: Irregularly irregular and tachycardic, no MRG. ABDOMEN: Abdomen soft, non-tender, no masses, no rebound or guarding. BACK: No CVA TTP. : Circumcised, bilateral testes distended, Elliott catheter in place. No obvious blood in the catheter bag. SKIN: No rashes and no bruising. UPPER EXTREMITIES: Upper extremities are grossly normal. LOWER EXTREMITIES: Grossly normal, trace pretibial edema without calf pain erythema. NEURO EXAM: A&O x3, cranial nerves II-XII grossly intact, normal speech, moves all 4 extremities. 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 chavez, [place] Anticoagulant long-term use Anticoagulant long-term use Severe obstructive sleep apnea Peripheral neuropathy RVF (right ventricular failure) (HFpEF) heart failure with preserved ejection fraction Atrial fibrillation with RVR BPH (benign prostatic hyperplasia) Hypertension Surgical History Hx of cataract extraction RT. S/P cholecystectomy S/P splenectomy Family History Mother Rheumatoid arthritis Denies family history of Ovarian cancer Prostate cancer Myocardial infarction Breast cancer Colorectal cancer Social History Smoking Status: Never smoker Second Hand Exposure: No; Do You Dip or Chew Tobacco: No; Hx Alcohol Use: Yes Alcohol type: wine and hard liquor Alcohol Intake Frequency: 4 or More x per/Week Alcohol Intake Frequency Comment: with dinner Hx Substance Use: No Preferred Language: Dominican Communication Ability: Effective Visual Impairment: No Limitations Hearing Ability: Normal Patient Financial Coordinator Required: No Beliefs That Will Affect Care: None marital status: Current Living Situation: Spouse current occupational status: retired current occupation: former [employer] How many Children do You have: 4 Feels Safe at Home: Yes Childhood Exposure to Second-Hand Smoke: No Diet: regular Diet Comment: regular caffeine: Yes during the past year weight has: remained stable Dental Care, Regularly: No Physical Activity Frequency: 1-2 Times per Week Seatbelt Use: always Sunscreen Use: No Do you think of yourself as: straight/heterosexual Gender Identity: Male Assistive Devices: Other Allergies Allergies Allergy/AdvReac Type Severity Reaction Status Date / Time No Known Allergies Allergy Verified 12/07/24 18:13 Home Meds Home Medications Medication Instructions Recorded Confirmed cholecalciferol (vitamin D3) 25 25 mcg PO QAM 10/20/22 12/07/24 mcg (1,000 unit) capsule acetaminophen 325 mg capsule 650 mg PO Q4H PRN PAIN/FEVER >100F 09/16/23 12/07/24 finasteride 5 mg tablet 5 mg PO HS 12/07/24 12/07/24 melatonin 3 mg tablet 6 mg PO HS 12/07/24 12/07/24 menthol 0.44 %-zinc oxide 20.6 % 1 applic topical TID 12/07/24 12/07/24 topical ointment (Calmoseptine) psyllium husk 3.4 gram/5.4 gram 1 tbsp PO BID 12/07/24 12/07/24 oral powder (Metamucil) rivaroxaban 20 mg tablet (Xarelto) 20 mg PO HS 12/07/24 12/07/24 thiamine HCl (vitamin B1) 100 mg 100 mg PO QAM 12/07/24 12/07/24 tablet torsemide 10 mg tablet 10 mg PO Q OTHER DAY 12/07/24 12/07/24 Previous Rx's Medication Instructions Recorded magnesium oxide 400 mg (241.3 mg 400 mg PO QAM #0 tabs 09/06/23 magnesium) tablet sennosides 8.6 mg tablet (Senokot) 17.2 mg (2 x 8.6 mg) PO QAM #0 tabs 09/06/23 metoprolol succinate 50 mg 50 mg PO QAM #90 tabs 03/06/24 tablet,extended release 24 hr sodium chloride 1,000 mg soluble 1,000 mg PO BID #60 tabs 08/28/24 tablet Results & Data (ED) Vital Signs Vital Signs - 24 hr 12/07/24 16:47 12/07/24 16:56 12/07/24 17:02 Temperature 36.7 C Temperature Source Oral Pulse Rate 100 H 91 H Pulse Rate [Apical] Respiratory Rate 34 H Respiratory Effort / Characteristics Spontaneous Labored Short of Breath Blood Pressure 151/104 H Blood Pressure [Left Arm] Blood Pressure Mean 119 Blood Pressure Mean [Left Arm] Blood Pressure Position Lying Blood Pressure Position [Left Arm] Pulse Oximetry 98 94 Oxygen Delivery Method Room Air Room Air Oxygen Flow Rate Sepsis Recent Fever Within 48 Hours No Sepsis New/Unexplained Change in Mental Status N/A Sepsis Action Taken by Nursing No Action Required Oxygen Flow Rate - Titration Pulse Oximetry Post Tiitration 12/07/24 17:14 12/07/24 18:34 12/07/24 18:37 Temperature Temperature Source Pulse Rate Pulse Rate [Apical] 80 Respiratory Rate 26 H Respiratory Effort / Characteristics Spontaneous Labored Blood Pressure Blood Pressure [Left Arm] 148/112 H Blood Pressure Mean Blood Pressure Mean [Left Arm] 124 Blood Pressure Position Blood Pressure Position [Left Arm] Lying Pulse Oximetry 95 88 L 96 Oxygen Delivery Method Room Air Room Air Nasal Cannula Oxygen Flow Rate 2 Sepsis Recent Fever Within 48 Hours Sepsis New/Unexplained Change in Mental Status Sepsis Action Taken by Nursing Oxygen Flow Rate - Titration 2 Pulse Oximetry Post Tiitration 97 Home Medications Current Medication List: was personally reviewed by me Laboratory Data Attestation: I reviewed the patient's lab results. 12/07/24 16:55 12/07/24 16:55 Lab Results 12/07/24 Range/Units 16:55 WBC 7.14 (4.8-10.8) K/ul RBC 3.74 L (4.70-6.10) M/uL Hgb 12.0 L (14.0-18.0) g/dl Hct 36.3 L (42.0-52.0) % MCV 97.1 (80.0-100.0) fL MCH 32.1 (25.0-34.0) pg MCHC 33.1 (32.0-36.0) g/dL RDW Std Deviation 51.3 H (36.4-46.3) fL RDW Coeff of Jian 14.2 (11.5-14.5) % Plt Count 329 (130-400) K/uL MPV 10.2 (9.4-12.4) fL Immature Gran % (Auto) 0.4 % Neut % (Auto) 70.9 % Lymph % (Auto) 11.6 % Cottle % (Auto) 14.7 % Eos % (Auto) 1.8 % Baso % (Auto) 0.6 % Neut # (Auto) 5.06 (1.40-6.50) K/uL Lymph # (Auto) 0.83 L (1.20-3.40) K/uL Cottle # (Auto) 1.05 H (0.11-0.59) K/uL Eos # (Auto) 0.13 (0.00-0.50) K/uL Baso # (Auto) 0.04 (0.00-0.20) K/uL Immature Gran # (Auto) 0.03 (0.01-0.20) K/uL PT 14.0 H (9.0-12.0) Seconds INR 1.3 H (0.9-1.1) APTT 36 H (21-31) Seconds PTT Ratio 1.3 Sodium 133 L (136-145) mmol/L Potassium 4.5 (3.5-5.1) mmol/L Chloride 90 L (98-107) mmol/L Carbon Dioxide 39 H (21-32) mmol/L Anion Gap 4 (3-11) BUN 10 (6-23) mg/dl Creatinine 0.48 L (0.6-1.4) mg/dl Est Cr Clr Drug Dosing 140.5 ml/min eGFR 101.82 BUN/Creatinine Ratio 20.8 H (10-20) Glucose 94 (70-99(Fasting)) mg/dl Calcium 8.8 (8.6-10.3) mg/dl Total Bilirubin 0.6 (0.2-1.0) mg/dl AST 21 (13-39) U/L ALT 15 (7-52) U/L Alkaline Phosphatase 127 H (34-104) U/L Troponin I High Sens 56.0 H* (0-20) pg/ml B-Natriuretic Peptide 395 H (0-100) pg/ml Total Protein 7.0 (6.0-8.3) gm/dl Albumin 3.5 (3.4-5.0) gm/dl Globulin 3.5 (2.5-4.0) gm/dl Albumin/Globulin Ratio 1.0 (0.9-2) Urine Color Yellow Urine Appearance Cloudy A (Clear) Urine pH 6.0 (4.5-7.5) Ur Specific Logan 1.012 (1.000-1.030) Urine Protein Trace H (Negative) Urine Glucose (UA) Negative (Negative) Urine Ketones Negative (Negative) Urine Blood 2+ H (Negative) Urine Nitrite Positive A (Negative) Urine Bilirubin Negative (Negative) Urine Urobilinogen Negative (Negative) Ur Leukocyte Esterase 3+ H (Negative) Urine WBC (Auto) >50 H (0-5) /hpf Urine RBC (Auto) 11-20 H (0-2) /hpf U Hyaline Cast (Auto) 3-5 H (0-2) /lpf U Epithel Cells (Auto) 0-2 (0-2) /hpf Urine Bacteria (Auto) 4+ H (None Seen) Administered Medications Discontinued Medications Furosemide (Furosemide 40 Mg/4 Ml Vial) 40 mg IV ONE ONE Stop: 12/07/24 18:24 Last Admin: 12/07/24 18:38 Dose: 40 mg Documented By: YUNIK Levofloxacin/Dextrose (Levaquin/D5w) 750 mg in 150 mls @ 100 mls/hr IV NOW STA Stop: 12/07/24 19:52 Last Admin: 12/07/24 18:40 Dose: 100 mls/hr Documented By: YUNIK Imaging Data Radiologist's Impression: Chest X-Ray 12/07/24 17:06 EXAM: XR chest 1V portable CLINICAL HISTORY: Dyspnea. TECHNIQUE: An X-ray image of the chest is obtained in PA projection. COMPARISON: 08/26/2024 CR. FINDINGS: Pulmonary Parenchyma: Left lung volume loss with possible left lower lung zone atelctatic changes. Suggestion of left hilar opacity. Exaggerated bronchovascular markings, with possible right lower lung zone linear atelctatic strand, also linear opacity seen at the left lower lung zone, suggesting atelctatic bands. Apical and right upper lateral pleural thickening. Blunting of both costophrenic angles sugegsting underlying effusions. Heart and Mediastinum: Possible cardiomegaly. Bony Thorax: Bony thorax appears unremarkable. Soft Tissues: Soft tissues overlying the chest wall are unremarkable. IMPRESSION: 1. Decreased left lung volume, with possible left lower lung atelectatic changes. 2. Suggestion of left hilar opacity. 3. Blunting of both costophrenic angles suggests mild pleural effusions. 4. Prominent broncho vascular markings with linear atelectatic bands, right apical and lateral pleural thickening. 5. Clinical correlation and further CT study is suggested if warranted clinically. 6. No gross interval changes. Electronically signed by Stepan Hurtado 12-07-2024 6:34 PM Discharge Plan Visit Data Chief Complaint: Urinary Symptoms ED Provider: Brando Ybarra Discharge Problem: Complicated urinary tract infection, CHF (congestive heart failure) Forms Stand Alone Forms: [facility] Prescriptions Prescriptions: No Action metoprolol succinate 50 mg tablet extended release 24 hr 50 mg PO QAM Qty: 90 3RF acetaminophen 325 mg capsule 650 mg PO Q4H PRN (Reason: PAIN/FEVER >100F) cholecalciferol (vitamin D3) 25 mcg (1,000 unit) capsule 25 mcg PO QAM magnesium oxide 400 mg (241.3 mg magnesium) Tablet 400 mg PO QAM Qty: 0 0RF sennosides [Senokot] 8.6 mg Tablet 17.2 mg PO QAM Qty: 0 0RF sodium chloride 1,000 mg Tablet,Soluble 1,000 mg PO BID Qty: 60 0RF melatonin 3 mg Tablet 6 mg PO HS finasteride 5 mg tablet 5 mg PO HS menthol-zinc oxide [Calmoseptine] 0.44-20.6 % Ointment 1 applic TOPICAL TID Metamucil 3.4 gram/5.4 gram Powder 1 tbsp PO BID Rx Instructions: mix into at least 8 oz of water or juice before administering thiamine HCl (vitamin B1) 100 mg tablet 100 mg PO QAM torsemide 10 mg tablet 10 mg PO Q OTHER DAY Xarelto 20 mg tablet 20 mg PO HS Referrals Referrals: Butch Martin [Primary Care Provider] - Discharge Problem: CHF (congestive heart failure) Qualifiers: Heart failure type: unspecified Heart failure chronicity: acute on chronic Q ualified Code(s): I50.9 - Heart failure, unspecified
[2024-12-07 17:29] LABS: Basophils # (auto) 0.04 K/uL (0.00-0.20); Basophils % (auto) 0.6 %; Eosinophils # (auto) 0.13 K/uL (0.00-0.50); Eosinophils % (auto) 1.8 %; Hematocrit (blood only) 36.3 % (42.0-52.0); Immature Granulocytes # (auto) 0.03 K/uL (0.01-0.20); Immature Granulocytes % (auto) 0.4 %; Lymphocytes # (auto) 0.83 K/uL (1.20-3.40); Lymphocytes % (auto) 11.6 %; Mean Corpuscular Hemoglobin 32.1 pg (25.0-34.0); Mean Corpuscular Hgb Conc 33.1 g/dL (32.0-36.0); Mean Corpuscular Volume 97.1 fL (80.0-100.0); Mean Platelet Volume 10.2 fL (9.4-12.4); Monocytes # (auto) 1.05 K/uL (0.11-0.59); Monocytes % (auto) 14.7 %; Neutrophils # (auto) 5.06 K/uL (1.40-6.50); Neutrophils % (auto) 70.9 %; Platelet Count 329 K/uL (130-400); RDW Coefficient of Variation 14.2 % (11.5-14.5); RDW Standard Deviation 51.3 fL (36.4-46.3); Red Blood Count 3.74 M/uL (4.70-6.10); White Blood Count 7.14 K/ul (4.8-10.8)
[2024-12-07 17:31] LABS: Appearance Urine Cloudy (Clear); Bacteria Urine Automated 4+ (None Seen); Bilirubin Urine Negative (Negative); Blood Urine 2+ (Negative); Color Urine Yellow; Epithelial Cell Urine Auto 0-2 /hpf (0-2); Glucose Urine UA Negative (Negative); Ketones Urine Negative (Negative); Leukocyte Esterase Urine 3+ (Negative); Nitrite Urine Positive (Negative); Protein Urine Trace (Negative); Specific Gravity Urine 1.012 (1.000-1.030); Urobilinogen Urine Negative (Negative); WBC Urine Automated >50 /hpf (0-5)
[2024-12-07 17:47] LABS: Albumin Level 3.5 gm/dl (3.4-5.0); BUN Creatinine Ratio 20.8 (10-20); Bilirubin,Total 0.6 mg/dl (0.2-1.0); Calcium 8.8 mg/dl (8.6-10.3); Creatinine Clr Calc Pharmacy 140.5 ml/min; Globulin 3.5 gm/dl (2.5-4.0); Potassium 4.5 mmol/L (3.5-5.1)
[2024-12-07 18:00] LABS: INR 1.3 (0.9-1.1); Partial Thromboplastin Ratio 1.3; Partial Thromboplastin Time 36 Seconds (21-31)
--- NOTE | 2024-12-07 18:35 | XRay Report ---
EXAM: XR chest 1V portable CLINICAL HISTORY: Dyspnea. TECHNIQUE: An X-ray image of the chest is obtained in PA projection. COMPARISON: 08/26/2024 CR. FINDINGS: Pulmonary Parenchyma: Left lung volume loss with possible left lower lung zone atelctatic changes. Suggestion of left hilar opacity. Exaggerated bronchovascular markings, with possible right lower lung zone linear atelctatic strand, also linear opacity seen at the left lower lung zone, suggesting atelctatic bands. Apical and right upper lateral pleural thickening. Blunting of both costophrenic angles sugegsting underlying effusions. Heart and Mediastinum: Possible cardiomegaly. Bony Thorax: Bony thorax appears unremarkable. Soft Tissues: Soft tissues overlying the chest wall are unremarkable. IMPRESSION: 1. Decreased left lung volume, with possible left lower lung atelectatic changes. 2. Suggestion of left hilar opacity. 3. Blunting of both costophrenic angles suggests mild pleural effusions. 4. Prominent broncho vascular markings with linear atelectatic bands, right apical and lateral pleural thickening. 5. Clinical correlation and further CT study is suggested if warranted clinically. 6. No gross interval changes. Electronically signed by Stepan Hurtado 12-07-2024 6:34 PM
[2024-12-07] MEDS: FUROSEMIDE 40 MG/4 ML VIAL IV ONE (18:38)
[2024-12-07] MEDS: levoFLOXacin/D5W 750 MG/150 ML BAG IV STA (18:40)
--- NOTE | 2024-12-07 19:42 | History & Physical Report ---
Date of Service December 07, 2024 Assessment & Plan (1) Complicated urinary tract infection: (2) CHF (congestive heart failure): (3) Atrial fibrillation, permanent: (4) BPH (benign prostatic hyperplasia): Plan 84yo male with history of AF on Xarelto anticoagulation, HFpEF, BPH, HTN, c hronic Elliott catheter presenting with hematuria and penile discharge. Concern for UTI. Patient is afebrile, HD stable, non-toxic in appearance. Has history of Enterococcus and E.col in the past #Complicated UTI - patient with Elliott in place. UA suggestive of UTI. -Admit to medical -Follow urine culture sent from ER -Vancomycin and Ceftriaxone for now based on prior cultures -Exchange Elliott catheter #CHF - patient denies edema, orthopnea or SOB. He is tachypneic on exam with some mild hypoxia at 88% on room air. Now on 2L/min with adequate oxygenation. Patient on Torsemide every other day. Was given Lasix 40mg IV in the ER -Torsemide 10mg po daily while admitted -Monitor I/Os, daily weights -Chemistry in AM #Atrial Fibrillation -Rate controlled - continue Metoprolol 50mg po qAM -Continue Xarelto #BPH -Continue Finasteride #RLQ tenderness and firmness -Check CT abdomen History of Present Illness Chief Complaint: hematuria, UTI Primary Care Provider: Butch Martin Tay Quiroz is an 84yo male with history of AF on Xarelto anticoagulation, HTN, HFpEF, chronic Elliott catheter presenting from [facility] with concern for UTI. Patient had some blood noted in his underwear and had some discharge from his penis. He contacted his Urology team and was instructed to come to the ER. Patient with no further complaints - denies fever, chills, abdominal pain, nausea, vomiting ,diarrhea, constipation, suprapubic pain or flank pain. Denies chest pain, cough, SOB, edema or weight gain. In the ER patient is afebrile, HD stable. ER Course: Lasix 40mg IV Levaquin 750mg IV Allergies Allergy/AdvReac Type Severity Reaction Status Date / Time No Known Allergies Allergy Verified 12/07/24 18:13 Home Medications Medication Instructions Recorded Confirmed Type cholecalciferol (vitamin D3) 25 25 mcg PO QAM 10/20/22 12/07/24 History mcg (1,000 unit) capsule magnesium oxide 400 mg (241.3 mg 400 mg PO QAM #0 tabs 09/06/23 12/07/24 Rx magnesium) tablet sennosides 8.6 mg tablet (Senokot) 17.2 mg (2 x 8.6 mg) PO QAM #0 tabs 09/06/23 12/07/24 Rx acetaminophen 325 mg capsule 650 mg PO Q4H PRN PAIN/FEVER >100F 09/16/23 12/07/24 History metoprolol succinate 50 mg 50 mg PO QAM #90 tabs 03/06/24 12/07/24 Rx tablet,extended release 24 hr sodium chloride 1,000 mg soluble 1,000 mg PO BID #60 tabs 08/28/24 12/07/24 Rx tablet finasteride 5 mg tablet 5 mg PO HS 12/07/24 12/07/24 History melatonin 3 mg tablet 6 mg PO HS 12/07/24 12/07/24 History menthol 0.44 %-zinc oxide 20.6 % 1 applic topical TID 12/07/24 12/07/24 History topical ointment (Calmoseptine) psyllium husk 3.4 gram/5.4 gram 1 tbsp PO BID 12/07/24 12/07/24 History oral powder (Metamucil) rivaroxaban 20 mg tablet (Xarelto) 20 mg PO HS 12/07/24 12/07/24 History thiamine HCl (vitamin B1) 100 mg 100 mg PO QAM 12/07/24 12/07/24 History tablet torsemide 10 mg tablet 10 mg PO Q OTHER DAY 12/07/24 12/07/24 History Past Med/Surg History Problem List CHF (congestive heart failure) (Acute) Complicated urinary tract infection (Acute) Hyponatremia Nocturnal hypoxemia Fracture, intertrochanteric, right femur Urinary retention Mouth breathing Dysphagia Apnea Pulmonary HTN Esophagitis Excessive sleepiness Catheter-associated urinary tract infection Chronic indwelling Elliott catheter Erectile dysfunction Insomnia Vitamin B12 deficiency Hypomagnesemia Dysplastic nevi (Acute) Actinic keratosis (Acute) Urinary retention due to benign prostatic hyperplasia Cough 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 left ear bilateral hearing aids Right knee DJD Medical History Age-related osteoporosis with current pathological fracture, right femur, sequela Person under investigation for COVID-19 Hyperkalemia Atrial fibrillation, permanent Exposure to COVID-19 virus A-fib Closed fracture of right hip Fall Encounter for pre-operative examination Atrial fibrillation f/u dr. chavez, samson Anticoagulant long-term use Anticoagulant long-term use Severe obstructive sleep apnea Peripheral neuropathy RVF (right ventricular failure) (HFpEF) heart failure with preserved ejection fraction Atrial fibrillation with RVR BPH (benign prostatic hyperplasia) Hypertension Surgical History Hx of cataract extraction RT. S/P cholecystectomy S/P splenectomy Family History Mother Rheumatoid arthritis Denies family history of Ovarian cancer Prostate cancer Myocardial infarction Breast cancer Colorectal cancer Social History Smoking Status: Never smoker Second Hand Exposure: No; Do You Dip or Chew Tobacco: No; Hx Alcohol Use: Yes Alcohol type: wine and hard liquor Alcohol Intake Frequency: 4 or More x per/Week Alcohol Intake Frequency Comment: with dinner Hx Substance Use: No Preferred Language: Finnish Communication Ability: Effective Visual Impairment: No Limitations Hearing Ability: Normal Sill Worker Required: No Beliefs That Will Affect Care: None marital status: Current Living Situation: Spouse current occupational status: retired 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 How many Children do You have: 4 Feels Safe at Home: Yes Childhood Exposure to Second-Hand Smoke: No Diet: regular Diet Comment: regular caffeine: Yes during the past year weight has: remained stable Dental Care, Regularly: No Physical Activity Frequency: 1-2 Times per Week Seatbelt Use: always Sunscreen Use: No Do you think of yourself as: straight/heterosexual Gender Identity: Male Assistive Devices: Other Review of Systems Review of Systems: All systems reviewed & are unremarkable except as noted in HPI & below Physical Exam Physical Exam: General: patient resting comfortably, NAD, non-toxic in appearance, AA&O x 4, NC in place 2L Skin: warm, dry, intact, no rashes or lesions HEENT: NC/AT, PERRL, EOMI, anicteric sclera, conjunctiva without injection, external ear normal to inspection and nontender, nares patent, moist mucus membranes, poor dentition, dry lips, no oropharyngeal lesions, neck supple, trachea midline, no LAD, no thyromegaly, no JVD Heart: +S1/S2, irregularly irregular, no m/r/g Lungs: equal air entry bilaterally, no rales/rhonchi/wheezes Abd: +BS, soft, NT/ND, area of firmness in RLQ, mildly tender to palpation Ext: warm, 2+ pulses in UE/LE bilaterally, no clubbing/cyanosis or edema Neuro: nonfocal, patient AA&O x 4, speech intact, no facial droop, moving all extremities on command with equal strength 5/5 Results & Data Results & Data Vital Signs (Past 12 Hours) Vital Signs Temp Pulse Pulse Resp BP BP Pulse Ox 12/07/24 18:37 80 26 H 148/112 H 96 12/07/24 18:34 88 L 12/07/24 17:14 95 12/07/24 17:02 91 H 12/07/24 16:56 94 12/07/24 16:47 36.7 C 100 H 34 H 151/104 H 98 O2 Del Method O2 Flow Rate 12/07/24 18:37 Nasal Cannula 2 12/07/24 18:34 Room Air 12/07/24 17:14 Room Air 12/07/24 17:02 12/07/24 16:56 Room Air 12/07/24 16:47 Room Air Laboratory Results Laboratory Results WBC 7.14 K/ul (4.8-10.8) 12/07/24 16:55 RBC 3.74 M/uL (4.70-6.10) L 12/07/24 16:55 Hgb 12.0 g/dl (14.0-18.0) L 12/07/24 16:55 Hct 36.3 % (42.0-52.0) L 12/07/24 16:55 MCV 97.1 fL (80.0-100.0) 12/07/24 16:55 MCH 32.1 pg (25.0-34.0) 12/07/24 16:55 MCHC 33.1 g/dL (32.0-36.0) 12/07/24 16:55 RDW Std Deviation 51.3 fL (36.4-46.3) H 12/07/24 16:55 RDW Coeff of Jian 14.2 % (11.5-14.5) 12/07/24 16:55 Plt Count 329 K/uL (130-400) 12/07/24 16:55 MPV 10.2 fL (9.4-12.4) 12/07/24 16:55 Immature Gran % (Auto) 0.4 % 12/07/24 16:55 Neut % (Auto) 70.9 % 12/07/24 16:55 Lymph % (Auto) 11.6 % 12/07/24 16:55 [place] % (Auto) 14.7 % 12/07/24 16:55 Eos % (Auto) 1.8 % 12/07/24 16:55 Baso % (Auto) 0.6 % 12/07/24 16:55 Neut # (Auto) 5.06 K/uL (1.40-6.50) 12/07/24 16:55 Lymph # (Auto) 0.83 K/uL (1.20-3.40) L 12/07/24 16:55 [place] # (Auto) 1.05 K/uL (0.11-0.59) H 12/07/24 16:55 Eos # (Auto) 0.13 K/uL (0.00-0.50) 12/07/24 16:55 Baso # (Auto) 0.04 K/uL (0.00-0.20) 12/07/24 16:55 Immature Gran # (Auto) 0.03 K/uL (0.01-0.20) 12/07/24 16:55 PT 14.0 Seconds (9.0-12.0) H 12/07/24 16:55 INR 1.3 (0.9-1.1) H 12/07/24 16:55 APTT 36 Seconds (21-31) H 12/07/24 16:55 PTT Ratio 1.3 12/07/24 16:55 Sodium 133 mmol/L (136-145) L 12/07/24 16:55 Potassium 4.5 mmol/L (3.5-5.1) 12/07/24 16:55 Chloride 90 mmol/L (98-107) L 12/07/24 16:55 Carbon Dioxide 39 mmol/L (21-32) H 12/07/24 16:55 Anion Gap 4 (3-11) 12/07/24 16:55 BUN 10 mg/dl (6-23) 12/07/24 16:55 Creatinine 0.48 mg/dl (0.6-1.4) L 12/07/24 16:55 Est Cr Clr Drug Dosing 140.5 ml/min 12/07/24 16:55 eGFR 101.82 12/07/24 16:55 BUN/Creatinine Ratio 20.8 (10-20) H 12/07/24 16:55 Glucose 94 mg/dl (70-99(Fasting)) 12/07/24 16:55 Calcium 8.8 mg/dl (8.6-10.3) 12/07/24 16:55 Total Bilirubin 0.6 mg/dl (0.2-1.0) 12/07/24 16:55 AST 21 U/L (13-39) 12/07/24 16:55 ALT 15 U/L (7-52) 12/07/24 16:55 Alkaline Phosphatase 127 U/L (34-104) H 12/07/24 16:55 Troponin I High Sens 52.7 pg/ml (0-20) H* 12/07/24 20:08 B-Natriuretic Peptide 395 pg/ml (0-100) H 12/07/24 16:55 Total Protein 7.0 gm/dl (6.0-8.3) 12/07/24 16:55 Albumin 3.5 gm/dl (3.4-5.0) 12/07/24 16:55 Globulin 3.5 gm/dl (2.5-4.0) 12/07/24 16:55 Albumin/Globulin Ratio 1.0 (0.9-2) 12/07/24 16:55 Urine Color Yellow 12/07/24 16:55 Urine Appearance Cloudy (Clear) A 12/07/24 16:55 Urine pH 6.0 (4.5-7.5) 12/07/24 16:55 Ur Specific [place] 1.012 (1.000-1.030) 12/07/24 16:55 Urine Protein Trace (Negative) H 12/07/24 16:55 Urine Glucose (UA) Negative (Negative) 12/07/24 16:55 Urine Ketones Negative (Negative) 12/07/24 16:55 Urine Blood 2+ (Negative) H 12/07/24 16:55 Urine Nitrite Positive (Negative) A 12/07/24 16:55 Urine Bilirubin Negative (Negative) 12/07/24 16:55 Urine Urobilinogen Negative (Negative) 12/07/24 16:55 Ur Leukocyte Esterase 3+ (Negative) H 12/07/24 16:55 Urine WBC (Auto) >50 /hpf (0-5) H 12/07/24 16:55 Urine RBC (Auto) 11-20 /hpf (0-2) H 12/07/24 16:55 U Hyaline Cast (Auto) 3-5 /lpf (0-2) H 12/07/24 16:55 U Epithel Cells (Auto) 0-2 /hpf (0-2) 12/07/24 16:55 Urine Bacteria (Auto) 4+ (None Seen) H 12/07/24 16:55 Impressions Chest X-Ray 12/07/24 17:06 EXAM: XR chest 1V portable CLINICAL HISTORY: Dyspnea. TECHNIQUE: An X-ray image of the chest is obtained in PA projection. COMPARISON: 08/26/2024 CR. FINDINGS: Pulmonary Parenchyma: Left lung volume loss with possible left lower lung zone atelctatic changes. Suggestion of left hilar opacity. Exaggerated bronchovascular markings, with possible right lower lung zone linear atelctatic strand, also linear opacity seen at the left lower lung zone, suggesting atelctatic bands. Apical and right upper lateral pleural thickening. Blunting of both costophrenic angles sugegsting underlying effusions. Heart and Mediastinum: Possible cardiomegaly. Bony Thorax: Bony thorax appears unremarkable. Soft Tissues: Soft tissues overlying the chest wall are unremarkable. IMPRESSION: 1. Decreased left lung volume, with possible left lower lung atelectatic changes. 2. Suggestion of left hilar opacity. 3. Blunting of both costophrenic angles suggests mild pleural effusions. 4. Prominent broncho vascular markings with linear atelectatic bands, right apical and lateral pleural thickening. 5. Clinical correlation and further CT study is suggested if warranted clinically. 6. No gross interval changes. Electronically signed by Stepan Hurtado 12-07-2024 6:34 PM Code Status & VTE Plan VTE Prophylaxis Plan VTE Prophylaxis will be ordered: Yes PG Care Time/CCT Total # of Minutes Spent Total Time Spent with Patient: Total time spent is greater than 50% in coordination of care (as documented) at patient's floor/unit and/or counseling patient: Coding Level of Care Code 44479 INT INP/OBS CARE 3/75MIN Diagnoses Complicated urinary tract infection N39.0 CHF (congestive heart failure) I50.9 Heart failure chronicity: acute on chronic Heart failure type: unspecified Atrial fibrillation, permanent I48.21 BPH (benign prostatic hyperplasia) N40.0 (2) CHF (congestive heart failure) Heart failure chronicity: acute on chronic Heart failure type: unspecified Qualified Code(s): I50.9 - Heart failure, unspecified
[2024-12-07] MEDS ORDERED: ACETAMINOPHEN 325 MG TAB PO PRN (21:55)
[2024-12-07] MEDS ORDERED: ONDANSETRON INJ 2 MG/ML 2 ML VIAL IV PRN (21:55)
[2024-12-07] MEDS ORDERED: VANCOMYCIN CONSULT ACTIVE PRN (21:55)
[2024-12-07] MEDS: cefTRIAXone SODIUM 2,000 MG/50 ML BAG IV SCH (22:28)
[2024-12-07] MEDS: FINASTERIDE 5 MG TAB PO SCH (22:45)
[2024-12-07] MEDS: MELATONIN 3 MG TAB PO SCH (22:45)
[2024-12-07] MEDS: SODIUM CHLORIDE 1 GM TABLET PO SCH (22:46)
[2024-12-07] MEDS: RIVAROXABAN 20 MG TAB PO SCH (22:46)
[2024-12-07] MEDS: VANCOMYCIN HCL 1,750 MG in SODIUM CHLORIDE 0.9% 500 ML IV STA (23:20)
--- NOTE | 2024-12-08 00:16 | CT Scan Report ---
Exam(s): CT ABDOMEN + PELVIS Without Contrast EXAM: CT Abdomen and Pelvis Without Intravenous Contrast CLINICAL HISTORY: Right lower quadrant Pain. TECHNIQUE: Axial computed tomography images of the abdomen and pelvis without intravenous contrast. CTDI is 26.07 mGy and DLP is 1272.17 mGy-cm. Automated exposure control was utilized for the study. A dose lowering technique was utilized adhering to the principles of ALARA. COMPARISON: CT abdomen and pelvis 08/30/2023 FINDINGS: Lung bases: Unremarkable. No mass. No consolidation. Pleural space: Small right pleural effusion. Heart: Cardiomegaly. ABDOMEN: Liver: Unremarkable. Gallbladder and bile ducts: Cholecystectomy. No ductal dilation. Pancreas: Unremarkable. No ductal dilation. Spleen: Unremarkable. No splenomegaly. Adrenals: Unremarkable. No mass. Kidneys and ureters: Unremarkable. Nonobstructing stones. No hydronephrosis. Stomach and bowel: Significant stool in the rectal vault is concerning for impaction. There is thickening of the rectal wall with surrounding fluid. Significant stool throughout the colon is concerning for constipation. Fecalization of the small bowel is noted without obstruction. Diverticulosis. PELVIS: Appendix: No findings to suggest acute appendicitis. Bladder: Unremarkable. No stones. Reproductive: Unremarkable as visualized. ABDOMEN and PELVIS: Intraperitoneal space: Unremarkable. No free air. No significant fluid collection. Bones/joints: No acute fracture. No dislocation. Soft tissues: Nonspecific body wall edema. Vasculature: Mild atherosclerosis. No abdominal aortic aneurysm. Lymph nodes: Unremarkable. No enlarged lymph nodes. IMPRESSION: 1. Significant stool in the rectal vault is concerning for impaction. There is thickening of the rectal wall with surrounding fluid. This could represent nonspecific proctitis, including stercoral colitis. 2. Significant stool throughout the colon is concerning for constipation. 3. Fecalization of the small bowel is noted without obstruction. This could relate to slow transit or bacterial overgrowth. 4. Diverticulosis. 5. Nonspecific body wall edema. 6. Cardiomegaly. 7. Small right pleural effusion. Electronically signed by: Callie Tran MD 12/08/24 00:16 AM
[2024-12-08 04:25] LABS: Hematocrit (blood only) 34.3 % (42.0-52.0); Hemoglobin 11.2 g/dl (14.0-18.0); Mean Corpuscular Hemoglobin 31.5 pg (25.0-34.0); Mean Corpuscular Hgb Conc 32.7 g/dL (32.0-36.0); Mean Corpuscular Volume 96.3 fL (80.0-100.0); Mean Platelet Volume 9.5 fL (9.4-12.4); Platelet Count 328 K/uL (130-400); RDW Standard Deviation 49.4 fL (36.4-46.3); Red Blood Count 3.56 M/uL (4.70-6.10)
[2024-12-08 04:44] LABS: Calcium 8.5 mg/dl (8.6-10.3); Creatinine Clr Calc Pharmacy 127.2 ml/min; Potassium 4.4 mmol/L (3.5-5.1)
[2024-12-08] MEDS ORDERED: SENNA 8.6 MG TAB PO SCH (09:00)
[2024-12-08] MEDS: METOPROLOL SUCC 50MG EXT REL TAB PO SCH (09:14)
[2024-12-08] MEDS: DOCUSATE SODIUM/SENNA 50/8.6MG TAB PO SCH (09:14)
[2024-12-08] MEDS: TORSEMIDE 10 MG TAB PO SCH (09:14)
[2024-12-08] MEDS: SENNA 8.6 MG TAB PO SCH (09:15)
[2024-12-08] MEDS: bisacodyL 10 MG SUPP PR SCH (09:15)
[2024-12-08] MEDS: THIAMINE HCL 100 MG TAB PO SCH (09:15)
[2024-12-08] MEDS: POLYETHYLENE (MIRALAX) 17 GM PACK PO SCH (09:15)
[2024-12-08] MEDS: VANCOMYCIN HCL 1,000 MG/270 ML BAG IV SCH (09:21)
--- NOTE | 2024-12-08 11:10 | Hospitalist Progress Note ---
Date of Service December 08, 2024 Assessment & Plan (1) Complicated urinary tract infection: (2) Constipation: (3) CHF (congestive heart failure): (4) Atrial fibrillation, permanent: (5) BPH (benign prostatic hyperplasia): Plan 84yo male with history of AF on Xarelto anticoagulation, HFpEF, BPH, HTN, chronic Elliott catheter. He presented with hematuria and penile discharge. Concern for UTI. Has history of Enterococcus and E.col in the past. On admission, patient was tachypneic on exam with some mild hypoxia at 88% on room air - denied SOB, orthopnea, increased edema. Now on 2L/min with adequate oxygenation. BNP elevated at 395 on admission. Troponin peaked at 63.2 then down trended, likely secondary to demand ischemia in setting of acute infection and mild hypoxia. #Complicated UTI - patient with Elliott in place. UA suggestive of UTI. -Prelim urine culture growing Klebsiella oxytoca, Kendrick ornith - sensitivities pending -Vancomycin and Ceftriaxone for now based on prior cultures -Exchange Elliott catheter #Constipation / Impaction / ?Stercoral colitis CT A/P noted significant stool in the rectal vault concerning for impaction, thickening of rectal wall with surrounding fluid could represent nonspecific proctitis or stercoral colitis, significant stool throughout colon concerning for constipation Provide Dulcolax suppository and Fleet enema now Continue scheduled bowel regimen #CHF exacerbation / Hypoxia Torsemide 10mg p.o. daily while admitted Hypercapnic on AM labs with CO2 41 Supplemental O2 to maintain O2 sat >90% Monitor I/Os, daily weights #Atrial Fibrillation Continue Metoprolol 50mg po qAM, Xarelto 20 mg po HS #BPH Continue Finasteride Dispo: Continued inpatient stay while awaiting urine culture results and treating constipation. PT/OT consulted Updated at bedside Ordered fleet enema Consulted PT/OT Admission and Anticipated Discharge Date Admission Date: December 07, 2024 Subjective Patient seen and evaluated at bedside with his present. He reports "feeling good - quite healthy actually!" He denies urinary complaints, abdominal pain, palpitations, chest pain, or shortness of breath. We discussed his treatment plan. Explained the need for suppository and enema, he is agreeable. reports Shara was debating starting him on supplemental O2, but wanted medical evaluation prior. She also reports constipation has been an ongoing problem. No additional complaints or concerns at this time. Physical Exam Physical Exam: General: No acute distress, nondiaphoretic. Frail elderly male. Cardiac: Irregularly irregular, tachycardic rate in 90s. No murmur appreciated. 1+ pitting edema in RLE, trace edema in LLE. Pulm: Diminished at bases but otherwise clear to auscultation bilaterally without wheezes, rales or rhonchi. Normal respiratory effort, RR 20. 90% on 2 L NC. Abdominal: Soft, nontender, nondistended. Bowel sounds present. Neuro: A&O x3. No focal neurological deficits. Results & Data Results & Data Vital Signs (Past 12 Hours) Vital Signs Pulse Pulse Resp BP BP Pulse Ox O2 Del Method 12/08/24 10:12 109 H 14 88 L 12/08/24 10:02 126/92 12/08/24 10:02 126/92 12/08/24 10:00 120 H 20 89 L 12/08/24 09:51 110 H 28 H 85 L 12/08/24 09:42 119 H 34 H 89 L 12/08/24 09:36 111 H 25 H 89 L 12/08/24 09:21 103 H 27 H 90 12/08/24 09:12 99 H 18 95 12/08/24 09:00 90 30 H 96 12/08/24 09:00 130/83 12/08/24 09:00 130/83 12/08/24 09:00 130/83 12/08/24 09:00 130/83 12/08/24 08:51 22 96 12/08/24 08:42 91 H 15 96 12/08/24 08:30 102 H 24 95 12/08/24 08:21 104 H 25 H 96 12/08/24 08:12 84 17 95 12/08/24 08:00 142/95 H 12/08/24 07:57 13 96 12/08/24 07:39 36 H 95 12/08/24 07:21 111 H 34 H 94 12/08/24 07:19 123 H 12/08/24 07:11 95 Nasal Cannula 12/08/24 06:57 96 H 23 94 12/08/24 06:56 130/94 12/08/24 06:56 130/94 12/08/24 06:54 109 H 29 H 95 12/08/24 06:51 99 H 28 H 95 12/08/24 06:48 108 H 18 96 12/08/24 06:30 98 H 19 96 12/08/24 06:12 106 H 21 96 12/08/24 06:02 140/89 12/08/24 06:02 140/89 12/08/24 06:00 113 H 19 96 12/08/24 05:51 93 H 25 H 96 12/08/24 05:42 91 H 22 96 12/08/24 05:39 87 21 96 12/08/24 05:22 97 H 16 127/99 98 Nasal Cannula 12/08/24 05:21 105 H 21 96 12/08/24 05:20 127/99 12/08/24 05:20 127/99 12/08/24 05:18 87 31 H 96 12/08/24 05:12 102 H 19 96 12/08/24 05:03 103 H 26 H 96 12/08/24 05:00 167/135 H 12/08/24 04:39 87 23 96 12/08/24 04:30 144/113 H 12/08/24 04:30 144/113 H 12/08/24 04:30 144/113 H 12/08/24 04:27 98 H 18 96 12/08/24 04:24 89 41 H 96 12/08/24 04:18 93 H 22 97 12/08/24 04:00 141/77 H 12/08/24 03:33 107 H 26 H 91 12/08/24 03:31 120/96 12/08/24 03:31 120/96 12/08/24 03:31 120/96 12/08/24 03:31 120/96 12/08/24 03:30 113 H 20 91 12/08/24 03:27 106 H 26 H 90 12/08/24 03:00 117 H 24 96 12/08/24 02:51 105 H 26 H 96 12/08/24 02:42 105 H 22 96 12/08/24 02:36 97 H 26 H 96 12/08/24 02:30 145/100 H 12/08/24 02:30 145/100 H 12/08/24 02:06 110 H 24 96 12/08/24 02:01 113/75 12/08/24 02:01 113/75 12/08/24 01:45 100 H 38 H 95 12/08/24 01:32 139/81 12/08/24 01:30 96 H 38 H 95 12/08/24 01:27 106 H 27 H 95 12/08/24 01:12 108 H 19 93 12/08/24 01:10 92 H 22 127/101 H 96 Nasal Cannula 12/08/24 01:09 106 H 23 90 O2 Flow Rate 12/08/24 10:12 12/08/24 10:02 12/08/24 10:02 12/08/24 10:00 12/08/24 09:51 12/08/24 09:42 12/08/24 09:36 12/08/24 09:21 12/08/24 09:12 12/08/24 09:00 12/08/24 09:00 12/08/24 09:00 12/08/24 09:00 12/08/24 09:00 12/08/24 08:51 12/08/24 08:42 12/08/24 08:30 12/08/24 08:21 12/08/24 08:12 12/08/24 08:00 12/08/24 07:57 12/08/24 07:39 12/08/24 07:21 12/08/24 07:19 12/08/24 07:11 2 12/08/24 06:57 12/08/24 06:56 12/08/24 06:56 12/08/24 06:54 12/08/24 06:51 12/08/24 06:48 12/08/24 06:30 12/08/24 06:12 12/08/24 06:02 12/08/24 06:02 12/08/24 06:00 12/08/24 05:51 12/08/24 05:42 12/08/24 05:39 12/08/24 05:22 2 12/08/24 05:21 12/08/24 05:20 12/08/24 05:20 12/08/24 05:18 12/08/24 05:12 12/08/24 05:03 12/08/24 05:00 12/08/24 04:39 12/08/24 04:30 12/08/24 04:30 12/08/24 04:30 12/08/24 04:27 12/08/24 04:24 12/08/24 04:18 12/08/24 04:00 12/08/24 03:33 12/08/24 03:31 12/08/24 03:31 12/08/24 03:31 12/08/24 03:31 12/08/24 03:30 12/08/24 03:27 12/08/24 03:00 12/08/24 02:51 12/08/24 02:42 12/08/24 02:36 12/08/24 02:30 12/08/24 02:30 12/08/24 02:06 12/08/24 02:01 12/08/24 02:01 12/08/24 01:45 12/08/24 01:32 12/08/24 01:30 12/08/24 01:27 12/08/24 01:12 12/08/24 01:10 2 12/08/24 01:09 Laboratory Results Reviewed CBC with differential Reviewed BMP/chemistries Reviewed UA Reviewed urine culture Diagnostic Findings Reviewed CXR Reviewed CT A/P PG Care Time/CCT Total # of Minutes Spent Total Time Spent with Patient: Total time spent is greater than 50% in coordination of care (as documented) at patient's floor/unit and/or counseling patient: Coding Level of Care Code 27409 SUB INP/OBS CARE 3/50MIN Diagnoses Complicated urinary tract infection N39.0 Constipation K59.00 CHF (congestive heart failure) I50.9 Heart failure chronicity: acute on chronic Heart failure type: unspecified Atrial fibrillation, permanent I48.21 BPH (benign prostatic hyperplasia) N40.0 (3) CHF (congestive heart failure) Heart failure chronicity: acute on chronic Heart failure type: unspecified Qualified Code(s): I50.9 - Heart failure, unspecified
[2024-12-08] MEDS: SOD PHOSPHATE/SOD BIPHOSPHATE ENEMA 132 ML BTL PR STA ×2 (11:41→12:36)
--- NOTE | 2024-12-08 12:17 | Pharmacy Report ---
Pharmacy PK ABX Note - Date of Service December 08, 2024 - Assessment and Plan Assessment 84 year old M receiving VANCOMYCIN/ceftriaxone for treatment of possible UTI- has an indwelling rockwell. microbiologic data includes: Positive MRSA Nasal Swab, prelim Urine culture growing Kleb oxytoca//Raoultella ornitholytica sensitivities pending. Plan Vancomycin * Loading dose: 1750 mg IV x 1 * Maintenance dose: 1250 mg IV every 12 hours * Regimen is predicted to achieve target AUC/DELMAR of 400-600 mg/L.hr * Random level with AM labs 12/09 Pharmacy will continue to follow and will adjust dose/frequency as necessary. Thank you. Pharmacy has transitioned to AUC monitoring for vancomycin. AUC/DELMAR is the preferred PK/PD target and is associated with decreased risk of nephrotoxicity compared to traditional trough targets.
[2024-12-08] MEDS: VANCOMYCIN HCL 1,250 MG in SODIUM CHLORIDE 0.9% 250 ML IV SCH (17:44)
[2024-12-09 05:08] LABS: Hematocrit (blood only) 34.4 % (42.0-52.0); Mean Corpuscular Hemoglobin 31.6 pg (25.0-34.0); Mean Corpuscular Volume 98.9 fL (80.0-100.0); Mean Platelet Volume 9.4 fL (9.4-12.4); Platelet Count 305 K/uL (130-400); RDW Coefficient of Variation 14.1 % (11.5-14.5); RDW Standard Deviation 50.7 fL (36.4-46.3); Red Blood Count 3.48 M/uL (4.70-6.10); White Blood Count 7.05 K/ul (4.8-10.8)
[2024-12-09 05:28] LABS: BUN Creatinine Ratio 16.3 (10-20); Calcium 8.7 mg/dl (8.6-10.3); Creatinine Clr Calc Pharmacy 137.6 ml/min; Potassium 4.4 mmol/L (3.5-5.1)
[2024-12-09] MEDS: DOCUSATE SODIUM 100 MG CAP PO PRN (08:10)
--- NOTE | 2024-12-09 08:19 | Hospitalist Progress Note ---
Date of Service December 09, 2024 Assessment & Plan (1) Complicated urinary tract infection: (2) Constipation: (3) CHF (congestive heart failure): (4) Atrial fibrillation, permanent: (5) BPH (benign prostatic hyperplasia): Plan 84yo male with history of AF on Xarelto anticoagulation, HFpEF, BPH, HTN, severe DAY, chronic Elliott catheter, chronic hyponatremia. He presented with hematuria and penile discharge. Concern for UTI. Has history of Enterococcus and E.col in the past. On admission, patient was tachypneic on exam with some mild hypoxia at 88% on room air - denied SOB, orthopnea, increased edema. Now on 2L/min with adequate oxygenation. BNP elevated at 395 on admission. Troponin peaked at 63.2 then down trended, likely secondary to demand ischemia in setting of acute infection and mild hypoxia. #Complicated UTI - patient with chronic Elliott in place Urine culture with Klebsiella oxytoc/[place] ornith, resistant to ampicillin and cefazolin Adjusted antibiotic to Augmentin 875 mg twice daily. Discontinued ceftriaxone and vancomycin #Constipation / Impaction / ?Stercoral colitis CT A/P noted significant stool in the rectal vault concerning for impaction, thickening of rectal wall with surrounding fluid could represent nonspecific proctitis or stercoral colitis, significant stool throughout colon concerning for constipation Large bowel movement following Dulcolax suppository and Fleet enema 12/08 Continue scheduled bowel regimen #CHF exacerbation / Hypoxia Torsemide 10mg p.o. daily while admitted Supplemental O2 to maintain O2 sat >90% Recommend 2-step prior to discharge Monitor I/Os, daily weights #Dysphagia - chronic, permissive aspiration Speech therapy consulted Continue regular diet, minced & moist. Aspiration precautions #DAY - chronic. Hypercapnic on AM labs. Looks like he met with Dr. Garcia from Sleep Medicine [place] was scheduled for CPAP titration study but cannot find results or follow-up. Recommend further follow-up on discharge #Atrial Fibrillation Rates ranging from 80s-110s Continue Metoprolol 50mg po qAM, Xarelto 20 mg po HS #Hyponatremia - chronic, asymptomatic. Continue sodium chloride #BPH - Continue Finasteride Dispo: PT/OT consults pending Updated at bedside Consulted speech therapy Reviewed outpatient records Discussed case with pharmacy Adjusted antibiotics Admission and Anticipated Discharge Date Admission Date: December 07, 2024 Subjective Patient seen and evaluated at bedside with his present. He reports feeling well overall. We discussed the speech therapist's evaluation and recommendations. Inquired about sleep medicine appointments and reports "he could not tolerate the mask on his face so they told us to go away and there was nothing they could offer us." She does note that Tay has daytime sleepiness and can be disoriented upon waking up initially. Tay denies any palpitations, racing heart beat, urinary symptoms, shortness of breath, difficulty breathing. We discussed his treatment plan and hopeful discharge back to [facility] tomorrow, 12/10. No additional complaints or concerns at this t clara. Physical Exam Physical Exam: General: No acute distress, nondiaphoretic. Frail elderly male. Cardiac: Irregularly irregular, tachycardic rate in 80s. No murmur appreciated. 1+ pitting edema in RLE, trace edema in LLE. Pulm: Diminished at bases but otherwise clear to auscultation bilaterally without wheezes, rales or rhonchi. Normal respiratory effort, RR 20. 96% on 2 L NC. Abdominal: Soft, nontender, nondistended. Bowel sounds present. : Elliott with clear stephanie urine. Neuro: A&O x3. No focal neurological deficits. Results & Data Results & Data Vital Signs (Past 12 Hours) Vital Signs Temp Pulse Pulse Resp BP Pulse Ox O2 Del Method 12/09/24 07:54 97.7 F 110 H 18 107/64 95 Nasal Cannula 12/09/24 04:00 97.7 F 97 H 18 109/67 94 Nasal Cannula 12/08/24 23:00 98.1 F 92 H 18 141/85 H 94 Nasal Cannula 12/08/24 22:28 92 H 12/08/24 20:30 Nasal Cannula O2 Flow Rate 12/09/24 07:54 4 12/09/24 04:00 2 12/08/24 23:00 2 12/08/24 22:28 12/08/24 20:30 2 Laboratory Results Reviewed CBC Reviewed BMP Reviewed urine culture Diagnostic Findings Reviewed telemetry - A fib with PVCs, rates 80s-100s PG Care Time/CCT Total # of Minutes Spent Total Time Spent with Patient: Total time spent is greater than 50% in coordination of care (as documented) at patient's floor/unit and/or counseling patient: Coding Level of Care Code 37109 SUB INP/OBS CARE MIN Diagnoses Complicated urinary tract infection N39.0 Constipation K59.00 CHF (congestive heart failure) I50.9 Heart failure chronicity: acute on chronic Heart failure type: unspecified Atrial fibrillation, permanent I48.21 BPH (benign prostatic hyperplasia) N40.0 (3) CHF (congestive heart failure) Heart failure chronicity: acute on chronic Heart failure type: unspecified Qualified Code(s): I50.9 - Heart failure, unspecified
--- NOTE | 2024-12-09 12:57 | Electrocardiogram Report ---
Test Reason : Blood Pressure : */* mmHG Vent. Rate : 91 BPM Atrial Rate : * BPM P-R Int : * ms QRS Dur : 100 ms QT Int : 378 ms P-R-T Axes : * 89 42 degrees QTcB Int : 464 ms Atrial fibrillation Abnormal ECG When compared with ECG of 18-Aug-2024 23:42, Premature ventricular complexes are no longer Present Confirmed by Pool Whitt ([id number]) on 12/09/2024 12:56:39 PM Referred By: REFERRED SELF Confirmed By: Pool Whitt
[2024-12-09] MEDS: AMOXICILLIN/CLAVULANATE 875 MG TAB PO SCH (17:47)
[2024-12-10 06:10] LABS: Hematocrit (blood only) 34.1 % (42.0-52.0); Hemoglobin 10.8 g/dl (14.0-18.0); Mean Corpuscular Hemoglobin 31.4 pg (25.0-34.0); Mean Corpuscular Hgb Conc 31.7 g/dL (32.0-36.0); Mean Corpuscular Volume 99.1 fL (80.0-100.0); Mean Platelet Volume 9.9 fL (9.4-12.4); Platelet Count 297 K/uL (130-400); RDW Coefficient of Variation 14.1 % (11.5-14.5); RDW Standard Deviation 51.4 fL (36.4-46.3); Red Blood Count 3.44 M/uL (4.70-6.10); White Blood Count 6.93 K/ul (4.8-10.8)
[2024-12-10 06:34] LABS: BUN Creatinine Ratio 23.4 (10-20); Calcium 8.9 mg/dl (8.6-10.3); Creatinine Clr Calc Pharmacy 143.5 ml/min; Potassium 4.2 mmol/L (3.5-5.1)
--- NOTE | 2024-12-10 13:26 | Discharge Summary ---
Discharge Summary Date of Service December 10, 2024 Principal Dx & Hospital Course #1 = Principal Diagnosis (1) Complicated urinary tract infection: (2) Constipation: (3) CHF (congestive heart failure): (4) Atrial fibrillation, permanent: (5) BPH (benign prostatic hyperplasia): Plan 84yo male with history of AF on Xarelto anticoagulation, HFpEF, BPH, HTN, severe DAY, chronic Elliott catheter, chronic hyponatremia. He presented with hematuria and penile discharge. Concern for UTI. Has history of Enterococcus and E.col in the past. On admission, patient was tachypneic on exam with some mild hypoxia at 88% on room air - denied SOB, orthopnea, increased edema. Now on 2L/min with adequate oxygenation. BNP elevated at 395 on admission. Troponin peaked at 63.2 then down trended, likely secondary to demand ischemia in setting of acute infection and mild hypoxia. Initially treated with ceftriaxone and vancomycin, then downgraded antibiotics to Augmentin when urine sensitivities resulted. #Complicated UTI - patient with chronic Elliott in place Urine culture with Klebsiella oxytoc/[place] ornith, resistant to ampicillin and cefazolin Continue Augmentin 875 mg twice daily through 12/17/2024 #Constipation / Impaction / ?Stercoral colitis CT A/P noted significant stool in the rectal vault concerning for impaction, thickening of rectal wall with surrounding fluid could represent nonspecific proctitis or stercoral colitis, significant stool throughout colon concerning for constipation Large bowel movement following Dulcolax suppository and Fleet enema 12/08 Continue bowel regimen #CHF exacerbation / Hypoxia Torsemide 10mg p.o. daily while admitted Supplemental O2 to maintain O2 sat >90% 2 step completed with respiratory therapy - recommends 2 L with movement. Set up on discharge #Dysphagia - chronic, permissive aspiration Speech therapy consulted Continue regular diet, minced & moist. Aspiration precautions #Atrial Fibrillation Rates ranging from 80s-110s Continue Metoprolol 50mg po qAM, Xarelto 20 mg po HS #DAY - chronic. Hypercapnic on AM labs. Has followed with Sleep Medicine in the past but unfortunately does not tolerate CPAP or BiPAP #Hyponatremia - chronic, asymptomatic. Continue sodium chloride #BPH - Continue Finasteride Dispo: Discharged back to [facility] 12/10 Notes For Next Care Provider Mr. Quiroz qualified for supplemental O2 @ 2 L with activity. Recommend further follow-up on his severe DAY. Medication Changes From Visit Augmentin 875 mg BID through 12/17/24 Admission HPI Per Admitting Provider Tay Quiroz is an 84yo male with history of AF on Xarelto anticoagulation, HTN, HFpEF, chronic Elliott catheter presenting from [facility] with concern for UTI. Patient had some blood noted in his underwear and had some discharge from his penis. He contacted his Urology team and was instructed to come to the ER. Patient with no further complaints - denies fever, chills, abdominal pain, nausea, vomiting ,diarrhea, constipation, suprapubic pain or flank pain. Denies chest pain, cough, SOB, edema or weight gain. In the ER patient is afebrile, HD stable. ER Course: Lasix 40mg IV Levaquin 750mg IV Discharge Exam General: No acute distress, nondiaphoretic. Frail elderly male. Cardiac: Irregularly irregular, rates ranging from 80-100s. No murmur appreciated. 1+ pitting edema in RLE, trace edema in LLE. Pulm: Diminished at bases but otherwise clear to auscultation bilaterally without wheezes, rales or rhonchi. Normal respiratory effort. 92% on 2 L NC. Abdominal: Soft, nontender, nondistended. Bowel sounds present. : Elliott with clear stephanie urine. Neuro: A&O x3. No focal neurological deficits. Discharge Plan Discharge Items Patient Disposition: [facility] Reason For Visit: UTI Discharge Diagnosis: UTI Activity: Resume your previous activity Non-emergency contact: Primary Care Provider Call non-emergency contact if: you have any medication questions and your symptoms worsen Follow-up/Referrals: Butch Martin [Primary Care Provider] - (Follow-up in 1-2 weeks) Diet: Regular Diet Texture: Mechanical soft (ground) Diet Comment: Minced and moist Addtl Attending Provider Instructions: Mr. Quiroz, You were admitted to the hospital due to a UTI, hypoxia (low oxygen level), and constipation. You were treated with antibiotics for the UTI, supplemental oxygen, and an aggressive bowel regimen. Your constipation has since resolved, but I recommend you continue taking a bowel regimen to prevent this from occurring again. You were evaluated by the respiratory therapy team who recommends you wear supplemental oxygen at home. This has been set up for you prior to discharge. You will continue taking an oral antibiotic to complete the treatment course for the UTI. You are being discharged back to your [facility]. Upon discharge from the hospital: * Take Augmentin (oral antibiotic) twice daily through 12/17/2024. This is to complete the treatment course for your UTI. It is important to complete this course even if you feel better. Not completing it can result in the infection returning and/or can make future infections harder to treat. * Take MiraLAX and/or Colace twice daily as needed for constipation. * Continue your other home medications as prescribed. * Wear the supplemental oxygen as directed. * Follow-up with your PCP in 1-2 weeks. It was a pleasure taking care of you while you were in the hospital! Pending Studies at Discharge: No Stand-Alone Forms: [facility], Smoking Cessation Skilled Items Patient informed of condition?: Yes DNR: No Discharge Level of Care: Other Communicable Disease: No Discharge Prognosis: Stable Lines: None Urinary Catheter: Yes Medications and DC Order Prescriptions: New polyethylene glycol 3350 [Miralax] 17 gram Powder In Packet 17 g PO BID PRN (Reason: constipation) Qty: 30 0RF docusate sodium 100 mg Capsule 100 mg PO BID PRN (Reason: constipation) Qty: 30 0RF amoxicillin-pot clavulanate 875-125 mg Tablet 1 tab PO BIDM Qty: 15 0RF Continued metoprolol succinate 50 mg tablet extended release 24 hr 50 mg PO QAM Qty: 90 3RF acetaminophen 325 mg capsule 650 mg PO Q4H PRN (Reason: PAIN/FEVER >100F) cholecalciferol (vitamin D3) 25 mcg (1,000 unit) capsule 25 mcg PO QAM magnesium oxide 400 mg (241.3 mg magnesium) Tablet 400 mg PO QAM Qty: 0 0RF sennosides [Senokot] 8.6 mg Tablet 17.2 mg PO QAM Qty: 0 0RF sodium chloride 1,000 mg Tablet,Soluble 1,000 mg PO BID Qty: 60 0RF melatonin 3 mg Tablet 6 mg PO HS finasteride 5 mg tablet 5 mg PO HS menthol-zinc oxide [Calmoseptine] 0.44-20.6 % Ointment 1 applic TOPICAL TID Metamucil 3.4 gram/5.4 gram Powder 1 tbsp PO BID Rx Instructions: mix into at least 8 oz of water or juice before administering thiamine HCl (vitamin B1) 100 mg tablet 100 mg PO QAM torsemide 10 mg tablet 10 mg PO Q OTHER DAY Xarelto 20 mg tablet 20 mg PO HS Discharge Orders: Discharge Order (Routine); Ordered 12/10/24 Ordered By: Patricia Chatterjee Admission Data Admit Date/Time: 12/07/24 19:41 Attending Provider: Abrahan Velasquez Admit Provider: Kalie Isabel Primary Care Provider: Butch Martin Other Providers: Kalie Isabel Hospital Stay Data Consultations 12/07/24 18:26 ED Decision to Admit Stat Diagnostic Imagining Performed Chest X-Ray 12/07/24 17:06 EXAM: XR chest 1V portable CLINICAL HISTORY: Dyspnea. TECHNIQUE: An X-ray image of the chest is obtained in PA projection. COMPARISON: 08/26/2024 CR. FINDINGS: Pulmonary Parenchyma: Left lung volume loss with possible left lower lung zone atelctatic changes. Suggestion of left hilar opacity. Exaggerated bronchovascular markings, with possible right lower lung zone linear atelctatic strand, also linear opacity seen at the left lower lung zone, suggesting atelctatic bands. Apical and right upper lateral pleural thickening. Blunting of both costophrenic angles sugegsting underlying effusions. Heart and Mediastinum: Possible cardiomegaly. Bony Thorax: Bony thorax appears unremarkable. Soft Tissues: Soft tissues overlying the chest wall are unremarkable. IMPRESSION: 1. Decreased left lung volume, with possible left lower lung atelectatic changes. 2. Suggestion of left hilar opacity. 3. Blunting of both costophrenic angles suggests mild pleural effusions. 4. Prominent broncho vascular markings with linear atelectatic bands, right apical and lateral pleural thickening. 5. Clinical correlation and further CT study is suggested if warranted clinically. 6. No gross interval changes. Electronically signed by Stepan Hurtado 12-07-2024 6:34 PM Abdomen/Pelvis CT 12/07/24 21:55 Exam(s): CT ABDOMEN + PELVIS Without Contrast EXAM: CT Abdomen and Pelvis Without Intravenous Contrast CLINICAL HISTORY: Right lower quadrant Pain. TECHNIQUE: Axial computed tomography images of the abdomen and pelvis without intravenous contrast. CTDI is 26.07 mGy and DLP is 1272.17 mGy-cm. Automated exposure control was utilized for the study. A dose lowering technique was utilized adhering to the principles of ALARA. COMPARISON: CT abdomen and pelvis 08/30/2023 FINDINGS: Lung bases: Unremarkable. No mass. No consolidation. Pleural space: Small right pleural effusion. Heart: Cardiomegaly. ABDOMEN: Liver: Unremarkable. Gallbladder and bile ducts: Cholecystectomy. No ductal dilation. Pancreas: Unremarkable. No ductal dilation. Spleen: Unremarkable. No splenomegaly. Adrenals: Unremarkable. No mass. Kidneys and ureters: Unremarkable. Nonobstructing stones. No hydronephrosis. Stomach and bowel: Significant stool in the rectal vault is concerning for impaction. There is thickening of the rectal wall with surrounding fluid. Significant stool throughout the colon is concerning for constipation. Fecalization of the small bowel is noted without obstruction. Diverticulosis. PELVIS: Appendix: No findings to suggest acute appendicitis. Bladder: Unremarkable. No stones. Reproductive: Unremarkable as visualized. ABDOMEN and PELVIS: Intraperitoneal space: Unremarkable. No free air. No significant fluid collection. Bones/joints: No acute fracture. No dislocation. Soft tissues: Nonspecific body wall edema. Vasculature: Mild atherosclerosis. No abdominal aortic aneurysm. Lymph nodes: Unremarkable. No enlarged lymph nodes. IMPRESSION: 1. Significant stool in the rectal vault is concerning for impaction. There is thickening of the rectal wall with surrounding fluid. This could represent nonspecific proctitis, including stercoral colitis. 2. Significant stool throughout the colon is concerning for constipation. 3. Fecalization of the small bowel is noted without obstruction. This could relate to slow transit or bacterial overgrowth. 4. Diverticulosis. 5. Nonspecific body wall edema. 6. Cardiomegaly. 7. Small right pleural effusion. Electronically signed by: Callie Tran MD 12/08/24 00:16 AM Pending Results Patient Have Any Pending Studies at Discharge: No Discharge Instructions Given to Patient (Per Discharging Provider) Matias Luevano were admitted to the hospital due to a UTI, hypoxia (low oxygen level), and constipation. You were treated with antibiotics for the UTI, supplemental oxygen, and an aggressive bowel regimen. Your constipation has since resolved, but I recommend you continue taking a bowel regimen to prevent this from occurring again. You were evaluated by the respiratory therapy team who recommends you wear supplemental oxygen at home. This has been set up for you prior to discharge. You will continue taking an oral antibiotic to complete the treatment course for the UTI. You are being discharged back to your [facility]. Upon discharge from the hospital: * Take Augmentin (oral antibiotic) twice daily through 12/17/2024. This is to complete the treatment course for your UTI. It is important to complete this course even if you feel better. Not completing it can result in the infection returning and/or can make future infections harder to treat. * Take MiraLAX and/or Colace twice daily as needed for constipation. * Continue your other home medications as prescribed. * Wear the supplemental oxygen as directed. * Follow-up with your PCP in 1-2 weeks. It was a pleasure taking care of you while you were in the hospital! Total Time Total Time Spent Total Time Spent (In Minutes): Greater than 30 minutes spent completing this discharge process including direct patient care, medication reconciliation, documentation, review of labs and images, and coordination of care. Coding Level of Care Code 92597 INP/OBS DISCH >30 MIN Diagnoses Complicated urinary tract infection N39.0 Constipation K59.00 CHF (congestive heart failure) I50.9 Heart failure chronicity: acute on chronic Heart failure type: unspecified Atrial fibrillation, permanent I48.21 BPH (benign prostatic hyperplasia) N40.0
[2024-12-10 15:34] VITALS: RESP 16; TEMP 97.7; O2SAT 96
[2024-12-10 16:01] VITALS: BP 117/77; PULSE 97
--- NOTE | 2024-12-11 10:54 | Coding Query ---
CODING QUERY To promote full compliance with coding requirements relating to patient care, provider participation is requested in all cases of label coder uncertainty. Please assist us with the question(s) below: In the record, it states that the patient has an UTI. Please clarify below the cause of the UTI if applicable. Thank you. (x) The chronic rockwell was the cause of the UTI. ( ) Other urinary cath/device was the cause of the UTI. ( ) UTI, unspecified cause. ( ) Self-catheterization was the cause of the UTI. ( ) Other (Specify): Principal Diagnosis: "that condition established after study, to be chiefly responsible for occasioning the admission of the patient to the hospital for care." Co-Existing Principal Diagnosis: "when two or more diagnoses equally meet the criteria for principal diagnosis as determined by the circumstances of admission, diagnostic work up, and/or therapy provided, and the Alphabetic Index, Tabular List, or another coding guideline does not provide sequencing direction, any one of the diagnoses may be sequenced first." "When the physician has documented what appears to be a current diagnosis in the body of the record, but has not included the diagnosis in the final diagnostic statement, the physician should be asked whether the diagnosis should be added." (Source Coding [facility] 2 QTR90. p3-4) DIONNE
== END 2024-12-10 17:00 | disposition home or self-care (01) | DRG 698 ==
LOC: ED 16:36 → EDINP 19:41 → SUATTDRO 19:41 → 2N 21:56

== ENCOUNTER 2025-05-14 18:57 | Inpatient (IN) ==
--- NOTE | 2025-05-14 19:42 | Emergency Department Note ---
Impression & Plan Complicated urinary tract infection, Generalized weakness, Non-ST elevation [place] (NSTEMI) ED Provider Note HISTORY OF PRESENT ILLNESS: Patient is an 85-year-old male presenting with general malaise. Patient [facility] from [facility] where he was reportedly difficult to arouse today and had some significant weakness in his lower extremities. Patient reportedly has been feeling generally unwell for the last few days. Patient wears 3 L nasal cannula at baseline. Family reports that they are concerned the patient might have pneumonia. Patient denies any chest pain or shortness of breath. Denies any cough. Denies any abdominal pain, nausea or vomiting. He has a chronic Rockwell in place that was reportedly changed today. ROS: as above PHYSICAL EXAM: Constitutional: Patient appears in no acute distress. HENT: Head: Normocephalic and atraumatic. Eyes: EOMI, PERRL Mouth/Throat: Mucous membranes moist. Neck: Trachea midline. Neck supple. Cardiovascular: Irregularly irregular rhythm. No murmurs, rubs or gallops. Intact distal pulses. Pulmonary/Chest: No respiratory distress. Breath sounds clear and equal bilaterally. No wheezes or rales. On 3 L nasal cannula Abdominal: Abdomen soft, no tenderness, rebound or guarding. Musculoskeletal: No edema, tenderness or deformity noted. Skin: Warm and dry. No rash, erythema, pallor or cyanosis Psychiatric: Appropriate mood and affect for situation. Neurological: Alert and keenly responsive. CN II-XII grossly intact, moving all extremities equally and fully. MDM: - Vitals signs stable. - History obtained via patient. History as above. - Chronic conditions affecting care: CHF; indwelling rockwell; Afib; BPH; HTN - Differential diagnoses include, but are not limited to: Pneumonia; UTI; viral syndrome; electrolyte abnormality; ACS - Order placed for continuous cardiac monitoring. At this time, monitor showed rate of 85 bpm with irregular rhythm, per my interpretation. - External medical records reviewed. Discharge summary dated 12/10/2024 was reviewed. Patient was admitted that time due to concern for a urinary tract infection. Previously he has grown Enterococcus and E. coli. - EKG image interpreted by myself showed atrial fibrillation. Rate tachycardic 101 bpm. QT 380. No acute ischemic changes. - Laboratory workup interpreted by myself showed leukopenia (WBC 4.43); elevated INR (1.7); stable electrolytes; elevated troponin (217); normal CK; normal procalcitonin; normal TSH - Viral respiratory panel negative. - UA showed evidence of infection. Given 2 g IV Rocephin. - CXR image reviewed interpreted by myself is negative for pneumonia, per my interpretation. Radiology notes bilateral pleural effusion which appear increased from prior. - BNP added to workup - Discussion was had with embedded case manager about patient's case and need for admission - Hospitalist consulted for admission - [facility] ASSESSMENT AND PLAN: Diagnosis: Generalized weakness; NSTEMI; complicated UTI Plan: Admit Past Med/Surg History Problem List (Updated 05/14/25 @ 21:43 by Evelia Grossman MD) Non-ST elevation VT (NSTEMI) (Acute) Generalized weakness (Acute) Complicated urinary tract infection (Acute) CHF (congestive heart failure) (Acute) Complicated urinary tract infection (Acute) Hyponatremia Nocturnal hypoxemia Fracture, intertrochanteric, right femur Urinary retention Mouth breathing Dysphagia Apnea Pulmonary HTN Esophagitis Excessive sleepiness Catheter-associated urinary tract infection Chronic indwelling Rockwell catheter Erectile dysfunction Insomnia Vitamin B12 deficiency Hypomagnesemia Dysplastic nevi (Acute) Actinic keratosis (Acute) Urinary retention due to benign prostatic hyperplasia Cough 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 chavez, [place] Anticoagulant long-term use Anticoagulant long-term use Severe obstructive sleep apnea Peripheral neuropathy RVF (right ventricular failure) (HFpEF) heart failure with preserved ejection fraction Atrial fibrillation with RVR BPH (benign prostatic hyperplasia) Hypertension Surgical History Hx of cataract extraction RT. 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 How many Children do You have: 4 Feels Safe at Home: Yes Childhood Exposure to Second-Hand Smoke: No Diet: regular Diet Comment: regular caffeine: Yes during the past year weight has: remained stable Dental Care, Regularly: No Physical Activity Frequency: 1-2 Times per Week Seatbelt Use: always Sunscreen Use: No Do you think of yourself as: straight/heterosexual Gender Identity: Male Assistive Devices: Wheelchair Allergies Allergies Allergy/AdvReac Type Severity Reaction Status Date / Time No Known Allergies Allergy Verified 05/14/25 19:46 Home Meds Home Medications Medication Instructions Recorded Confirmed cholecalciferol (vitamin D3) 25 25 mcg PO QAM 10/20/22 05/14/25 mcg (1,000 unit) capsule acetaminophen 325 mg capsule 650 mg PO Q4H PRN PAIN/FEVER >100F 09/16/23 05/14/25 finasteride 5 mg tablet 5 mg PO HS 12/07/24 05/14/25 melatonin 3 mg tablet 6 mg PO HS 12/07/24 05/14/25 menthol 0.44 %-zinc oxide 20.6 % 1 applic topical DIRECTED PRN 12/07/24 05/14/25 topical ointment (Calmoseptine) EXCORIATION thiamine HCl (vitamin B1) 100 mg 100 mg PO QAM 12/07/24 05/14/25 tablet loratadine 10 mg tablet (Claritin) 10 mg PO DAILY PRN Congestion 02/28/25 05/14/25 metoprolol succinate 25 mg 25 mg PO QAM 02/28/25 05/14/25 tablet,extended release 24 hr torsemide 10 mg tablet 20 mg PO DAILY 02/28/25 05/14/25 ammonium lactate 12 % topical cream 1 applic topical Q12H PRN XEROSIS 05/14/25 05/14/25 diclofenac sodium 1 % topical gel 4 g topical Q12H PRN RIGHT 05/14/25 05/14/25 KNEE/BACK PAIN docusate sodium 100 mg capsule 100 mg PO Q12H PRN constipation 05/14/25 05/14/25 fluoride (sodium) 1.1 % dental 1 applic dental HS 05/14/25 05/14/25 cream (PreviDent 5000 Plus) polyethylene glycol 3350 17 gram 17 g PO Q12H PRN constipation 05/14/25 05/14/25 oral powder packet (Miralax) psyllium husk 0.4 gram capsule 0.4 g PO BID 05/14/25 05/14/25 (Metamucil) rivaroxaban 20 mg tablet (Xarelto) 20 mg PO HS 05/14/25 05/14/25 Previous Rx's Medication Instructions Recorded magnesium oxide 400 mg (241.3 mg 400 mg PO QAM #0 tabs 09/06/23 magnesium) tablet sennosides 8.6 mg tablet (Senokot) 17.2 mg (2 x 8.6 mg) PO QAM #0 tabs 09/06/23 sodium chloride 1,000 mg soluble 1,000 mg PO BID #60 tabs 08/28/24 tablet Results & Data (ED) Vital Signs Vital Signs - 24 hr 05/14/25 19:04 05/14/25 19:07 05/14/25 20:30 Temperature 36.7 C Temperature Source Oral Pulse Rate 97 H 84 Pulse Rate [Finger] 93 H Respiratory Rate 24 18 Blood Pressure 137/75 Blood Pressure [Right Arm] 115/95 Blood Pressure Mean 95 Blood Pressure Mean [Right Arm] 101 Pulse Oximetry 100 96 Oxygen Delivery Method Nasal Cannula Nasal Cannula Oxygen Flow Rate 3 3 Sepsis Recent Fever Within 48 Hours No Sepsis New/Unexplained Change in Mental Status No Sepsis Action Taken by Nursing No Action Required Laboratory Data 05/14/25 19:10 05/14/25 19:10 Lab Results 05/14/25 05/14/25 Range/Units 19:10 19:29 WBC 4.43 L (4.8-10.8) K/ul RBC 3.77 L (4.70-6.10) M/uL Hgb 11.7 L (14.0-18.0) g/dl Hct 38.4 L (42.0-52.0) % MCV 101.9 H (80.0-100.0) fL MCH 31.0 (25.0-34.0) pg MCHC 30.5 L (32.0-36.0) g/dL RDW Std Deviation 54.7 H (36.4-46.3) fL RDW Coeff of Jian 14.5 (11.5-14.5) % Plt Count 205 (130-400) K/uL MPV 10.5 (9.4-12.4) fL Immature Gran % (Auto) 0.2 % Neut % (Auto) 60.5 % Lymph % (Auto) 16.5 % [place] % (Auto) 21.0 % Eos % (Auto) 1.1 % Baso % (Auto) 0.7 % Neut # (Auto) 2.68 (1.40-6.50) K/uL Lymph # (Auto) 0.73 L (1.20-3.40) K/uL [place] # (Auto) 0.93 H (0.11-0.59) K/uL Eos # (Auto) 0.05 (0.00-0.50) K/uL Baso # (Auto) 0.03 (0.00-0.20) K/uL Immature Gran # (Auto) 0.01 (0.01-0.20) K/uL Absolute Nucleated RBC 0.09 (0.00-0.12) K/uL Nucleated RBC % (auto) 2.0 % PT 17.7 H (9.0-12.0) Seconds INR 1.7 H (0.9-1.1) Sodium 140 (136-145) mmol/L Potassium 4.8 (3.5-5.1) mmol/L Chloride 94 L (98-107) mmol/L Carbon Dioxide 43 H* (21-32) mmol/L Anion Gap 3 (3-11) BUN 34 H (6-23) mg/dl Creatinine 0.83 (0.6-1.4) mg/dl Est Cr Clr Drug Dosing 82.0 ml/min eGFR 85.77 BUN/Creatinine Ratio 41.0 H (10-20) Glucose 96 (70-99(Fasting)) mg/dl Calcium 9.0 (8.6-10.3) mg/dl Magnesium 2.3 (1.7-2.4) mg/dl Total Bilirubin 0.6 (0.2-1.0) mg/dl AST 29 (13-39) U/L ALT 26 (7-52) U/L Alkaline Phosphatase 103 (34-104) U/L Total Creatine Kinase 53 (30-223) U/L Troponin I High Sens 217.0 H* (0-20) pg/ml Total Protein 7.4 (6.0-8.3) gm/dl Albumin 3.8 (3.4-5.0) gm/dl Globulin 3.6 (2.5-4.0) gm/dl Albumin/Globulin Ratio 1.1 (0.9-2) Procalcitonin < 0.02 (0-0.5) ng/ml TSH 1.532 (0.300-4.500) uIu/ml Urine Color Yellow Urine Appearance Clear (Clear) Urine pH 5.0 (4.5-7.5) Ur Specific [place] 1.017 (1.000-1.030) Urine Protein Trace H (Negative) Urine Glucose (UA) Negative (Negative) Urine Ketones Negative (Negative) Urine Blood 2+ H (Negative) Urine Nitrite Positive A (Negative) Urine Bilirubin Negative (Negative) Urine Urobilinogen Negative (Negative) Ur Leukocyte Esterase 1+ H (Negative) Urine WBC (Auto) 11-20 H (0-5) /hpf Urine RBC (Auto) 0-2 (0-2) /hpf U Hyaline Cast (Auto) 11-20 H (0-2) /lpf U Epithel Cells (Auto) 0-2 (0-2) /hpf Urine Bacteria (Auto) 2+ H (None Seen) Urine Comment Adenovirus (PCR) Not Detected (NotDetected) B. pertussis DNA (PCR) Not Detected (NotDetected) B.parapertussis DNA PCR Not Detected (NotDetected) C. pneumoniae DNA (PCR) Not Detected (NotDetected) Coronavirus OC43 (PCR) Not Detected (NotDetected) Coronavirus HKU1 (PCR) Not Detected (NotDetected) Coronavirus 229E (PCR) Not Detected (NotDetected) SARS-CoV-2 (PCR) Not Detected (NotDetected) Coronavirus NL63 (PCR) Not Detected (NotDetected) Human Metapneumovir PCR Not Detected (NotDetected) Influenza Type A (PCR) Not Detected (NotDetected) Influenza Type B (PCR) Not Detected (NotDetected) M. pneumoniae (PCR) Not Detected (NotDetected) Parainfluenza 1 (PCR) Not Detected (NotDetected) Parainfluenza 2 (PCR) Not Detected (NotDetected) Parainfluenza 3 (PCR) Not Detected (NotDetected) Parainfluenza 4 (PCR) Not Detected (NotDetected) RSV (PCR) Not Detected (NotDetected) Entero/Rhino (PCR) Not Detected (NotDetected) Imaging Data Radiologist's Impression: Chest X-Ray 05/14/25 19:26 Chest radiograph, one view History: Weakness Comparison: 12/07/2024 Findings/impression: Single AP view of the chest performed. The heart and pulmonary arterial structures are enlarged. There is small bilateral pleural effusions which appear increased from prior. Streaky bibasilar atelectasis. No pneumothorax. Electronically signed by Vance Rayo 05-14-2025 8:07 PM Discharge Plan Visit Data Chief Complaint: Weakness Stated Complaint: WEAKNESS, POSSIBLE PNEUMONIA ED Provider: Evelia Grossman Discharge Problem: Complicated urinary tract infection, Generalized weakness, Non-ST elevation VT (NSTEMI) Condition: Fair Forms Stand Alone Forms: [facility] Prescriptions Prescriptions: No Action acetaminophen 325 mg capsule 650 mg PO Q4H PRN (Reason: PAIN/FEVER >100F) cholecalciferol (vitamin D3) 25 mcg (1,000 unit) capsule 25 mcg PO QAM metoprolol succinate 25 mg tablet extended release 24 hr 25 mg PO QAM loratadine [Claritin] 10 mg tablet 10 mg PO DAILY PRN (Reason: Congestion) magnesium oxide 400 mg (241.3 mg magnesium) Tablet 400 mg PO QAM Qty: 0 0RF sennosides [Senokot] 8.6 mg Tablet 17.2 mg PO QAM Qty: 0 0RF ammonium lactate 12 % Cream 1 applic TOPICAL Q12H PRN (Reason: XEROSIS) fluoride (sodium) [PreviDent 5000 Plus] 1.1 % Cream 1 applic DENTAL HS diclofenac sodium [Voltaren] 1 % Gel 4 g TOPICAL Q12H PRN (Reason: RIGHT KNEE/BACK PAIN) Xarelto 20 mg Tablet 20 mg PO HS Rx Instructions: must administer with evening meal psyllium husk [Metamucil] 0.4 gram Capsule 0.4 g PO BID polyethylene glycol 3350 [Miralax] 17 gram powder in packet 17 g PO Q12H PRN (Reason: constipation) docusate sodium 100 mg capsule 100 mg PO Q12H PRN (Reason: constipation) sodium chloride 1,000 mg Tablet,Soluble 1,000 mg PO BID Qty: 60 0RF melatonin 3 mg Tablet 6 mg PO HS finasteride 5 mg tablet 5 mg PO HS menthol-zinc oxide [Calmoseptine] 0.44-20.6 % Ointment 1 applic TOPICAL DIRECTED PRN (Reason: EXCORIATION) thiamine HCl (vitamin B1) 100 mg tablet 100 mg PO QAM torsemide 10 mg tablet 20 mg PO DAILY Rx Instructions: STARTED 05/11/25 FOR 5 DAYS, ENDS 05/16/25, THEN RETURN TO 10 MG DAILY. Referrals Referrals: Gabriela Olmedo [place] [Primary Care Provider] -
[2025-05-14 19:45] LABS: Hematocrit (blood only) 38.4 % (42.0-52.0); Hemoglobin 11.7 g/dl (14.0-18.0); Immature Granulocytes # (auto) 0.01 K/uL (0.01-0.20); Immature Granulocytes % (auto) 0.2 %; Mean Corpuscular Hemoglobin 31.0 pg (25.0-34.0); Mean Corpuscular Volume 101.9 fL (80.0-100.0); Platelet Count 205 K/uL (130-400); RDW Standard Deviation 54.7 fL (36.4-46.3); Red Blood Count 3.77 M/uL (4.70-6.10); White Blood Count 4.43 K/ul (4.8-10.8)
[2025-05-14 19:52] LABS: Appearance Urine Clear (Clear); Bacteria Urine Automated 2+ (None Seen); Epithelial Cell Urine Auto 0-2 /hpf (0-2); Glucose Urine UA Negative (Negative); RBC Urine Automated 0-2 /hpf (0-2)
[2025-05-14 20:06] LABS: Alanine Aminotransferase 26.0 U/L (7-52); Albumin Globulin Ratio 1.1 (0.9-2); Albumin Level 3.8 gm/dl (3.4-5.0); Alkaline Phosphatase 103.0 U/L (34-104); Anion Gap 3.0 (3-11); Bilirubin,Total 0.6 mg/dl (0.2-1.0); Blood Urea Nitrogen 34.0 mg/dl (6-23); Calcium 9.0 mg/dl (8.6-10.3); Carbon Dioxide 43.0 mmol/L (21-32); Chloride 94.0 mmol/L (98-107); Creatine Kinase 53.0 U/L (30-223); Creatinine Clr Calc Pharmacy 82.0 ml/min; Globulin 3.6 gm/dl (2.5-4.0); Glucose 96.0 mg/dl (70-99(Fasting)); Magnesium 2.3 mg/dl (1.7-2.4); Potassium 4.8 mmol/L (3.5-5.1); Sodium 140.0 mmol/L (136-145); Total Protein 7.4 gm/dl (6.0-8.3)
--- NOTE | 2025-05-14 20:07 | XRay Report ---
Chest radiograph, one view History: Weakness Comparison: 12/07/2024 Findings/impression: Single AP view of the chest performed. The heart and pulmonary arterial structures are enlarged. There is small bilateral pleural effusions which appear increased from prior. Streaky bibasilar atelectasis. No pneumothorax. Electronically signed by Vance Rayo 05-14-2025 8:07 PM
[2025-05-14 20:11] LABS: INR 1.7 (0.9-1.1); Prothrombin Time 17.7 Seconds (9.0-12.0)
[2025-05-14 20:42] LABS: Thyroid Stimulating Hormone 1.532 uIu/ml (0.300-4.500)
[2025-05-14 20:43] LABS: Chlamydia pneumoniae PCR Not Detected (NotDetected); Coronavirus 229E PCR Not Detected (NotDetected); Coronavirus CoV-2 (COVID19)PCR Not Detected (NotDetected); Coronavirus HKU1 PCR Not Detected (NotDetected); Coronavirus NL63 PCR Not Detected (NotDetected); Coronavirus OC43PCR Not Detected (NotDetected); Human Metapneumovirus PCR Not Detected (NotDetected); Parainfluenza Virus 1 PCR Not Detected (NotDetected); Parainfluenza Virus 2 PCR Not Detected (NotDetected); Parainfluenza Virus 3 PCR Not Detected (NotDetected); Parainfluenza Virus 4 PCR Not Detected (NotDetected); Respiratory Syncytial VirusPCR Not Detected (NotDetected); Rhinovirus/Enterovirus PCR Not Detected (NotDetected)
--- NOTE | 2025-05-14 21:18 | History & Physical Report ---
Date of Service May 14, 2025 Assessment & Plan (1) Catheter-associated urinary tract infection: (2) Acute on chronic heart failure with preserved ejection fraction (HFpEF): (3) Atrial fibrillation with RVR: (4) Elevated troponin: Plan 85-year-old male PMHx HFpEF, A-fib on Xarelto, chronic Elliott with history of UTI, pulmonary HTN, esophagitis, and vitamin B12 deficiency presenting from SNF after being difficult to arouse and complaining of weakness. His evaluation is significant for leukopenia, anemia, elevated troponin, and a UA suggestive of infection. He does initially present with A-fib and RVR. Admission for ongoing weakness as well as treatment of UTI. Personally spoke with staff at [facility] at 2150 to confirm CODE STATUS, medications, and catheterization information. Information completed based on staff knowledge.. #Catheter associated UTI/Weakness Symptoms of weakness, difficult to arouse day of arrival, with chronic Elliott, last changed 05/02/2025 at urology appointment, usually changed every 4 to 5 wee ks. No prior history of Pseudomonas on prior cultures. Does not meet SIRS criteria for sepsis at admission. - CBC leukopenia 4.43, stable renal function, Pro-Ramon 0.02 - CBC, BMP am - UA suggests infection; pending cx - Bladder scan prn - Urinary catheter changed 05/14/2025 - Zofran prn N/V - Acetaminophen prn fever/pain - Ceftriaxone 2g IV - PT/OT for weakness - appreciate assistance #Acute on chronic HFpEF H/o HFpEF, on torsemide in AM. Eliazar Li PA-C + Dr. Kalie Isabel to beside @ 0015 for hypoxia upon arrival to floor ~ 78%. Pt was placed on Oxy-mask. ABG completed. Pt then placed on BiPAP and Lasix IV was given. Repeat VBGs pending. See communication note by resident, Dr. Aurea Soliman for additional information. - I+Os - BNP 786 - CXR bilat pleural effusions - Echo 10/2023 moderate pulm HTN, EF 65-70%, LA severely dilated - pending repeat - Lasix 40mg IV x 1 - evaluate fluid status in am to determine additional diuresis needs #Afib w/ RVR/Elevated troponin H/o permanent Afib, on metoprolol and Xarelto at baseline. Rate 90s-100s at time of admission. Suspect possible volume overload contributing to HR. - Trop elevated at 217, 180.5 on repeat - pending repeat x 1 in AM - EKG Afib with RVR @ 101 bpm, without ischemic changes - Continue home medications, continue baseline O2 (3L NC) - Lasix as above - Elevated troponin in setting of hypoxia; demand ischemia #Anemia- Prior history of anemia and appears to be around baseline; H&H on admission 11.7/38.4; PT/INR 70.7/1.7, UA with presence of blood- trend CBC #A-fib- On Xarelto - continue #BPH- Finasteride - continue #Constipation- Docusate prn, mag oxide, MiraLAX prn, Metamucil, Senokot - continue Dispo: Admit, PCU VTE Prophylaxis: On Xarelto - continue This document was dictated utilizing [employer]izGreet. Please excuse any grammatical errors that may be secondary to use of this software. Admission and Anticipated Discharge Date Admission Date: 05/14/2025 History of Present Illness Chief Complaint: Weakness Primary Care Provider: Shara Ochoa at [facility] 85-year-old male PMHx HFpEF, A-fib on Xarelto, chronic Elliott with history of UTI, pulmonary HTN, esophagitis, and vitamin B12 deficiency presenting from SNF after being difficult to arouse and complaining of weakness. History is limited as patient is a poor historian. States that he feels "okay" at bedside. Reports coughing and feeling weak, unable to determine for how long. Family was concerned that the patient was developing pneumonia given his cough that sounded productive in nature. Patient denies any pain or concerns at time of admission. Phone call with patient's SNF reveals that the patient was feeling weak and lethargic day of arrival. Staff reports that he "generally just did not look good" and decided to send him to ED to be evaluated. Again, he is denying any pain, concerns, or symptoms. ED evaluation with CBC leukopenia 4.43, RBC 3.77, H&H 11.7/38.4; PT/INR 17.7/1.7; CMP chloride 94, CO2 43, BUN 34, ratio 41; troponin 217, pending repeat; Pro-Ramon 0.02; TSH 1.532; UA positive for infection; BioFire negative; CXR heart and pulmonary arterial structures enlarged, small bilateral pleural effusions, streaky bibasilar atelectasis, no PTX; EKG A-fib with RVR and premature ventricular or aberrantly conducted complexes with rightward axis, pulmonary disease pattern, and incomplete RBBB as well as ST and T wave abnormality in cheerier lateral leads at [address] Isabel's attestation for adjustments/additions to treatment plan. Allergies Allergy/AdvReac Type Severity Reaction Status Date / Time No Known Allergies Allergy Verified 05/14/25 19:46 Home Medications Medication Instructions Recorded Confirmed Type cholecalciferol (vitamin D3) 25 25 mcg PO QAM 10/20/22 05/14/25 History mcg (1,000 unit) capsule magnesium oxide 400 mg (241.3 mg 400 mg PO QAM #0 tabs 09/06/23 05/14/25 Rx magnesium) tablet sennosides 8.6 mg tablet (Senokot) 17.2 mg (2 x 8.6 mg) PO QAM #0 tabs 09/06/23 05/14/25 Rx acetaminophen 325 mg capsule 650 mg PO Q4H PRN PAIN/FEVER >100F 09/16/23 05/14/25 History sodium chloride 1,000 mg soluble 1,000 mg PO BID #60 tabs 08/28/24 05/14/25 Rx tablet finasteride 5 mg tablet 5 mg PO HS 12/07/24 05/14/25 History melatonin 3 mg tablet 6 mg PO HS 12/07/24 05/14/25 History menthol 0.44 %-zinc oxide 20.6 % 1 applic topical DIRECTED PRN 12/07/24 History topical ointment (Calmoseptine) EXCORIATION thiamine HCl (vitamin B1) 100 mg 100 mg PO QAM 12/07/24 05/14/25 History tablet loratadine 10 mg tablet (Claritin) 10 mg PO DAILY PRN Congestion 02/28/25 05/14/25 History metoprolol succinate 25 mg 25 mg PO QAM 02/28/25 05/14/25 History tablet,extended release 24 hr torsemide 10 mg tablet 20 mg PO DAILY 02/28/25 05/14/25 History ammonium lactate 12 % topical cream 1 applic topical Q12H PRN XEROSIS 05/14/25 05/14/25 History diclofenac sodium 1 % topical gel 4 g topical Q12H PRN RIGHT 05/14/25 05/14/25 History KNEE/BACK PAIN docusate sodium 100 mg capsule 100 mg PO Q12H PRN constipation 05/14/25 05/14/25 History fluoride (sodium) 1.1 % dental 1 applic dental HS 05/14/25 05/14/25 History cream (PreviDent 5000 Plus) polyethylene glycol 3350 17 gram 17 g PO Q12H PRN constipation 05/14/25 05/14/25 History oral powder packet (Miralax) psyllium husk 0.4 gram capsule 0.4 g PO BID 05/14/25 05/14/25 History (Metamucil) rivaroxaban 20 mg tablet (Xarelto) 20 mg PO HS 05/14/25 05/14/25 History Past Med/Surg History Problem List (Updated 05/15/25 @ 02:17 by Eliazar Li PA-C) Acute on chronic heart failure with preserved ejection fraction (HFpEF) Non-ST elevation IN (NSTEMI) (Acute) Generalized weakness (Acute) Complicated urinary tract infection (Acute) CHF (congestive heart failure) (Acute) Complicated urinary tract infection (Acute) Hyponatremia Nocturnal hypoxemia Fracture, intertrochanteric, right femur Urinary retention Mouth breathing Dysphagia Apnea Pulmonary HTN Esophagitis Excessive sleepiness Catheter-associated urinary tract infection Chronic indwelling Elliott catheter Erectile dysfunction Insomnia Vitamin B12 deficiency Hypomagnesemia Dysplastic nevi (Acute) Actinic keratosis (Acute) Urinary retention due to benign prostatic hyperplasia Cough 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 left ear bilateral hearing aids Right knee DJD Medical History Constipation Age-related osteoporosis with current pathological fracture, right femur, sequela Person under investigation for COVID-19 Hyperkalemia Atrial fibrillation, permanent Exposure to COVID-19 virus A-fib Closed fracture of right hip Fall Encounter for pre-operative examination Atrial fibrillation f/u samson poole Anticoagulant long-term use Anticoagulant long-term use Severe obstructive sleep apnea Peripheral neuropathy RVF (right ventricular failure) (HFpEF) heart failure with preserved ejection fraction Atrial fibrillation with RVR BPH (benign prostatic hyperplasia) Hypertension Surgical History Hx of cataract extraction RT. S/P cholecystectomy S/P splenectomy Family History Mother Rheumatoid arthritis Denies family history of Ovarian cancer Prostate cancer Myocardial infarction Breast cancer Colorectal cancer Social History Smoking Status: Never smoker Second Hand Exposure: No; Do You Dip or Chew Tobacco: No; Hx Alcohol Use: No Hx Substance Use: No Preferred Language: Tamazight Communication Ability: Effective Visual Impairment: No Limitations Hearing Ability: Normal Scrip Clerk Required: No Beliefs That Will Affect Care: None marital status: Current Living Situation: Custodial Current Living Situation Comment: Shara Ochoa current occupational status: retired current occupation: former [employer] How many Children do You have: 4 Other Information That Helps Us Care for You: No Feels Safe at Home: Yes Safety Concerns: Feels Safe At This Time Childhood Exposure to Second-Hand Smoke: No Diet: regular Diet Comment: regular caffeine: Yes during the past year weight has: remained stable Dental Care, Regularly: No Physical Activity Frequency: 1-2 Times per Week Seatbelt Use: always Sunscreen Use: No Do you think of yourself as: straight/heterosexual Gender Identity: Male Assistive Devices: Wheelchair Review of Systems Review of Systems: All systems reviewed & are unremarkable except as noted in Subjective Physical Exam Physical Exam: General: No acute distress Skin: Warm and dry Head: Normocephalic, atraumatic Eyes: PERRL, conjunctivae clear, sclera non-icteric ENT: External ear and ear canal without swelling; nose atraumatic; good dentition, tongue normal appearance, pharynx normal Neck: Supple, no LAD Cardio: RRR, no M/G/R, S1 and S2 normal Resp: 3L O2 via NC; No respiratory distress, generalized diffuse crackles, coarse in nature; wet sounding cough Abdomen: Soft, symmetric, nontender; No masses or hepatosplenomegaly; Bowel sounds normoactive MSK: No deformities; pulses palpable and equal; no edema. Neuro: Awake, alert; Sensation intact bilaterally; CN grossly intact Psych: Responds to all stimuli, but poor historian. Results & Data Results & Data Vital Signs (Past 12 Hours) Vital Signs Temp Pulse Pulse Resp BP BP Pulse Ox 05/14/25 20:30 93 H 18 115/95 96 05/14/25 19:07 36.7 C 84 24 137/75 100 05/14/25 19:04 97 H O2 Del Method O2 Flow Rate 05/14/25 20:30 Nasal Cannula 3 05/14/25 19:07 Nasal Cannula 3 05/14/25 19:04 Laboratory Results 05/14/25 19:10 Urine Culture - Pending Urine,Straight Cath 05/14/25 05/14/25 19:29 19:10 WBC 4.43 L RBC 3.77 L Hgb 11.7 L Hct 38.4 L MCV 101.9 H MCH 31.0 MCHC 30.5 L RDW Std Deviation 54.7 H RDW Coeff of Jian 14.5 Plt Count 205 MPV 10.5 Immature Gran % (Auto) 0.2 Neut % (Auto) 60.5 Lymph % (Auto) 16.5 [place] % (Auto) 21.0 Eos % (Auto) 1.1 Baso % (Auto) 0.7 Neut # (Auto) 2.68 Lymph # (Auto) 0.73 L [place] # (Auto) 0.93 H Eos # (Auto) 0.05 Baso # (Auto) 0.03 Immature Gran # (Auto) 0.01 Absolute Nucleated RBC 0.09 Nucleated RBC % (auto) 2.0 PT 17.7 H INR 1.7 H Sodium 140 Potassium 4.8 Chloride 94 L Carbon Dioxide 43 H* Anion Gap 3 BUN 34 H Creatinine 0.83 Est Cr Clr Drug Dosing 82.0 eGFR 85.77 BUN/Creatinine Ratio 41.0 H Glucose 96 Calcium 9.0 Magnesium 2.3 Total Bilirubin 0.6 AST 29 ALT 26 Alkaline Phosphatase 103 Total Creatine Kinase 53 Troponin I High Sens 217.0 H* Total Protein 7.4 Albumin 3.8 Globulin 3.6 Albumin/Globulin Ratio 1.1 Procalcitonin < 0.02 TSH 1.532 Urine Color Yellow Urine Appearance Clear Urine pH 5.0 Ur Specific [place] 1.017 Urine Protein Trace H Urine Glucose (UA) Negative Urine Ketones Negative Urine Blood 2+ H Urine Nitrite Positive A Urine Bilirubin Negative Urine Urobilinogen Negative Ur Leukocyte Esterase 1+ H Urine WBC (Auto) 11-20 H Urine RBC (Auto) 0-2 U Hyaline Cast (Auto) 11-20 H U Epithel Cells (Auto) 0-2 Urine Bacteria (Auto) 2+ H Urine Comment Adenovirus (PCR) Not Detected B. pertussis DNA (PCR) Not Detected B.parapertussis DNA PCR Not Detected C. pneumoniae DNA (PCR) Not Detected Coronavirus OC43 (PCR) Not Detected Coronavirus HKU1 (PCR) Not Detected Coronavirus 229E (PCR) Not Detected SARS-CoV-2 (PCR) Not Detected Coronavirus NL63 (PCR) Not Detected Human Metapneumovir PCR Not Detected Influenza Type A (PCR) Not Detected Influenza Type B (PCR) Not Detected M. pneumoniae (PCR) Not Detected Parainfluenza 1 (PCR) Not Detected Parainfluenza 2 (PCR) Not Detected Parainfluenza 3 (PCR) Not Detected Parainfluenza 4 (PCR) Not Detected RSV (PCR) Not Detected Entero/Rhino (PCR) Not Detected Diagnostic Findings Chest X-Ray 05/14/25 19:26 Chest radiograph, one view History: Weakness Comparison: 12/07/2024 Findings/impression: Single AP view of the chest performed. The heart and pulmonary arterial structures are enlarged. There is small bilateral pleural effusions which appear increased from prior. Streaky bibasilar atelectasis. No pneumothorax. Electronically signed by Vance Rayo 05-14-2025 8:07 PM Medications Administered Ceftriaxone 2g IV ECG Additional Comments: A-fib with RVR and premature ventricular or aberrantly conducted complexes, rightward axis, pulmonary disease pattern, incomplete RBBB, ST and T wave abnormality of anterior lateral leads 101 bpm, QRS 114, QT/QTc 380/492, PRT*/100/65 Code Status & VTE Plan Code Status Full Supervising Physician Co-Signing Physician Notes Patient seen and examined, chart reviewed, case discussed with JOSH Li and I agree with the assessment and plan as above. Patient with acute hypoxic respiratory failure with hypercarbia - possibly secondary to acute decompensated CHF Trial on BiPAP after VBG with acute respiratory acidosis Lasix IV given Patient remains somnolent but arousable Treatment of CAUTI with Ceftriaxone - catheter has been exchanged 05/14. No history of multi-drug resistant organisms Continue BiPAP for now - wean as tolerated Repeat echo ordered - prior in 10/2023 with preserved EF Diuresis with Lasix 40mg IV x 1 dose now - may need additional IV doses pending response. Has been continued on his PO Torsemide 20mg daily Remainder as above PG Care Time/CCT Total # of Minutes Spent Total Time Spent with Patient: Total time spent is greater than 50% in coordination of care (as documented) at patient's floor/unit and/or counseling patient: Coding Level of Care Code 76964 INT INP/OBS CARE MIN Diagnoses Catheter-associated urinary tract infection T83.511A; N39.0 Acute on chronic heart failure with preserved ejection fraction (HFpEF) I50.33 Atrial fibrillation with RVR I48.91 Elevated troponin R79.89
[2025-05-14] MEDS: cefTRIAXone SODIUM 2,000 MG/50 ML BAG IV STA (22:03)
[2025-05-15] MEDS ORDERED: ONDANSETRON INJ 2 MG/ML 2 ML VIAL IV PRN (00:03)
[2025-05-15] MEDS ORDERED: POLYETHYLENE (MIRALAX) 17 GM PACK PO PRN (00:03)
[2025-05-15] MEDS: FUROSEMIDE 40 MG/4 ML VIAL IV ONE (00:27)
--- NOTE | 2025-05-15 00:27 | Communication Note ---
Date of Service: May 15, 2025 High priority TT from nurse received at 12:14 to come to bedside to evaluate pt for hypoxia. Went to bedside immediately. Pt appears fair, no critical re spiratory distress. Pt states he is feeling fine, gives a thumbs up. Auscultation of lungs; relatively clear, maybe somewhat dampened in the bases of the lungs. Was previously on 3L NC but transitioned to 8L oxymask for saturations high 80s. Lasix ordered on admission note yet given; verbal given to nurse to administer this as pt is here for CHF exac. ABG obtained and showing respiratory acidosis. Instructed respiratory to apply bipap therapy. Hemodynamics otherwise stable. Will check VBG about 1 hr after bipap therapy started. Patient seen in room [address] Soliman. More hypoxic and difficult to arouse. Placed on 15L NRB. ABG at bedside with mixed venous/arterial blood but reveals acute respiratory acidosis with pH=7.26 and gVZ4=157 BiPAP initiated - repeat VBG in 1 hour Lasix given Will continue to monitor - Kalie Isabel, Resident Activity Tracking Resident Involvement: Resident Care Provided Care Provided: Adult Hospital Medicine
[2025-05-15 00:48] LABS: iSTAT Art Bld Gas Base Excess 19.0 mmol/L (-9-1.8); iSTAT Art Bld Gas pCO2 Correct 101 mmHg (35-46); iSTAT Art Bld Gas pH Corrected 7.263 (7.35-7.45); iSTAT Arterial Blood Gas pO2 C 28
[2025-05-15 02:51] LABS: Base Excess VBG 17.0 mEq/L; HCO3 VBG 48 mmol/L; Oxygen Saturation VBG < 60.0 %; PCO2 VBG 96 mmHg (38-50); PO2 VBG 35 mmHg; pH VBG 7.31 (7.36-7.41)
[2025-05-15 06:47] LABS: Hematocrit (blood only) 36.8 % (42.0-52.0); Hemoglobin 11.8 g/dl (14.0-18.0); Mean Corpuscular Hemoglobin 32.2 pg (25.0-34.0); Mean Corpuscular Volume 100.5 fL (80.0-100.0); Platelet Count 205 K/uL (130-400); RDW Standard Deviation 53.2 fL (36.4-46.3); Red Blood Count 3.66 M/uL (4.70-6.10); White Blood Count 4.99 K/ul (4.8-10.8)
[2025-05-15 07:12] LABS: Anion Gap 2.0 (3-11); Blood Urea Nitrogen 29.0 mg/dl (6-23); Calcium 8.9 mg/dl (8.6-10.3); Carbon Dioxide 45.0 mmol/L (21-32); Chloride 94.0 mmol/L (98-107); Creatinine Clr Calc Pharmacy 89.6 ml/min; Glucose 86.0 mg/dl (70-99(Fasting)); Potassium 4.3 mmol/L (3.5-5.1); Sodium 141.0 mmol/L (136-145)
[2025-05-15] MEDS: AMMONIUM LACTATE 12% LOTION 225 GM BTL EXT PRN (08:06)
[2025-05-15] MEDS: THIAMINE HCL 100 MG TAB PO SCH (08:06)
[2025-05-15] MEDS: TORSEMIDE 20 MG TAB PO SCH (08:06)
[2025-05-15] MEDS: METOPROLOL SUCC 25MG EXT REL TAB PO SCH (08:06)
[2025-05-15] MEDS: CALCIUM POLYCARBOPHIL 625MG TAB PO SCH (08:06)
[2025-05-15] MEDS: CHOLECALCIFEROL 25 MCG (1000 UNITS) TAB PO SCH (08:07)
[2025-05-15] MEDS: MAGNESIUM OXIDE 400 MG TAB PO SCH (08:07)
[2025-05-15] MEDS: SENNA 8.6 MG TAB PO SCH (08:17)
[2025-05-15 09:20] LABS: Base Excess VBG 22.4 mEq/L; HCO3 VBG 53 mmol/L; Oxygen Saturation VBG < 60.0 %; PCO2 VBG 101 mmHg (38-50); PO2 VBG 25 mmHg; pH VBG 7.33 (7.36-7.41)
--- NOTE | 2025-05-15 10:33 | Hospitalist Progress Note ---
Date of Service May 15, 2025 Assessment & Plan (1) Acute on chronic respiratory failure with hypoxia and hypercapnia: (2) Acute on chronic heart failure with preserved ejection fraction (HFpEF): (3) Atrial fibrillation with RVR: (4) Catheter-associated urinary tract infection: (5) Elevated troponin: (6) Pulmonary HTN: Plan # Acute on chronic hypoxic and hypercarbic respiratory failure Secondary to acute on chronic HFpEF. Unclear why hypercarbic, appears chronic. Unclear whether COPD or DAY, not listed in medical history. Treated with BiPAP overnight for a few hours, now on oxy mask. Avoid overoxygenation, set O2 saturation goal to 88-92%. Follow serial ABG or VBG. Use BiPAP as needed. Avoid sedating medications, not on any at baseline other than melatonin - stop. # Acute on chronic HFpEF Remains Volume overloaded despite effective diuresis overnight. Ordered Lasix 40 mg IV daily with 40 mEq of potassium orally. Repeat echo pending Usual torsemide 20 mg daily held during IV diuresis. Continue metoprolol XL. Monitor BMP and magnesium daily. # Atrial fibrillation with rapid ventricular rate Permanent AFib. Rate control improved with diuresis, currently adequate. Continue metoprolol and Xarelto. Monitor on telemetry. # Elevated high sensitivity troponin Mild elevation on presentation, now downtrending. Likely related to myocardial demand ischemia from hypoxia, heart failure exacerbation, and tachycardia. TTE pending. # Possible CAUTI # Benign prostatic hyperplasia Continue ceftriaxone pending urine cultures. Continue finasteride. Continue rockwell catheter # Acute metabolic encephalopathy - alertness improved, very [place], baseline cognitive status unclear Presumably related to hypercarbia. Improved but remains quite hypercarbic. PT and OT evaluations ordered. # Anemia H & H levels at baseline. History of B12 deficiency, not currently on replacement. # Constipation Continue bowel regimen. DVT prophylaxis: Continue Xarelto PT/OT evaluations: ordered Mr Quiroz has several unstable/uncontrolled acute conditions (respiratory failure, HFpEF, CAUTI) at high risk of clinical deterioration and medical decision making for this encounter was complex Admission and Anticipated Discharge Date Admission Date: May 14, 2025 Subjective Reason for Admit: Acute hypoxic and hypercarbic respiratory failure. 85-year-old male admitted with acute hypoxic and hypercarbic respiratory failure related to acute on chronic HFpEF and atrial fibrillation with RVR. He was brought in from his nursing facility due to difficulty arousing and weakness. Upon my arrival, he was sitting on the edge of the bed, starting to work with PT and OT. He is very hard of hearing and seems forgetful. Reports feeling somewhat short of breath. Wearing facemask oxygen at 6 L, improved from early this morning. No chest pain or wheezing. Physical Exam Physical Exam: General: Awake and alert, but not fully oriented to situation. Sitting on the edge of the bed leaning forward. Eyes: EOMI. Neck: No visible neck veins. Cardiac: Irregularly irregular and minimally tachycardic, no murmur. Respiratory: Mildly increased work of breathing. No wheezing, crackles bilaterally posteriorly, clear anteriorly. Abdominal: Soft, nontender, nondistended. Bowel sounds present. Extremities: 2+ edema in lower extremities. Left leg larger than right. Neurologic: Symmetric face. Intact speech. Moving all four extremities equally. Results & Data Results & Data Vital Signs (Past 12 Hours) Vital Signs Temp Pulse Pulse Pulse Resp BP Pulse Ox 05/15/25 08:04 05/15/25 07:02 36.6 C 102 H 20 119/65 91 05/15/25 06:43 22 91 05/15/25 00:34 84 22 98 05/15/25 00:30 05/15/25 00:03 36.7 C 93 H 22 125/87 100 05/15/25 00:03 05/14/25 23:38 80 18 100 05/14/25 22:58 90 Pulse Ox O2 Del Method O2 Del Method O2 Flow Rate O2 Flow Rate FiO2 05/15/25 08:04 100 Oxymask 10 05/15/25 07:02 Oxymask 15 05/15/25 06:43 Oxymask 15 05/15/25 00:34 50 05/15/25 00:30 BiPAP 05/15/25 00:03 BiPAP 05/15/25 00:03 96 Oxymask 15 05/14/25 23:38 Nasal Cannula 3 05/14/25 22:58 Laboratory Results Labs - WBC: Normal - Hgb: 12.9 - INR: 1.7 - ABG: overnight, 7.26/103/29 - VB.33/101/25 - Chemistry panel: Normal electrolytes, CO2 elevated at 45 - BUN: 29 - Creatinine: 0.7 - LFTs: Normal - High sensitivity troponin: 175 (down from 217 on arrival to ED) - BNP: 786 (more than twice as high as in the past) - Procalcitonin: Normal - TSH: Normal - Urinalysis: Positive leukocyte esterase, white cells, and bacteria Diagnostic Testing - Respiratory BioFire: Negative PG Care Time/CCT Total # of Minutes Spent Total Time Spent with Patient: Total time spent is greater than 50% in coordination of care (as documented) at patient's floor/unit and/or counseling patient: Coding Level of Care Code 49414 SUB INP/OBS CARE 3/50MIN Diagnoses Acute on chronic respiratory failure with hypoxia and hypercapnia J96.21; J96.22 Acute on chronic heart failure with preserved ejection fraction (HFpEF) I50.33 Atrial fibrillation with RVR I48.91 Catheter-associated urinary tract infection T83.511A; N39.0 Elevated troponin R79.89 Pulmonary HTN I27.20
[2025-05-15] MEDS: POTASSIUM CHLORIDE CRTAB 20 MEQ TABCR PO SCH (11:15)
[2025-05-15] MEDS: FUROSEMIDE 40 MG/4 ML VIAL IV SCH (11:15)
--- NOTE | 2025-05-15 16:02 | XCELERA ---
[id number]
[2025-05-15] MEDS: RIVAROXABAN 20 MG TAB PO SCH (17:47)
--- NOTE | 2025-05-15 18:13 | Electrocardiogram Report ---
Test Reason : Blood Pressure : */* mmHG Vent. Rate : 101 BPM Atrial Rate : * BPM P-R Int : * ms QRS Dur : 114 ms QT Int : 380 ms P-R-T Axes : * 100 65 degrees QTcB Int : 492 ms Poor data quality, interpretation may be adversely affected Atrial fibrillation with rapid ventricular response with premature ventricular or aberrantly conducte d complexes Rightward axis Incomplete right bundle branch block Abnormal ECG When compared with ECG of 28-Feb-2025 12:55, ST now depressed in Lateral leads Nonspecific T wave abnormality now evident in Inferior leads T wave inversion more evident in Anterolateral leads Confirmed by Vance Romo ([id number]) on 05/15/2025 6:13:10 PM Referred By: Gabriela muir [facility] Confirmed By: Vance Romo
[2025-05-15 18:33] LABS: Base Excess VBG 27.5 mEq/L; HCO3 VBG 58 mmol/L; Oxygen Saturation VBG 74.2 %; PCO2 VBG 85 mmHg (38-50); PO2 VBG 43 mmHg; pH VBG 7.44 (7.36-7.41)
[2025-05-15] MEDS ORDERED: FLUORIDE DT SCH (21:00)
[2025-05-15] MEDS ORDERED: MELATONIN 3 MG TAB PO SCH (21:00)
[2025-05-15] MEDS: FINASTERIDE 5 MG TAB PO SCH (22:12)
[2025-05-15] MEDS: DOCUSATE SODIUM 100 MG CAP PO PRN (22:12)
[2025-05-15] MEDS: ACETAMINOPHEN 325 MG TAB PO PRN (22:12)
[2025-05-15] MEDS: cefTRIAXone SODIUM 2,000 MG/50 ML BAG IV SCH (23:17)
[2025-05-16 10:20] LABS: Base Excess VBG 20.1 mEq/L; HCO3 VBG 51 mmol/L; Oxygen Saturation VBG < 60.0 %; PCO2 VBG 95 mmHg (38-50); PO2 VBG 26 mmHg; pH VBG 7.34 (7.36-7.41)
[2025-05-16 10:24] LABS: Hematocrit (blood only) 35.0 % (42.0-52.0); Hemoglobin 11.1 g/dl (14.0-18.0); Mean Corpuscular Hemoglobin 31.9 pg (25.0-34.0); Mean Corpuscular Volume 100.6 fL (80.0-100.0); Platelet Count 193 K/uL (130-400); RDW Standard Deviation 52.6 fL (36.4-46.3); Red Blood Count 3.48 M/uL (4.70-6.10); White Blood Count 4.66 K/ul (4.8-10.8)
[2025-05-16 10:44] LABS: Blood Urea Nitrogen 22 mg/dl (6-23); Calcium 9.3 mg/dl (8.6-10.3); Carbon Dioxide > 45 mmol/L (21-32); Chloride 88 mmol/L (98-107); Creatinine Clr Calc Pharmacy 98.4 ml/min; Glucose 130 mg/dl (70-99(Fasting)); Magnesium 2.0 mg/dl (1.7-2.4); Potassium 4.7 mmol/L (3.5-5.1); Sodium 138 mmol/L (136-145)
--- NOTE | 2025-05-16 12:36 | Hospitalist Progress Note ---
Date of Service May 16, 2025 Assessment & Plan (1) Acute on chronic respiratory failure with hypoxia and hypercapnia: (2) Acute on chronic heart failure with preserved ejection fraction (HFpEF): (3) Atrial fibrillation with RVR: (4) Catheter-associated urinary tract infection: (5) Elevated troponin: (6) Pulmonary HTN: Plan # Acute on chronic hypoxic and hypercarbic respiratory failure Hypoxia secondary to acute on chronic HFpEF. This has improved Acute on chronic hypercarbia related to untreated sleep apnea, exacerbated by acute conditions. Intolerant of CPAP/Bipap. Agrees to try in hospital. Avoid overoxygenation, set O2 saturation goal to 88-92%. Currently sats too high - contacted RN to decrease O2 to goal Follow serial ABG or VBG. Avoid sedating medications, not on any currently or at home # Acute on chronic HFpEF Echocardiogram (05/15/2025) shows normal LV EF, mild concentric LVH, moderately dilated RV with moderately reduced RV systolic function, biatrial dilation, no aortic stenosis, mild to moderate MR, moderate TR, RVSP >60, severely dilated IVC indicative of volume overload. Improved but remains Volume overloaded Continue Lasix 40 mg IV daily with 40 mEq of potassium orally. Usual torsemide 20 mg daily held during IV diuresis. Continue metoprolol XL. Monitor BMP and magnesium daily. Stable today # Atrial fibrillation with rapid ventricular rate Permanent AFib. Rate control improved with diuresis. Tachycardic overnight but 80s this AM Continue metoprolol and Xarelto. Monitor on telemetry. # Elevated high sensitivity troponin Mild elevation on presentation, now downtrending. Related to myocardial demand ischemia from hypoxia, heart failure exacerbation, and tachycardia. No rwma's on TTE # Possible CAUTI # Benign prostatic hyperplasia Urine culture with two species of Klebsiella. Both sensitive to CTX - continue Continue finasteride. Continue rockwell catheter # Acute metabolic encephalopathy - alertness improved, very [place], chronically poor short term memory consistent with dementia. Seems to be at or near baseline. # Anemia H & H levels at baseline. History of B12 deficiency, not currently on replacement. # Constipation Continue bowel regimen. DVT prophylaxis: Continue Xarelto PT/OT evaluations: recommending SNF rehab. Lives at [facility] Mr Quiroz continues to have several unstable/uncontrolled acute conditions (respiratory failure, HFpEF, rapid afib) remains at high risk of clinical deterioration from respiratory failure especially and medical decision making for this encounter was complex I updated his at bedside 05/16 Admission and Anticipated Discharge Date Admission Date: May 14, 2025 Subjective He is forgetful. Denies shortness of breath and chest pain. his is at bedside. She reports he is much less sleepy than past several days. Forgetfulness is baseline for him. Usually he does sleep a lot of the day in a recliner. He has been unable to tolerate CPAP/Bipap in the past. Physical Exam 2 Physical Exam: General: Awake and alert, but not fully oriented to situation. Sitting on the edge of the bed leaning forward. Eyes: EOMI. Neck: No visible neck veins. Cardiac: Irregularly irregular and minimally tachycardic, no murmur. Respiratory: Mildly increased work of breathing. No wheezing, crackles bilaterally posteriorly, clear anteriorly. Abdominal: Soft, nontender, nondistended. Bowel sounds present. Extremities: 2+ edema in lower extremities. Left leg larger than right. Neurologic: Symmetric face. Intact speech. Moving all four extremities equally. Results & Data Results & Data Vital Signs (Past 12 Hours) Vital Signs Temp Pulse Pulse Pulse Resp BP Pulse Ox 05/16/25 11:20 36.4 C L 83 19 116/69 98 05/16/25 07:47 36.4 C L 112 H 21 131/76 95 05/16/25 05:46 101 H 05/16/25 03:14 36.2 C L 92 H 18 105/65 92 O2 Del Method O2 Flow Rate 05/16/25 11:20 Nasal Cannula 4 05/16/25 07:47 Room Air 4 05/16/25 05:46 05/16/25 03:14 Oxymask 4 Laboratory Results 05/16/25 10:02 05/16/25 10:02 vbg 7.35/95 (CO2 85 last night and prior to that 100) Nasal MRSA negative. Imaging: Echocardiogram (05/15/2025) shows normal LV EF, mild concentric LVH, moderately dilated RV with moderately reduced RV systolic function, biatrial dilation, no aortic stenosis, mild to moderate MR, moderate TR, RVSP >60, severely dilated IVC indicative of volume overload. PG Care Time/CCT Total # of Minutes Spent Total Time Spent with Patient: Total time spent is greater than 50% in coordination of care (as documented) at patient's floor/unit and/or counseling patient: Coding Level of Care Code 39260 SUB INP/OBS CARE 350MIN Diagnoses Acute on chronic respiratory failure with hypoxia and hypercapnia J96.21; J96.22 Acute on chronic heart failure with preserved ejection fraction (HFpEF) I50.33 Atrial fibrillation with RVR I48.91 Catheter-associated urinary tract infection T83.511A; N39.0 Elevated troponin R79.89 Pulmonary HTN I27.20
[2025-05-17] MEDS: MELATONIN 3 MG TAB PO PRN (02:52)
[2025-05-17 07:09] LABS: Anion Gap 3.0 (3-11); Blood Urea Nitrogen 17.0 mg/dl (6-23); Calcium 9.2 mg/dl (8.6-10.3); Carbon Dioxide 43.0 mmol/L (21-32); Chloride 91.0 mmol/L (98-107); Creatinine Clr Calc Pharmacy 123.1 ml/min; Glucose 85.0 mg/dl (70-99(Fasting)); Magnesium 2.0 mg/dl (1.7-2.4); Potassium 4.6 mmol/L (3.5-5.1); Sodium 137.0 mmol/L (136-145)
[2025-05-17] MEDS: POLYETHYLENE (MIRALAX) 17 GM PACK PO PRN (08:04)
[2025-05-17] MEDS: DICLOFENAC SOD 1% GEL 100 GM TUBE EXT PRN (09:15)
--- NOTE | 2025-05-17 16:28 | Hospitalist Progress Note ---
Date of Service May 17, 2025 Assessment & Plan (1) Acute on chronic respiratory failure with hypoxia and hypercapnia: (2) Acute on chronic heart failure with preserved ejection fraction (HFpEF): (3) Atrial fibrillation with RVR: (4) Catheter-associated urinary tract infection: (5) Elevated troponin: (6) Pulmonary HTN: Plan # Acute on chronic hypoxic and hypercarbic respiratory failure Hypoxia secondary to acute on chronic HFpEF. This is resolving, near euvolemic and only on 1L O2 Acute on chronic hypercarbia related to untreated sleep apnea, exacerbated by acute conditions. Intolerant of CPAP/Bipap. Avoid overoxygenation, set O2 saturation goal to 88-92%. CO2 has been 85-95% which may be his baseline Avoid sedating medications, not on any currently or at home # Acute on chronic HFpEF Echocardiogram (05/15/2025) shows normal LV EF, mild concentric LVH, moderately dilated RV with moderately reduced RV systolic function, biatrial dilation, no aortic stenosis, mild to moderate MR, moderate TR, RVSP >60, severely dilated IVC indicative of volume overload. Approaching euvolemic Already got lasix 40 mg IV this am, stop Usual torsemide 20 mg daily - assess in AM whether to resume Continue metoprolol XL. Monitor BMP and magnesium daily. BUN not elevated and Cr 0.5. K/mag normal # Atrial fibrillation with rapid ventricular rate Permanent AFib. Rate control improved with diuresis. Acceptable rates in 90s past 24h Continue metoprolol and Xarelto. Monitor on telemetry. # Elevated high sensitivity troponin Mild elevation on presentation, now downtrending. Related to myocardial demand ischemia from hypoxia, heart failure exacerbation, and tachycardia. No rwma's on TTE # Possible CAUTI # Benign prostatic hyperplasia Urine culture with two species of Klebsiella. Both sensitive to CTX. Discussed with pharmacist, changing to cefuroxime 500 mg bid po Continue finasteride. Continue rockwell catheter # Acute metabolic encephalopathy - alertness improved, very [place], chronically poor short term memory consistent with dementia. Seems to be at baseline. # Anemia H & H levels at baseline. History of B12 deficiency, not currently on replacement. # Constipation Continue bowel regimen. DVT prophylaxis: Continue Xarelto PT/OT evaluations: recommending SNF rehab. Lives at [facility] Much improved, probably oral diuretics tomorrow I updated his at bedside 05/16, 05/17 Admission and Anticipated Discharge Date Admission Date: May 14, 2025 Subjective Not short of breath and no coughing. No CP No bladder pain at bedside. Mentation back to baseline. Physical Exam 2 Physical Exam: General: Awake and alert, sitting up in bed Neck: EJs elevated Cardiac: Irregularly irregular, no murmur Respiratory: normal WOB, bibasilar crackles, extend up higher on the left. CTA anteriorly Abdominal: Soft, nontender, nondistended. Bowel sounds present. Extremities: bilateral leg edema has resolved, wwp Neurologic: Symmetric face. Intact speech. Can answer direct questions. Forgetful. Moving all four extremities equally. Results & Data Results & Data Vital Signs (Past 12 Hours) Vital Signs Temp Pulse Pulse Resp BP Pulse Ox O2 Del Method 05/17/25 15:25 36.6 C 95 H 19 92 Nasal Cannula 05/17/25 13:03 91 H 05/17/25 10:52 36.4 C L 96 H 20 136/78 93 Nasal Cannula 05/17/25 10:15 Nasal Cannula 05/17/25 08:00 05/17/25 07:37 36.5 C 98 H 20 96 Nasal Cannula 05/17/25 05:55 85 O2 Del Method O2 Flow Rate 05/17/25 15:25 1 05/17/25 13:03 05/17/25 10:52 1 05/17/25 10:15 1 05/17/25 08:00 Nasal Cannula 05/17/25 07:37 1 05/17/25 05:55 Laboratory Results 05/16/25 10:02 05/17/25 05:54 PG Care Time/CCT Total # of Minutes Spent Total Time Spent with Patient: Total time spent is greater than 50% in coordination of care (as documented) at patient's floor/unit and/or counseling patient: Coding Level of Care Code 62580 SUB INP/OBS CARE 2/35MIN Diagnoses Acute on chronic respiratory failure with hypoxia and hypercapnia J96.21; J96.22 Acute on chronic heart failure with preserved ejection fraction (HFpEF) I50.33 Atrial fibrillation with RVR I48.91 Catheter-associated urinary tract infection T83.511A; N39.0 Elevated troponin R79.89 Pulmonary HTN I27.20
[2025-05-18 07:52] LABS: Anion Gap 4.0 (3-11); Blood Urea Nitrogen 15.0 mg/dl (6-23); Calcium 9.1 mg/dl (8.6-10.3); Carbon Dioxide 40.0 mmol/L (21-32); Chloride 91.0 mmol/L (98-107); Creatinine Clr Calc Pharmacy 127.7 ml/min; Glucose 91.0 mg/dl (70-99(Fasting)); Magnesium 1.9 mg/dl (1.7-2.4); Potassium 4.5 mmol/L (3.5-5.1); Sodium 135.0 mmol/L (136-145)
[2025-05-18] MEDS: TORSEMIDE 20 MG TAB PO SCH (09:50)
--- NOTE | 2025-05-18 15:18 | Hospitalist Progress Note ---
Date of Service May 18, 2025 Assessment & Plan (1) Acute on chronic respiratory failure with hypoxia and hypercapnia: (2) Acute on chronic heart failure with preserved ejection fraction (HFpEF): (3) Atrial fibrillation with RVR: (4) Catheter-associated urinary tract infection: (5) Elevated troponin: (6) Pulmonary HTN: Plan # Acute on chronic hypoxic and hypercarbic respiratory failure Hypoxia secondary to acute on chronic HFpEF. This is resolved Acute on chronic hypercarbia related to untreated sleep apnea, exacerbated by acute conditions. Intolerant of CPAP/Bipap. Avoid overoxygenation, set O2 saturation goal to 88-92%. CO2 has been 85-95 which may be his baseline Avoid sedating medications, not on any currently or at home # Acute on chronic HFpEF Echocardiogram (05/15/2025) shows normal LV EF, mild concentric LVH, moderately dilated RV with moderately reduced RV systolic function, biatrial dilation, no aortic stenosis, mild to moderate MR, moderate TR, RVSP >60, severely dilated IVC indicative of volume overload. Resolved, now euvolemic Resume usual torsemide 20 mg daily - monitor I/O and weight, he'll likely need higher dose Continue metoprolol XL. Monitor BMP every few days Well enough for transfer to [facility] while awaiting placement # Atrial fibrillation with rapid ventricular rate Permanent AFib. Rate control improved with diuresis. Acceptable rates in 90s-100 past 24h Continue metoprolol and Xarelto. # Elevated high sensitivity troponin Mild elevation on presentation, now downtrending. Related to myocardial demand ischemia from hypoxia, heart failure exacerbation, and tachycardia. No rwma's on TTE # Possible CAUTI # Benign prostatic hyperplasia Urine culture with two species of Klebsiella. Both sensitive to CTX. Discussed with pharmacist, changed to cefuroxime 500 mg bid po Continue finasteride. Continue rockwell catheter # Acute metabolic encephalopathy - resolved, very [place], chronically poor short term memory consistent with dementia. Seems to be at baseline. # Sleep apnea Mouth breather so nasal pillow device will be ineffective. BiPAP attempts unsuccessful. Diagnostic plan: Conduct overnight oximetry study to determine need for nighttime oxygen. Treatment plan: Arrange nighttime oxygen if confirmed. # Anemia H & H levels at baseline. History of B12 deficiency, not currently on replacement. # Constipation Continue bowel regimen. DVT prophylaxis: Continue Xarelto PT/OT evaluations: recommending SNF rehab. Lives at [facility]. Can't take until Tuesday I updated his at bedside 05/16, 05/17, 05/18 Admission and Anticipated Discharge Date Admission Date: May 14, 2025 Subjective The patient consented to use of [employer], an AI based tool that will listen to our encounter and draft a clinical note based on our conversation. All notes will be reviewed and edited by me before entering them into the medical record. Reason for Admit: Heart failure exacerbation, UTI, and sleep apnea. Patient presents with heart failure exacerbation, UTI, and sleep apnea. No significant improvement in breathing. Using minimal oxygen intermittently. Leg swelling has subsided. Catheter replaced during ER visit. Mouth breather, not using oxygen at night. Significantly improved with respect to dyspnea and hypoxia almost resolved. Physical Exam 2 Physical Exam: General Appearance: Elderly, sitting up in chair Vital signs: Within normal limits. HEENT: Within normal limits. Respiratory: Right lung clear. Mild crackles in left base and mid field. Cardiovascular: Irregular rhythm, murmur at left lower sternal border. Gastrointestinal: Catheter producing clear yellow urine. Extremities: No significant edema, trace at ankles. Legs warm, well perfused. DP pulses 2+. Skin: Warm and dry, no rash. Neurological: Alert, forgetful Psychiatric: Normal. Results & Data Results & Data Vital Signs (Past 12 Hours) Vital Signs Temp Pulse Pulse Pulse Resp BP Pulse Ox 05/18/25 11:09 36.4 C L 104 H 158/94 H 91 05/18/25 09:00 05/18/25 08:00 05/18/25 05:40 107 H 05/18/25 03:55 36.5 C 102 H 18 134/89 92 Pulse Ox O2 Del Method O2 Del Method O2 Flow Rate O2 Flow Rate 05/18/25 11:09 Nasal Cannula 1 05/18/25 09:00 Nasal Cannula 1 05/18/25 08:00 94 Nasal Cannula 1 05/18/25 05:40 05/18/25 03:55 Nasal Cannula 3 Laboratory Results - Laboratory Studies: - Kidney function, electrolytes: Normal - Blood counts: Normal 05/16/25 10:02 05/18/25 06:54 PG Care Time/CCT Total # of Minutes Spent Total Time Spent with Patient: Total time spent is greater than 50% in coordination of care (as documented) at patient's floor/unit and/or counseling patient: Coding Level of Care Code 59797 SUB INP/OBS CARE 2MIN Diagnoses Acute on chronic respiratory failure with hypoxia and hypercapnia J96.21; J96.22 Acute on chronic heart failure with preserved ejection fraction (HFpEF) I50.33 Atrial fibrillation with RVR I48.91 Catheter-associated urinary tract infection T83.511A; N39.0 Elevated troponin R79.89 Pulmonary HTN I27.20
--- NOTE | 2025-05-19 17:38 | Hospitalist Progress Note ---
Date of Service May 19, 2025 Assessment & Plan (1) Acute on chronic respiratory failure with hypoxia and hypercapnia: (2) Acute on chronic heart failure with preserved ejection fraction (HFpEF): (3) Atrial fibrillation with RVR: (4) Catheter-associated urinary tract infection: (5) Elevated troponin: (6) Pulmonary HTN: Plan # Acute on chronic hypoxic and hypercarbic respiratory failure Hypoxia secondary to acute on chronic HFpEF. This is resolved. Has needed intermittent O2 from 0-2L while awake Acute on chronic hypercarbia related to untreated sleep apnea, exacerbated by acute conditions. Intolerant of CPAP/Bipap. Avoid overoxygenation, set O2 saturation goal to 88-92%. CO2 has been 85-95 which may be his baseline. Bicarb 40 on BMP today Avoid sedating medications, not on any currently or at home # Acute on chronic HFpEF Echocardiogram (05/15/2025) shows normal LV EF, mild concentric LVH, moderately dilated RV with moderately reduced RV systolic function, biatrial dilation, no aortic stenosis, mild to moderate MR, moderate TR, RVSP >60, severely dilated IVC indicative of volume overload. Resolved, now euvolemic Cont usual torsemide 20 mg daily - monitor I/O and weight, no change today Continue metoprolol XL. Monitor BMP every few days # Atrial fibrillation with rapid ventricular rate Permanent AFib. Rate control improved with diuresis. Acceptable rates in 90s-100 past 24h Continue metoprolol and Xarelto. # Elevated high sensitivity troponin Mild elevation on presentation, now downtrending. Related to myocardial demand ischemia from hypoxia, heart failure exacerbation, and tachycardia. No rwma's on TTE # Possible CAUTI # Benign prostatic hyperplasia Urine culture with two species of Klebsiella. Both sensitive to CTX. Discussed with pharmacist, changed to cefuroxime 500 mg bid po Continue finasteride. Continue rockwell catheter # Acute metabolic encephalopathy - resolved, very [place], chronically poor short term memory consistent with dementia. Seems to be at baseline. -check abg/vbg if somnolent # Sleep apnea Mouth breather so nasal pillow device will be ineffective. BiPAP attempts unsuccessful. Reviewed nocturnal oximetry report done on room air excepting after prolonged desat event of >9 minutes between 77-88%. Spent 41 minutes <89% Will benefit from 2L nocturnal O2 # Anemia H & H levels at baseline. History of B12 deficiency, not currently on replacement. # Constipation Continue bowel regimen. DVT prophylaxis: Continue Xarelto PT/OT evaluations: recommending SNF rehab. Lives at [facility]. Can't take until Tuesday I updated his at bedside 05/16, 05/17, 05/18 Admission and Anticipated Discharge Date Admission Date: May 14, 2025 Subjective Says he feels sleepy, no dyspnea or chest pain Physical Exam 2 Physical Exam: General Appearance: Elderly, sitting up in bed, frail appearing Vital signs: reviewed on/off room air vs 2L pnc HEENT: Within normal limits. Respiratory: minimal L base crackles ow clear, nonlabored Cardiovascular: Irregular rhythm, murmur at left lower sternal border. Gastrointestinal: Catheter producing clear yellow urine. Extremities: No significant edema, trace at ankles. Legs warm, well perfused. DP pulses 2+. Skin: Warm and dry, no rash. Neurological: Wakes to voice but sleepy, very poor historian/forgetful Psychiatric: Normal. Results & Data Results & Data Vital Signs (Past 12 Hours) Vital Signs Temp Pulse Resp BP Pulse Ox O2 Del Method O2 Flow Rate 05/19/25 14:55 36.5 C 88 14 120/71 96 Room Air 05/19/25 10:30 Nasal Cannula 2 05/19/25 07:55 36.4 C L 93 H 18 142/86 H 94 Room Air Laboratory Results 05/16/25 10:02 05/18/25 06:54 PG Care Time/CCT Total # of Minutes Spent Total Time Spent with Patient: Total time spent is greater than 50% in coordination of care (as documented) at patient's floor/unit and/or counseling patient: Coding Level of Care Code 07556 SUB INP/OBS CARE 2/35MIN Diagnoses Acute on chronic respiratory failure with hypoxia and hypercapnia J96.21; J96.22 Acute on chronic heart failure with preserved ejection fraction (HFpEF) I50.33 Atrial fibrillation with RVR I48.91 Catheter-associated urinary tract infection T83.511A; N39.0 Elevated troponin R79.89 Pulmonary HTN I27.20
--- NOTE | 2025-05-20 17:47 | Hospitalist Progress Note ---
Date of Service May 20, 2025 Assessment & Plan (1) Acute on chronic respiratory failure with hypoxia and hypercapnia: (2) Acute on chronic heart failure with preserved ejection fraction (HFpEF): (3) Atrial fibrillation with RVR: (4) Catheter-associated urinary tract infection: (5) Elevated troponin: (6) Pulmonary HTN: Plan 85 y/o man with dementia, untreated sleep apnea, HFpEF and right heart failure, afib admitted with acute on chronic hypoxic and hypercapnic respiratory failure from heart failure exacerbation Now resolved and awaiting placement # Acute on chronic hypoxic and hypercarbic respiratory failure Hypoxia secondary to acute on chronic HFpEF. This is resolved. Has needed intermittent O2 from 0-2L while awake Acute on chronic hypercarbia related to untreated sleep apnea, exacerbated by acute conditions. Intolerant of CPAP/Bipap. Avoid overoxygenation, set O2 saturation goal to 88-92%. CO2 has been 85-95 which may be his baseline. Avoid sedating medications, not on any currently or at home # Acute on chronic HFpEF Echocardiogram (05/15/2025) shows normal LV EF, mild concentric LVH, moderately dilated RV with moderately reduced RV systolic function, biatrial dilation, no aortic stenosis, mild to moderate MR, moderate TR, RVSP >60, severely dilated IVC indicative of volume overload. Resolved, now euvolemic Cont usual torsemide 20 mg daily - monitor I/O and weight, having good UOP on this dose Continue metoprolol XL. BMP in am # Atrial fibrillation with rapid ventricular rate Permanent AFib. Rate control improved with diuresis. Acceptable rates in 80s-90s past 24h Continue metoprolol and Xarelto. # Elevated high sensitivity troponin Mild elevation on presentation, now downtrending. Related to myocardial demand ischemia from hypoxia, heart failure exacerbation, and tachycardia. No rwma's on TTE # Possible CAUTI # Benign prostatic hyperplasia Urine culture with two species of Klebsiella. Both sensitive to CTX. Discussed with pharmacist, changed to cefuroxime 500 mg bid po. had a gap in abx. will do 5 more days. Continue finasteride. Continue rockwell catheter # Acute metabolic encephalopathy - resolved, very [place], chronically poor short term memory consistent with dementia. Seems to be at baseline. -check abg/vbg if somnolent # Sleep apnea Mouth breather so nasal pillow device will be ineffective. BiPAP attempts unsuccessful. nocturnal oximetry report done on room air (excepting after prolonged desat event of >9 minutes between 77-88%). Spent 41 minutes <89% Will benefit from 2L nocturnal O2 # Anemia H & H levels at baseline. History of B12 deficiency, not currently on replacement. # Constipation Continue bowel regimen. DVT prophylaxis: Continue Xarelto PT/OT evaluations: recommending SNF rehab. Lives at [facility]. discussed with care jackie, auth pending I updated his at bedside 05/16, 05/17, 05/18 Admission and Anticipated Discharge Date Admission Date: May 14, 2025 Subjective Feeling fine, no shortness of breath, no pain Pleasantly confused Physical Exam 2 Physical Exam: General Appearance: Elderly, sitting up in bed, frail appearing Vital signs: sats ok, room air to 3L HEENT: Within normal limits. Respiratory: normal WOB, CTAB Cardiovascular: Irregular rhythm, murmur at left lower sternal border. Gastrointestinal: Catheter producing clear yellow urine. Extremities: No edema. Legs warm, well perfused. DP pulses 2+. Skin: Warm and dry, no rash. Neurological: Awake and alert, very poor historian/forgetful Psychiatric: Normal. Results & Data Results & Data Vital Signs (Past 12 Hours) Vital Signs Temp Pulse Resp BP BP Pulse Ox Pulse Ox 05/20/25 14:43 36.5 C 92 H 18 116/84 05/20/25 08:10 36.4 C L 89 18 118/71 92 05/20/25 08:00 97 05/20/25 07:20 36.4 C L 87 18 135/81 99 O2 Del Method O2 Del Method O2 Flow Rate O2 Flow Rate 05/20/25 14:43 Nasal Cannula 3 05/20/25 08:10 Nasal Cannula 2 05/20/25 08:00 Nasal Cannula 2 05/20/25 07:20 Nasal Cannula 2 Laboratory Results 05/16/25 10:02 05/18/25 06:54 PG Care Time/CCT Total # of Minutes Spent Total Time Spent with Patient: Total time spent is greater than 50% in coordination of care (as documented) at patient's floor/unit and/or counseling patient: Coding Level of Care Code 21572 SUB INP/OBS CARE 2/35MIN Diagnoses Acute on chronic respiratory failure with hypoxia and hypercapnia J96.21; J96.22 Acute on chronic heart failure with preserved ejection fraction (HFpEF) I50.33 Atrial fibrillation with RVR I48.91 Catheter-associated urinary tract infection T83.511A; N39.0 Elevated troponin R79.89 Pulmonary HTN I27.20
[2025-05-21 07:29] LABS: Anion Gap 1.0 (3-11); Blood Urea Nitrogen 14.0 mg/dl (6-23); Calcium 9.1 mg/dl (8.6-10.3); Carbon Dioxide 44.0 mmol/L (21-32); Chloride 87.0 mmol/L (98-107); Creatinine Clr Calc Pharmacy 115.9 ml/min; Glucose 87.0 mg/dl (70-99(Fasting)); Potassium 4.2 mmol/L (3.5-5.1); Sodium 132.0 mmol/L (136-145)
[2025-05-21 08:15] VITALS: BP 125/76; PULSE 90; RESP 16; TEMP 98.1; O2SAT 98
--- NOTE | 2025-05-21 13:55 | Discharge Summary ---
Discharge Summary Date of Service May 21, 2025 Principal Dx & Hospital Course #1 = Principal Diagnosis (1) Acute on chronic respiratory failure with hypoxia and hypercapnia: (2) Acute on chronic heart failure with preserved ejection fraction (HFpEF): (3) Atrial fibrillation with RVR: (4) Catheter-associated urinary tract infection: (5) Elevated troponin: (6) Pulmonary HTN: Plan 85 y/o man with dementia, untreated sleep apnea, HFpEF and right heart failure, afib admitted with acute on chronic hypoxic and hypercapnic respiratory failure from heart failure exacerbation, CAUTI Diuresed and treated with antibiotics. Acute issues resolved. Chronic respiratory failure is severe - appears to be severely hypercapnic at baseline and intolerant of noninvasive ventilation. # Acute on chronic hypoxic and hypercarbic respiratory failure Hypoxia secondary to acute on chronic HFpEF. This is resolved. Has needed intermittent O2 from 0-2L while awake Acute on chronic hypercarbia related to untreated sleep apnea, exacerbated by acute conditions. Intolerant of CPAP/Bipap. Avoid overoxygenation, set O2 saturation goal to 88-92%. CO2 has been 85-95 which may be his baseline. Avoid sedating medications, reduced melatonin from 6-->3 PRN, stop if possible # Acute on chronic HFpEF Echocardiogram (05/15/2025) shows normal LV EF, mild concentric LVH, moderately dilated RV with moderately reduced RV systolic function, biatrial dilation, no aortic stenosis, mild to moderate MR, moderate TR, RVSP >60, severely dilated IVC indicative of volume overload. -left base and mid field crackles persist and did not respond to diuresis Resolved, now euvolemic Cont torsemide 20 mg daily - monitor weight/edema Continue metoprolol XL. BMP in 1 week # Hyponatremia - sodium was normal last week now downtrending again. Chronic and asymptomatic Resuming salt tabs. BMP in one week # Atrial fibrillation with rapid ventricular rate Permanent AFib. Rate control improved with diuresis. Acceptable rates in 80s-90s past 24h Continue metoprolol and Xarelto. # Elevated high sensitivity troponin Mild elevation on presentation, downtrended. Related to myocardial demand ischemia from hypoxia, heart failure exacerbation, and tachycardia. No rwma's on TTE # Possible CAUTI # Benign prostatic hyperplasia Urine culture with two species of Klebsiella. Treated with ceftriaxone --> cefuroxime po. Continue finasteride. Continue rockwell catheter # Acute metabolic encephalopathy on top of significant dementia - hypercapnia plus infection - resolved, very PALA, chronically poor short term memory consistent with dementia. Seems to be at baseline. -check abg/vbg if somnolent # Sleep apnea Mouth breather so nasal pillow device will be ineffective. BiPAP attempts unsuccessful. nocturnal oximetry report done on room air (excepting after prolonged desat event of >9 minutes between 77-88%). Spent 41 minutes <89% Will benefit from 2L nocturnal O2 # Anemia H & H levels at baseline. History of B12 deficiency, not currently on replacement. # Constipation Continue bowel regimen. Admission HPI Per Admitting Provider 85-year-old male PMHx HFpEF, A-fib on Xarelto, chronic Rockwell with history of UTI, pulmonary HTN, esophagitis, and vitamin B12 deficiency presenting from SNF after being difficult to arouse and complaining of weakness. History is limited as patient is a poor historian. States that he feels "okay" at bedside. Reports coughing and feeling weak, unable to determine for how long. Family was concerned that the patient was developing pneumonia given his cough that sounded productive in nature. Patient denies any pain or concerns at time of admission. Phone call with patient's SNF reveals that the patient was feeling weak and lethargic day of arrival. Staff reports that he "generally just did not look good" and decided to send him to ED to be evaluated. Again, he is denying any pain, concerns, or symptoms. ED evaluation with CBC leukopenia 4.43, RBC 3.77, H&H 11.7/38.4; PT/INR 17.7/1.7; CMP chloride 94, CO2 43, BUN 34, ratio 41; troponin 217, pending repeat; Pro-Ramon 0.02; TSH 1.532; UA positive for infection; BioFire negative; CXR heart and pulmonary arterial structures enlarged, small bilateral pleural effusions, streaky bibasilar atelectasis, no PTX; EKG A-fib with RVR and premature ventricular or aberrantly conducted complexes with rightward axis, pulmonary disease pattern, and incomplete RBBB as well as ST and T wave abnormality in cheerier lateral leads at [address] Isabel's attestation for adjustments/additions to treatment plan. Discharge Exam General Appearance: Normal. Vital signs: Within normal limits. HEENT: Within normal limits. Respiratory: Clear to auscultation bilaterally anteriorly. Posteriorly, right lung clear, left lung crackles at base and mid field, unchanged. Cardiovascular: Regular heart sounds with gallop, unchanged slight systolic murmur. Gastrointestinal: Soft, nontender, nondistended, active bowel sounds. Extremities: No leg edema. Skin: Warm and dry, no rash. Neurological: Normal. Psychiatric: Normal. Discharge Plan Discharge Items Patient Disposition: Transfer Long-Term Fac Reason For Visit: WEAKNESS, UTI, TROP Discharge Diagnosis: Acute on chronic HFpEF, CAUTI Condition on Discharge: Fair Activity: Resume your previous activity Non-emergency contact: Primary Care Provider Call non-emergency contact if: you have any medication questions and your symptoms worsen Follow-up/Referrals: Gabriela Olmedo at [facility] [Primary Care Provider] - Diet: Low Sodium (2gm) Addtl Attending Provider Instructions: Was extremely volume overloaded on admission. Home dose of torsemide increased from 10-->20 mg a week prior to admission. Unsure about compliance with oral torsemide and diet, however, has maintained euvolemic on torsemide 20 mg daily for past several days, so continuing same dose. Resuming usual salt tabs weight 3x a week, monitor edema, adjust diuretic accordingly BMP in 5-7 days PT and OT eval and treat Chronic rockwell catheter x years, last changed this admission Sleep apnea intolerant of CPAP/Bipap. Per overnight oximetry study should have 2L O2 pnc while sleeping. Daytime titrate to 88-92% Severe chronic hypercapnea, avoid over-oxygenation Pending Studies at Discharge: No Stand-Alone Forms: My [facility] Skilled Items Patient informed of condition?: Yes DNR: No Discharge Level of Care: Skilled Communicable Disease: No Discharge Prognosis: Improving Lines: None Urinary Catheter: Yes Medications and DC Order Prescriptions: New cefuroxime axetil 500 mg Tablet 500 mg PO BID Qty: 0 0RF torsemide 20 mg Tablet 20 mg PO QAM Qty: 0 0RF melatonin 3 mg Tablet 3 mg PO HS PRN (Reason: sleep) Qty: 0 0RF Continued acetaminophen 325 mg capsule 650 mg PO Q4H PRN (Reason: PAIN/FEVER >100F) cholecalciferol (vitamin D3) 25 mcg (1,000 unit) capsule 25 mcg PO QAM metoprolol succinate 25 mg tablet extended release 24 hr 25 mg PO QAM loratadine [Claritin] 10 mg tablet 10 mg PO DAILY PRN (Reason: Congestion) magnesium oxide 400 mg (241.3 mg magnesium) Tablet 400 mg PO QAM Qty: 0 0RF sennosides [Senokot] 8.6 mg Tablet 17.2 mg PO QAM Qty: 0 0RF ammonium lactate 12 % Cream 1 applic TOPICAL Q12H PRN (Reason: XEROSIS) fluoride (sodium) [PreviDent 5000 Plus] 1.1 % Cream 1 applic DENTAL HS diclofenac sodium 1 % Gel 4 g TOPICAL Q12H PRN (Reason: RIGHT KNEE/BACK PAIN) Xarelto 20 mg Tablet 20 mg PO HS Rx Instructions: must administer with evening meal psyllium husk [Metamucil] 0.4 gram Capsule 0.4 g PO BID polyethylene glycol 3350 [Miralax] 17 gram powder in packet 17 g PO Q12H PRN (Reason: constipation) docusate sodium 100 mg capsule 100 mg PO Q12H PRN (Reason: constipation) sodium chloride 1,000 mg Tablet,Soluble 1,000 mg PO BID Qty: 60 0RF finasteride 5 mg tablet 5 mg PO HS menthol-zinc oxide [Calmoseptine] 0.44-20.6 % Ointment 1 applic TOPICAL DIRECTED PRN (Reason: EXCORIATION) thiamine HCl (vitamin B1) 100 mg tablet 100 mg PO QAM Discontinued melatonin 3 mg Tablet 6 mg PO HS torsemide 10 mg tablet 20 mg PO DAILY Rx Instructions: STARTED 05/11/25 FOR 5 DAYS, ENDS 05/16/25, THEN RETURN TO 10 MG DAILY. Discharge Orders: Discharge Order (Routine); Ordered 05/21/25 Ordered By: Patricia Ingram Admission Data Admit Date/Time: 05/14/25 21:34 Attending Provider: Patricia Ingram Admit Provider: Kalie Isabel Primary Care Provider: Gabriela Olmedo [facility] Other Providers: Kalie Isabel Hospital Stay Data Consultations 05/14/25 20:54 ED Decision to Admit Stat Pending Results Patient Have Any Pending Studies at Discharge: No Discharge Instructions Given to Patient (Per Discharging Provider) Was extremely volume overloaded on admission. Home dose of torsemide increased from 10-->20 mg a week prior to admission. Unsure about compliance with oral torsemide and diet, however, has maintained euvolemic on torsemide 20 mg daily for past several days, so continuing same dose. Resuming usual salt tabs weight 3x a week, monitor edema, adjust diuretic accordingly BMP in 5-7 days PT and OT eval and treat Chronic rockwell catheter x years, last changed this admission Sleep apnea intolerant of CPAP/Bipap. Per overnight oximetry study should have 2L O2 pnc while sleeping. Daytime titrate to 88-92% Severe chronic hypercapnea, avoid over-oxygenation Total Time Total Time Spent Total Time Spent (In Minutes): I personally spent: 40 minutes today on clinical care activities including: reviewing chart notes and vital signs discussion with child caregiver private home examining and counseling the patient writing orders writing prescriptions, discharge instructions documentation Coding Level of Care Code 42728 INP/OBS DISCH >30 MIN Diagnoses Acute on chronic respiratory failure with hypoxia and hypercapnia J96.21; J96.22 Acute on chronic heart failure with preserved ejection fraction (HFpEF) I50.33 Atrial fibrillation with RVR I48.91 Catheter-associated urinary tract infection T83.511A; N39.0 Elevated troponin R79.89 Pulmonary HTN I27.20
== END 2025-05-21 14:44 | DRG 291 ==
LOC: ED 18:57 → 2S 21:34 → SUATTDRO 21:34 → 2S 23:38 → 3E 05-18 18:38